=== PATIENT | female | born 1940 | race Caucasian/White ===

== ENCOUNTER → 2017-06-20 08:22 | Outpatient (CLI) | payer OTHER, MEDICARE, MEDICAID, SELFPAY ==
--- NOTE | 2017-06-20 08:27 | CA_ITS ---
PROCEDURE: 2-D M-mode and color Doppler study INDICATIONS FOR THE TEST: Chest pain COPDX Heart Murmur Tobacco Smoking Palpitations Fatigue Syncope Edema HypertensionXDiabetes Mellitus Rheumatic Fever SOBXDOEXObesityXHyperlipidemia Family History HD Additional History AF,PACER PATIENT INFORMATION HEIGHT: 72 WEIGHT:250 GENDER: Female B/P:122/52 2-D/M-MODE INTERPRETATION: 2-D MEASUREMENTS OBSERVED VALUES IN CMS Right Ventricular Dimension (RVDd) 2.6 Interventricular Septum (Thickness)(IVsd) 1.1 Left Ventricular Internal Dimensions(LVIDd) 5.0 Left Ventricular Posterior Wall (Thickness)(LVPWd) 1.0 Aortic Root 3.5 Aortic Cusp Separation 2.1 Left Atrial Dimensions (LAD) 3.4 2D 1. Left atrium is mildly enlarged, left ventricle is normal size, left ventricle wall thickness is upper limit of normal, there is preserved left ventricular systolic function, visually estimated ejection fraction of 65% with no obvious regional wall motion abnormality. 2. The right atrium and right ventricle are normal size and contractility, there is a pacemaker lead seen in the right atrium and right ventricle. 3. The aortic valve is minimally thickened and fibrosed. 4. The mitral valve has mitral annular calcification, there is no mitral stenosis 5. The tricuspid valve is structurally normal. 6. No significant pericardial effusion noted 7. The pulmonic valve is poorly visualized. DOPPLER INTERROGATION: Doppler interrogation of the aortic, mitral and tricuspid valvular presence of mild mitral and tricuspid regurgitation, tricuspid regurgitant jet velocity is insufficient for calculation of the right ventricular systolic pressure, grade 1 diastolic dysfunction seen without tissue Doppler evidence of raised left atrial pressure. CONCLUSION: 1. Mildly enlarged left atrium, normal left ventricular size, visually estimated ejection fraction 55% with no obvious regional wall motion abnormality, grade 1 diastolic dysfunction seen without tissue Doppler evidence of raised left atrial pressure. 2. Mild mitral and tricuspid regurgitation 4. No significant pericardial effusion noted.
--- NOTE | 2017-06-20 08:29 | XR_ITS ---
XR chest 2V HISTORY: ITS.REASON: cough, dyspnea ORDERING PHYSICIAN: Denver Cummins MD PATIENT AGE: 76 years COMPARISON: 02/02/2017 FINDINGS: Cardiac pacemaker device remains in place. Mild cardiomegaly without failure. COPD/emphysema present with chronic changes in the lung bases. Increased markings are present in the lung base posteriorly however this is probably related to interstitial and vascular crowding from the emphysematous changes in the upper lobes have an a similar appearance on previous exams. No lobar consolidation or collapse. There is minimal atelectatic or fibrotic change in the left lower lobe. No acute bony anomalies. IMPRESSION: COPD/emphysema with chronic changes, mild left basilar atelectasis
[2017-06-20 09:33] LABS: Anion Gap 11.6 mEq/L (5-15); Blood Urea Nitrogen 9 mg/dL (7-18); Carbon Dioxide 30 mmol/L (21.0-32.0); Chloride 104 mmol/L (98-107); Creatinine,Serum 1.19 mg/dL (0.55-1.02); Estimated Glomerular Filt Rate 44 ml/min (>60); GFR (African American) 53 ML/MIN (>60); Glucose 118 mg/dL (74-106); Potassium 3.6 mmoL/L (3.5-5.1); Sodium 142 mmol/L (136-145)
== END ==
PROVIDERS: Family Provider Family Medicine; PCP Internal Medicine Adolescent Medicine; Visit Provider Internal Medicine
DX: I42.1 Obstructive hypertrophic cardiomyopathy (principal); I48.0 Paroxysmal atrial fibrillation; Z95.0 Presence of cardiac pacemaker; J44.9 Chronic obstructive pulmonary disease, unspecified; I10 Essential (primary) hypertension; R06.02 Shortness of breath; R06.01 Orthopnea; R05 Cough; R60.9 Edema, unspecified
CPT/HCPCS: 36415; 71046; 80048; 83880; 93306

== ENCOUNTER → 2017-06-27 09:19 | Outpatient (CLI) | payer OTHER, MEDICARE, MEDICAID, SELFPAY ==
[2017-06-27 09:47] LABS: Anion Gap 14.1 mEq/L (5-15); Blood Urea Nitrogen 13 mg/dL (7-18); Carbon Dioxide 28 mmol/L (21.0-32.0); Chloride 101 mmol/L (98-107); Creatinine,Serum 1.28 mg/dL (0.55-1.02); Estimated Glomerular Filt Rate 40 ml/min (>60); GFR (African American) 49 ML/MIN (>60); Glucose 122 mg/dL (74-106); Potassium 4.1 mmoL/L (3.5-5.1); Sodium 139 mmol/L (136-145)
== END ==
PROVIDERS: Visit Provider Internal Medicine Cardiovascular Disease
DX: I42.1 Obstructive hypertrophic cardiomyopathy (principal); Z99.81 Dependence on supplemental oxygen; R94.31 Abnormal electrocardiogram [ECG] [EKG]; I48.0 Paroxysmal atrial fibrillation; Z95.0 Presence of cardiac pacemaker; J44.9 Chronic obstructive pulmonary disease, unspecified; I10 Essential (primary) hypertension; R06.02 Shortness of breath
CPT/HCPCS: 36415; 80048

== ENCOUNTER → 2017-07-04 14:09 | Outpatient (CLI) | payer OTHER, MEDICARE, MEDICAID, SELFPAY ==
[2017-07-04 14:15] LABS: Microscopic, Urine URINE MICROSCOPIC (MICROSCOPIC)
[2017-07-04 14:36] LABS: Appearance,Urine CLEAR (Clear); Bilirubin,Urine Negative (Negative); Blood, Urine TRACE-L (Negative); Color,Urine YELLOW (Yellow); Glucose,Urine (UA) Negative (Negative); Ketones,Urine Negative (Negative); Leukocyte Esterase,Urine 1+ (Negative); Nitrate,Urine Negative (Negative); PH,Urine 5.5 (5.0-8.5); Protein,Urine Negative (Negative); Urobilinogen,Urine 0.2 EU/dl (0.2)
[2017-07-04 15:04] LABS: WBC,Urine 20-50 #/hpf (0-3)
[2017-07-04 15:05] LABS: Bacteria,Urine Trace /lpf
== END ==
PROVIDERS: Visit Provider Internal Medicine Cardiovascular Disease
DX: R30.0 Dysuria (principal); I11.9 Hypertensive heart disease without heart failure; Z95.0 Presence of cardiac pacemaker; J44.9 Chronic obstructive pulmonary disease, unspecified
CPT/HCPCS: 81001; 87086

== ENCOUNTER → 2017-07-11 10:55 | Outpatient (CLI) | payer OTHER, MEDICARE, MEDICAID, SELFPAY ==
--- NOTE | 2017-07-11 11:05 | XR_ITS ---
XR KUB CLINICAL INDICATION: ITS.REASON: LOWER ABD PAIN,CHRONIC DIARRHEA ORDERING PHYSICIAN: Britt Bedolla PATIENT AGE: 77 years COMPARISON: None FINDINGS: There is a nonspecific nonobstructive bowel gas pattern. There are surgical clips in right upper quadrant. No obvious urolithiasis or acute bony anomalies. IMPRESSION: Nonspecific nonacute findings
[2017-07-11 12:34] LABS: Basophils # 0.1 K/mm3 (0-0.2); Basophils % 0.6 % (0.1-2.0); Eosinophils # 0.2 K/mm3 (0.0-0.4); Eosinophils % 1.9 % (0.1-12.0); Hematocrit 40.6 % (37.0-47.0); Hemoglobin 12.5 g/dL (12.2-16.2); Lymphocytes # 2.1 K/mm3 (0.7-4.5); Lymphocytes % 21.7 K/mm3 (10-50); Mean Corpuscular HGB Conc 30.8 g/dL (31.8-35.4); Mean Corpuscular Hemoglobin 28.1 pg (27.0-31.2); Mean Corpuscular Volume 91.3 fl (81-99); Mean Platelet Volume 8.8 fl (7.4-10.4); Monocytes # 0.5 K/mm3 (0.1-1.0); Monocytes % 5.4 % (1.7-9.3); Neutrophils # 6.8 K/mm3 (1.8-7.8); Neutrophils % 70.5 % (37.0-80.0); Platelet Count 266 K/mm3 (142-424); Red Blood Count 4.45 M/mm3 (4.20-5.40); White Blood Count 9.6 K/mm3 (4.8-10.8)
[2017-07-11 13:09] LABS: Hemoglobin A1C 5.7 % (0.0-7.0)
[2017-07-11 13:12] LABS: Alanine Aminotransferase 18 U/L (12-78); Albumin Level 3.8 gm/dL (3.4-5.0); Albumin/Globulin Ratio 1.1 (1.1-1.8); Alkaline Phosphatase 102 U/L (46-116); Anion Gap 14.4 mEq/L (5-15); Bilirubin,Total 0.2 mg/dL (0.2-1.0); Blood Urea Nitrogen 13 mg/dL (7-18); Calcium 8.9 mg/dL (8.5-10.1); Carbon Dioxide 26 mmol/L (21.0-32.0); Chloride 100 mmol/L (98-107); Creatinine,Serum 1.28 mg/dL (0.55-1.02); Estimated Glomerular Filt Rate 40 ml/min (>60); GFR (African American) 49 ML/MIN (>60); Globulin 3.4 gm/dl (1.3-3.2); Glucose 115 mg/dL (74-106); Sodium 136 mmol/L (136-145); Thyroid Stimulating Hormone 1.81 uIU/ml (0.358-3.740); Total Protein,Serum 7.2 gm/dL (6.4-8.2)
[2017-07-11 13:14] LABS: Potassium 4.4 mmoL/L (3.5-5.1)
[2017-07-11 13:15] LABS: Aspartate Amino Transferase 23 U/L (15-37)
== END ==
PROVIDERS: PCP Internal Medicine Adolescent Medicine; Visit Provider Nurse Practitioner Family
DX: R10.30 Lower abdominal pain, unspecified (principal); R73.03 Prediabetes; E03.9 Hypothyroidism, unspecified; K52.9 Noninfective gastroenteritis and colitis, unspecified
CPT/HCPCS: 36415; 74018; 80053; 83036; 84443; 85025

== ENCOUNTER → 2017-07-29 09:46 | Outpatient (POV) | payer OTHER, MEDICARE, MEDICAID, SELFPAY | PROVIDERS: Visit Provider Nurse Practitioner Acute Care | DX: Z00.00 Encounter for general adult medical examination without abnormal findings (principal) ==

== ENCOUNTER → 2017-07-31 18:05 | Outpatient (REF) | payer OTHER, MEDICARE, MEDICAID, SELFPAY ==
[2017-07-31 18:09] LABS: Adenovirus F 40/41, stool Not Detected (NotDetected); Astrovirus Not Detected (NotDetected); Campylobacter Not Detected (NotDetected); Clostridium Difficile A/B, PCR Not Detected (NotDetected); Cryptosporidium Not Detected (NotDetected); Cyclospora Cayetanesis Not Detected (NotDetected); Entamoeba histolytica Not Detected (NotDetected); Enteroaggregative E coli Not Detected (NotDetected); Enteropathogenic E coli Not Detected (NotDetected); Enterotoxigenic E coli Not Detected (NotDetected); Giardia lamblia Not Detected (NotDetected); Norovirus Not Detected (NotDetected); Plesimonas Shigalloides, PCR Not Detected (NotDetected); Rotavirus A Not Detected (NotDetected); Salmonella, PCR Not Detected (NotDetected); Sapovirus Not Detected (NotDetected); Shiga-like toxin E coli Not Detected (NotDetected); Shigella Enterovasive E coli Not Detected (NotDetected); Vibrio Cholerae Not Detected (NotDetected); Vibrio, PCR Not Detected (NotDetected); Yersinia Entercolitica, PCR Not Detected (NotDetected)
[2017-08-04 18:50] LABS: H. pylori Stool Ag, EIA Negative (Negative)
== END ==
LOC: LAB 18:05
PROVIDERS: Visit Provider Nurse Practitioner Acute Care
DX: R19.7 Diarrhea, unspecified (principal)
CPT/HCPCS: 83630; 87338; 87507

== ENCOUNTER → 2017-08-20 13:16 | Outpatient (POV) | payer OTHER, MEDICARE, MEDICAID, SELFPAY | PROVIDERS: Family Provider Family Medicine; Visit Provider Internal Medicine | DX: Z00.00 Encounter for general adult medical examination without abnormal findings (principal) ==

== ENCOUNTER → 2017-09-23 10:13 | Outpatient (POV) | payer OTHER, MEDICARE, MEDICAID, SELFPAY ==
[2017-09-23 14:12] LABS: Alanine Aminotransferase 13 U/L (12-78); Albumin Level 3.3 gm/dL (3.4-5.0); Albumin/Globulin Ratio 0.9 (1.1-1.8); Alkaline Phosphatase 105 U/L (46-116); Anion Gap 12.3 mEq/L (5-15); Aspartate Amino Transferase 13 U/L (15-37); Bilirubin,Total 0.2 mg/dL (0.2-1.0); Blood Urea Nitrogen 12 mg/dL (7-18); Calcium 9.2 mg/dL (8.5-10.1); Carbon Dioxide 28 mmol/L (21.0-32.0); Chloride 103 mmol/L (98-107); Creatinine,Serum 1.28 mg/dL (0.55-1.02); Estimated Glomerular Filt Rate 40 ml/min (>60); GFR (African American) 49 ML/MIN (>60); Globulin 3.5 gm/dl (1.3-3.2); Glucose 152 mg/dL (74-106); Potassium 4.3 mmoL/L (3.5-5.1); Sodium 139 mmol/L (136-145); Total Protein,Serum 6.8 gm/dL (6.4-8.2)
== END ==
PROVIDERS: Visit Provider Nurse Practitioner Acute Care
DX: R10.32 Left lower quadrant pain (principal)
CPT/HCPCS: 36415; 80053

== ENCOUNTER → 2017-10-01 08:43 | Outpatient (CLI) | payer MEDICARE, MEDICAID, OTHER, SELFPAY ==
--- NOTE | 2017-10-01 09:29 | CT_ITS ---
CT abdomen pelvis w con CLINICAL INDICATION: ITS.REASON: DIVERTICULITIS ORDERING PHYSICIAN: Veronica Craig PATIENT AGE: 77 years COMPARISON: None TECHNIQUE: Axial images obtained with sagittal and coronal reformats. All CT scans at the facility use one or more dose reduction, viz: automated exposure control; ma/kV adjustment per patient size (including targeted exams where dose is matched to indication; i.e. head); or iterative reconstruction technique. PROCEDURE: Oral Contrast: Redicat IV Contrast: 75 mL's of Isovue-370. FINDINGS: Emphysematous changes are present in the lung bases with centrilobular and panlobular emphysema. Atelectatic or fibrotic changes are present in the right middle lobe. Prior cholecystectomy without ductal dilatation. No focal liver lesion. There is a round isodense lesion in the inferior aspect of the spleen measuring 2.5 cm. This does demonstrate some minimal peripheral enhancement along the superior posterior wall. The adrenal glands are unremarkable. There is an oval area of isodensity in the head of the pancreas measuring 10 x 15 mm. This measures near water density. No renal or ureteral calculi. 17 mm isodensity involving the right kidney anteriorly consistent with a renal cyst. Unremarkable appendix. Diverticulosis involving the descending and sigmoid colon. No evidence of diverticulitis. No pelvic mass or abnormal fluid collection or focal inflammatory changes. No evidence of abscess. No intestinal obstruction or free air. Degenerative changes are present in the lumbar spine. IMPRESSION: 1. Diverticulosis coli. No evidence of diverticulitis. 2. Isodense splenic lesion probably benign. There is some minimal peripheral enhancement. Hemangioma or lymphangioma or splenic cyst considered. 3. Small cystic lesion of the pancreatic head. This could be due to a pseudocyst or a mucinous cystic neoplasm of the pancreas. Follow-up may confirm stability
== END ==
PROVIDERS: Family Provider Family Medicine; PCP Internal Medicine Adolescent Medicine; Visit Provider Nurse Practitioner Acute Care
DX: K57.32 Diverticulitis of large intestine without perforation or abscess without bleeding (principal)
CPT/HCPCS: 74177; Q9967

== ENCOUNTER → 2017-10-10 11:08 | Outpatient (CLI) | payer OTHER, MEDICARE, MEDICAID, SELFPAY ==
[2017-10-10 12:50] LABS: Alanine Aminotransferase 5 U/L (12-78); Albumin Level 3.5 gm/dL (3.4-5.0); Albumin/Globulin Ratio 1.1 (1.1-1.8); Alkaline Phosphatase 98 U/L (46-116); Amylase 44 U/L (25-125); Anion Gap 14.7 mEq/L (5-15); Aspartate Amino Transferase 15 U/L (15-37); Bilirubin,Total 0.4 mg/dL (0.2-1.0); Blood Urea Nitrogen 14 mg/dL (7-18); Calcium 8.9 mg/dL (8.5-10.1); Carbon Dioxide 28 mmol/L (21.0-32.0); Chloride 102 mmol/L (98-107); Creatinine,Serum 1.28 mg/dL (0.55-1.02); Estimated Glomerular Filt Rate 40 ml/min (>60); GFR (African American) 49 ML/MIN (>60); Globulin 3.2 gm/dl (1.3-3.2); Glucose 112 mg/dL (74-106); Lipase 136 u/L (73-393); Potassium 4.7 mmoL/L (3.5-5.1); Sodium 140 mmol/L (136-145); Total Protein,Serum 6.7 gm/dL (6.4-8.2)
[2017-10-10 13:01] LABS: Basophils % 0.4 % (0.1-2.0); Eosinophils # 0.1 K/mm3 (0.0-0.4); Eosinophils % 1.4 % (0.1-12.0); Hematocrit 39.4 % (37.0-47.0); Hemoglobin 11.9 g/dL (12.2-16.2); Lymphocytes # 1.7 K/mm3 (0.7-4.5); Lymphocytes % 17.5 K/mm3 (10-50); Mean Corpuscular HGB Conc 30.2 g/dL (31.8-35.4); Mean Corpuscular Hemoglobin 26.5 pg (27.0-31.2); Mean Platelet Volume 8.7 fl (7.4-10.4); Monocytes # 0.6 K/mm3 (0.1-1.0); Monocytes % 6.2 % (1.7-9.3); Neutrophils # 7.3 K/mm3 (1.8-7.8); Neutrophils % 74.5 % (37.0-80.0); Platelet Count 292 K/mm3 (142-424); Red Blood Count 4.47 M/mm3 (4.20-5.40); Red Cell Distribution Width 14.6 % (11.5-17.5); White Blood Count 9.8 K/mm3 (4.8-10.8)
[2017-10-11 15:39] LABS: CA 19-9 6 U/mL (0-35); CEA 2.1 ng/mL (0.0-4.7)
== END ==
PROVIDERS: Visit Provider Nurse Practitioner Acute Care
DX: R10.32 Left lower quadrant pain (principal)
CPT/HCPCS: 36415; 80053; 82150; 82378; 83690; 85025; 86316

== ENCOUNTER → 2017-10-14 10:11 | Outpatient (POV) | payer MEDICARE, MEDICAID, OTHER, SELFPAY | PROVIDERS: Visit Provider Nurse Practitioner Acute Care | DX: Z00.00 Encounter for general adult medical examination without abnormal findings (principal) ==

== ENCOUNTER → 2017-11-27 12:05 | Outpatient (CLI) | payer OTHER, MEDICARE, MEDICAID, SELFPAY ==
[2017-11-27 13:05] LABS: Anion Gap 14.9 mEq/L (5-15); Blood Urea Nitrogen 13 mg/dL (7-18); Calcium 9.1 mg/dL (8.5-10.1); Carbon Dioxide 29 mmol/L (21.0-32.0); Chloride 103 mmol/L (98-107); Creatinine,Serum 1.22 mg/dL (0.55-1.02); Estimated Glomerular Filt Rate 43 ml/min (>60); GFR (African American) 52 ML/MIN (>60); Glucose 107 mg/dL (74-106); Potassium 4.9 mmoL/L (3.5-5.1); Sodium 142 mmol/L (136-145)
== END ==
PROVIDERS: Family Provider Family Medicine; PCP Internal Medicine Adolescent Medicine; Visit Provider Physician Assistant
DX: R06.02 Shortness of breath (principal); I42.1 Obstructive hypertrophic cardiomyopathy; R94.31 Abnormal electrocardiogram [ECG] [EKG]; Z95.0 Presence of cardiac pacemaker
CPT/HCPCS: 36415; 80048; 83880

== ENCOUNTER → 2017-12-02 10:23 | Outpatient (POV) | payer MEDICARE, MEDICAID, OTHER, SELFPAY | PROVIDERS: Family Provider Family Medicine; PCP Internal Medicine Adolescent Medicine; Visit Provider Nurse Practitioner Acute Care | DX: Z00.00 Encounter for general adult medical examination without abnormal findings (principal) ==

== ENCOUNTER → 2018-07-29 13:14 | Outpatient (POV) | payer OTHER, MEDICARE, MEDICAID, SELFPAY | PROVIDERS: Visit Provider Internal Medicine | DX: Z00.00 Encounter for general adult medical examination without abnormal findings (principal) ==

== ENCOUNTER → 2018-12-23 13:21 | Outpatient (POV) | payer OTHER, MEDICARE, MEDICAID, SELFPAY | PROVIDERS: Visit Provider Internal Medicine | DX: Z00.00 Encounter for general adult medical examination without abnormal findings (principal) ==

== ENCOUNTER → 2019-02-03 12:40 | Outpatient (CLI) | payer OTHER, MEDICARE, SELFPAY ==
--- NOTE | 2019-02-03 12:54 | XR_ITS ---
PROCEDURE: XR CHEST 2V CLINICAL HISTORY: ASTHMA COPD COMPARISON: CXR2V XR chest 2V from 06/20/2017 FINDINGS: The cardiomediastinal silhouette and pulmonary vascularity are within normal limits. Bipolar pacemaker is present from left subclavian approach. There is COPD with bibasilar fibrotic changes. Chronic changes noted in the lung bases. Upper lobes are clear. Mild thoracic kyphosis. No acute bony abnormalities. IMPRESSION: COPD with chronic changes, no acute finding Dictated by: Paulo Marquez MD 02/03/2019 16:58 Electronically signed by Paulo Marquez MD in [place] 02/03/2019 16:58
[2019-02-03 13:21] LABS: Basophils # 0.1 K/mm3 (0-0.2); Basophils % 0.7 % (0.1-2.0); Eosinophils # 0.1 K/mm3 (0.0-0.4); Eosinophils % 0.6 % (0.1-12.0); Hematocrit 37.5 % (37.0-47.0); Hemoglobin 11.8 g/dL (12.2-16.2); Lymphocytes # 2.7 K/mm3 (0.7-4.5); Lymphocytes % 19.1 % (10-50); Mean Corpuscular HGB Conc 31.4 g/dL (31.8-35.4); Mean Corpuscular Hemoglobin 29.8 pg (27.0-31.2); Mean Corpuscular Volume 94.9 fl (81-99); Mean Platelet Volume 8.6 fl (7.4-10.4); Monocytes # 0.7 K/mm3 (0.1-1.0); Neutrophils # 10.4 K/mm3 (1.8-7.8); Neutrophils % 74.6 % (37.0-80.0); Platelet Count 295 K/mm3 (142-424); Red Blood Count 3.95 M/mm3 (4.20-5.40); Red Cell Distribution Width 14.9 % (11.5-17.5)
[2019-02-03 14:50] LABS: Alanine Aminotransferase 19 U/L (12-78); Albumin Level 3.5 gm/dL (3.4-5.0); Albumin/Globulin Ratio 1.1 (1.1-1.8); Alkaline Phosphatase 79 U/L (46-116); Anion Gap 14.4 mEq/L (5-15); Aspartate Amino Transferase 9 U/L (15-37); Bilirubin,Total 0.3 mg/dL (0.2-1.0); Blood Urea Nitrogen 18 mg/dL (7-18); Calcium 9.3 mg/dL (8.5-10.1); Carbon Dioxide 29 mmol/L (21.0-32.0); Chloride 99 mmol/L (98-107); Creatinine,Serum 1.57 mg/dL (0.55-1.02); Digoxin 1.65 ng/mL (0.90-2.00); Estimated Glomerular Filt Rate 32 ml/min (>60); GFR (African American) 38 ML/MIN (>60); Globulin 3.3 gm/dl (1.3-3.2); Glucose 91 mg/dL (74-106); Potassium 5.4 mmoL/L (3.5-5.1); Sodium 137 mmol/L (136-145); Thyroid Stimulating Hormone 2.31 uIU/ml (0.358-3.740); Total Protein,Serum 6.8 gm/dL (6.4-8.2)
== END ==
PROVIDERS: Visit Provider Nurse Practitioner Family
DX: J44.9 Chronic obstructive pulmonary disease, unspecified (principal); R73.03 Prediabetes; I48.0 Paroxysmal atrial fibrillation; E03.9 Hypothyroidism, unspecified; Z51.81 Encounter for therapeutic drug level monitoring
CPT/HCPCS: 36415; 71046; 80053; 80162; 83036; 84443; 85025

== ENCOUNTER → 2019-09-10 10:26 | Outpatient (CLI) | payer OTHER, SELFPAY ==
[2019-09-10 11:34] LABS: Chloride 97 mmol/L (98-107); Potassium 5.7 mmoL/L (3.5-5.1); Sodium 135 mmol/L (136-145)
[2019-09-10 11:37] LABS: Anion Gap 16.7 mEq/L (5-15); Blood Urea Nitrogen 28 mg/dl (7-17); Calcium 9.6 mg/dl (8.4-10.2); Carbon Dioxide 27 mmol/L (22.0-30.0); Estimated Glomerular Filt Rate 33 ml/min (>60); GFR (African American) 40 ML/MIN (>60); Glucose 86 mg/dl (74-100)
[2019-09-10 11:46] LABS: NT Pro Brain Natriuretic Pep. 466 pg/mL (0-450)
== END ==
PROVIDERS: Visit Provider Internal Medicine Cardiovascular Disease
DX: I25.10 Atherosclerotic heart disease of native coronary artery without angina pectoris; I42.1 Obstructive hypertrophic cardiomyopathy; I48.0 Paroxysmal atrial fibrillation; I50.33 Acute on chronic diastolic (congestive) heart failure; R06.00 Dyspnea, unspecified; Z95.0 Presence of cardiac pacemaker
CPT/HCPCS: 36415; 80048; 83880

== ENCOUNTER → 2019-09-14 09:07 | Outpatient (CLI) | payer OTHER, MEDICARE, SELFPAY ==
--- NOTE | 2019-09-14 09:11 | CA_ITS ---
APPROVED REPORT EXAM: Comprehensive 2D, Doppler, and color-flow Echocardiogram Web Marketing Coordinator: Edith Jenkins RVT Ht: 6 ft 0 in Wt: 207lbs BSA: 2.16 BP: 105/66 mmHg Indications: SOA,CAD,PAF,PACER,HTN,EX SMOKER TDS 2D Dimensions LVOT 1.87 cm (M/F) 1.5-2.5 M-Mode Dimensions RVDd 3.16 cm (0.9-2.6) LVDd 5.08 cm (3.5-5.7) LVDs 3.57 cm (3.5-5.7) IVSd 0.80 cm (0.6-1.1) PWd 0.71 cm (0.6-1.1) EF (Teich) 56.60% FS 29.70% EDV (Teich) 122.70 mL ESV (Teich) 53.30 mL LV Diastology E/A Ratio 0.78 Mitral Valve MV A Velocity 88.00 (40-130 cm/s) Left Ventricle Left atrium is mildly enlarged, left ventricle is normal size, mild concentric left ventricular hypertrophy, visually estimated ejection fraction 55% with no regional wall motion abnormality, grade 1 diastolic dysfunction seen without tissue Doppler evidence of raise left atrial pressure. Right Ventricle Right atrium and right ventricle are normal size and contractility, there is a pacemaker leads in the right ventricle. Aortic Valve Aortic valve is minimally thickened and fibrosed, there is no aortic stenosis or aortic insufficiency. Mitral Valve Mitral leaflets are minimally thickened, there is no mitral stenosis, there is mild mitral regurgitation. Tricuspid Valve Tricuspid valve is grossly normal, there is mild tricuspid regurgitation, tricuspid regurgitation jet closes inadequate for calculation of the right ventricular systolic pressure. Pulmonic Valve Pulmonic valve is poorly visualized. Great Vessels He report is normal size. Pericardium No significant pericardial effusion noted. Conclusion 1. Mildly enlarged left atrium, normal left ventricular size, mild concentric ventricular hypertrophy, visually estimated ejection fraction 55% with no regional wall motion abnormality, grade 1 diastolic dysfunction seen without tissue Doppler evidence of raise left atrial pressure. 2. Thickened and calcified aortic valve without aortic stenosis or aortic insufficiency. 3. Mild mitral and tricuspid regurgitation. 4. No significant pericardial effusion noted. Electronically signed by : Dionicio Perla, 09/14/2019 20:38:04
== END ==
PROVIDERS: PCP Internal Medicine Adolescent Medicine; Visit Provider Internal Medicine Cardiovascular Disease
DX: I50.33 Acute on chronic diastolic (congestive) heart failure (principal); R06.00 Dyspnea, unspecified; I42.1 Obstructive hypertrophic cardiomyopathy; I48.0 Paroxysmal atrial fibrillation; I10 Essential (primary) hypertension; I25.10 Atherosclerotic heart disease of native coronary artery without angina pectoris; Z95.0 Presence of cardiac pacemaker
CPT/HCPCS: 93306

== ENCOUNTER → 2019-09-24 11:24 | Outpatient (CLI) | payer OTHER, MEDICARE, SELFPAY ==
[2019-09-24 13:33] LABS: Anion Gap 16.1 mEq/L (5-15); Blood Urea Nitrogen 20 mg/dl (7-17); Calcium 9.4 mg/dl (8.4-10.2); Carbon Dioxide 27 mmol/L (22.0-30.0); Chloride 97 mmol/L (98-107); Estimated Glomerular Filt Rate 36 ml/min (>60); GFR (African American) 44 ML/MIN (>60); Glucose 128 mg/dl (74-100); Potassium 4.1 mmoL/L (3.5-5.1); Sodium 136 mmol/L (136-145)
== END ==
PROVIDERS: Visit Provider Internal Medicine Cardiovascular Disease
DX: I25.10 Atherosclerotic heart disease of native coronary artery without angina pectoris (principal); I42.1 Obstructive hypertrophic cardiomyopathy; R06.00 Dyspnea, unspecified; I10 Essential (primary) hypertension; I48.0 Paroxysmal atrial fibrillation; I50.33 Acute on chronic diastolic (congestive) heart failure; Z95.0 Presence of cardiac pacemaker
CPT/HCPCS: 36415; 80048

== ENCOUNTER → 2019-10-08 11:26 | Outpatient (CLI) | payer OTHER, MEDICARE, SELFPAY ==
[2019-10-08 13:18] LABS: Anion Gap 11.8 mEq/L (5-15); Blood Urea Nitrogen 16 mg/dl (7-17); Carbon Dioxide 31 mmol/L (22.0-30.0); Chloride 99 mmol/L (98-107); Estimated Glomerular Filt Rate 39 ml/min (>60); GFR (African American) 48 ML/MIN (>60); Glucose 114 mg/dl (74-100); Potassium 3.8 mmoL/L (3.5-5.1); Sodium 138 mmol/L (136-145)
== END ==
PROVIDERS: Visit Provider Nurse Practitioner Family
DX: I10 Essential (primary) hypertension (principal); I25.10 Atherosclerotic heart disease of native coronary artery without angina pectoris; I42.1 Obstructive hypertrophic cardiomyopathy; I48.0 Paroxysmal atrial fibrillation; I50.33 Acute on chronic diastolic (congestive) heart failure; R06.00 Dyspnea, unspecified
CPT/HCPCS: 36415; 80048

== ENCOUNTER → 2019-10-22 09:54 | Outpatient (CLI) | payer OTHER, MEDICARE, SELFPAY ==
[2019-10-22 11:13] LABS: Chloride 98 mmol/L (98-107)
[2019-10-22 11:14] LABS: Potassium 3.4 mmoL/L (3.5-5.1); Sodium 138 mmol/L (136-145)
[2019-10-22 11:17] LABS: Anion Gap 11.4 mEq/L (5-15); Blood Urea Nitrogen 21 mg/dl (7-17); Calcium 8.2 mg/dl (8.4-10.2); Carbon Dioxide 32 mmol/L (22.0-30.0); Estimated Glomerular Filt Rate 33 ml/min (>60); GFR (African American) 40 ML/MIN (>60); Glucose 113 mg/dl (74-100)
== END ==
PROVIDERS: Visit Provider Nurse Practitioner Family
DX: I25.10 Atherosclerotic heart disease of native coronary artery without angina pectoris (principal); R06.00 Dyspnea, unspecified; R60.9 Edema, unspecified; I42.1 Obstructive hypertrophic cardiomyopathy; I48.0 Paroxysmal atrial fibrillation; I50.33 Acute on chronic diastolic (congestive) heart failure; I10 Essential (primary) hypertension; J44.9 Chronic obstructive pulmonary disease, unspecified; Z95.0 Presence of cardiac pacemaker; Z99.81 Dependence on supplemental oxygen
CPT/HCPCS: 36415; 80048

== ENCOUNTER → 2019-10-28 09:38 | Outpatient (CLI) | payer OTHER, MEDICARE, SELFPAY ==
[2019-10-28 15:50] LABS: Chloride 100 mmol/L (98-107); Sodium 141 mmol/L (136-145)
[2019-10-28 15:51] LABS: Potassium 3.8 mmoL/L (3.5-5.1)
[2019-10-28 15:54] LABS: Anion Gap 14.8 mEq/L (5-15); Blood Urea Nitrogen 13 mg/dl (7-17); Calcium 7.9 mg/dl (8.4-10.2); Carbon Dioxide 30 mmol/L (22.0-30.0); Estimated Glomerular Filt Rate 39 ml/min (>60); GFR (African American) 48 ML/MIN (>60); Glucose 113 mg/dl (74-100)
== END ==
PROVIDERS: Visit Provider Nurse Practitioner Family
DX: I10 Essential (primary) hypertension (principal); I25.10 Atherosclerotic heart disease of native coronary artery without angina pectoris; I42.1 Obstructive hypertrophic cardiomyopathy; I48.0 Paroxysmal atrial fibrillation; I50.33 Acute on chronic diastolic (congestive) heart failure; J44.9 Chronic obstructive pulmonary disease, unspecified; R06.00 Dyspnea, unspecified; R60.9 Edema, unspecified; Z95.0 Presence of cardiac pacemaker; Z99.81 Dependence on supplemental oxygen
CPT/HCPCS: 36415; 80048

== ENCOUNTER → 2020-04-04 12:23 | Outpatient (CLI) | payer OTHER, MEDICARE, SELFPAY ==
[2020-04-04 13:29] LABS: Basophils # 0.1 K/mm3 (0-0.2); Basophils % 0.4 % (0.1-2.0); Eosinophils # 0.1 K/mm3 (0.0-0.4); Hematocrit 30.3 % (37.0-47.0); Hemoglobin 8.9 g/dL (12.2-16.2); Lymphocytes # 1.6 K/mm3 (0.7-4.5); Lymphocytes % 12.3 % (10-50); Mean Corpuscular HGB Conc 29.2 g/dL (31.8-35.4); Mean Corpuscular Hemoglobin 23.5 pg (27.0-31.2); Mean Corpuscular Volume 80.3 fl (81-99); Mean Platelet Volume 7.6 fl (7.4-10.4); Monocytes # 0.6 K/mm3 (0.1-1.0); Monocytes % 4.6 % (1.7-9.3); Neutrophils # 10.4 K/mm3 (1.8-7.8); Neutrophils % 81.6 % (37.0-80.0); Platelet Count 312 K/mm3 (142-424); Red Blood Count 3.78 M/mm3 (4.20-5.40); Red Cell Distribution Width 16.9 % (11.5-17.5); White Blood Count 12.8 K/mm3 (4.8-10.8)
[2020-04-04 14:30] LABS: Chloride 104 mmol/L (98-107); Potassium 4.2 mmoL/L (3.5-5.1); Sodium 140 mmol/L (136-145)
[2020-04-04 14:33] LABS: Anion Gap 11.2 mEq/L (5-15); Blood Urea Nitrogen 17 mg/dl (7-17); Carbon Dioxide 29 mmol/L (22.0-30.0); Estimated Glomerular Filt Rate 39 ml/min (>60); GFR (African American) 48 ML/MIN (>60)
[2020-04-04 14:34] LABS: Calcium 8.8 mg/dl (8.4-10.2); Glucose 102 mg/dl (74-100)
[2020-04-04 14:42] LABS: NT Pro Brain Natriuretic Pep. 3650 pg/mL (0-450)
== END ==
PROVIDERS: Visit Provider Urology
DX: R06.00 Dyspnea, unspecified (principal); I25.10 Atherosclerotic heart disease of native coronary artery without angina pectoris; I42.1 Obstructive hypertrophic cardiomyopathy; I48.0 Paroxysmal atrial fibrillation; I10 Essential (primary) hypertension; J44.9 Chronic obstructive pulmonary disease, unspecified; R60.9 Edema, unspecified; R94.31 Abnormal electrocardiogram [ECG] [EKG]; Z95.0 Presence of cardiac pacemaker; Z99.81 Dependence on supplemental oxygen
CPT/HCPCS: 36415; 80048; 83880; 85025

== ENCOUNTER 2020-04-13 09:22 | Emergency (ER) | payer OTHER, MEDICARE, SELFPAY ==
[2020-04-13] VITALS (8 sets, daily range): BP systolic 108–138; BP diastolic 44–63; PULSE 70–74; RESP 16–20; TEMP 36.8–37.7; O2SAT 94–99; BMI 29.4
--- NOTE | 2020-04-13 09:37 | XR_ITS ---
PROCEDURE: XR CHEST PORTABLE CLINICAL HISTORY: soa COMPARISON: CT [facility] CT CHEST W/O CONTRAST from 12/07/2016 CR CXR1 CHEST-PORTABLE from 02/02/2017 DX CXR2V XR chest 2V from 06/20/2017 DX XR CHEST 2V from 02/03/2019 FINDINGS: Emphysematous changes are again noted with hyperexpansion lung snyder. Chronic underlying scarring is seen in both lung bases. However there appear to be superimposed ill-defined opacities in both perihilar regions and lower lobes and in this clinical environment Covid19 pneumonia is a possibility. There is relative sparing of the upper lobes bilaterally. Cardiac size is normal, there is a left infraclavicular cardiac pacemaker with dual chamber electrodes both in good position. IMPRESSION: COPD with chronic basilar changes but suspect superimposed acute bilateral perihilar and lower lobe pneumonic infiltrates Dictated by: Dr. Sahil Llanes MD 04/13/2020 10:03 Dr. Sahil Llanes MD in [place] 04/13/2020 10:03
--- NOTE | 2020-04-13 09:47 | ECG_ITS ---
APPROVED REPORT Exam: Resting ECG HR:71 bpm ECG Measurements Heart Rate 71 AXES PA 200 P 114 QRSd 92 QRS 18 QT 370 T 266 QTc 402 Conclusion Sinus rhythm with premature atrial complexes NSSTTW changes - seen on prior ecg Abnormal ECG Electronically signed by : Tha Rivera, 04/13/2020 20:46:53
--- NOTE | 2020-04-13 09:51 | HMH.EDGENADL ---
ED Disposition Clinical Impression: COVID-19 Disposition: Home, Self-Care Condition on Discharge: Fair Instructions: DI for Shortness of Breath Additional Instructions: Tested for COVID-19 and the test results are not back; however the chest x-ray shows COPD with superimposed opacities in both bibasilar areas this could be due to COVID-19 we have spoken to Dr. Sanford and he feels that you could be discharged home on dexamethasone as well as doxycycline we are prescribing these however please follow-up closely especially in case your symptoms worsen Prescriptions: dexAMETHasone [Decadron 4mg tablet] 4 mg PO BID 7 Days #28 tab Transmission Status: Pending to [facility] Mail [facility] Doxycycline Hyclate [Doxycycline 100mg Capsule] 100 mg PO Q12 7 Days #14 cap Transmission Status: Pending to [facility] Mail [facility] Referrals: PCP,No [Non-Staff] - - Critical Care Critical Care Time: No Attestation: On 04/13/20, the high probability of a clinically significant, sudden or life threatening deterioration of the following system(s) required my full and direct attention, intervention and personal management. The time I documented below is in addition to time spent performing reported procedures but includes the following listed in this critical care notation. Medical Decision Making - Medical Records Medical records reviewed: Yes: I reviewed the patient's medical records. MR Comment: 79 year old female here with a complaint that she thinks she may have COVID-19; states several of her family members tested positive for Covid and she has had symptoms such as fever and chills as well as nausea and loss of taste. Patient's labs have been reviewed and they show the following CBC is essentially normal with a WBC of 10.3 electrolytes are essentially normal flu test is negative Covid antibody test is negative chest x-ray shows COPD with superimposed opacities in both bibasilar areas COVID-19 is a possibility vital signs are stable spoke to Dr. Sanford and he has advised that the patient may be discharged home with dexamethasone as well as doxycycline patient is hospice care due to her chronic COPD; she has been informed of the findings and plan to DC home - Jose Inquiry Pt receiving controlled substance: No Jose was queried for this patient: No Vital Signs: 04/13/20 09:23 04/13/20 09:54 04/13/20 10:44 Temperature 99.9 F H Temperature Source Oral Pulse Rate [Left Radial] 70 70 70 Respiratory Rate 16 Blood Pressure [Right Arm] 138/55 L 116/44 L 132/63 Blood Pressure Mean [Right Arm] 82 68 86 Blood Pressure Source [Right Arm] Automatic Cuff Automatic Cuff Automatic Cuff Blood Pressure Position [Right Arm] Sitting Sitting Sitting 02 Sat by Pulse Oximetry 94 L 99 98 Oxygen Delivery Method Nasal Cannula Nasal Cannula Nasal Cannula Oxygen Flow Rate (LPM) 3 3 3 04/13/20 11:02 04/13/20 11:34 04/13/20 12:06 Temperature Temperature Source Pulse Rate [Left Radial] 70 70 70 Respiratory Rate Blood Pressure [Right Arm] 130/47 L 118/53 L 112/44 L Blood Pressure Mean [Right Arm] 74 74 66 Blood Pressure Source [Right Arm] Automatic Cuff Automatic Cuff Automatic Cuff Blood Pressure Position [Right Arm] Sitting Sitting Sitting 02 Sat by Pulse Oximetry 98 96 96 Oxygen Delivery Method Nasal Cannula Nasal Cannula Nasal Cannula Oxygen Flow Rate (LPM) 3 3 3 04/13/20 12:30 Temperature Temperature Source Pulse Rate [Left Radial] 70 Respiratory Rate 20 Blood Pressure [Right Arm] 108/62 L Blood Pressure Mean [Right Arm] 77 Blood Pressure Source [Right Arm] Automatic Cuff Blood Pressure Position [Right Arm] Sitting 02 Sat by Pulse Oximetry 97 Oxygen Delivery Method Nasal Cannula Oxygen Flow Rate (LPM) 3 - Lab Data Lab results reviewed: Yes: I reviewed the patient's lab results. Lab Results 04/13/20 10:05: WBC 10.3, RBC 3.48 L, Hgb 8.3 L, Hct 27.8 L, MCV 80.0 L, MCH 23.8 L, MCHC 29.7 L, RDW 17.4,
[2020-04-13 10:21] LABS: Basophils # 0.1 K/mm3 (0-0.2); Eosinophils # 0.1 K/mm3 (0.0-0.4); Eosinophils % 0.9 % (0.1-12.0); Hematocrit 27.8 % (37.0-47.0); Hemoglobin 8.3 g/dL (12.2-16.2); Lymphocytes # 0.8 K/mm3 (0.7-4.5); Lymphocytes % 7.3 % (10-50); Mean Corpuscular HGB Conc 29.7 g/dL (31.8-35.4); Mean Corpuscular Hemoglobin 23.8 pg (27.0-31.2); Mean Platelet Volume 8.5 fl (7.4-10.4); Monocytes # 0.5 K/mm3 (0.1-1.0); Monocytes % 4.7 % (1.7-9.3); Neutrophils # 8.9 K/mm3 (1.8-7.8); Neutrophils % 86.1 % (37.0-80.0); Platelet Count 303 K/mm3 (142-424); Red Blood Count 3.48 M/mm3 (4.20-5.40); Red Cell Distribution Width 17.4 % (11.5-17.5); White Blood Count 10.3 K/mm3 (4.8-10.8)
[2020-04-13 10:24] LABS: MANUAL DIFFERENTIAL MANUAL DIFFERENTIAL (MANUAL DIFF)
[2020-04-13 10:31] LABS: Anisocytosis 1+; Eosinophils % 2 % (0-3); Hypochromasia 2+; Lymphocytes % 8 % (10-50); Microcytosis 1+; Monocytes % 1 % (2-9); Neutrophils % 83 % (42-76); Platelet Estimate Normal; Total Cells Counted 100
[2020-04-13 10:39] LABS: Lactic Acid 1.8 mmol/L (0.7-2.1)
[2020-04-13 12:09] LABS: Chloride 102 mmol/L (98-107); Potassium 3.9 mmoL/L (3.5-5.1); Sodium 138 mmol/L (136-145)
[2020-04-13 12:11] LABS: Alanine Aminotransferase 12 U/L (12-78); Aspartate Amino Transferase 29 U/L (14-36); Blood Urea Nitrogen 15 mg/dl (7-17); Creatinine Clearance Estimated 62 mL/min (50-200); Estimated Glomerular Filt Rate 48 ml/min (>60); GFR (African American) 58 ML/MIN (>60)
[2020-04-13 12:12] LABS: Albumin Level 3.9 g/dl (3.5-5.0); Albumin/Globulin Ratio 1.1 (1.1-1.8); Alkaline Phosphatase 69 U/L (38-126); Anion Gap 10.9 mEq/L (5-15); Bilirubin,Total 0.4 mg/dl (0.2-1.3); Carbon Dioxide 29 mmol/L (22.0-30.0); Globulin 3.4 g/dL (1.3-3.2); Glucose 109 mg/dl (74-100); Total Protein,Serum 7.3 g/dl (6.3-8.2)
--- NOTE | 2020-04-13 12:16 | PC.NURSE ---
Calling Dr Rivera at this time.
--- NOTE | 2020-04-13 12:17 | PC.NURSE ---
Dr hsu to return call.
--- NOTE | 2020-04-13 12:27 | PC.NURSE ---
SERGIO BARTON speaking with Dr. Rivera
--- NOTE | 2020-04-13 12:56 | PC.NURSE ---
Rebeca DICKSON SPOKE WITH DR CHESTER PT IS GONNA GO HOME
[2020-04-14 12:20] LABS: Covid-19 Nasal PCR Sendout P&C Negative
== END 2020-04-13 13:29 | disposition home or self-care (01) ==
PROVIDERS: Emergency Provider Emergency Medicine; PCP Internal Medicine Adolescent Medicine
DX: Z20.828 Contact with and (suspected) exposure to other viral communicable diseases (principal); I48.91 Unspecified atrial fibrillation; J44.9 Chronic obstructive pulmonary disease, unspecified; I25.10 Atherosclerotic heart disease of native coronary artery without angina pectoris; I10 Essential (primary) hypertension; E11.9 Type 2 diabetes mellitus without complications; E78.5 Hyperlipidemia, unspecified; Z87.891 Personal history of nicotine dependence; Z95.0 Presence of cardiac pacemaker; Z79.899 Other long term (current) drug therapy; Z88.1 Allergy status to other antibiotic agents; Z88.2 Allergy status to sulfonamides; Z88.5 Allergy status to narcotic agent; Z88.8 Allergy status to other drugs, medicaments and biological substances
CPT/HCPCS: 71045; 80053; 83605; 85007; 85025; 87040; 87275; 87276; 93005; 96375; 99284; U0004

== ENCOUNTER → 2020-07-11 11:44 | Outpatient (CLI) | payer MEDICARE, OTHER, SELFPAY ==
--- NOTE | 2020-07-11 11:52 | XR_ITS ---
PROCEDURE: XR CHEST 2V CLINICAL HISTORY: HYPOTHROIDISM, SOB COMPARISON: CT [facility] CT CHEST W/O CONTRAST from 12/07/2016 DX CXR2V XR chest 2V from 06/20/2017 DX XR CHEST 2V from 02/03/2019 CR XR CHEST PORTABLE from 04/13/2020 FINDINGS: Extensive emphysematous changes of the lungs bilaterally, predominantly in upper lobes. Bilateral lower zone subsegmental atelectasis noted, demonstrate no significant interval change compared to the prior study. Blunting of the bilateral costophrenic angles, unchanged. This may represent small bilateral pleural effusions. Cardiac size and central pulmonary vasculature are within normal limits. Vascular calcification is noted. Dual-chamber pacemaker is noted. Degenerative changes with minor kyphotic angulation of the thoracic spine. IMPRESSION: Bibasilar atelectasis, demonstrate no significant interval change compared to prior study. Bilateral chronic emphysematous changes. Dictated by: Ivette Eugene 07/11/2020 12:31 Ivette Eugene in [place] 07/11/2020 12:31
[2020-07-11 13:39] LABS: Basophils # 0.1 K/mm3 (0-0.2); Basophils % 0.5 % (0.1-2.0); Eosinophils # 0.1 K/mm3 (0.0-0.4); Eosinophils % 0.8 % (0.1-12.0); Hematocrit 30.6 % (37.0-47.0); Hemoglobin 8.6 g/dL (12.2-16.2); Lymphocytes # 1.4 K/mm3 (0.7-4.5); Lymphocytes % 11.2 % (10-50); Mean Corpuscular HGB Conc 28.2 g/dL (31.8-35.4); Mean Corpuscular Hemoglobin 22.1 pg (27.0-31.2); Mean Corpuscular Volume 78.5 fl (81-99); Mean Platelet Volume 8.3 fl (7.4-10.4); Monocytes # 0.4 K/mm3 (0.1-1.0); Monocytes % 3.6 % (1.7-9.3); Neutrophils # 10.3 K/mm3 (1.8-7.8); Neutrophils % 83.9 % (37.0-80.0); Platelet Count 372 K/mm3 (142-424); Red Cell Distribution Width 18.5 % (11.5-17.5); White Blood Count 12.3 K/mm3 (4.8-10.8)
[2020-07-11 13:48] LABS: Hemoglobin A1C 5.6 % (4.0-6.0)
[2020-07-11 14:12] LABS: Alanine Aminotransferase 8 U/L (12-78); Albumin/Globulin Ratio 1.5 (1.1-1.8); Alkaline Phosphatase 86 U/L (38-126); Anion Gap 15.1 mEq/L (5-15); Aspartate Amino Transferase 19 U/L (14-36); Bilirubin,Total 0.5 mg/dl (0.2-1.3); Blood Urea Nitrogen 13 mg/dl (7-17); Calcium 9.3 mg/dl (8.4-10.2); Carbon Dioxide 27 mmol/L (22.0-30.0); Chloride 104 mmol/L (98-107); Estimated Glomerular Filt Rate 53 ml/min (>60); GFR (African American) 64 ML/MIN (>60); Globulin 2.7 g/dL (1.3-3.2); Glucose 109 mg/dl (74-100); Potassium 4.1 mmoL/L (3.5-5.1); Sodium 142 mmol/L (136-145); Total Protein,Serum 6.7 g/dl (6.3-8.2)
[2020-07-11 14:43] LABS: Thyroid Stimulating Hormone 1.82 uIU/mL (0.465-4.68)
== END ==
PROVIDERS: PCP Nurse Practitioner Family; Visit Provider Nurse Practitioner Family
DX: R06.02 Shortness of breath (principal); I48.0 Paroxysmal atrial fibrillation; I25.9 Chronic ischemic heart disease, unspecified; E03.9 Hypothyroidism, unspecified; R73.03 Prediabetes
CPT/HCPCS: 36415; 71046; 80053; 80162; 83036; 84443; 85025

== ENCOUNTER → 2020-07-18 14:38 | Outpatient (CLI) | payer OTHER, MEDICARE, SELFPAY ==
[2020-07-18 16:55] VITALS: PULSE 70; PULSE 74
== END ==
PROVIDERS: PCP Nurse Practitioner Family; Visit Provider Internal Medicine Pulmonary Disease
DX: R06.00 Dyspnea, unspecified; J44.9 Chronic obstructive pulmonary disease, unspecified; Z86.16 Personal history of COVID-19; Z87.891 Personal history of nicotine dependence
CPT/HCPCS: 94060; 94640; 94726; 94729

== ENCOUNTER → 2020-09-13 11:17 | Outpatient (CLI) | payer MEDICARE, OTHER, SELFPAY ==
[2020-09-13 11:43] LABS: Basophils # 0.1 K/mm3 (0-0.2); Basophils % 0.5 % (0.1-2.0); Eosinophils # 0.1 K/mm3 (0.0-0.4); Eosinophils % 1.2 % (0.1-12.0); Hematocrit 24.8 % (37.0-47.0); Lymphocytes # 1.5 K/mm3 (0.7-4.5); Lymphocytes % 12.7 % (10-50); Mean Corpuscular HGB Conc 29.5 g/dL (31.8-35.4); Mean Corpuscular Hemoglobin 22.3 pg (27.0-31.2); Mean Corpuscular Volume 75.5 fl (81-99); Mean Platelet Volume 9.5 fl (7.4-10.4); Monocytes # 0.5 K/mm3 (0.1-1.0); Monocytes % 4.6 % (1.7-9.3); Neutrophils # 9.3 K/mm3 (1.8-7.8); Platelet Count 291 K/mm3 (142-424); Red Blood Count 3.29 M/mm3 (4.20-5.40); Red Cell Distribution Width 19.6 % (11.5-17.5); White Blood Count 11.5 K/mm3 (4.8-10.8)
[2020-09-13 11:50] LABS: Hemoglobin 7.3 g/dL (12.2-16.2)
[2020-09-13 13:29] LABS: Alanine Aminotransferase 11 U/L (12-78); Albumin Level 3.7 g/dl (3.5-5.0); Albumin/Globulin Ratio 1.4 (1.1-1.8); Alkaline Phosphatase 80 U/L (38-126); Anion Gap 12.1 mEq/L (5-15); Aspartate Amino Transferase 19 U/L (14-36); Bilirubin,Total 0.7 mg/dl (0.2-1.3); Blood Urea Nitrogen 16 mg/dl (7-17); Calcium 8.5 mg/dl (8.4-10.2); Carbon Dioxide 27 mmol/L (22.0-30.0); Chloride 105 mmol/L (98-107); Estimated Glomerular Filt Rate 48 ml/min (>60); GFR (African American) 58 ML/MIN (>60); Globulin 2.6 g/dL (1.3-3.2); Glucose 102 mg/dl (74-100); Potassium 4.1 mmoL/L (3.5-5.1); Sodium 140 mmol/L (136-145); Total Protein,Serum 6.3 g/dl (6.3-8.2)
== END ==
PROVIDERS: Visit Provider Nurse Practitioner Family
DX: I25.9 Chronic ischemic heart disease, unspecified (principal); J44.1 Chronic obstructive pulmonary disease with (acute) exacerbation
CPT/HCPCS: 36415; 80053; 85025

== ENCOUNTER 2020-09-14 12:58 | Observation (INO) | payer MEDICARE, MEDICAID, SELFPAY ==
[2020-09-14] VITALS (26 sets, daily range): BP systolic 92–156; BP diastolic 44–86; PULSE 78–88; RESP 16–20; TEMP 36.4–37; O2SAT 92–99; BMI 25.9; BMI 25.7
--- NOTE | 2020-09-14 13:15 | PC.NURSE ---
Patient transported per wheelchair for direct hospital admission per Dr. Rivera for anemia. Patient is alert and oriented, follows commands. VSS.
--- NOTE | 2020-09-14 13:34 | XR_ITS ---
PROCEDURE: XR CHEST 2V CLINICAL HISTORY: shortness of breath COMPARISON: CT [facility] CT CHEST W/O CONTRAST from 12/07/2016 DX XR CHEST 2V from 02/03/2019 CR XR CHEST PORTABLE from 04/13/2020 CR XR CHEST 2V from 07/11/2020 FINDINGS: Mild cardiomegaly without failure. There is mitral valve annular calcification. There is a bipolar pacemaker present from left subclavian approach. COPD. There are emphysematous changes in the upper lung zones. Chronic changes are present in the lower lobes with bibasilar atelectatic change and suspected trace bilateral effusions. No acute bony abnormalities. IMPRESSION: Cardiomegaly with COPD and upper lobe emphysematous changes with chronic atelectatic or fibrotic changes in the lung bases. Dictated by: Paulo Marquez MD 09/14/2020 14:53 Paulo Marquez MD in [place] 09/14/2020 14:53
--- NOTE | 2020-09-14 13:50 | PC.NURSE ---
IV STARTED 20G R FA , LAB WITNESSED STICK FOR TYPE AND SCREEN.
--- NOTE | 2020-09-14 13:54 | P.CONPHA_ITS ---
[facility] Pharmacy VTE Monitoring - Patient Demographics Admission date: 09/14/20 Report Date: 09/14/20 Time: 13:54 Allergies/Adverse Reactions: Patient Allergies cefdinir [From Omnicef] Allergy (Intermediate, Verified 06/17/20 11:25) Iodine and Iodide Containing Produc Allergy (Intermediate, Verified 06/17/20 11:24) atorvastatin [From Lipitor] Allergy (Mild, Verified 04/04/20 11:38) cefixime [From Suprax] Allergy (Mild, Verified 04/04/20 11:38) I-RASH cephalexin [From Keflex] Allergy (Mild, Verified 04/04/20 11:38) DIARRHEA etodolac Allergy (Mild, Verified 04/04/20 11:38) pantoprazole Allergy (Mild, Verified 04/04/20 11:38) NIGHTMARES prednisone Allergy (Mild, Verified 04/04/20 11:38) SHORTNESS OF BREATH cefepime Allergy (Unknown, Verified 04/04/20 11:38) diltiazem Allergy (Unknown, Verified 04/04/20 11:38) BOTHERED HEART isosorbide Allergy (Unknown, Verified 04/04/20 11:38) morphine [MORPHINE] Allergy (Unknown, Verified 04/04/20 11:38) rosuvastatin Allergy (Unknown, Verified 04/04/20 11:38) UNK RXN Sulfa (Sulfonamide Antibiotics) Allergy (Unknown, Verified 04/04/20 11:38) URINARY PROBLEMS amoxicillin Adverse Reaction (Mild, Verified 04/04/20 11:38) DIARRHEA clarithromycin Adverse Reaction (Mild, Verified 04/04/20 11:38) N/V/D clavulanic acid Adverse Reaction (Mild, Verified 04/04/20 11:38) DIARRHEA esomeprazole [From Nexium] Adverse Reaction (Mild, Verified 04/04/20 11:38) NIGHTMARES gabapentin Adverse Reaction (Mild, Verified 04/04/20 11:38) URINARY PROBLEMS, SWELLING levofloxacin [From Levaquin] Adverse Reaction (Mild, Verified 04/04/20 11:38) PAINFUL JOINTS montelukast [From Singulair] Adverse Reaction (Mild, Verified 04/04/20 11:38) naproxen Adverse Reaction (Mild, Verified 04/04/20 11:38) NVD nitrofurantoin [From Macrobid] Adverse Reaction (Mild, Verified 04/04/20 11:38) SHAKES lansoprazole [From Prevacid] Adverse Reaction (Unknown, Verified 04/04/20 11:38) SHORT OF BREATH Height: 1.83 m Weight: 86.183 kg - VTE Risk Clinical Trial Participant: No - Prophylaxis VTE Prophylaxis Ordered?: Yes Types of VTE Prophylaxis: TEDS Knee High
[2020-09-14 13:58] LABS: Basophils # 0.1 K/mm3 (0-0.2); Basophils % 0.5 % (0.1-2.0); Eosinophils # 0.1 K/mm3 (0.0-0.4); Eosinophils % 0.7 % (0.1-12.0); Lymphocytes # 1.2 K/mm3 (0.7-4.5); Lymphocytes % 9.2 % (10-50); Mean Corpuscular HGB Conc 29.1 g/dL (31.8-35.4); Mean Corpuscular Hemoglobin 21.7 pg (27.0-31.2); Mean Corpuscular Volume 74.6 fl (81-99); Mean Platelet Volume 7.7 fl (7.4-10.4); Monocytes # 0.6 K/mm3 (0.1-1.0); Monocytes % 4.4 % (1.7-9.3); Neutrophils % 85.2 % (37.0-80.0); Platelet Count 248 K/mm3 (142-424); Red Blood Count 3.21 M/mm3 (4.20-5.40); Red Cell Distribution Width 19.4 % (11.5-17.5); White Blood Count 12.9 K/mm3 (4.8-10.8)
[2020-09-14 14:06] LABS: Anion Gap 9.6 mEq/L (5-15); Blood Urea Nitrogen 17 mg/dl (7-17); Calcium 8.4 mg/dl (8.4-10.2); Carbon Dioxide 28 mmol/L (22.0-30.0); Chloride 103 mmol/L (98-107); Creatinine Clearance Estimated 55 mL/min (50-200); Estimated Glomerular Filt Rate 48 ml/min (>60); GFR (African American) 58 ML/MIN (>60); Glucose 105 mg/dl (74-100); Magnesium 1.5 mg/dl (1.6-2.3); Potassium 3.6 mmoL/L (3.5-5.1); Sodium 137 mmol/L (136-145)
--- NOTE | 2020-09-14 14:11 | PC.NURSE ---
notified Dr. Rivera of critical hgb/hct that was called per lab
[2020-09-14 14:12] LABS: MANUAL DIFFERENTIAL MANUAL DIFFERENTIAL (MANUAL DIFF)
--- NOTE | 2020-09-14 14:20 | PC.NURSE ---
patient to xray
--- NOTE | 2020-09-14 14:28 | PC.NURSE ---
report called to floor nurse Allie
[2020-09-14 15:02] LABS: Lymphocytes % 10 % (10-50); Monocytes % 2 % (2-9); Neutrophils % 87 % (42-76); Platelet Estimate Normal; RBC Morphology Normal; Total Cells Counted 100
[2020-09-14 15:03] LABS: Anisocytosis 2+; Hypochromasia 2+; Poikilocytosis 2+
--- NOTE | 2020-09-14 17:32 | HMH.HP ---
*Admission Date: 09/14/20 *Chief complaint: Shortness of breath *History of present illness: Ms. Pandey presented to outpatient clinic today, accompanied by her daughter, with complaints of worsening shortness of breath. She has a long history of severe COPD, cardiac disease, supplemental oxygen dependent and reports worsening shortness of breath over several months - she specifically attributes this worsening to having COVID19 infection in May and that her symptoms have really progressed since that time. She has seen pulmonology at [facility], had PFTs done in early July and continues on supplemental oxygen and nebulizer therapy. She does have a cough but at baseline with jean sputum production. No fevers. She also endorses swelling of her lower extremities and weight gain over the past few weeks despite no change in her fluid or food intake. Taking bumex 1mg BID Review of labs that she had done as an outpatient yesterday revealed a hemoglobin of 7.3 and her pulse ox was 84% on 3L NC in the office today so decision was made to admit her for transfusion, imaging, cardiology consult given her use of long-term anticoagulation.. Of note, she has previously been followed by Hospice for her severe COPD but recently discharged from their services and is now followed by Home Health. [facility] History I have reviewed the patient's past medical history: Yes Medical History: Reports:: Arrhythmia, Atrial Fibrillation, Congestive Heart Failure, Chronic Obstructive Pulmonary Disease (COPD), Coronary Artery Disease, Diabetes Mellitus Type 2, Hyperlipidemia, Hypertension, Internal Pacemaker, Palpitations Denies:: Cancer, MRSA *Have you ever received a pneumonia vaccine?: Yes *Have you received a flu vaccine this season?: No Other Medical History: Reports: Anemia, Arthritis, Thyroid Disease Laterality Cases: Bilateral: Arthroscopy Knee Other Surgeries: Yes: Cardiac Catheterization, Cholecystectomy, Pacemaker, Thyroidectomy Amputation: No Fractures: No - *Social History Smoking Status: Former smoker Tobacco Type: cigarettes Alcohol Intake: never Alcohol Intake Frequency:: other Substance Use Type: denies use *Occupational Status:: retired Housing: house Household Members: other *Travel in the last 8 weeks: None Family Hx:: Cancer, Coronary Artery Disease, Diabetes Review of Systems - Review of Systems Review of systems:: pertinent systems reviewed and negative unless documented below - Constitutional Reports fatigue, Reports weakness, Reports weight gain, Denies fever(s) - *Cardiovascular Reports shortness of breath, Reports generalized swelling, Denies chest pain - *Respiratory Reports chest congestion, Reports cough, Reports shortness of breath - *Gastrointestinal Denies abdominal pain, Denies constipation, Denies nausea - *Musculoskeletal Reports joint pain - Integumentary/Breasts Denies rash - *Neurologic Reports dizziness, Reports weakness (using wheelchair) Meds Home Medications Medication Instructions Recorded Confirmed Type alprazolam 0.5 mg tablet 0.5 mg PO TID tab 06/11/17 06/17/20 History fexofenadine 180 mg tablet 180 mg PO DAILY tab 06/11/17 09/14/20 History levothyroxine 75 mcg tablet 75 mcg PO DAILY tab 06/11/17 09/14/20 History lactobacillus combination no.9 4 4,000 mmu cells PO DAILY cap 06/12/17 09/14/20 History billion cell capsule omeprazole 20 mg capsule,delayed 20 mg PO BID cap 06/01/19 09/14/20 History release bumetanide 1 mg tablet 1 mg PO BID 11/02/19 09/14/20 History albuterol sulfate 90 mcg/actuation 1 inh INHALATION QID PRN #8.5 g 06/17/20 09/14/20 Rx aerosol inhaler ipratropium 0.5 mg-albuterol 3 mg 3 ml INHALATION Q6H PRN #180 ml 06/17/20 09/14/20 Rx (2.5 mg base)/3 mL nebulization soln Digoxin 125 mcg PO DAILY 09/14/20 09/14/20 History Fluticasone Propion/Salmeterol 1 inh INHALATION BID 09/14/20 09/14/20 History [Wixela 500-50 Inhub] Metoprolol Tartrate [Lopressor 25 mg PO BI
--- NOTE | 2020-09-14 18:52 | PC.NURSE ---
RA SAT WAS 89%. RETURNED PT TO 3L NC
--- NOTE | 2020-09-14 19:05 | PC.NURSE ---
notified dr hsu that pt is requesting her home duonebs be reordered. 1904
[2020-09-15 00:08] VITALS: PULSE 80; O2SAT 95
[2020-09-15 00:40] VITALS: BP 143/75; PULSE 80; RESP 18; TEMP 36.9; O2SAT 95
[2020-09-15 00:54] VITALS: BP 142/76; PULSE 80; RESP 17; TEMP 36.9; O2SAT 95
--- NOTE | 2020-09-15 02:15 | PC.NURSE ---
Addendum entered by Alannah Smith RN 09/15/20 02:38: RUBEN SESAY RN INCORRECT NAME ENTERED Original Note: REPORT RECEIVED FROM RUBEN SIMS RN. PATIENT TO UNIT VIA HOSPITAL BED AT THIS TIME.
--- NOTE | 2020-09-15 02:15 | PC.NURSE ---
report received from kike seo RN
[2020-09-15 02:44] LABS: Hematocrit 30.1 % (37.0-47.0)
[2020-09-15 02:49] LABS: Hemoglobin 9.2 g/dL (12.2-16.2)
[2020-09-15 04:00] VITALS: BP 135/79; PULSE 80; RESP 18; TEMP 36.7; O2SAT 94
[2020-09-15 08:00] VITALS: BP 157/81; PULSE 86; RESP 16; TEMP 36.7; O2SAT 91
[2020-09-15 08:30] LABS: Chloride 103 mmol/L (98-107); Potassium 3.6 mmoL/L (3.5-5.1); Sodium 139 mmol/L (136-145)
[2020-09-15 08:33] LABS: Anion Gap 10.6 mEq/L (5-15); Blood Urea Nitrogen 15 mg/dl (7-17); Calcium 8.6 mg/dl (8.4-10.2); Carbon Dioxide 29 mmol/L (22.0-30.0); Creatinine Clearance Estimated 60 mL/min (50-200); Estimated Glomerular Filt Rate 53 ml/min (>60); GFR (African American) 64 ML/MIN (>60); Glucose 88 mg/dl (74-100)
[2020-09-15 08:34] LABS: Basophils # 0.1 K/mm3 (0-0.2); Basophils % 0.5 % (0.1-2.0); Eosinophils # 0.2 K/mm3 (0.0-0.4); Eosinophils % 1.5 % (0.1-12.0); Hematocrit 29.8 % (37.0-47.0); Hemoglobin 9.5 g/dL (12.2-16.2); Lymphocytes # 1.5 K/mm3 (0.7-4.5); Lymphocytes % 14.3 % (10-50); Mean Corpuscular HGB Conc 31.8 g/dL (31.8-35.4); Mean Corpuscular Hemoglobin 24.2 pg (27.0-31.2); Mean Platelet Volume 8.4 fl (7.4-10.4); Monocytes # 0.5 K/mm3 (0.1-1.0); Monocytes % 4.5 % (1.7-9.3); Neutrophils # 8.3 K/mm3 (1.8-7.8); Neutrophils % 79.3 % (37.0-80.0); Platelet Count 230 K/mm3 (142-424); Red Blood Count 3.93 M/mm3 (4.20-5.40); Red Cell Distribution Width 18.6 % (11.5-17.5); White Blood Count 10.5 K/mm3 (4.8-10.8)
--- NOTE | 2020-09-15 09:04 | CA_ITS ---
APPROVED REPORT EXAM: Comprehensive 2D, Doppler, and color-flow Echocardiogram [employer]: Edith Jenkins RVT Ht: 6 ft 0 in Wt: 190lbs BSA: 2.08 BP: 157/81 mmHg Indications: ANEMIA,PACER,CAD,SOA,A-FIB,COPD,EXSMOKER 2D Dimensions LVOT 2.00 cm (M/F) 1.5-2.5 LA Volume 61.90 mL LA Volume Index 29.75 mL/m2 (M/F) 16-34 M-Mode Dimensions RVDd 2.77 cm (0.9-2.6) LA Diam 4.76 cm (1.9-4.0) LVDd 4.93 cm (3.5-5.7) Ao Diam 3.05 cm (2.0-3.7) LVDs 2.85 cm (3.5-5.7) IVSd 1.20 cm (0.6-1.1) PWd 0.80 cm (0.6-1.1) EF (Teich) 73.00% FS 42.20% EDV (Teich) 114.40 mL ESV (Teich) 30.90 mL LV Diastology E Decel Time 137.00 (160-240 msec) E/A Ratio 2.5 MED E' 6.50 (< 7 cm/sec) E'/MED E' Ratio 18.18 (>14) LAT E' 11.30 (<10 cm/sec) E/LAT E' Ratio 10.46 (>14) Aortic Valve AO Peak GR. 4.80 mmHg Mitral Valve MV E Max Sanju. 118.00 (40-130 cm/s) MV A Velocity 47.00 (40-130 cm/s) E/A Ratio 2.49 MV Decel. Time 137.00 (160-240 ms) MV PHT 40.00 ms Pulmonary Valve PV Peak Velocity 81.00 (50-150 cm/s) Tricuspid Valve TR P. Velocity 286.00 cm/s RAP Estimate 10.00 mmHg RVSP 42.60 mmHg Left Ventricle Left atrium is mildly enlarged, left ventricle is normal size, mild concentric left ventricular hypertrophy, visually estimated ejection fraction 50%, there is abnormal septal motion. Diastolic parameters are inconclusive. Right Ventricle Right atrium and right ventricle mildly enlarged with normal contractility, there is pacemaker leads in the right atrium and right ventricle. Aortic Valve Aortic valve is thickened and calcified without aortic stenosis or aortic insufficiency. Mitral Valve Mitral valve has mitral annular calcification which extends in both anterior posterior mitral leaflet, there is mild mitral regurgitation. Tricuspid Valve Tricuspid valve grossly normal, there is mild tricuspid regurgitation, tricuspid regurgitation jet velocity is inadequate for calculation of the right ventricular systolic pressure. Pulmonic Valve Pulmonic valve is poorly visualized. Great Vessels Aortic root is normal size. Pericardium No significant pericardial effusion noted. Conclusion 1. Biatrial enlargement, normal left ventricular size, mild concentric left ventricular hypertrophy, visually estimated ejection fraction 50%, there is abnormal septal motion. Diastolic parameters are inconclusive. 2. Mildly enlarged right ventricle with normal contractility. 3. Mild mitral and tricuspid regurgitation. 4. No significant pericardial effusion noted. Electronically signed by : Dionicio Perla, 09/15/2020 16:16:43
--- NOTE | 2020-09-15 09:05 | HMH.DCSUM ---
General - General Admission date:: 09/14/20 Discharge date: 09/15/20 HPI HPI: Ms. Pandey presented to outpatient clinic today, accompanied by her daughter, with complaints of worsening shortness of breath. She has a long history of severe COPD, cardiac disease, supplemental oxygen dependent and reports worsening shortness of breath over several months - she specifically attributes this worsening to having COVID19 infection in May and that her symptoms have really progressed since that time. She has seen pulmonology at [facility], had PFTs done in early July and continues on supplemental oxygen and nebulizer therapy. She does have a cough but at baseline with jean sputum production. No fevers. She also endorses swelling of her lower extremities and weight gain over the past few weeks despite no change in her fluid or food intake. Taking bumex 1mg BID Review of labs that she had done as an outpatient yesterday revealed a hemoglobin of 7.3 and her pulse ox was 84% on 3L NC in the office today so decision was made to admit her for transfusion, imaging, cardiology consult given her use of long-term anticoagulation.. Of note, she has previously been followed by Hospice for her severe COPD but recently discharged from their services and is now followed by Home Health. Hospital Course Hospital Course: Patient was admitted, given 2 units of packed cells very slowly with Lasix in between units because of her history of CHF. She tolerated this wonderfully, and this morning feels much better. Color looks vastly improved, post infusion hemoglobin is 9.2 g and this morning has gone up to 9.5 g. Patient denies any evidence of GI bleeding. Feels good this morning, baseline dyspnea but has her oxygen nebs at home and wishes to go home. Patient will be discharged home after echocardiogram which we are doing to assess ejection fraction and possible change in medications. I will see her as an outpatient on Saturday with [facility], labs on that day and reassess medications. Believe her anemia is from chronic disease. Objective Vital signs: Temp Pulse Resp BP Pulse Ox 98.1 F 86 16 157/81 H 91 L 09/15/20 08:00 09/15/20 08:00 09/15/20 08:00 09/15/20 08:00 09/15/20 08:00 no acute distress - *Routine HEENT Exam Head: Present: normocephalic Eye: Present: EOMI, PERRL ENT: Present: mucous membranes moist - *Routine Neck Exam Present: supple - *Routine Respiratory Exam Present: rhonchi, wheezes - *Routine Cardiovascular Exam Present: RRR - *Routine Abdominal Exam Present: soft, normoactive bowel sounds. Absent: tenderness - *Routine Extremities Exam Absent: cyanosis, clubbing, edema - *Routine Skin Exam Present: warm. Absent: rash - Detailed Eye Exam Eyelids: Bilateral normal inspection Results Labs on day of discharge: Labs from last 24 hours 09/15/20 09/15/20 09/15/20 07:25 07:25 02:23 WBC 10.5 RBC 3.93 L Hgb 9.5 L 9.2 L D Hct 29.8 L 30.1 L MCV 76.0 L MCH 24.2 L MCHC 31.8 RDW 18.6 H Plt Count 230 MPV 8.4 Neut % (Auto) 79.3 Lymph % (Auto) 14.3 [place] % (Auto) 4.5 Eos % (Auto) 1.5 Baso % (Auto) 0.5 Neut # (Auto) 8.3 H Lymph # (Auto) 1.5 [place] # (Auto) 0.5 Eos # (Auto) 0.2 Baso # (Auto) 0.1 Total Counted Neutrophils % (Manual) Band Neutrophils % Lymphocytes % (Manual) Monocytes % (Manual) Platelet Estimate RBC Morphology Hypochromasia Poikilocytosis Anisocytosis Sodium 139 Potassium 3.6 Chloride 103 Carbon Dioxide 29 Anion Gap 10.6 BUN 15 Creatinine 1.00 Estimated Creat Clear 60 Estimated GFR 53 L Est GFR ( Amer) 64 Glucose 88 Calcium 8.6 Magnesium Blood Type Antibody Screen Crossmatch (AHG) 09/14/20 09/14/20 09/14/20 13:31 13:31 13:31 WBC 12.9 H RBC 3.21 L Hgb 7.0 L* Hct 24.0 L MCV 74.6 L MCH 21.7 L
[2020-09-15 10:35] LABS: Iron 42 ug/dL (37-170)
[2020-09-15 10:44] LABS: Total Iron Binding Capacity 465 ug/dL (265-497)
[2020-09-15 11:41] LABS: Vitamin B12 190 pg/mL (239-931)
[2020-09-15 11:44] LABS: Folate 3.83 ng/mL
--- NOTE | 2020-09-15 12:10 | SW/DCPLANNER ---
CALLED [facility] TODAY WHOM PATIENT HAS HOME HEALTH SERVICES WITH, NURSE STATED THEY ARE GOING TO CONVERT PATIENT OVER FOR WAIVER SERVICES.. THEY WILL HAVE HER FOR ONLY A FEW MORE DAYS AND THEN DO WAIVER... I SENT A PACKET OF PATIENT INFORMATION FOR THEM TO CONTINUE SERVICES...
[2020-09-15 13:37] LABS: Occult Blood,Stool Negative (Negative)
== END 2020-09-15 12:40 | disposition home health service (06) ==
LOC: 2ND 15:14 → OB 09-15 02:08
PROVIDERS: Nurse Practitioner Family; Admitting Provider Internal Medicine Adolescent Medicine; PCP Internal Medicine Adolescent Medicine; Visit Provider Internal Medicine Adolescent Medicine
DX: D64.9 Anemia, unspecified (principal); E83.42 Hypomagnesemia; J44.9 Chronic obstructive pulmonary disease, unspecified; Z99.81 Dependence on supplemental oxygen; I13.0 Hypertensive heart and chronic kidney disease with heart failure and stage 1 through stage 4 chronic kidney disease, or unspecified chronic kidney disease; E11.22 Type 2 diabetes mellitus with diabetic chronic kidney disease; N18.31 Chronic kidney disease, stage 3a; I50.9 Heart failure, unspecified; Z79.01 Long term (current) use of anticoagulants; R06.02 Shortness of breath; I42.1 Obstructive hypertrophic cardiomyopathy; Z95.0 Presence of cardiac pacemaker; I48.0 Paroxysmal atrial fibrillation; Z79.899 Other long term (current) drug therapy; Z88.8 Allergy status to other drugs, medicaments and biological substances
CPT/HCPCS: G0379; 71046; 80048; 80162; 82272; 82607; 82728; 82746; 83540; 83550; 83735; 85007; 85014; 85018; 85025; 86850; 93306; 94640; 94760; 94761; G0328; G0378; P9016; U0003

== ENCOUNTER → 2020-09-19 10:21 | Outpatient (CLI) | payer MEDICARE, SELFPAY ==
[2020-09-19 11:12] LABS: Basophils % 0.4 % (0.1-2.0); Eosinophils # 0.1 K/mm3 (0.0-0.4); Eosinophils % 1.3 % (0.1-12.0); Hematocrit 31.8 % (37.0-47.0); Hemoglobin 9.3 g/dL (12.2-16.2); Lymphocytes # 1.1 K/mm3 (0.7-4.5); Lymphocytes % 10.9 % (10-50); Mean Corpuscular HGB Conc 29.3 g/dL (31.8-35.4); Mean Corpuscular Hemoglobin 22.9 pg (27.0-31.2); Mean Corpuscular Volume 78.2 fl (81-99); Mean Platelet Volume 7.7 fl (7.4-10.4); Monocytes # 0.4 K/mm3 (0.1-1.0); Monocytes % 3.8 % (1.7-9.3); Neutrophils # 8.5 K/mm3 (1.8-7.8); Neutrophils % 83.7 % (37.0-80.0); Platelet Count 217 K/mm3 (142-424); Red Blood Count 4.06 M/mm3 (4.20-5.40); Red Cell Distribution Width 19.7 % (11.5-17.5); White Blood Count 10.2 K/mm3 (4.8-10.8)
[2020-09-19 11:40] LABS: Anion Gap 10.2 mEq/L (5-15); Blood Urea Nitrogen 17 mg/dl (7-17); Calcium 8.7 mg/dl (8.4-10.2); Carbon Dioxide 30 mmol/L (22.0-30.0); Chloride 104 mmol/L (98-107); Estimated Glomerular Filt Rate 48 ml/min (>60); GFR (African American) 58 ML/MIN (>60); Glucose 86 mg/dl (74-100); Potassium 4.2 mmoL/L (3.5-5.1); Sodium 140 mmol/L (136-145)
== END ==
PROVIDERS: Visit Provider Internal Medicine Adolescent Medicine
DX: D64.9 Anemia, unspecified (principal)
CPT/HCPCS: 36415; 80048; 85025

== ENCOUNTER → 2020-10-31 13:24 | Outpatient (CLI) | payer MEDICARE, MEDICAID, SELFPAY ==
[2020-10-31 14:22] LABS: Basophils # 0.1 K/mm3 (0-0.2); Basophils % 0.4 % (0.1-2.0); Eosinophils # 0.2 K/mm3 (0.0-0.4); Eosinophils % 1.7 % (0.1-12.0); Hematocrit 32.6 % (37.0-47.0); Lymphocytes # 1.6 K/mm3 (0.7-4.5); Lymphocytes % 12.9 % (10-50); Mean Corpuscular HGB Conc 30.7 g/dL (31.8-35.4); Mean Corpuscular Hemoglobin 24.4 pg (27.0-31.2); Mean Corpuscular Volume 79.4 fl (81-99); Mean Platelet Volume 7.7 fl (7.4-10.4); Monocytes # 0.4 K/mm3 (0.1-1.0); Monocytes % 3.3 % (1.7-9.3); Neutrophils # 10.2 K/mm3 (1.8-7.8); Neutrophils % 81.6 % (37.0-80.0); Platelet Count 235 K/mm3 (142-424); Red Cell Distribution Width 19.1 % (11.5-17.5); White Blood Count 12.5 K/mm3 (4.8-10.8)
[2020-10-31 14:30] LABS: Anion Gap 12.4 mEq/L (5-15); Blood Urea Nitrogen 20 mg/dl (7-17); Carbon Dioxide 31 mmol/L (22.0-30.0); Chloride 101 mmol/L (98-107); Estimated Glomerular Filt Rate 43 ml/min (>60); GFR (African American) 52 ML/MIN (>60); Glucose 101 mg/dl (74-100); Potassium 4.4 mmoL/L (3.5-5.1); Sodium 140 mmol/L (136-145)
[2020-10-31 15:24] LABS: Vitamin B12 > 1000 pg/mL (239-931)
[2020-10-31 16:09] LABS: Ferritin 11.8 ng/ml (11.1-264)
== END ==
PROVIDERS: Visit Provider Nurse Practitioner Family
DX: D50.9 Iron deficiency anemia, unspecified (principal); I42.1 Obstructive hypertrophic cardiomyopathy; E53.8 Deficiency of other specified B group vitamins
CPT/HCPCS: 36415; 80048; 82607; 82728; 85025

== ENCOUNTER → 2020-12-29 10:39 | Outpatient (CLI) | payer MEDICARE, MEDICAID, SELFPAY ==
--- NOTE | 2020-12-29 10:49 | XR_ITS ---
PROCEDURE: XR CHEST 2V CLINICAL HISTORY: SOB COMPARISON: CT [facility] CT CHEST W/O CONTRAST from 12/07/2016 CR XR CHEST PORTABLE from 04/13/2020 CR XR CHEST 2V from 07/11/2020 CR XR CHEST 2V from 09/14/2020 FINDINGS: Borderline cardiomegaly without failure. Bipolar pacemaker is present from left subclavian approach. COPD changes. Hyper lucency of the upper lung zones consistent with emphysematous changes. Infiltrate is present in the right lung base posteriorly. Thoracic kyphosis not significantly changed. IMPRESSION: COPD with right lower lobe pneumonia Dictated by: Paulo Marquez MD 12/29/2020 11:16 Paulo Marquez MD in [place] 12/29/2020 11:16
[2020-12-29 11:01] LABS: Chloride 102 mmol/L (98-107); Potassium 4.7 mmoL/L (3.5-5.1); Sodium 142 mmol/L (136-145)
[2020-12-29 11:03] LABS: Alanine Aminotransferase 10 U/L (12-78); Aspartate Amino Transferase 18 U/L (14-36); Blood Urea Nitrogen 19 mg/dl (7-17); Estimated Glomerular Filt Rate 43 ml/min (>60); GFR (African American) 52 ML/MIN (>60)
[2020-12-29 11:04] LABS: Albumin Level 3.9 g/dl (3.5-5.0); Albumin/Globulin Ratio 1.1 (1.1-1.8); Alkaline Phosphatase 87 U/L (38-126); Anion Gap 15.7 mEq/L (5-15); Bilirubin,Total 0.2 mg/dl (0.2-1.3); Calcium 9.2 mg/dl (8.4-10.2); Carbon Dioxide 29 mmol/L (22.0-30.0); Globulin 3.4 g/dL (1.3-3.2); Glucose 111 mg/dl (74-100); Total Protein,Serum 7.3 g/dl (6.3-8.2)
[2020-12-29 11:14] LABS: Basophils # 0.1 K/mm3 (0-0.2); Basophils % 0.5 % (0.1-2.0); Eosinophils # 0.2 K/mm3 (0.0-0.4); Eosinophils % 1.3 % (0.1-12.0); Hematocrit 28.9 % (37.0-47.0); Hemoglobin 9.1 g/dL (12.2-16.2); Lymphocytes # 1.4 K/mm3 (0.7-4.5); Lymphocytes % 10.7 % (10-50); Mean Corpuscular HGB Conc 31.4 g/dL (31.8-35.4); Mean Corpuscular Hemoglobin 26.3 pg (27.0-31.2); Mean Corpuscular Volume 83.6 fl (81-99); Mean Platelet Volume 8.1 fl (7.4-10.4); Monocytes # 0.5 K/mm3 (0.1-1.0); Monocytes % 3.8 % (1.7-9.3); Neutrophils # 11.1 K/mm3 (1.8-7.8); Neutrophils % 83.7 % (37.0-80.0); Platelet Count 289 K/mm3 (142-424); Red Blood Count 3.45 M/mm3 (4.20-5.40); White Blood Count 13.2 K/mm3 (4.8-10.8)
== END ==
PROVIDERS: Visit Provider Nurse Practitioner Family
DX: R06.02 Shortness of breath (principal)
CPT/HCPCS: 36415; 71046; 80053; 85025

== ENCOUNTER → 2021-02-01 16:07 | Outpatient (CLI) | payer MEDICARE, MEDICAID, SELFPAY ==
[2021-02-01 16:57] LABS: Basophils # 0.1 K/mm3 (0-0.2); Basophils % 0.5 % (0.1-2.0); Eosinophils # 0.1 K/mm3 (0.0-0.4); Hemoglobin 8.5 g/dL (12.2-16.2); Lymphocytes # 1.7 K/mm3 (0.7-4.5); Lymphocytes % 14.7 % (10-50); Mean Corpuscular HGB Conc 28.3 g/dL (31.8-35.4); Mean Corpuscular Hemoglobin 22.9 pg (27.0-31.2); Mean Corpuscular Volume 81.2 fl (81-99); Monocytes # 0.6 K/mm3 (0.1-1.0); Monocytes % 4.9 % (1.7-9.3); Neutrophils # 9.4 K/mm3 (1.8-7.8); Platelet Count 382 K/mm3 (142-424); Red Cell Distribution Width 17.1 % (11.5-17.5); White Blood Count 11.8 K/mm3 (4.8-10.8)
[2021-02-01 17:38] LABS: Alanine Aminotransferase 9 U/L (12-78); Albumin Level 3.6 g/dl (3.5-5.0); Albumin/Globulin Ratio 1.3 (1.1-1.8); Alkaline Phosphatase 92 U/L (38-126); Anion Gap 11.1 mEq/L (5-15); Aspartate Amino Transferase 17 U/L (14-36); Bilirubin,Total 0.4 mg/dl (0.2-1.3); Blood Urea Nitrogen 14 mg/dl (7-17); Calcium 8.9 mg/dl (8.4-10.2); Carbon Dioxide 31 mmol/L (22.0-30.0); Chloride 100 mmol/L (98-107); Estimated Glomerular Filt Rate 53 ml/min (>60); GFR (African American) 64 ML/MIN (>60); Globulin 2.8 g/dL (1.3-3.2); Glucose 106 mg/dl (74-100); Potassium 4.1 mmoL/L (3.5-5.1); Sodium 138 mmol/L (136-145); Total Protein,Serum 6.4 g/dl (6.3-8.2)
[2021-02-01 17:48] LABS: NT Pro Brain Natriuretic Pep. 3080 pg/mL (0-450)
== END ==
PROVIDERS: Visit Provider Nurse Practitioner Family
DX: R06.00 Dyspnea, unspecified (principal); J18.9 Pneumonia, unspecified organism; I25.9 Chronic ischemic heart disease, unspecified
CPT/HCPCS: 36415; 80053; 83880; 85025; 87070; 87186; 87205

== ENCOUNTER 2021-03-29 10:46 | Observation (INO) | payer MEDICARE, MEDICAID, SELFPAY ==
[2021-03-29] VITALS (19 sets, daily range): BP systolic 103–125; BP diastolic 53–73; PULSE 65–87; RESP 14–22; TEMP 36.4–37.1; O2SAT 85–100; BMI 23.7; BMI 24.0
--- NOTE | 2021-03-29 10:58 | XR_ITS ---
PROCEDURE INFORMATION: Exam: XR Chest Exam date and time: 03/29/2021 10:58 AM Age: 80 years old Clinical indication: Patient HX: Dyspnea, PT is a prior smoker TECHNIQUE: Imaging protocol: XR of the chest. Views: 1 view. COMPARISON: CR XR CHEST 2V 12/29/2020 10:54 AM FINDINGS: Tubes, catheters and devices: Cardiac rhythm maintenance device is in place. Lungs: Chronic appearing changes in the lung bases. Background of emphysema. No definite superimposed focal airspace consolidation. Pleural spaces: Unremarkable. No pleural effusion. No pneumothorax. Heart/Mediastinum: Unremarkable. No cardiomegaly. Bones/joints: Unremarkable. IMPRESSION: Background of emphysema with chronic changes in the lung bases. No definite superimposed acute cardiopulmonary abnormality.
--- NOTE | 2021-03-29 10:59 | ECG_ITS ---
APPROVED REPORT Exam: Resting ECG HR:70 bpm ECG Measurements Heart Rate 70 AXES ND 184 P 70 QRSd 164 QRS -85 QT 412 T 89 QTc 444 Conclusion AV sequential or dual chamber electronic pacemaker Electronically signed by : Tha Rivera MD 03/29/2021 21:12:38
--- NOTE | 2021-03-29 11:12 | HMH.EDSOB ---
ED Disposition Clinical Impression: Symptomatic anemia Disposition: Admitted As Inpatient Condition on Discharge: Good Time of Disposition: 20:00 - Critical Care Critical Care Time: No Attestation: On 03/29/21, the high probability of a clinically significant, sudden or life threatening deterioration of the following system(s) required my full and direct attention, intervention and personal management. The time I documented below is in addition to time spent performing reported procedures but includes the following listed in this critical care notation. Medical Decision Making - Medical Records Medical records reviewed: Yes: I reviewed the patient's medical records. - Jose Inquiry Pt receiving controlled substance: No Vital Signs: 03/29/21 10:47 03/29/21 12:00 03/29/21 12:30 Temperature 98.1 F Temperature Source Oral Pulse Rate 70 70 Pulse Rate [Left Radial] 70 Respiratory Rate 14 22 21 Blood Pressure 109/57 L 121/61 Blood Pressure [Right Arm] 117/53 L Blood Pressure Mean 76 81 Blood Pressure Mean [Right Arm] 74 Blood Pressure Source [Right Arm] Automatic Cuff Blood Pressure Position [Right Arm] Sitting 02 Sat by Pulse Oximetry 85 L 100 95 Oxygen Delivery Method Nasal Cannula Oxygen Flow Rate (LPM) 3 03/29/21 13:00 03/29/21 13:35 Temperature Temperature Source Pulse Rate 70 70 Pulse Rate [Left Radial] Respiratory Rate 21 21 Blood Pressure 120/55 L 108/68 L Blood Pressure [Right Arm] Blood Pressure Mean 85 Blood Pressure Mean [Right Arm] Blood Pressure Source [Right Arm] Blood Pressure Position [Right Arm] 02 Sat by Pulse Oximetry 95 98 Oxygen Delivery Method Nasal Cannula Oxygen Flow Rate (LPM) - Lab Data Lab results reviewed: Yes: I reviewed the patient's lab results. Lab Results 03/29/21 11:03: WBC 16.0 H, RBC 3.15 L, Hgb 6.5 L*, Hct 22.6 L, MCV 71.6 L, MCH 20.6 L, MCHC 28.7 L, RDW 18.0 H, Plt Count 371, MPV 8.1, Neut % (Auto) 86.9 H, Lymph % (Auto) 8.5 L, [place] % (Auto) 4.0, Eos % (Auto) 0.3, Baso % (Auto) 0.3, Neut # (Auto) 13.9 H, Lymph # (Auto) 1.4, [place] # (Auto) 0.7, Eos # (Auto) 0.1, Baso # (Auto) 0.1, Total Counted 100, Neutrophils % (Manual) 93 H, Lymphocytes % (Manual) 4 L, Monocytes % (Manual) 3, Platelet Estimate Normal, Hypochromasia 1+, Anisocytosis 1+, Macrocytosis 1+ 03/29/21 11:03: Sodium 130 L, Potassium 4.4, Chloride 95 L, Carbon Dioxide 30, Anion Gap 9.4, BUN 24 H, Creatinine 1.10 H, Estimated Creat Clear 50, Estimated GFR 48 L, Est GFR ( Amer) 58 L, Glucose 130 H, Calcium 8.6, Total Bilirubin 0.4, AST 24, ALT 13, Alkaline Phosphatase 91, Troponin I 0.02, NT-Pro-B Natriuret Pep 7370 H, Total Protein 6.6, Albumin 3.8, Globulin 2.8, Albumin/Globulin Ratio 1.4 03/29/21 11:03: D-Dimer 0.48 03/29/21 11:03: Magnesium 1.7 03/29/21 12:30: SARS-CoV-2 (PCR) Not detected, Influenza A Untype (PCR) Not detected, Influenza Type B (PCR) Not detected 03/29/21 13:43: Troponin I 0.02 03/29/21 13:43: Blood Type A Positive, Antibody Screen Negative, Crossmatch (AHG) See Detail Result diagrams: 03/29/21 11:03 03/29/21 11:03 Orders (Tests/Meds): ED MEDICATIONS Generic Name Dose Route Start Last Admin Trade Name Jayme PRN Reason Stop Dose Admin Acetaminophen 650 mg 03/29/21 14:55 Acetaminophen 325mg Tab PO 04/28/21 14:54 Q4HP PRN Fever or Mild Pain Albuterol/Ipratropium 3 ml 03/29/21 19:27 03/29/21 19:44 Ipratropium/Albuterol 3 Ml Neb IH 04/28/21 19:26 3 ml Q6HP PRN Administration Shortness Of Breath Alprazolam 0.5 mg 03/29/21 14:55 03/29/21 20:28 Alprazolam 0.5mg Tablet PO 04/28/21 14:54 0.5 mg TID MERA Administration Bumetanide 2 mg 03/29/21 21:00 03/29/21 20:28 Bumetanide 1 Mg Tablet PO 04/28/21 20:59 2 mg BID MERA Administration Lactated Ringer's 1,000 mls @ 50 mls/hr 03/29/21 14:55 03/29/21 20:01 Lactated Ringer's 1000 Ml Bag IV 04/28/21 14:54 50 mls/hr .Q20H MERA Adminis
[2021-03-29 11:20] LABS: Alanine Aminotransferase 13 U/L (12-78); Albumin Level 3.8 g/dl (3.5-5.0); Albumin/Globulin Ratio 1.4 (1.1-1.8); Alkaline Phosphatase 91 U/L (38-126); Anion Gap 9.4 mEq/L (5-15); Aspartate Amino Transferase 24 U/L (14-36); Bilirubin,Total 0.4 mg/dl (0.2-1.3); Blood Urea Nitrogen 24 mg/dl (7-17); Calcium 8.6 mg/dl (8.4-10.2); Carbon Dioxide 30 mmol/L (22.0-30.0); Chloride 95 mmol/L (98-107); Creatinine Clearance Estimated 50 mL/min (50-200); Estimated Glomerular Filt Rate 48 ml/min (>60); GFR (African American) 58 ML/MIN (>60); Globulin 2.8 g/dL (1.3-3.2); Glucose 130 mg/dl (74-100); Potassium 4.4 mmoL/L (3.5-5.1); Sodium 130 mmol/L (136-145); Total Protein,Serum 6.6 g/dl (6.3-8.2)
[2021-03-29 11:21] LABS: Basophils # 0.1 K/mm3 (0-0.2); Basophils % 0.3 % (0.1-2.0); Eosinophils # 0.1 K/mm3 (0.0-0.4); Eosinophils % 0.3 % (0.1-12.0); Hematocrit 22.6 % (37.0-47.0); Lymphocytes # 1.4 K/mm3 (0.7-4.5); Lymphocytes % 8.5 % (10-50); Mean Corpuscular HGB Conc 28.7 g/dL (31.8-35.4); Mean Corpuscular Hemoglobin 20.6 pg (27.0-31.2); Mean Corpuscular Volume 71.6 fl (81-99); Mean Platelet Volume 8.1 fl (7.4-10.4); Monocytes # 0.7 K/mm3 (0.1-1.0); Neutrophils # 13.9 K/mm3 (1.8-7.8); Neutrophils % 86.9 % (37.0-80.0); Platelet Count 371 K/mm3 (142-424); Red Blood Count 3.15 M/mm3 (4.20-5.40)
[2021-03-29 11:25] LABS: D-Dimer 0.48 ug/mL (0.0-0.5)
[2021-03-29 11:34] LABS: NT Pro Brain Natriuretic Pep. 7370 pg/mL (0-450); Troponin I 0.02 ng/ml (0.00-0.034)
[2021-03-29 12:14] LABS: Hemoglobin 6.5 g/dL (12.2-16.2)
[2021-03-29 12:15] LABS: MANUAL DIFFERENTIAL MANUAL DIFFERENTIAL (MANUAL DIFF)
--- NOTE | 2021-03-29 12:19 | PC.NURSE ---
has been paged.
--- NOTE | 2021-03-29 12:22 | PC.NURSE ---
on the phone with
--- NOTE | 2021-03-29 12:28 | PC.NURSE ---
Called house for bed. Said she will call back
[2021-03-29 12:40] LABS: Coronavirus 19, PCR Not Detected (NotDetected); Influenza A, PCR Not Detected (NotDetected); Influenza B, PCR Not Detected (NotDetected)
--- NOTE | 2021-03-29 12:43 | PC.NURSE ---
housetrailer servicer aware of admission, states she will notify us when a bed is available, states she will have to look at availability.
[2021-03-29 12:46] LABS: Lymphocytes % 4 % (10-50); Monocytes % 3 % (2-9); Neutrophils % 93 % (42-76); Total Cells Counted 100
[2021-03-29 12:50] LABS: Anisocytosis 1+; Hypochromasia 1+; Macrocytosis 1+; Platelet Estimate Normal
--- NOTE | 2021-03-29 13:09 | PC.NURSE ---
Assisted patient to bed side potty chair.
--- NOTE | 2021-03-29 13:48 | PC.NURSE ---
's office called and said pt. will follow-up in office 03/30/20 at 1245.
[2021-03-29 14:26] LABS: Troponin I 0.02 ng/ml (0.00-0.034)
--- NOTE | 2021-03-29 14:26 | PC.NURSE ---
report called to NOE Claudio on second floor at this time
--- NOTE | 2021-03-29 15:00 | P.CONPHA_ITS ---
[facility] Pharmacy VTE Monitoring - Patient Demographics Admission date: 03/29/21 Report Date: 03/29/21 Time: 15:00 Allergies/Adverse Reactions: Patient Allergies cefdinir [From Omnicef] Allergy (Intermediate, Verified 09/14/20 15:15) Iodine and Iodide Containing Produc Allergy (Intermediate, Verified 09/14/20 15:15) atorvastatin [From Lipitor] Allergy (Mild, Verified 09/14/20 15:15) cefixime [From Suprax] Allergy (Mild, Verified 09/14/20 15:15) I-RASH cephalexin [From Keflex] Allergy (Mild, Verified 09/14/20 15:15) DIARRHEA etodolac Allergy (Mild, Verified 09/14/20 15:15) pantoprazole Allergy (Mild, Verified 09/14/20 15:15) NIGHTMARES prednisone Allergy (Mild, Verified 09/14/20 15:15) SHORTNESS OF BREATH cefepime Allergy (Unknown, Verified 09/14/20 15:15) diltiazem Allergy (Unknown, Verified 09/14/20 15:15) BOTHERED HEART isosorbide Allergy (Unknown, Verified 09/14/20 15:15) morphine [MORPHINE] Allergy (Unknown, Verified 09/14/20 15:15) rosuvastatin Allergy (Unknown, Verified 09/14/20 15:15) UNK RXN Sulfa (Sulfonamide Antibiotics) Allergy (Unknown, Verified 09/14/20 15:15) URINARY PROBLEMS amoxicillin Adverse Reaction (Mild, Verified 09/14/20 15:15) DIARRHEA clarithromycin Adverse Reaction (Mild, Verified 09/14/20 15:15) N/V/D clavulanic acid Adverse Reaction (Mild, Verified 09/14/20 15:15) DIARRHEA esomeprazole [From Nexium] Adverse Reaction (Mild, Verified 09/14/20 15:15) NIGHTMARES gabapentin Adverse Reaction (Mild, Verified 09/14/20 15:15) URINARY PROBLEMS, SWELLING levofloxacin [From Levaquin] Adverse Reaction (Mild, Verified 09/14/20 15:15) PAINFUL JOINTS montelukast [From Singulair] Adverse Reaction (Mild, Verified 09/14/20 15:15) naproxen Adverse Reaction (Mild, Verified 09/14/20 15:15) NVD nitrofurantoin [From Macrobid] Adverse Reaction (Mild, Verified 09/14/20 15:15) SHAKES lansoprazole [From Prevacid] Adverse Reaction (Unknown, Verified 09/14/20 15:15) SHORT OF BREATH Height: 1.83 m Weight: 79.379 kg - VTE Risk Labs: VTE Related Lab Results Hgb 6.5 g/dL (12.2-16.2) L* 03/29/21 11:03 Hct 22.6 % (37.0-47.0) L 03/29/21 11:03 Plt Count 371 K/mm3 (142-424) 03/29/21 11:03 BUN 24 mg/dl (7-17) H 03/29/21 11:03 Creatinine 1.10 mg/dl (0.52-1.04) H 03/29/21 11:03 Estimated Creat Clear 50 mL/min (50-200) 03/29/21 11:03 - Prophylaxis VTE Prophylaxis Ordered?: Yes Types of VTE Prophylaxis: TEDS Knee High Location of Applied Device: Bilateral Lower Extremeties
--- NOTE | 2021-03-29 15:11 | HMH.PHAINT ---
MEDICATION RECONCILIATION COMPLETED ON PATIENT USING EXTERNAL FILL HISTORY FROM PHARMACY AND LIST FROM PCP OFFICE. -LY SOTOD
[2021-03-29 15:45] LABS: Magnesium 1.7 mg/dl (1.6-2.3)
[2021-03-29 16:06] LABS: Lactic Acid 0.9 mmol/L (0.7-2.1)
[2021-03-30 00:40] VITALS: BP 106/63; PULSE 68; RESP 20; TEMP 36.7; O2SAT 94
[2021-03-30 01:25] VITALS: BP 104/60; PULSE 69; TEMP 36.7; O2SAT 94
[2021-03-30 02:25] VITALS: BP 115/69; PULSE 70; TEMP 36.6; O2SAT 92
[2021-03-30 02:37] LABS: Hematocrit 25.2 % (37.0-47.0)
[2021-03-30 04:00] VITALS: BP 107/62; PULSE 70; RESP 18; TEMP 36.8; O2SAT 92
[2021-03-30 05:01] VITALS: BMI 24.0
--- NOTE | 2021-03-30 05:48 | PC.NURSE ---
pt A&Ox4, received one unit of blood this shift and tolerated well, no s/s of transfusion reaction, has remained on 3L NC with no complaints of SOA this shift, O2 sats 90-94%, pt up with assist X 1 to BSC, no complaints of pain
[2021-03-30 08:00] VITALS: BP 127/47; BP 97/45; PULSE 70; PULSE 78; RESP 16; RESP 20; TEMP 36.7; O2SAT 70; O2SAT 89
[2021-03-30 09:01] VITALS: PULSE 69; O2SAT 93
--- NOTE | 2021-03-30 09:02 | HMH.HPDC ---
General - General Admission date:: 03/29/21 Discharge date: 03/30/21 *Admission Date: 03/29/21 *Chief complaint: Fatigue and breathlessness *History of present illness: 80-year-old white female with end-stage emphysema who has previously been a hospice patient but actually was dismissed from hospice 2 years ago because of stability and her ongoing improved function, who also suffers from anemia of chronic disease, came to the emergency department late yesterday with dyspnea and fatigue. She was found to be at her baseline level of oxygenation, requiring only 2 L nasal cannula. Chest x-ray was unchanged over baseline but she was found to have significant exacerbation of her anemia with hemoglobin of 6. Admitted for transfusion and further evaluation. [facility] History I have reviewed the patient's past medical history: Yes Medical History: Reports:: Arrhythmia, Atrial Fibrillation, Congestive Heart Failure, Chronic Obstructive Pulmonary Disease (COPD), Coronary Artery Disease, Hyperlipidemia, Hypertension, Internal Pacemaker, Palpitations Denies:: Cancer, Diabetes Mellitus Type 1, Diabetes Mellitus Type 2, MRSA *Have you ever received a pneumonia vaccine?: Yes *Have you received a flu vaccine this season?: No Other Medical History: Reports: Anemia, Arthritis, Cataracts, Sinus Problems, Thyroid Disease Laterality Cases: Bilateral: Arthroscopy Knee Other Surgeries: Yes: Cardiac Catheterization, Cholecystectomy, Pacemaker, Thyroidectomy Amputation: No Fractures: No - *Social History Smoking Status: Former smoker Tobacco Type: cigarettes # Packs/Day (cigarettes): 1 Alcohol Intake: never Alcohol Intake Frequency:: other Substance Use Type: denies use *Occupational Status:: retired Housing: house Household Members: other *Travel in the last 8 weeks: None Family Hx:: Asthma, Cancer, Diabetes, Heart Attack, Stroke Review of Systems - Review of Systems Review of systems:: pertinent systems reviewed and negative unless documented below - *Neurologic Reports weakness Exam Vital signs and Labs for Last 24 Hours: Temp Pulse Resp BP Pulse Ox 98.1 F 69 16 97/45 L 93 L 03/30/21 08:00 03/30/21 09:01 03/30/21 08:00 03/30/21 08:00 03/30/21 09:01 Laboratory Results - last 24 hr 03/29/21 11:03: WBC 16.0 H, RBC 3.15 L, Hgb 6.5 L*, Hct 22.6 L, MCV 71.6 L, MCH 20.6 L, MCHC 28.7 L, RDW 18.0 H, Plt Count 371, MPV 8.1, Neut % (Auto) 86.9 H, Lymph % (Auto) 8.5 L, [place] % (Auto) 4.0, Eos % (Auto) 0.3, Baso % (Auto) 0.3, Neut # (Auto) 13.9 H, Lymph # (Auto) 1.4, [place] # (Auto) 0.7, Eos # (Auto) 0.1, Baso # (Auto) 0.1, Total Counted 100, Neutrophils % (Manual) 93 H, Lymphocytes % (Manual) 4 L, Monocytes % (Manual) 3, Platelet Estimate Normal, Hypochromasia 1+, Anisocytosis 1+, Macrocytosis 1+ 03/29/21 11:03: Sodium 130 L, Potassium 4.4, Chloride 95 L, Carbon Dioxide 30, Anion Gap 9.4, BUN 24 H, Creatinine 1.10 H, Estimated Creat Clear 50, Estimated GFR 48 L, Est GFR ( Amer) 58 L, Glucose 130 H, Calcium 8.6, Total Bilirubin 0.4, AST 24, ALT 13, Alkaline Phosphatase 91, Troponin I 0.02, NT-Pro-B Natriuret Pep 7370 H, Total Protein 6.6, Albumin 3.8, Globulin 2.8, Albumin/Globulin Ratio 1.4 03/29/21 11:03: D-Dimer 0.48 03/29/21 11:03: Magnesium 1.7 03/29/21 12:30: SARS-CoV-2 (PCR) Not detected, Influenza A Untype (PCR) Not detected, Influenza Type B (PCR) Not detected 03/29/21 13:43: Troponin I 0.02 03/29/21 13:43: Blood Type A Positive, Antibody Screen Negative, Crossmatch (AHG) See Detail 03/29/21 15:40: Lactate 0.9 03/30/21 02:30: Hgb 8.0 L D, Hct 25.2 L I & O for Last 24 hours: Intake & Output 03/27/21 03/28/21 03/29/21 03/30/21 11:59 11:59 11:59 11:59 Intake Total 685 / 685 Balance 685 / 685 Weight 175 lb 177 lb 3.003 oz - Constitutional no acute distress, chronically ill appearing - *Routine HEENT Exam Head: Present: normocephalic Eye: Present: EOMI, PERRL ENT: Present: mucous membranes moist - *Routine N
== END 2021-03-30 11:00 | disposition home or self-care (01) ==
LOC: ER 10:54 → 2ND 13:07
PROVIDERS: Admitting Provider Internal Medicine Adolescent Medicine; Emergency Provider Student in an Organized Health Care Education/Training Program; PCP Internal Medicine Adolescent Medicine; Visit Provider Internal Medicine Adolescent Medicine
DX: D64.9 Anemia, unspecified (principal); I48.91 Unspecified atrial fibrillation; J44.9 Chronic obstructive pulmonary disease, unspecified; I25.10 Atherosclerotic heart disease of native coronary artery without angina pectoris; I50.33 Acute on chronic diastolic (congestive) heart failure; I11.0 Hypertensive heart disease with heart failure; Z95.0 Presence of cardiac pacemaker; E03.9 Hypothyroidism, unspecified; Z79.01 Long term (current) use of anticoagulants; Z79.899 Other long term (current) drug therapy; E78.5 Hyperlipidemia, unspecified; Z88.2 Allergy status to sulfonamides; Z88.3 Allergy status to other anti-infective agents; Z88.8 Allergy status to other drugs, medicaments and biological substances; Z88.1 Allergy status to other antibiotic agents; Z20.822 Contact with and (suspected) exposure to COVID-19
CPT/HCPCS: G0378; 36415; 71045; 80053; 83605; 83735; 83880; 84484; 85007; 85014; 85018; 85025; 85378; 86850; 93005; 94640; 94760; 94761; 96374; 99284; C9803; P9016; U0003; U0005

== ENCOUNTER → 2021-04-03 12:08 | Outpatient (CLI) | payer MEDICARE, MEDICAID, SELFPAY ==
[2021-04-03 12:50] LABS: Basophils # 0.1 K/mm3 (0-0.2); Basophils % 0.4 % (0.1-2.0); Eosinophils # 0.4 K/mm3 (0.0-0.4); Eosinophils % 2.4 % (0.1-12.0); Hematocrit 29.1 % (37.0-47.0); Hemoglobin 8.3 g/dL (12.2-16.2); Lymphocytes # 1.5 K/mm3 (0.7-4.5); Lymphocytes % 9.4 % (10-50); Mean Corpuscular HGB Conc 28.7 g/dL (31.8-35.4); Mean Corpuscular Hemoglobin 21.7 pg (27.0-31.2); Mean Corpuscular Volume 75.8 fl (81-99); Mean Platelet Volume 7.7 fl (7.4-10.4); Monocytes # 0.6 K/mm3 (0.1-1.0); Monocytes % 3.9 % (1.7-9.3); Neutrophils # 13.1 K/mm3 (1.8-7.8); Neutrophils % 83.9 % (37.0-80.0); Platelet Count 322 K/mm3 (142-424); Red Blood Count 3.84 M/mm3 (4.20-5.40); Red Cell Distribution Width 18.6 % (11.5-17.5); White Blood Count 15.6 K/mm3 (4.8-10.8)
[2021-04-03 13:03] LABS: MANUAL DIFFERENTIAL MANUAL DIFFERENTIAL (MANUAL DIFF)
[2021-04-03 13:59] LABS: Anion Gap 8.8 mEq/L (5-15); Blood Urea Nitrogen 15 mg/dl (7-17); Calcium 8.8 mg/dl (8.4-10.2); Carbon Dioxide 32 mmol/L (22.0-30.0); Chloride 97 mmol/L (98-107); Estimated Glomerular Filt Rate 53 ml/min (>60); GFR (African American) 64 ML/MIN (>60); Glucose 104 mg/dl (74-100); Potassium 3.8 mmoL/L (3.5-5.1); Sodium 134 mmol/L (136-145)
[2021-04-03 14:19] LABS: Lymphocytes % 9 % (10-50); Microcytosis 1+; Monocytes % 2 % (2-9); Neutrophils % 89 % (42-76); Platelet Estimate Normal; Total Cells Counted 100
[2021-04-03 14:20] LABS: Anisocytosis 1+
[2021-04-03 14:21] LABS: Hypochromasia 3+
[2021-04-03 14:50] LABS: Vitamin B12 596 pg/mL (239-931)
[2021-04-03 15:24] LABS: Iron 30 ug/dL (37-170)
[2021-04-03 15:33] LABS: Total Iron Binding Capacity 450 ug/dL (265-497)
[2021-04-03 16:00] LABS: Ferritin 7.54 ng/ml (11.1-264)
== END ==
PROVIDERS: Visit Provider Nurse Practitioner Family
DX: D64.9 Anemia, unspecified (principal)
CPT/HCPCS: 36415; 80048; 82607; 82728; 83540; 83550; 85007; 85025

== ENCOUNTER → 2021-05-25 11:39 | Outpatient (CLI) | payer MEDICARE, MEDICAID, SELFPAY ==
[2021-05-25 13:02] LABS: Basophils # 0.1 K/mm3 (0-0.2); Basophils % 0.5 % (0.1-2.0); Eosinophils # 0.2 K/mm3 (0.0-0.4); Eosinophils % 1.8 % (0.1-12.0); Hematocrit 22.2 % (37.0-47.0); Lymphocytes # 1.3 K/mm3 (0.7-4.5); Lymphocytes % 14.3 % (10-50); Mean Corpuscular HGB Conc 29.3 g/dL (31.8-35.4); Mean Corpuscular Hemoglobin 20.2 pg (27.0-31.2); Mean Corpuscular Volume 68.7 fl (81-99); Mean Platelet Volume 9.4 fl (7.4-10.4); Monocytes # 0.5 K/mm3 (0.1-1.0); Monocytes % 4.8 % (1.7-9.3); Neutrophils # 7.4 K/mm3 (1.8-7.8); Neutrophils % 78.7 % (37.0-80.0); Platelet Count 270 K/mm3 (142-424); Red Blood Count 3.22 M/mm3 (4.20-5.40); Red Cell Distribution Width 19.8 % (11.5-17.5); White Blood Count 9.4 K/mm3 (4.8-10.8)
[2021-05-25 13:07] LABS: Hemoglobin 6.5 g/dL (12.2-16.2)
[2021-05-25 13:36] LABS: Alanine Aminotransferase 9 U/L (12-78); Albumin Level 3.8 g/dl (3.5-5.0); Albumin/Globulin Ratio 1.7 (1.1-1.8); Alkaline Phosphatase 63 U/L (38-126); Anion Gap 8.4 mEq/L (5-15); Aspartate Amino Transferase 19 U/L (14-36); Bilirubin,Total 0.4 mg/dl (0.2-1.3); Blood Urea Nitrogen 20 mg/dl (7-17); Calcium 8.7 mg/dl (8.4-10.2); Carbon Dioxide 31 mmol/L (22.0-30.0); Chloride 101 mmol/L (98-107); Estimated Glomerular Filt Rate 43 ml/min (>60); GFR (African American) 52 ML/MIN (>60); Globulin 2.3 g/dL (1.3-3.2); Glucose 98 mg/dl (74-100); Magnesium 1.9 mg/dl (1.6-2.3); Potassium 4.4 mmoL/L (3.5-5.1); Sodium 136 mmol/L (136-145); Total Protein,Serum 6.1 g/dl (6.3-8.2)
== END ==
PROVIDERS: PCP Nurse Practitioner Family; Visit Provider Nurse Practitioner Family
DX: D64.9 Anemia, unspecified (principal); I48.0 Paroxysmal atrial fibrillation
CPT/HCPCS: 36415; 80053; 80162; 83735; 85025; 86850

== ENCOUNTER 2021-05-26 08:09 | Outpatient (CLI) | payer MEDICARE, MEDICAID, SELFPAY ==
[2021-05-26] VITALS (19 sets, daily range): BP systolic 84–134; BP diastolic 41–90; PULSE 67–77; RESP 16–18; TEMP 35.7–36.8; O2SAT 91–98; BMI 23.8
--- NOTE | 2021-05-26 09:08 | PC.NURSE ---
09 - blood transfusion started at 100 ml/hr at this time
--- NOTE | 2021-05-26 09:54 | PC.NURSE ---
0935 - increased rate to 150 ml/hr at this time
--- NOTE | 2021-05-26 10:20 | PC.NURSE ---
1005 - increased rate to 200 ml/hr at this time
--- NOTE | 2021-05-26 11:42 | PC.NURSE ---
1140 - BLOOD TRANSFUSION STARTED AT 100 ML/HR AT THIS TIME
--- NOTE | 2021-05-26 13:00 | PC.NURSE ---
1210 - INCREASED RATE TO 150 ML/HR
--- NOTE | 2021-05-26 13:03 | PC.NURSE ---
1240 - INCREASED RATE TO 200 ML/HR AT THIS TIME.
[2021-05-26 14:56] LABS: Hematocrit 28.5 % (37.0-47.0); Hemoglobin 8.8 g/dL (12.2-16.2)
== END 2021-05-26 14:45 | disposition home or self-care (01) ==
LOC: INF 08:11
PROVIDERS: PCP Nurse Practitioner Family; Visit Provider Nurse Practitioner Family
DX: D64.9 Anemia, unspecified (principal)
CPT/HCPCS: 36430; 85014; 85018; P9016

== ENCOUNTER 2021-06-26 10:44 | Outpatient (CLI) | payer MEDICARE, MEDICAID, SELFPAY ==
[2021-06-26 11:05] VITALS: BP 133/68; PULSE 69; RESP 18; TEMP 36.4; O2SAT 92
[2021-06-26 11:45] VITALS: BP 120/56; PULSE 71; RESP 18; O2SAT 94
== END 2021-06-26 11:45 | disposition home or self-care (01) ==
LOC: INF 10:45
PROVIDERS: PCP Internal Medicine Adolescent Medicine; Visit Provider Internal Medicine Medical Oncology
DX: D50.9 Iron deficiency anemia, unspecified (principal)
CPT/HCPCS: 96365; J1439

== ENCOUNTER 2021-07-03 10:35 | Outpatient (CLI) | payer MEDICARE, MEDICAID, SELFPAY ==
[2021-07-03 11:00] VITALS: BP 97/58; PULSE 70; RESP 18; TEMP 36.6; O2SAT 95
[2021-07-03 11:24] VITALS: BP 107/86; PULSE 78; RESP 18; TEMP 36.6; O2SAT 95
== END 2021-07-03 11:43 | disposition home or self-care (01) ==
LOC: INF 10:37
PROVIDERS: PCP Internal Medicine Adolescent Medicine; Visit Provider Internal Medicine Medical Oncology
DX: D50.9 Iron deficiency anemia, unspecified (principal)
CPT/HCPCS: 96365; J1439

== ENCOUNTER 2021-07-09 22:07 | Inpatient (IN) | payer MEDICARE, MEDICAID, SELFPAY ==
[2021-07-09 22:06] VITALS: BP 122/56; PULSE 70; RESP 26; TEMP 39.1; O2SAT 87; BMI 23.6
--- NOTE | 2021-07-09 22:20 | PC.NURSE ---
RT at bedside for ABG
--- NOTE | 2021-07-09 22:28 | XR_ITS ---
PROCEDURE INFORMATION: Exam: XR Chest Exam date and time: 07/09/2021 10:59 PM Age: 81 years old Clinical indication: Shortness of breath; Additional info: SOA TECHNIQUE: Imaging protocol: XR of the chest. Views: 1 view. COMPARISON: CR XR CHEST PORTABLE 03/29/2021 11:25 AM FINDINGS: Tubes, catheters and devices: Dual lead left-sided cardiac pacemaker. Lungs: Interstitial opacities in both lungs findings most pronounced in the lower lobes concerning for pneumonia. Underlying emphysema and chronic interstitial lung disease. Pleural spaces: Unremarkable. No pleural effusion. No pneumothorax. Heart/Mediastinum: Cardiomegaly. Bones/joints: Unremarkable. IMPRESSION: Bilateral lower lobe predominant pneumonia.
--- NOTE | 2021-07-09 22:28 | ECG_ITS ---
APPROVED REPORT Exam: Resting ECG HR:70 bpm ECG Measurements Heart Rate 70 AXES [place] 224 P 99 QRSd 90 QRS 77 QT 337 T 143 QTc 358 Conclusion ELECTRONIC ATRIAL PACEMAKER ABNORMAL ECG UNCONFIRMED REPORT Electronically signed by : hTa Rivera MD 07/10/2021 19:45:17
[2021-07-09 22:30] LABS: ABG Base Excess 1.1 mmol/L (-2.4-2.3); ABG HCO3 25.6 mmhg (22.0-26.0); ABG Oxygen Saturation 98 % (90-100); ABG PCO2 40.5 mmhg (35.0-45.0); ABG PH 7.42 mmol/L (7.35-7.45); ABG PO2 92.7 mmhg (80-100); ABG TCO2 26.9 mmhg (23-27)
[2021-07-09 22:31] LABS: Allen's Test Y; Oxygen 100 %; Source Right Radial
[2021-07-09 23:00] VITALS: BP 124/52; PULSE 70; RESP 26; O2SAT 98
[2021-07-09 23:00] LABS: Basophils # 0.1 K/mm3 (0-0.2); Basophils % 0.3 % (0.1-2.0); Hematocrit 36.7 % (37.0-47.0); Hemoglobin 11.5 g/dL (12.2-16.2); Lymphocytes # 0.6 K/mm3 (0.7-4.5); Lymphocytes % 2.4 % (10-50); Mean Corpuscular HGB Conc 31.5 g/dL (31.8-35.4); Mean Corpuscular Hemoglobin 26.2 pg (27.0-31.2); Mean Corpuscular Volume 83.4 fl (81-99); Mean Platelet Volume 9.3 fl (7.4-10.4); Monocytes # 0.8 K/mm3 (0.1-1.0); Monocytes % 3.1 % (1.7-9.3); Neutrophils # 23.7 K/mm3 (1.8-7.8); Neutrophils % 94.2 % (37.0-80.0); Platelet Count 235 K/mm3 (142-424)
[2021-07-09 23:02] LABS: Lactic Acid 1.7 mmol/L (0.7-2.1)
--- NOTE | 2021-07-09 23:05 | HMH.EDSOB ---
ED Disposition Clinical Impression: Cardiac pacemaker in situ, SIRS (systemic inflammatory response syndrome) Community acquired pneumonia Qualifiers: Laterality: unspecified laterality Qualified Code(s): J18.9 - Pneumonia, unspecified organism Disposition: Admitted As Inpatient Condition on Discharge: Fair Referrals: Britt Bedolla APRN [Primary Care Provider] - - Critical Care Critical Care Time: No Attestation: On 07/09/21, the high probability of a clinically significant, sudden or life threatening deterioration of the following system(s) required my full and direct attention, intervention and personal management. The time I documented below is in addition to time spent performing reported procedures but includes the following listed in this critical care notation. Medical Decision Making - Medical Records Medical records reviewed: Yes: I reviewed the patient's medical records. - Jose Inquiry Pt receiving controlled substance: No Vital Signs: 07/09/21 22:06 07/09/21 23:00 07/09/21 23:30 Temperature 102.3 F H Temperature Source Rectal Pulse Rate 70 70 Pulse Rate [Right Radial] 70 Respiratory Rate 26 H 26 H 25 H Blood Pressure 124/52 L 120/47 L Blood Pressure [Right Arm] 122/56 L Blood Pressure Mean 76 71 Blood Pressure Mean [Right Arm] 78 Blood Pressure Source [Right Arm] Automatic Cuff Blood Pressure Position [Right Arm] Sitting 02 Sat by Pulse Oximetry 87 L 98 93 L Oxygen Delivery Method Non-Rebreather 07/10/21 00:00 07/10/21 00:06 07/10/21 00:30 Temperature 100.4 F H Temperature Source Rectal Pulse Rate 70 70 Pulse Rate [Right Radial] Respiratory Rate 21 23 Blood Pressure 107/39 L 104/45 L Blood Pressure [Right Arm] Blood Pressure Mean 61 56 Blood Pressure Mean [Right Arm] Blood Pressure Source [Right Arm] Blood Pressure Position [Right Arm] 02 Sat by Pulse Oximetry 92 L 91 L Oxygen Delivery Method - Lab Data Lab results reviewed: Yes: I reviewed the patient's lab results. Lab Results 07/09/21 22:29: Specimen Source Right radial, O2 % 100, ABG pH 7.42, ABG pCO2 40.5, ABG pO2 92.7, ABG HCO3 25.6, ABG Total CO2 26.9, ABG O2 Saturation 98, ABG Base Excess 1.1, Paulo Test Y 07/09/21 22:35: WBC 25.2 H*, RBC 4.40, Hgb 11.5 L, Hct 36.7 L, MCV 83.4, MCH 26.2 L, MCHC 31.5 L, RDW 25.5 H*, Plt Count 235, MPV 9.3, Neut % (Auto) 94.2 H, Lymph % (Auto) 2.4 L, [place] % (Auto) 3.1, Eos % (Auto) 0.0 L, Baso % (Auto) 0.3, Neut # (Auto) 23.7 H, Lymph # (Auto) 0.6 L, [place] # (Auto) 0.8, Eos # (Auto) 0.0, Baso # (Auto) 0.1, Total Counted 100, Neutrophils % (Manual) 67, Band Neutrophils % 20.0 H, Lymphocytes % (Manual) 11, Monocytes % (Manual) 2, Platelet Estimate Normal, RBC Morphology Not Reportable, Hypochromasia 1+, Anisocytosis 3+ 07/09/21 22:35: Sodium 135 L, Potassium 4.5, Chloride 99, Carbon Dioxide 31 H, Anion Gap 9.5, BUN 15, Creatinine 1.10 H, Estimated Creat Clear 49, Estimated GFR 48 L, Est GFR ( Amer) 58 L, Glucose 125 H, Calcium 9.0, Total Bilirubin 0.7, Direct Bilirubin 0.2, Conjugated Bilirubin 0.0, Indirect Bilirubin 0.5, Unconjugated Bilirubin 0.5, AST 32, ALT 18, Alkaline Phosphatase 73, Troponin I 0.03, C-Reactive Protein 53.1 H, Total Protein 7.2, Albumin 4.1 07/09/21 22:35: Lactate 1.7 07/09/21 22:35: SARS-CoV-2 (PCR) Not detected, Influenza A Untype (PCR) Not detected, Influenza Type B (PCR) Not detected 07/09/21 22:35: ESR 74 H 07/09/21 22:35: Procalcitonin 1.55 07/09/21 23:26: Urine Color Yellow, Urine Appearance Clear, Urine pH 5.0, Ur Specific [place] 1.025, Urine Protein Negative, Urine Glucose (UA) Negative, Urine Ketones Negative, Urine Blood Negative, Urine Nitrate Negative, Urine Bilirubin Negative, Urine Urobilinogen 0.2, Ur Leukocyte Esterase Negative, Urine WBC 3-5, Ur Renal Epithelial Cell 3-5, Amorphous Sediment 3+ Result diagrams: 07/09/21 22:35 07/09/21 22:35 Orders (Tests/Meds): ED MEDICATIONS Generic Name Dose Rou
[2021-07-09 23:29] LABS: MANUAL DIFFERENTIAL MANUAL DIFFERENTIAL (MANUAL DIFF); Red Cell Distribution Width 25.5 % (11.5-17.5); White Blood Count 25.2 K/mm3 (4.8-10.8)
[2021-07-09 23:30] VITALS: BP 120/47; PULSE 70; RESP 25; O2SAT 93
[2021-07-09 23:33] LABS: Microscopic, Urine URINE MICROSCOPIC (MICROSCOPIC)
[2021-07-09 23:33] LABS: Alanine Aminotransferase 18 U/L (12-78); Albumin Level 4.1 g/dl (3.5-5.0); Alkaline Phosphatase 73 U/L (38-126); Anion Gap 9.5 mEq/L (5-15); Aspartate Amino Transferase 32 U/L (14-36); Bilirubin,Direct 0.2 mg/dl (0.0-0.4); Bilirubin,Indirect 0.5 mg/dL (0.0-0.9); Bilirubin,Total 0.7 mg/dl (0.2-1.3); Bilirubin,Unconjugated 0.5 mg/dL (0.0-1.1); Blood Urea Nitrogen 15 mg/dl (7-17); Carbon Dioxide 31 mmol/L (22.0-30.0); Chloride 99 mmol/L (98-107); Creatinine Clearance Estimated 49 mL/min (50-200); Estimated Glomerular Filt Rate 48 ml/min (>60); GFR (African American) 58 ML/MIN (>60); Glucose 125 mg/dl (74-100); Potassium 4.5 mmoL/L (3.5-5.1); Sodium 135 mmol/L (136-145); Total Protein,Serum 7.2 g/dl (6.3-8.2)
[2021-07-09 23:37] LABS: Coronavirus 19, PCR Not Detected (NotDetected); Influenza A, PCR Not Detected (NotDetected); Influenza B, PCR Not Detected (NotDetected)
[2021-07-09 23:38] LABS: C-Reactive Protein 53.1 mg/L (0-4)
[2021-07-09 23:41] LABS: Anisocytosis 3+; Hypochromasia 1+; Lymphocytes % 11 % (10-50); Monocytes % 2 % (2-9); Neutrophils % 67 % (42-76); Platelet Estimate Normal; Total Cells Counted 100
[2021-07-09 23:59] LABS: Erythrocyte Sedimentation Rate 74 mm/hr (0-30)
[2021-07-10] VITALS (15 sets, daily range): BP systolic 104–129; BP diastolic 39–48; PULSE 68–80; RESP 20–23; TEMP 36.7–38; O2SAT 91–98; BMI 22.6
[2021-07-10 00:05] LABS: Appearance,Urine CLEAR (Clear); Bilirubin,Urine Negative (Negative); Blood, Urine Negative (Negative); Color,Urine YELLOW (Yellow); Glucose,Urine (UA) Negative (Negative); Ketones,Urine Negative (Negative); Leukocyte Esterase,Urine Negative (Negative); Nitrate,Urine Negative (Negative); Protein,Urine Negative (Negative); Specific Gravity, Urine 1.025 (1.005-1.030); Urobilinogen,Urine 0.2 EU/dl (0.2)
[2021-07-10 00:26] LABS: Amorphous Sediment,Urine 3+ /lpf
[2021-07-10 00:34] LABS: Troponin I 0.03 ng/ml (0.00-0.034)
[2021-07-10 00:39] LABS: Procalcitonin 1.55 ng/mL (0.0-2.0)
--- NOTE | 2021-07-10 00:50 | PC.NURSE ---
Paged Dr Thomas
--- NOTE | 2021-07-10 01:04 | PC.NURSE ---
Roscoe Thomas MD again
--- NOTE | 2021-07-10 01:05 | PC.NURSE ---
speaking with William at this time
--- NOTE | 2021-07-10 01:43 | PC.NURSE ---
Report given to NOE Leon at this time.
[2021-07-10 01:46] LABS: NT Pro Brain Natriuretic Pep. 2440 pg/mL (0-450)
[2021-07-10 01:50] LABS: T4 (Thyroxine) 11.4 ug/dl (5.53-11.0)
--- NOTE | 2021-07-10 01:54 | PC.NURSE ---
PT ARRIVED TO FLOOR VIA STRETCHER FROM ED W/STAFF @ [phone]
[2021-07-10 02:04] LABS: Thyroid Stimulating Hormone 0.68 uIU/mL (0.465-4.68)
[2021-07-10 02:15] LABS: Troponin I 0.03 ng/ml (0.00-0.034)
[2021-07-10 04:46] LABS: Basophils # 0.1 K/mm3 (0-0.2); Basophils % 0.2 % (0.1-2.0); Hematocrit 32.2 % (37.0-47.0); Lymphocytes # 0.6 K/mm3 (0.7-4.5); Lymphocytes % 2.1 % (10-50); Mean Corpuscular HGB Conc 31.3 g/dL (31.8-35.4); Mean Corpuscular Hemoglobin 26.1 pg (27.0-31.2); Mean Corpuscular Volume 83.5 fl (81-99); Mean Platelet Volume 9.8 fl (7.4-10.4); Monocytes # 0.5 K/mm3 (0.1-1.0); Neutrophils # 25.1 K/mm3 (1.8-7.8); Neutrophils % 95.7 % (37.0-80.0); Platelet Count 196 K/mm3 (142-424); Red Blood Count 3.85 M/mm3 (4.20-5.40)
[2021-07-10 04:47] LABS: Red Cell Distribution Width 25.3 % (11.5-17.5)
[2021-07-10 04:48] LABS: White Blood Count 26.2 K/mm3 (4.8-10.8)
[2021-07-10 04:57] LABS: Chloride 103 mmol/L (98-107); Potassium 4.3 mmoL/L (3.5-5.1); Sodium 135 mmol/L (136-145)
[2021-07-10 04:59] LABS: Hemoglobin 10.1 g/dL (12.2-16.2)
[2021-07-10 05:00] LABS: Anion Gap 8.3 mEq/L (5-15); Blood Urea Nitrogen 15 mg/dl (7-17); Carbon Dioxide 28 mmol/L (22.0-30.0); Creatinine Clearance Estimated 52 mL/min (50-200); Estimated Glomerular Filt Rate 53 ml/min (>60); GFR (African American) 64 ML/MIN (>60); Glucose 134 mg/dl (74-100); Magnesium 1.4 mg/dl (1.6-2.3)
[2021-07-10 05:12] LABS: Troponin I 0.03 ng/ml (0.00-0.034)
--- NOTE | 2021-07-10 07:21 | P.CONPHA_ITS ---
[facility] Pharmacy VTE Monitoring - Patient Demographics Admission date: 07/10/21 Report Date: 07/10/21 Time: 07:21 Allergies/Adverse Reactions: Patient Allergies cefdinir [From Omnicef] Allergy (Intermediate, Verified 06/22/21 12:41) Iodine and Iodide Containing Produc Allergy (Intermediate, Verified 06/22/21 12:41) atorvastatin [From Lipitor] Allergy (Mild, Verified 06/22/21 12:41) cefixime [From Suprax] Allergy (Mild, Verified 06/22/21 12:41) I-RASH cephalexin [From Keflex] Allergy (Mild, Verified 06/22/21 12:41) DIARRHEA etodolac Allergy (Mild, Verified 06/22/21 12:41) pantoprazole Allergy (Mild, Verified 06/22/21 12:41) NIGHTMARES prednisone Allergy (Mild, Verified 06/22/21 12:41) SHORTNESS OF BREATH cefepime Allergy (Unknown, Verified 06/22/21 12:41) diltiazem Allergy (Unknown, Verified 06/22/21 12:41) BOTHERED HEART isosorbide Allergy (Unknown, Verified 06/22/21 12:41) morphine [MORPHINE] Allergy (Unknown, Verified 06/22/21 12:41) rosuvastatin Allergy (Unknown, Verified 06/22/21 12:41) UNK RXN Sulfa (Sulfonamide Antibiotics) Allergy (Unknown, Verified 06/22/21 12:41) URINARY PROBLEMS amoxicillin Adverse Reaction (Mild, Verified 06/22/21 12:41) DIARRHEA clarithromycin Adverse Reaction (Mild, Verified 06/22/21 12:41) N/V/D clavulanic acid Adverse Reaction (Mild, Verified 06/22/21 12:41) DIARRHEA esomeprazole [From Nexium] Adverse Reaction (Mild, Verified 06/22/21 12:41) NIGHTMARES gabapentin Adverse Reaction (Mild, Verified 06/22/21 12:41) URINARY PROBLEMS, SWELLING levofloxacin [From Levaquin] Adverse Reaction (Mild, Verified 06/22/21 12:41) PAINFUL JOINTS montelukast [From Singulair] Adverse Reaction (Mild, Verified 06/22/21 12:41) naproxen Adverse Reaction (Mild, Verified 06/22/21 12:41) NVD nitrofurantoin [From Macrobid] Adverse Reaction (Mild, Verified 06/22/21 12:41) SHAKES lansoprazole [From Prevacid] Adverse Reaction (Unknown, Verified 06/22/21 12:41) SHORT OF BREATH Height: 1.83 m Weight: 75.75 kg Patient Problems: Current Active Problems Community acquired pneumonia (Acute) SIRS (systemic inflammatory response syndrome) (Acute) Cardiac pacemaker in situ (Chronic) - VTE Risk Labs: VTE Related Lab Results Hgb 10.1 g/dL (12.2-16.2) L D 07/10/21 04:40 Hct 32.2 % (37.0-47.0) L 07/10/21 04:40 Plt Count 196 K/mm3 (142-424) 07/10/21 04:40 BUN 15 mg/dl (7-17) 07/10/21 04:40 Creatinine 1.00 mg/dl (0.52-1.04) 07/10/21 04:40 Estimated Creat Clear 52 mL/min (50-200) 07/10/21 04:40 Was VTE Risk Assessment Performed: Yes VTE Score: 9 VTE Risk Level: Moderate Risk Clinical Trial Participant: No - Prophylaxis VTE Prophylaxis Ordered?: Yes Types of VTE Prophylaxis: TEDS Knee High, Pharmacological (XARELTO) Pharmacologic Type: Other (XARELTO)
--- NOTE | 2021-07-10 08:00 | CA_ITS ---
APPROVED REPORT EXAM: Comprehensive 2D, Doppler, and color-flow Echocardiogram Lead Custodian: Gisella Rosado, CHRISTINA, RVS Ht: 6 ft 0 in Wt: 174lbs BSA: 2.01 BP: 114/75 mmHg Indications: pneumonia, CAD,AFIB, Pacer 2D Dimensions LVOT 1.90 cm (M/F) 1.5-2.5 LA Volume 65.40 mL LA Volume Index 32.50 mL/m2 (M/F) 16-34 M-Mode Dimensions RVDd 3.57 cm (0.9-2.6) LA Diam 4.64 cm (1.9-4.0) LVDd 4.81 cm (3.5-5.7) Ao Diam 3.28 cm (2.0-3.7) LVDs 3.32 cm (3.5-5.7) IVSd 1.11 cm (0.6-1.1) PWd 1.06 cm (0.6-1.1) EF (Teich) 58.50% EPSs 0.51 cm FS 31.00% EDV (Teich) 108.00 mL TAPSE 1.60 (<1.7) ESV (Teich) 44.80 mL LV Diastology E Decel Time 260.00 (160-240 msec) E/A Ratio 0.97 MED E' 4.30 (< 7 cm/sec) MED A' 7.60 cm/s E'/MED E' Ratio 20.07 (>14) LAT E' 6.40 (<10 cm/sec) LAT A' 12.70 cm/s E/LAT E' Ratio 13.48 (>14) Aortic Valve AoV Peak Sanju. 144.00 (50-130 cm/s) AO Peak GR. 8.30 mmHg AO Mean GR. 4.20 (<5 mmHg) AO VTI 26.76 (18-25 cm) Mitral Valve MV A Velocity 89.00 (40-130 cm/s) E/A Ratio 0.97 MV Decel. Time 260.00 (160-240 ms) MV Mean Gr. 2.10 (<2mmHg) Pulmonary Valve PV Peak Velocity 94.00 (50-150 cm/s) DC End VMAX 147.00 cm/s Tricuspid Valve TR P. Velocity 169.00 cm/s RAP Estimate 10.00 mmHg RVSP 21.40 mmHg Left Ventricle Left atrium is mildly enlarged, left ventricle is normal size, mild concentric left ventricular hypertrophy, visually estimated ejection fraction 55% with no regional wall motion abnormality, diastolic parameters are inconclusive. Right Ventricle Right atrium and right ventricle are mildly enlarged with normal contractility, pacemaker lead seen in right ventricle. Aortic Valve Aortic valve is thickened and calcified without Doppler evidence of aortic stenosis or aortic insufficiency. Mitral Valve Mitral valve has mitral annular calcification which extends in the posterior mitral leaflet, there is no mitral stenosis, there is mild mitral regurgitation. Tricuspid Valve Tricuspid grossly normal, there is mild tricuspid regurgitation, tricuspid regurgitation jet velocity is inadequate for calculation of the right ventricular systolic pressure. Pulmonic Valve Pulmonic valve is poorly visualized. Great Vessels Aortic root is normal size. Inferior vena cava is poorly visualized. Pericardium No significant pericardial effusion noted. Conclusion 1. Biatrial enlargement, normal left ventricular size, mild concentric left ventricular hypertrophy, visually estimated ejection fraction 55% with no regional wall motion abnormality, diastolic parameters are inconclusive. 2. Thickened and calcified aortic valve without aortic stenosis or aortic insufficiency. 3. Mild mitral and tricuspid regurgitation. 4. No significant pericardial effusion. 5. Inferior vena cava is poorly visualized. Electronically signed by : Dionicio Perla MD 07/10/2021 17:12:30
--- NOTE | 2021-07-10 08:57 | HMH.HP ---
*Admission Date: 07/10/21 *Chief complaint: Cough/congestion/fever *History of present illness: 81-year-old white female who has been under hospice care for severe COPD with recurrent pneumonitis infections who came to the hospital with cough, fever, congestion --in the emergency department she was found to have elevated white count, bilobar pneumonia, acute on chronic respiratory failure is admitted to hospital for IV fluids, oxygen and antibiotics. This morning she feels better already in the hospital bed. [facility] History I have reviewed the patient's past medical history: Yes Medical History: Reports:: Arrhythmia, Atrial Fibrillation, Cardiomyopathy, Congestive Heart Failure, Chronic Obstructive Pulmonary Disease (COPD), Coronary Artery Disease, Diabetes Mellitus Type 2 (diet controlled), Hyperlipidemia, Hypertension, Internal Pacemaker, Palpitations Denies:: Cancer, Diabetes Mellitus Type 1, MRSA *Have you ever received a pneumonia vaccine?: Yes *Have you received a flu vaccine this season?: No Other Medical History: Reports: Anemia, Arthritis, Cataracts, Hypothyroidism, Sinus Problems, Thyroid Disease Laterality Cases: Left: Total Knee Replacement, Bilateral: Arthroscopy Knee, Tonsillectomy Other Surgeries: Yes: Cardiac Catheterization, Cholecystectomy, Colonoscopy, EGD, Pacemaker, Thyroidectomy Amputation: No Fractures: No - *Social History Last grade of school completed: Some college Smoking Status: Former smoker Tobacco Type: cigarettes # Packs/Day (cigarettes): 1 #Yrs smoked (if former smoker): 30 Alcohol Intake: never Alcohol Intake Frequency:: other Substance Use Type: denies use *Occupational Status:: retired Housing: house Household Members: none *Travel in the last 8 weeks: None Family Hx:: Asthma, Cancer, Diabetes, Heart Attack, Stroke Review of Systems - Review of Systems Review of systems:: pertinent systems reviewed and negative unless documented below - *Neurologic Denies seizure-like activity Meds Home Medications Medication Instructions Recorded Confirmed Type alprazolam 0.5 mg tablet 0.5 mg PO TID tab 06/11/17 07/10/21 History fexofenadine 180 mg tablet 180 mg PO DAILY tab 06/11/17 07/10/21 History levothyroxine 75 mcg tablet 75 mcg PO DAILY tab 06/11/17 07/10/21 History omeprazole 20 mg capsule,delayed 20 mg PO BID cap 06/01/19 07/10/21 History release Digoxin 125 mcg PO DAILY 09/14/20 07/10/21 History Fluticasone Propion/Salmeterol 1 puff IH BID 09/14/20 07/10/21 History [Wixela 500-50 Inhub] Bumetanide 2 mg PO BID 03/29/21 07/10/21 History Ipratropium/Albuterol Sulfate 3 ml INHALATION Q6HP 03/29/21 07/10/21 History [Duoneb 3mL neb] metoprolol tartrate 25 mg tablet 25 mg PO BID tab 06/20/21 07/10/21 History Rivaroxaban [Xarelto] 15 mg PO DAILY 06/26/21 07/10/21 History Cyanocobalamin (Vitamin B-12) 1 ml IM MONTHLY 07/10/21 07/10/21 History [Cyanocobalamin 1,000mcg/mL Vial] Allergies Allergy/AdvReac Type Severity Reaction Status Date / Time cefdinir [From Omnicef] Allergy Intermediate Verified 06/22/21 12:41 Iodine and Iodide Containing Allergy Intermediate Verified 06/22/21 12:41 Produc atorvastatin [From Lipitor] Allergy Mild Verified 06/22/21 12:41 cefixime [From Suprax] Allergy Mild I-RASH Verified 06/22/21 12:41 cephalexin [From Keflex] Allergy Mild DIARRHEA Verified 06/22/21 12:41 etodolac Allergy Mild Verified 06/22/21 12:41 pantoprazole Allergy Mild NIGHTMARES Verified 06/22/21 12:41 prednisone Allergy Mild SHORTNESS Verified 06/22/21 12:41 OF BREATH cefepime Allergy Unknown Verified 06/22/21 12:41 diltiazem Allergy Unknown BOTHERED Verified 06/22/21 12:41 HEART isosorbide Allergy Unknown Verified 06/22/21 12:41 morphine [MORPHINE] Allergy Unknown Verified 06/22/21 12:41 rosuvastatin Allergy Unknown UNK RXN Verified 06/22/21 12:41 Sulfa (Sulfonamide Allergy Unknown URINARY Verified 06/22/21 12:41 Antibiotics) PROBLEMS amoxicillin AdvReac
--- NOTE | 2021-07-10 09:36 | HMH.PHAINT ---
Using the patients pharmacy fill history and information provided by the patient, I was able to review and update the patients home medication list.
--- NOTE | 2021-07-10 11:40 | SW/DCPLANNER ---
Addendum entered by Kary Plaza 07/14/21 10:05: Kimmie w/ [facility] has stated that services will begin Saturday07/16/21. Addendum entered by Kary Plaza 07/14/21 09:28: The plan is for this patient to discharge home today w/ home health services. I will fax patient information/order to [facility] and follow up once reviewed. Addendum entered by Kary Plaza 07/12/21 14:02: Julisa w/ [facility] stated that due to patient not being vaccinated for COVID that she would require a private room. [facility] stated that there is a slight chance that a private room could come open tomorrow morning. Patient stated that if [facility] can not accept her she prefers to return home with home health services ([facility]?). I will follow up with prakash, and [facility] tomorrow. Addendum entered by Mary Valdovinos RN 07/12/21 07:39: [facility] states they sent information to insurance for pre-authorization. NOE Stanton Addendum entered by Mary Valdovinos RN 07/11/21 09:21: Patient spoke with Dr. Rivera yesterday and they decided that if [facility] has an open bed and she can go there it would be a good idea for her to do some rehab. Called [facility] and they will have an open bed this evening. Faxed patient information to them to review. NOE Stanton Original Note: I spoke with this patient regarding plans once medically stable for discharge. Patient stated that she resides at home alone but does have a lady come in three hours a day to help. I discussed different options for discharge plans with this patient: placement vs home health. Patient stated that she does fine at home and would prefer to return home with home health services. I will continue to follow up with this patient until medically stable for discharge. Patient did have Hospice services in the past but has been discharged from their services.
--- NOTE | 2021-07-10 11:42 | HMH.PTEV ---
Physical Therapy Evaluation Rehab PT IP Evaluation Start: 07/10/21 08:56 Freq: ONCE Status: Active Protocol: Document 07/10/21 11:39 PHORLANNY (Rec: 07/10/21 11:42 PHORNE [id number]) Subjective/History History History 81 yowf adm to [facility] with CAP and increased SOA. Pt reports she lives alone, but has assist 5 days a week and uses a RW for ambulation at baseline. Subjective Subjective Pt reports she feels SOA, but this is her baseline. Rehab PT IP Eval Objective Appearance Patient Behavior Appropriate Patient Orientation Person,Place,Time Difficulty following instructions none Speech Pattern Clear Ambulation Patient Able to Ambulate Yes Ambulation Observation IP General Gait Pattern Observation Shuffling Step Ambulation Distance (feet) 20 Ambulation Assistive Device None Ambulation Ability Contact Guard/Hand Hold Balance Ability to Arise Able, uses arms to help Sitting Balance Steady, safe Standing Balance Steady, wide stance Dynamic Sitting Balance Ability Good Dynamic Standing Balance Ability Good Transfers Bed Transfer Ability Supervision/Stand by Chair Transfer Ability Supervision/Stand by Sit to Stand Bed Transfer Ability Supervision/Stand by Sit to Stand Chair Transfer Ability Supervision/Stand by Rehab PT IP prob,goals,plan Problems Date of Evaluation: 07/10/21 Discharge Plan PT Discharge Plan Pt appears to be at baseline for all mobility at this time and is appropriate to return home with assist. G -code Required No Eval Complexity Eval Charge Codes 49535 - Moderate Complexity PHYSICIAN CERTIFICATION: I certify the specified therapy services for Vandana Pandey are required, authorized, and reviewed every 30 days.
--- NOTE | 2021-07-10 11:44 | HMH.OTEV ---
OT Inpatient Evaluation Rehab OT IP Evaluation Start: 07/10/21 08:56 Freq: ONCE Status: Complete Protocol: Document 07/10/21 11:36 [facility] (Rec: 07/10/21 11:44 [facility] [id number]) Rehab OT IP Assessment Subjective History Pt oriented x 3 on arrival. Pt agreeable to engage in therapy evaluation. Pt admitted on 07/10/21 due to cough, congestion, and fever. Pt reports prior to being admitted to the hosptial she lived at home alone. Pt had a sitter with her 5 days a week for ~3-4 hours each day. The sitter would assist her with dressing and showering. The sitter also completed all cooking, cleaning, laundry, etc. Her daughter would complete grocery shopping. Pt used a rolling walker during ambulation. Family would check on patient daily as well . The following informationw as copied from history and report physical: 81-year-old white female who has been under hospice care for severe COPD with recurrent pneumonitis infections who came to the hospital with cough, fever, congestion --in the emergency department she was found to have elevated white count, bilobar pneumonia , acute on chronic respiratory failure is admitted to hospital for IV fluids, oxygen and antibiotics. Subjective Pt resting in wheelchair on arrival. Pt stood from wheelchair with sba. Pt engaged in functional transfer to toilet and eob with cga and rolling walker. Pt stood from bed and toilet with cga. Pt wanted to remain sitting at eob with sba. Pt was able to engage in functional
--- NOTE | 2021-07-10 13:49 | DIET.NUTRFU ---
RD saw patient, upon visit she /o of chewing issues. Agreed to try ground meat to help with intake. She was also requesting salt, called care mgt and approved regular no dietary restrictions. Patient is here for PNA tx, was hospice at home, comfort care. Notified kitchen of changes.
[2021-07-11] VITALS (12 sets, daily range): BP systolic 103–125; BP diastolic 45–56; PULSE 69–87; RESP 16–20; TEMP 36.5–36.7; O2SAT 90–97; BMI 23.3
[2021-07-11 06:03] LABS: Basophils % 0.2 % (0.1-2.0); Hematocrit 29.7 % (37.0-47.0); Hemoglobin 9.1 g/dL (12.2-16.2); Lymphocytes # 1.1 K/mm3 (0.7-4.5); Lymphocytes % 8.4 % (10-50); Mean Corpuscular HGB Conc 30.8 g/dL (31.8-35.4); Mean Corpuscular Hemoglobin 26.2 pg (27.0-31.2); Mean Corpuscular Volume 84.9 fl (81-99); Mean Platelet Volume 9.6 fl (7.4-10.4); Monocytes # 0.4 K/mm3 (0.1-1.0); Monocytes % 3.2 % (1.7-9.3); Neutrophils # 11.2 K/mm3 (1.8-7.8); Neutrophils % 88.2 % (37.0-80.0); Platelet Count 224 K/mm3 (142-424); White Blood Count 12.6 K/mm3 (4.8-10.8)
[2021-07-11 06:11] LABS: MANUAL DIFFERENTIAL MANUAL DIFFERENTIAL (MANUAL DIFF); Red Cell Distribution Width 25.8 % (11.5-17.5)
[2021-07-11 06:12] LABS: Anion Gap 7.8 mEq/L (5-15); Blood Urea Nitrogen 26 mg/dl (7-17); Calcium 8.5 mg/dl (8.4-10.2); Carbon Dioxide 29 mmol/L (22.0-30.0); Chloride 102 mmol/L (98-107); Estimated Glomerular Filt Rate 48 ml/min (>60); GFR (African American) 58 ML/MIN (>60); Glucose 119 mg/dl (74-100); Potassium 3.8 mmoL/L (3.5-5.1); Sodium 135 mmol/L (136-145)
--- NOTE | 2021-07-11 06:28 | PC.NURSE ---
02 decreased to 5L pnc at this time, pt tolerating well
[2021-07-11 06:36] LABS: Creatinine Clearance Estimated 49 mL/min (50-200)
--- NOTE | 2021-07-11 08:18 | HMH.ACPN2 ---
Internal Medicine - PN: Subj *Date: 07/11/21 *Time: 13:54 Interval history: Symptoms defervescing. Afebrile for 24 hours. Tolerating breakfast this morning. On 5 L nasal cannula oxygen. Denies nausea, chest pain, vomiting. States she feels much better. Pleasant on interview. Exam Vital signs and Labs for Last 24 Hours: Temp Pulse Resp BP Pulse Ox 98.0 F 71 17 103/50 L 96 07/11/21 04:00 07/11/21 06:21 07/11/21 04:00 07/11/21 04:00 07/11/21 06:21 Laboratory Results - last 24 hr 07/11/21 05:12: WBC 12.6 H D, RBC 3.50 L, Hgb 9.1 L, Hct 29.7 L, MCV 84.9, MCH 26.2 L, MCHC 30.8 L, RDW 25.8 H*, Plt Count 224, MPV 9.6, Neut % (Auto) 88.2 H, Lymph % (Auto) 8.4 L, [place] % (Auto) 3.2, Eos % (Auto) 0.0 L, Baso % (Auto) 0.2, Neut # (Auto) 11.2 H, Lymph # (Auto) 1.1, [place] # (Auto) 0.4, Eos # (Auto) 0.0, Baso # (Auto) 0.0 07/11/21 05:12: Sodium 135 L, Potassium 3.8, Chloride 102, Carbon Dioxide 29, Anion Gap 7.8, BUN 26 H D, Creatinine 1.10 H, Estimated Creat Clear 49, Estimated GFR 48 L, Est GFR ( Amer) 58 L, Glucose 119 H, Calcium 8.5 I & O for Last 24 hours: Intake & Output 07/08/21 07/09/21 07/10/21 07/11/21 23:59 23:59 23:59 23:59 Intake Total 2430 / 2430 650 / 650 Balance 2430 / 2430 650 / 650 Weight 78.925 kg 75.75 kg 78.063 kg Microbiology Reports for the Last 24 Hours: Microbiology 07/10/21 13:17 Sputum - Expectorated Sputum Gram Stain - Final - Constitutional mild distress, chronically ill appearing - *Routine HEENT Exam Head: Present: normocephalic Eye: Present: EOMI, PERRL ENT: Present: mucous membranes moist - *Routine Neck Exam Present: supple. Absent: lymphadenopathy - *Routine Respiratory Exam Present: prolonged expiratory phase, rhonchi, crackles (Right lower lung field) - *Routine Cardiovascular Exam Present: RRR - *Routine Abdominal Exam Present: soft, normoactive bowel sounds. Absent: tenderness - *Routine Extremities Exam Present: edema (1+). Absent: cyanosis, clubbing - *Routine Skin Exam Present: warm. Absent: rash - *Routine Neurological Exam Present: alert, oriented X3 Assessment and Plan (1) Community acquired pneumonia Status: Acute Qualifiers: Laterality: unspecified laterality Qualified Code(s): J18.9 - Pneumonia, unspecified organism Category: Medical Code(s): J18.9 - Pneumonia, unspecified organism (2) SIRS (systemic inflammatory response syndrome) Status: Acute Category: Medical Code(s): R65.10 - Systemic inflammatory response syndrome (SIRS) of non-infectious origin without acute organ dysfunction (3) Cardiac pacemaker in situ Status: Chronic Category: Medical Code(s): Z95.0 - Presence of cardiac pacemaker (4) Cardiac murmur Status: Acute Category: Medical Code(s): R01.1 - Cardiac murmur, unspecified (5) Acute on chronic diastolic heart failure Status: Chronic Category: Medical Code(s): I50.33 - Acute on chronic diastolic (congestive) heart failure (6) Chronic obstructive lung disease Status: Chronic Qualifiers: Category: Medical Code(s): J44.9 - Chronic obstructive pulmonary disease, unspecified - Assessment and plan all Dx Assessment and Plan for all problems:: 81-year-old female with acute on chronic hypoxemic respiratory failure secondary to pneumonia. Tolerating current antibiotics. Improving respiratory status. Tolerating inhalers. States she feels much better today. Continue current antibiotic and breathing treatment regimen. Wean oxygen as tolerated for goal saturation greater 90%. Patient amenable to considering placement. Case management assisting with referral. DNR Regular diet Continues to require inpatient management
[2021-07-11 08:28] LABS: Eosinophils % 1 % (0-3); Lymphocytes % 9 % (10-50); Monocytes % 1 % (2-9); Neutrophils % 89 % (42-76); Total Cells Counted 100
[2021-07-11 08:29] LABS: Platelet Estimate Normal
--- NOTE | 2021-07-11 18:08 | PC.NURSE ---
pt has had a good afternoon. she has been up to the bathroom off and on this shift with minimal assistance to get up. she states she does not like the chair r/t it hurting her legs but is willing to sit on the side of the bed. lungs contain scattered rhonchi and faint crackles. pt is a/o x4. nad noted.
[2021-07-12] VITALS (14 sets, daily range): BP systolic 98–138; BP diastolic 45–65; PULSE 67–81; RESP 15–19; TEMP 36.4–37.3; O2SAT 82–96
[2021-07-12 05:41] LABS: Basophils % 0.4 % (0.1-2.0); Eosinophils # 0.1 K/mm3 (0.0-0.4); Eosinophils % 0.9 % (0.1-12.0); Hematocrit 32.9 % (37.0-47.0); Hemoglobin 10.1 g/dL (12.2-16.2); Lymphocytes # 1.9 K/mm3 (0.7-4.5); Lymphocytes % 17.1 % (10-50); Mean Corpuscular HGB Conc 30.6 g/dL (31.8-35.4); Mean Corpuscular Hemoglobin 26.2 pg (27.0-31.2); Mean Corpuscular Volume 85.8 fl (81-99); Mean Platelet Volume 9.4 fl (7.4-10.4); Monocytes # 0.5 K/mm3 (0.1-1.0); Monocytes % 4.1 % (1.7-9.3); Neutrophils # 8.8 K/mm3 (1.8-7.8); Neutrophils % 77.5 % (37.0-80.0); Platelet Count 264 K/mm3 (142-424); Red Blood Count 3.84 M/mm3 (4.20-5.40); White Blood Count 11.4 K/mm3 (4.8-10.8)
[2021-07-12 05:50] LABS: Red Cell Distribution Width 25.2 % (11.5-17.5)
[2021-07-12 05:51] LABS: Anion Gap 7.9 mEq/L (5-15); Blood Urea Nitrogen 30 mg/dl (7-17); Calcium 8.7 mg/dl (8.4-10.2); Carbon Dioxide 35 mmol/L (22.0-30.0); Chloride 101 mmol/L (98-107); Creatinine Clearance Estimated 45 mL/min (50-200); Estimated Glomerular Filt Rate 43 ml/min (>60); GFR (African American) 52 ML/MIN (>60); Glucose 94 mg/dl (74-100); Potassium 3.9 mmoL/L (3.5-5.1); Sodium 140 mmol/L (136-145)
--- NOTE | 2021-07-12 08:38 | HMH.ACPN2 ---
Internal Medicine - PN: Subj *Date: 07/12/21 *Time: 08:38 Interval history: Patient looks great this morning. Up in the side of the bed, breathing easily on her nasal cannula. Therapy and nursing notes noted. Patient has made some nice progress. Exam Vital signs and Labs for Last 24 Hours: Temp Pulse Resp BP Pulse Ox 97.6 F 73 16 104/45 L 91 L 07/12/21 08:00 07/12/21 08:00 07/12/21 08:00 07/12/21 08:00 07/12/21 08:00 Laboratory Results - last 24 hr 07/12/21 05:21: WBC 11.4 H, RBC 3.84 L, Hgb 10.1 L, Hct 32.9 L, MCV 85.8, MCH 26.2 L, MCHC 30.6 L, RDW 25.2 H*, Plt Count 264, MPV 9.4, Neut % (Auto) 77.5, Lymph % (Auto) 17.1, [place] % (Auto) 4.1, Eos % (Auto) 0.9, Baso % (Auto) 0.4, Neut # (Auto) 8.8 H, Lymph # (Auto) 1.9, Lagrange # (Auto) 0.5, Eos # (Auto) 0.1, Baso # (Auto) 0.0 07/12/21 05:21: Sodium 140, Potassium 3.9, Chloride 101, Carbon Dioxide 35 H, Anion Gap 7.9, BUN 30 H, Creatinine 1.20 H, Estimated Creat Clear 45, Estimated GFR 43 L, Est GFR ( Amer) 52 L, Glucose 94, Calcium 8.7 I & O for Last 24 hours: Intake & Output 07/09/21 07/10/21 07/11/21 07/12/21 11:59 11:59 11:59 11:59 Intake Total 1340 / 1340 1860 / 1860 360 / 360 Output Total 300 / 300 Balance 1340 / 1340 1860 / 1860 60 / 60 Weight 167 lb 172 lb 1.6 oz Microbiology Reports for the Last 24 Hours: Microbiology 07/09/21 22:35 Blood Blood Culture - Preliminary NO GROWTH AFTER 48 HOURS 07/09/21 22:35 Blood Blood Culture - Preliminary NO GROWTH AFTER 48 HOURS 07/10/21 13:17 Sputum - Expectorated Sputum Gram Stain - Final Narrative: Alert, pleasant. Rhonchi and crackles in the left lower and middle lung field. Heart rate regular. Abdomen soft nontender. No edema or clubbing. Neurologically intact. Assessment and Plan (1) Community acquired pneumonia Status: Acute Qualifiers: Laterality: unspecified laterality Qualified Code(s): J18.9 - Pneumonia, unspecified organism Category: Medical Code(s): J18.9 - Pneumonia, unspecified organism (2) SIRS (systemic inflammatory response syndrome) Status: Acute Category: Medical Code(s): R65.10 - Systemic inflammatory response syndrome (SIRS) of non-infectious origin without acute organ dysfunction (3) Cardiac pacemaker in situ Status: Chronic Category: Medical Code(s): Z95.0 - Presence of cardiac pacemaker (4) Cardiac murmur Status: Acute Category: Medical Code(s): R01.1 - Cardiac murmur, unspecified (5) Acute on chronic diastolic heart failure Status: Chronic Category: Medical Code(s): I50.33 - Acute on chronic diastolic (congestive) heart failure (6) Chronic obstructive lung disease Status: Chronic Qualifiers: Category: Medical Code(s): J44.9 - Chronic obstructive pulmonary disease, unspecified - Assessment and plan all Dx Assessment and Plan for all problems:: Overall nice improvement. Await insurance decision regarding skilled care. Possible discharge later today if positive decision. Was continue current care. Consider discharge home with home health if insurance declines skilled care.
[2021-07-13] VITALS (12 sets, daily range): BP systolic 109–130; BP diastolic 37–64; PULSE 69–82; RESP 16–24; TEMP 36.4–37; O2SAT 86–94; BMI 22.4
--- NOTE | 2021-07-13 05:56 | PC.NURSE ---
pt has rested well throughout shift, no complaints of pain or discomfort, pt states she does have occasional episodes of SOA but o2 has remained stable in the 90s with 4l nc, vss, call light within reach will continue to monitor at this time
--- NOTE | 2021-07-13 08:56 | P.PN_ITS ---
Internal Medicine - PN: Subj *Date: 07/13/21 *Time: 08:56 Interval history: Patient continues to make slow but steady improvement. Currently on 4 L nasal cannula with O2 saturations in the low 90% range. We continue to await decision from a skilled care facility/insurance precertification regarding bed availability/payment for needed PT/OT. Patient actually wishes to go home but is willing to go to skilled care if approved by insurance. Exam Vital signs and Labs for Last 24 Hours: Temp Pulse Resp BP Pulse Ox 97.7 F 71 16 112/56 L 86 L 07/13/21 04:00 07/13/21 06:36 07/13/21 04:00 07/13/21 04:00 07/13/21 06:36 I & O for Last 24 hours: Intake & Output 07/10/21 07/11/21 07/12/21 07/13/21 11:59 11:59 11:59 11:59 Intake Total 1340 / 1340 1860 / 1860 600 / 600 600 / 600 Output Total 300 / 300 850 / 850 Balance 1340 / 1340 1860 / 1860 300 / 300 -250 / -250 Weight 167 lb 172 lb 1.6 oz 166 lb Microbiology Reports for the Last 24 Hours: Microbiology 07/10/21 13:17 Sputum - Expectorated Sputum Gram Stain - Final 07/10/21 13:17 Sputum - Expectorated Sputum Sputum Culture - Preliminary Gram Negative Rods Narrative: Alert, oriented. Pleasant. Rhonchi in both lower lung snyder. Abdomen soft and nontender. Extremities without edema. Heart rate regular. Assessment and Plan (1) Community acquired pneumonia Status: Acute Qualifiers: Laterality: unspecified laterality Qualified Code(s): J18.9 - Pneumonia, unspecified organism Category: Medical Code(s): J18.9 - Pneumonia, unspecified organism (2) SIRS (systemic inflammatory response syndrome) Status: Acute Category: Medical Code(s): R65.10 - Systemic inflammatory response syndrome (SIRS) of non-infectious origin without acute organ dysfunction (3) Cardiac pacemaker in situ Status: Chronic Category: Medical Code(s): Z95.0 - Presence of cardiac pacemaker (4) Cardiac murmur Status: Acute Category: Medical Code(s): R01.1 - Cardiac murmur, unspecified (5) Acute on chronic diastolic heart failure Status: Chronic Category: Medical Code(s): I50.33 - Acute on chronic diastolic (congestive) heart failure (6) Chronic obstructive lung disease Status: Chronic Qualifiers: Category: Medical Code(s): J44.9 - Chronic obstructive pulmonary disease, unspecified - Assessment and plan all Dx Assessment and Plan for all problems:: Continue current plan. Await decision from senior living. Consider discharge home later this afternoon or tomorrow depending on how patient feels and insurance decision regarding skilled care issues, would need home health.
--- NOTE | 2021-07-13 15:46 | PC.WOUNDNOTE ---
RD visited patient, her meal intake is fair at 50% of meals, plus receiving her ensures with trays. Discharge plans reviewed during rounds today, provider hoping to get a bed in the rehab facility of patient choosing. If not she will go home alone. She does have help that come in 3 hours/day and helps with meal prep. Encouraged her to continue supplements at home if does not eat 3 meals/day
[2021-07-14] VITALS (7 sets, daily range): BP systolic 111–127; BP diastolic 62–77; PULSE 68–74; RESP 17–18; TEMP 36.8–37.1; O2SAT 89–93; BMI 22.6
--- NOTE | 2021-07-14 07:03 | HMH.DCSUM ---
General - General Admission date:: 07/10/21 Discharge date: 07/14/21 HPI HPI: 81-year-old white female who has been under hospice care for severe COPD with recurrent pneumonitis infections who came to the hospital with cough, fever, congestion --in the emergency department she was found to have elevated white count, bilobar pneumonia, acute on chronic respiratory failure is admitted to hospital for IV fluids, oxygen and antibiotics. This morning she feels better already in the hospital bed. Hospital Course Hospital Course: 81-year-old female with acute on chronic hypoxemic respiratory failure secondary to pneumonia. Initiated on broad-spectrum antibiotics and steroids. Gradually improved and her oxygen requirement during admission. Improving respiratory status. Tolerating inhalers. Improved clinically during admission to hoem O2 levels. Able to transition to PO abx to complete course as outpatient. Attempted to place patient. Unable to get placement approved by her insurance. Decision made to discharge home with home health. Lives close to several family, has assistance in home setting. Medically stable for DC home. examined on day of DC. reviewed meds and side effects. Objective Vital signs: Temp Pulse Resp BP Pulse Ox 98.3 F 68 18 111/62 93 L 07/14/21 04:00 07/14/21 05:55 07/14/21 04:00 07/14/21 04:00 07/14/21 05:55 Narrative: - Constitutional minimal distress, chronically ill appearing, at Baseline O2. - *Routine HEENT Exam Head: Present: normocephalic Eye: Present: EOMI, PERRL ENT: Present: mucous membranes moist - *Routine Neck Exam Present: supple. Absent: lymphadenopathy - *Routine Respiratory Exam Present: prolonged expiratory phase, rhonchi, crackles (Right lower lung field) - *Routine Cardiovascular Exam Present: RRR - *Routine Abdominal Exam Present: soft, normoactive bowel sounds. Absent: tenderness - *Routine Extremities Exam Present: edema (1+). Absent: cyanosis, clubbing - *Routine Skin Exam Present: warm. Absent: rash - *Routine Neurological Exam Present: alert, oriented X3 Results Labs on day of discharge: Preliminary micro results at discharge 07/10/21 13:17 Sputum Culture - Preliminary Sputum - Expectorated Sputum Gram Negative Rods 07/09/21 22:35 Blood Culture - Preliminary Blood NO GROWTH AFTER 48 HOURS 07/09/21 22:35 Blood Culture - Preliminary Blood NO GROWTH AFTER 48 HOURS DS: Diagnosis - Discharge Diagnosis (1) Community acquired pneumonia Status: Acute (2) SIRS (systemic inflammatory response syndrome) Status: Acute (3) Cardiac pacemaker in situ Status: Chronic (4) Cardiac murmur Status: Acute (5) Acute on chronic diastolic heart failure Status: Chronic (6) Chronic obstructive lung disease Status: Chronic Discharge Plan - Patient Discharge Instructions ACTIVITY: Continue current activity DIET: continue same diet Patient Instructions: Pneumonia-Adult, DI for Pneumonia -- Adult, DI for Shortness of Breath, How to Manage Shortness of Breath - Follow up Plan Follow up with: Britt Bedolla APRN [Primary Care Provider] - Disposition: Home Health Service Condition at discharge:: Improving Home Medications: Home Medications Medication Instructions Recorded Confirmed Type alprazolam 0.5 mg tablet 0.5 mg PO TID tab 06/11/17 07/10/21 History fexofenadine 180 mg tablet 180 mg PO DAILY tab 06/11/17 07/10/21 History levothyroxine 75 mcg tablet 75 mcg PO DAILY tab 06/11/17 07/10/21 History omeprazole 20 mg capsule,delayed 20 mg PO BID cap 06/01/19 07/10/21 History release Digoxin 125 mcg PO DAILY 09/14/20 07/10/21 History Fluticasone Propion/Salmeterol 1 puff IH BID 09/14/20 07/10/21 History [Wixela 500-50 Inhub] Bumetanide 2 mg PO BID 03/29/21 07/10/21 History Ipratropium/Albuterol Sulfate 3 ml INHALATION Q6HP 03/29/21 07/10/21 History [Duoneb 3mL neb
--- NOTE | 2021-07-14 09:27 | HMH.ACPN ---
Internal Medicine - PN: Subj *Date: 07/14/21 *Time: 09:27 Exam Vital signs and Labs for Last 24 Hours: Temp Pulse Resp BP Pulse Ox 98.7 F 70 18 127/62 89 L 07/14/21 08:00 07/14/21 08:29 07/14/21 08:00 07/14/21 08:00 07/14/21 08:00 I & O for Last 24 hours: Intake & Output 07/11/21 07/12/21 07/13/21 07/14/21 23:59 23:59 23:59 23:59 Intake Total 1010 / 1010 960 / 960 540 / 540 240 / 240 Output Total 300 / 300 850 / 850 Balance 710 / 710 110 / 110 540 / 540 240 / 240 Weight 78.063 kg 75.296 kg 75.75 kg Microbiology Reports for the Last 24 Hours: Microbiology 07/10/21 13:17 Sputum - Expectorated Sputum Gram Stain - Final 07/10/21 13:17 Sputum - Expectorated Sputum Sputum Culture - Preliminary Gram Negative Rods Assessment and Plan (1) Community acquired pneumonia Status: Acute Qualifiers: Laterality: unspecified laterality Qualified Code(s): J18.9 - Pneumonia, unspecified organism Category: Medical Code(s): J18.9 - Pneumonia, unspecified organism (2) SIRS (systemic inflammatory response syndrome) Status: Acute Category: Medical Code(s): R65.10 - Systemic inflammatory response syndrome (SIRS) of non-infectious origin without acute organ dysfunction (3) Cardiac pacemaker in situ Status: Chronic Category: Medical Code(s): Z95.0 - Presence of cardiac pacemaker (4) Cardiac murmur Status: Acute Category: Medical Code(s): R01.1 - Cardiac murmur, unspecified (5) Acute on chronic diastolic heart failure Status: Chronic Category: Medical Code(s): I50.33 - Acute on chronic diastolic (congestive) heart failure (6) Chronic obstructive lung disease Status: Chronic Qualifiers: Category: Medical Code(s): J44.9 - Chronic obstructive pulmonary disease, unspecified The patient's infection will respond to the chosen ABx?: Yes Is the patient receiving the right drug, dose, and route?: Yes Could a more targeted ABx be ordered?: No (AFEBRILE, WBC WNL, GRAM - RODS IN SPUTUM, CONT. CURRENT ABX.)
--- NOTE | 2021-07-18 14:01 | CARE MANAGER ---
Addendum entered by Mary Valdovinos RN 07/18/21 14:14: patient states she already received the albuterol/ipratropium nebs in 90 day supply so she doesn't want me to call to see if they will change it. She states she couldn't get an appointment until later, but I could reschedule her for one sooner. She says she is fine with the current appointment. Discussed when to seek sooner care. Denies any questions or concerns. NOE Stanton Original Note: Contacted patient related to follow up from hospital discharge. Patient states she is doing well, but is breathing about the same. She is still using 4 LPM/NC of Oxygen. Patient states she noticed her nebulizer medications had albuterol in them and was concerned it may be making her worse as she could be allergic to it. She reports the home health nurse wanted her to get an X-ray and an appointment to see the MD before she was scheduled, but she reported she isn't able to get in any sooner than what she is scheduled. I offered to speak with Vasyl Israel regarding her concerns for Albuterol
== END 2021-07-14 13:35 | disposition home health service (06) | DRG 193 ==
LOC: ER 22:11 → 2ND 07-10 01:24
PROVIDERS: Internal Medicine Adolescent Medicine; Admitting Provider Internal Medicine Adolescent Medicine; Emergency Provider Emergency Medicine; PCP Nurse Practitioner Family; Visit Provider Internal Medicine Adolescent Medicine
DX: J15.9 Unspecified bacterial pneumonia (principal); J96.20 Acute and chronic respiratory failure, unspecified whether with hypoxia or hypercapnia; I50.33 Acute on chronic diastolic (congestive) heart failure; I42.9 Cardiomyopathy, unspecified; J44.0 Chronic obstructive pulmonary disease with (acute) lower respiratory infection; Z99.81 Dependence on supplemental oxygen; Z20.822 Contact with and (suspected) exposure to COVID-19; I11.0 Hypertensive heart disease with heart failure; E11.9 Type 2 diabetes mellitus without complications; Z79.899 Other long term (current) drug therapy; Z88.8 Allergy status to other drugs, medicaments and biological substances; Z87.891 Personal history of nicotine dependence; I48.91 Unspecified atrial fibrillation; E78.5 Hyperlipidemia, unspecified; Z95.0 Presence of cardiac pacemaker; E03.9 Hypothyroidism, unspecified; Z96.652 Presence of left artificial knee joint; Z66 Do not resuscitate
CPT/HCPCS: 36415; 71045; 80048; 80076; 80162; 81001; 82803; 83605; 83735; 83880; 84145; 84436; 84443; 84484; 85007; 85025; 85651; 86140; 87040; 87070; 87077; 87186; 87205; 93005; 93306; 94640; 94760; 94761; 96365; 96366; 97162; 97166; 99285; C9803; J0456; J0696; U0003; U0005

== ENCOUNTER → 2021-09-20 12:42 | Outpatient (CLI) | payer MEDICARE, MEDICAID, SELFPAY ==
[2021-09-20 13:25] LABS: Basophils # 0.1 K/mm3 (0-0.2); Basophils % 1.1 % (0.1-2.0); Eosinophils # 0.2 K/mm3 (0.0-0.4); Eosinophils % 1.6 % (0.1-12.0); Hematocrit 41.7 % (37.0-47.0); Hemoglobin 13.7 g/dL (12.2-16.2); Lymphocytes # 1.6 K/mm3 (0.7-4.5); Lymphocytes % 15.5 % (10-50); Mean Corpuscular HGB Conc 32.8 g/dL (31.8-35.4); Mean Corpuscular Volume 91.5 fl (81-99); Mean Platelet Volume 9.4 fl (7.4-10.4); Monocytes # 0.5 K/mm3 (0.1-1.0); Monocytes % 4.7 % (1.7-9.3); Neutrophils % 77.1 % (37.0-80.0); Platelet Count 242 K/mm3 (142-424); Red Blood Count 4.56 M/mm3 (4.20-5.40); Red Cell Distribution Width 17.3 % (11.5-17.5); White Blood Count 10.3 K/mm3 (4.8-10.8)
[2021-09-20 13:59] LABS: Iron 61 ug/dL (37-170)
[2021-09-20 14:31] LABS: Total Iron Binding Capacity 272 ug/dL (265-497)
[2021-09-20 14:36] LABS: Ferritin 223 ng/ml (11.1-264)
== END ==
PROVIDERS: PCP Internal Medicine Adolescent Medicine; Visit Provider Internal Medicine Medical Oncology
DX: D50.9 Iron deficiency anemia, unspecified (principal)
CPT/HCPCS: 36415; 82728; 83540; 83550; 85025

== ENCOUNTER → 2021-11-20 11:42 | Outpatient (CLI) | payer MEDICARE, MEDICAID, SELFPAY | PROVIDERS: PCP Internal Medicine Adolescent Medicine; Visit Provider Ophthalmology | DX: Z01.812 Encounter for preprocedural laboratory examination (principal); Z20.822 Contact with and (suspected) exposure to COVID-19 | CPT/HCPCS: C9803; U0003; U0005 ==

== ENCOUNTER 2021-11-21 09:30 | Day surgery (SDC) | payer MEDICARE, MEDICAID, SELFPAY ==
[2021-11-16 14:05] VITALS: BMI 22.6
[2021-11-21] VITALS (8 sets, daily range): BP systolic 115–131; BP diastolic 55–66; PULSE 69–71; RESP 16–18; TEMP 36.3–36.4; O2SAT 91–100
== END 2021-11-21 12:10 | disposition home or self-care (01) ==
LOC: OR 09:31
PROVIDERS: PCP Internal Medicine Adolescent Medicine; Visit Provider Ophthalmology
DX: H25.813 Combined forms of age-related cataract, bilateral (principal)
CPT/HCPCS: 66982; V2632

== ENCOUNTER → 2022-01-06 11:32 | Outpatient (CLI) | payer MEDICARE, MEDICAID, SELFPAY | PROVIDERS: PCP Internal Medicine Adolescent Medicine; Visit Provider Ophthalmology | DX: Z01.812 Encounter for preprocedural laboratory examination (principal); Z20.822 Contact with and (suspected) exposure to COVID-19; H25.011 Cortical age-related cataract, right eye | CPT/HCPCS: C9803; U0003; U0005 ==

== ENCOUNTER 2022-01-09 09:01 | Day surgery (SDC) | payer MEDICARE, MEDICAID, SELFPAY ==
[2021-11-29 10:28] VITALS: BMI 23.0
[2022-01-04 11:56] VITALS: BMI 23.0
[2022-01-09] VITALS (7 sets, daily range): BP systolic 114–144; BP diastolic 59–74; PULSE 70; RESP 16–18; TEMP 36.4–36.9; O2SAT 94–100
== END 2022-01-09 11:44 | disposition home or self-care (01) ==
LOC: OR 09:03
PROVIDERS: PCP Internal Medicine Adolescent Medicine; Visit Provider Ophthalmology
DX: H26.9 Unspecified cataract (principal)
CPT/HCPCS: 66984; V2632

== ENCOUNTER → 2022-03-22 08:32 | Outpatient (CLI) | payer MEDICARE, MEDICAID, SELFPAY ==
[2022-03-22 09:26] LABS: Basophils # 0.1 K/mm3 (0-0.2); Basophils % 0.6 % (0.1-2.0); Eosinophils # 0.2 K/mm3 (0.0-0.4); Eosinophils % 2.5 % (0.1-12.0); Hematocrit 35.8 % (37.0-47.0); Hemoglobin 11.8 g/dL (12.2-16.2); Lymphocytes # 1.6 K/mm3 (0.7-4.5); Lymphocytes % 16.5 % (10-50); Mean Corpuscular HGB Conc 32.8 g/dL (31.8-35.4); Mean Corpuscular Hemoglobin 29.8 pg (27.0-31.2); Mean Corpuscular Volume 90.7 fl (81-99); Mean Platelet Volume 9.3 fl (7.4-10.4); Monocytes # 0.5 K/mm3 (0.1-1.0); Monocytes % 5.1 % (1.7-9.3); Neutrophils # 7.2 K/mm3 (1.8-7.8); Neutrophils % 75.4 % (37.0-80.0); Platelet Count 213 K/mm3 (142-424); Red Blood Count 3.95 M/mm3 (4.20-5.40); Red Cell Distribution Width 13.8 % (11.5-17.5); White Blood Count 9.5 K/mm3 (4.8-10.8)
[2022-03-22 09:32] LABS: Iron 52 ug/dL (37-170)
[2022-03-22 09:42] LABS: Total Iron Binding Capacity 299 ug/dL (265-497)
[2022-03-22 10:08] LABS: Ferritin 110 ng/ml (11.1-264)
== END ==
PROVIDERS: PCP Internal Medicine Adolescent Medicine; Visit Provider Internal Medicine Medical Oncology
DX: D50.9 Iron deficiency anemia, unspecified (principal)
CPT/HCPCS: 36415; 82728; 83540; 83550; 85025

== ENCOUNTER → 2022-08-09 10:23 | Outpatient (CLI) | payer MEDICARE, MEDICAID, SELFPAY ==
[2022-08-09 10:42] LABS: Basophils # 0.1 K/mm3 (0-0.2); Basophils % 0.6 % (0.1-2.0); Eosinophils # 0.2 K/mm3 (0.0-0.4); Eosinophils % 1.8 % (0.1-12.0); Hematocrit 37.3 % (37.0-47.0); Hemoglobin 11.9 g/dL (12.2-16.2); Lymphocytes # 1.5 K/mm3 (0.7-4.5); Lymphocytes % 15.9 % (10-50); Mean Corpuscular HGB Conc 31.8 g/dL (31.8-35.4); Mean Corpuscular Hemoglobin 29.1 pg (27.0-31.2); Mean Corpuscular Volume 91.5 fl (81-99); Mean Platelet Volume 8.6 fl (7.4-10.4); Monocytes # 0.4 K/mm3 (0.1-1.0); Monocytes % 4.6 % (1.7-9.3); Neutrophils # 7.4 K/mm3 (1.8-7.8); Neutrophils % 77.2 % (37.0-80.0); Platelet Count 221 K/mm3 (142-424); Red Blood Count 4.08 M/mm3 (4.20-5.40); Red Cell Distribution Width 14.2 % (11.5-17.5); White Blood Count 9.6 K/mm3 (4.8-10.8)
[2022-08-09 11:52] LABS: Iron 60 ug/dL (37-170)
[2022-08-09 12:01] LABS: Total Iron Binding Capacity 270 ug/dL (265-497)
[2022-08-09 12:28] LABS: Ferritin 104 ng/ml (11.1-264)
== END ==
PROVIDERS: PCP Internal Medicine Adolescent Medicine; Visit Provider Internal Medicine Medical Oncology
DX: D50.9 Iron deficiency anemia, unspecified (principal)
CPT/HCPCS: 36415; 82728; 83540; 83550; 85025

== ENCOUNTER 2023-03-21 13:42 | Observation (INO) | payer MEDICARE, MEDICAID, SELFPAY ==
[2023-03-21] VITALS (7 sets, daily range): BP systolic 102–128; BP diastolic 58–70; PULSE 70–81; RESP 17–22; TEMP 36.2–36.7; O2SAT 94–100; BMI 21.7; BMI 24.0
--- NOTE | 2023-03-21 13:44 | XR_ITS ---
PROCEDURE INFORMATION: Exam: XR Chest Exam date and time: 03/21/2023 2:00 PM Age: 82 years old Clinical indication: Shortness of breath; Additional info: SOA TECHNIQUE: Imaging protocol: Radiologic exam of the chest. Views: 1 view. COMPARISON: CR XR CHEST PORTABLE 07/09/2021 10:59 PM FINDINGS: Tubes, catheters and devices: Pacemaker device again demonstrated. Lungs: Hyperlucent changes are demonstrated. Increase in the lung volumes is demonstrated. Bibasilar regions of bronchiectasis. Pleural spaces: Unremarkable. No pleural effusion. No pneumothorax. Heart/Mediastinum: Unremarkable. No cardiomegaly. Diaphragm: There is flattening of the hemidiaphragms. Bones/joints: Unremarkable. IMPRESSION: Chronic obstructive pulmonary disease.
--- NOTE | 2023-03-21 13:49 | ECG_ITS ---
APPROVED REPORT Exam: Resting ECG HR:79 bpm ECG Measurements Heart Rate 79 AXES QRSd 163 QRS -87 QT 403 T 82 QTc 438 Conclusion ELECTRONIC VENTRICULAR PACEMAKER ABNORMAL RHYTHM ECG UNCONFIRMED REPORT Electronically signed by : Tha Rivera MD 03/21/2023 17:11:15
--- NOTE | 2023-03-21 13:53 | HMH.EDGENADL ---
Discharge Plan Disposition Patient Disposition: Admitted Clinical Impressions Clinical Impression: Acute exacerbation of chronic obstructive pulmonary disease, Acute and chronic respiratory failure ([id number]) Discharge ED Provider: Julisa Kerr General Adult HPI General Chief complaint: Shortness of Breath/Dyspnea Stated complaint: SOA Time Seen by Provider: 03/21/23 13:44 Mode of Arrival: EMS Source of Information: EMS Limitations: No Limitations Description of Symptoms (Recalled from ER Triage Doc. by RN): PT TO ED VIA EMS FROM HOME WITH COMPLAINTS OF SOB. PT WAS RECENTLY TREATED FOR BRONCHITIS AND FINISHED HER ANTIBIOTICS A WEEK AGO. PT IS ON 4L NC AT BASELINE AT ALL TIMES. PT WAS GIVEN A DUO NEB IN ROUTE BY EMS AND REPORTS RELIEF AT THIS TIME. History of Present Illness HPI narrative: This patient is an 82-year-old female with a history of paroxysmal atrial fibrillation, hypertrophic obstructive cardiomyopathy, CHF, pacemaker placement, stage III CKD, CAD, hypertension, and iron deficiency anemia requiring blood transfusions presenting to the emergency department for evaluation with concern for difficulty breathing. Patient states that she has had increased shortness of breath and cough for approximately 2 weeks now. She wears 4 L nasal cannula at home at baseline, but she is still having a hard time catching her breath. She states she was recently treated by bronchitis for her primary care provider and finished antibiotics approximately a week ago. They gave her a shot of steroids in clinic according to the patient, but she denies any steroid use at home. She states that she was given a DuoNeb en route with good improvement. Per EMS, they gave 1 DuoNeb. Vital stable in route. Patient denies any other concerns, such as fevers, chills, chest pain, abdominal pain, nausea, vomiting, changes in bowel movements, rashes, swelling, or other concerns. She reports compliance with her home medications. Related Data Home Medications Medication Instructions Recorded Confirmed alprazolam 0.5 mg tablet 0.5 mg PO TIDP PRN Anxiety 06/11/17 03/21/23 levothyroxine 75 mcg tablet 75 mcg PO DAILY Thyroid 06/11/17 03/21/23 digoxin 125 mcg (0.125 mg) tablet 125 mcg PO DAILY Heart Rate 09/14/20 03/21/23 bumetanide 2 mg tablet 2 mg PO BID Fluid 03/29/21 03/21/23 ipratropium 0.5 mg-albuterol 3 mg 3 ml inhalation Q6HP Shortness of 03/29/21 03/21/23 (2.5 mg base)/3 mL nebulization breath soln metoprolol tartrate 50 mg tablet 25 mg PO BID High Blood Pressure 10/06/21 03/21/23 albuterol sulfate 90 mcg/actuation 2 puff inhalation Q4HP PRN 03/21/23 03/21/23 aerosol inhaler Shortness Of Breath fluticasone 250 mcg-salmeterol 50 1 ea inhalation BID Breathing 03/21/23 03/21/23 mcg/dose blistr powdr for Problems inhalation rivaroxaban 15 mg tablet 15 mg PO QPMWITHMEAL Blood 03/21/23 03/21/23 thinner/Afib Allergies Allergy/AdvReac Type Severity Reaction Status Date / Time cefdinir [From Omnicef] Allergy Intermediate Verified 03/12/23 11:19 Iodine and Iodide Containing Allergy Intermediate Verified 03/12/23 11:19 Produc atorvastatin [From Lipitor] Allergy Mild Verified 03/12/23 11:19 cefixime [From Suprax] Allergy Mild I-RASH Verified 03/12/23 11:19 cephalexin [From Keflex] Allergy Mild DIARRHEA Verified 03/12/23 11:19 etodolac Allergy Mild Verified 03/12/23 11:19 pantoprazole Allergy Mild NIGHTMARES Verified 03/12/23 11:19 prednisone Allergy Mild SHORTNESS Verified 03/12/23 11:19 OF BREATH cefepime Allergy Unknown Verified 03/12/23 11:19 diltiazem Allergy Unknown BOTHERED Verified 03/12/23 11:19 HEART isosorbide Allergy Unknown Verified 03/12/23 11:19 morphine [MORPHINE] Allergy Unknown Verified 03/12/23 11:19 rosuvastatin Allergy Unknown UNK RXN Verified 03/12/23 11:19 Sulfa (Sulfonamide Allergy Unknown URINARY Verified 03/12/23 11:19 Antibiotics) PROBLEMS amoxicillin AdvReac Mild DIARRHEA Verified 03/12/23
[2023-03-21 13:59] LABS: Basophils % 0.3 % (0.1-2.0); Eosinophils # 0.1 K/mm3 (0.0-0.4); Eosinophils % 0.9 % (0.1-12.0); Hematocrit 35.2 % (37.0-47.0); Hemoglobin 11.8 g/dL (12.2-16.2); Lymphocytes # 1.3 K/mm3 (0.7-4.5); Lymphocytes % 9.7 % (10-50); Mean Corpuscular HGB Conc 33.4 g/dL (31.8-35.4); Mean Corpuscular Hemoglobin 29.9 pg (27.0-31.2); Mean Corpuscular Volume 89.5 fl (81-99); Mean Platelet Volume 9.1 fl (7.4-10.4); Monocytes # 0.6 K/mm3 (0.1-1.0); Monocytes % 4.6 % (1.7-9.3); Neutrophils # 11.2 K/mm3 (1.8-7.8); Neutrophils % 84.4 % (37.0-80.0); Platelet Count 198 K/mm3 (142-424); Red Blood Count 3.93 M/mm3 (4.20-5.40); Red Cell Distribution Width 14.6 % (11.5-17.5); White Blood Count 13.2 K/mm3 (4.8-10.8)
[2023-03-21 14:05] LABS: Chloride 96 mmol/L (98-107); Sodium 132 mmol/L (136-145)
[2023-03-21 14:06] LABS: VBG Base Excess 2.5 mmol/L (-2.4-2.3); VBG HCO3 29.1 mmol/L (23-30); VBG Oxygen Saturation 72.4 % (50-70); VBG PH 7.29 mmol/L (7.31-7.41); VBG PO2 41.4 mmol/L (28-40); VBG Total CO2 31.1 mmol/L (23-27)
[2023-03-21 14:08] LABS: VBG PCO2 62.3 mmol/L (35-51)
[2023-03-21 14:08] LABS: Alanine Aminotransferase 19 U/L (12-78); Albumin/Globulin Ratio 1.4 (1.1-1.8); Alkaline Phosphatase 73 U/L (38-126); Aspartate Amino Transferase 33 U/L (14-36); Bilirubin,Total 0.4 mg/dl (0.2-1.3); Blood Urea Nitrogen 18 mg/dl (7-17); Calcium 8.4 mg/dl (8.4-10.2); Carbon Dioxide 33 mmol/L (22.0-30.0); Creatinine Clearance Estimated 41 mL/min (50-200); Estimated Glomerular Filt Rate 43 ml/min (>60); GFR (African American) 52 ML/MIN (>60); Globulin 2.9 g/dL (1.3-3.2); Glucose 108 mg/dl (74-100); Total Protein,Serum 6.9 g/dl (6.3-8.2)
[2023-03-21 14:16] LABS: Coronavirus 19, PCR Not Detected (NotDetected); Influenza A, PCR Not Detected (NotDetected); Influenza B, PCR Not Detected (NotDetected)
--- NOTE | 2023-03-21 14:19 | PC.NURSE ---
RESPIRATORY NOTIFIED OF BI-PAP
--- NOTE | 2023-03-21 14:19 | PC.NURSE ---
ATTEMPTED TO REACH DR NICHOLSON, WILL CALL BACK
--- NOTE | 2023-03-21 14:21 | PC.NURSE ---
DR TRUJILLO AT BEDSIDE TO UPDATE PT AND FAMILY
--- NOTE | 2023-03-21 14:26 | PC.NURSE ---
DR TRUJILLO SPEAKING WITH DR NICHOLSON
--- NOTE | 2023-03-21 14:29 | PC.NURSE ---
CARE MANAGEMENT NOTIFIED OF ADMISSION
--- NOTE | 2023-03-21 14:32 | EXP.HP ---
History of Present Illness *Admission Date: 03/21/23 *Reason for visit:: short of breath *History of present illness: Ms. Pandey is an 82-year-old female brought to the ER by EMS with complaint of shortness of breath. Received 2 DuoNebs in route and feels some improvement but still quite dyspneic on exam in the ER. Reports recently having bronchitis and being treated with 2 rounds of antibiotics. These did not resolve her symptoms and continues to feel short of breath. She has a history of A-fib, CHF, pacemaker placement, stage III CKD, CAD, hypertension. Shortness of breath and cough that is mildly productive of persisted for 2 weeks. Normally wears 4 L nasal cannula at home and is on baseline oxygen at this time. Still having hard time catching breath. In the ER, imaging and workup were performed. Imaging with COPD and questionable right lower lobe early consolidation on my review. White cell count of 13,000. States that she is short of breath when she lays down. Has some swelling of her legs as well. Denies chest pain, fever, nausea or vomiting. Given patient's symptoms and failure of outpatient treatment, ER consulted medicine for admission. On evaluation after arriving to the floor, patient is feeling a little bit better. Not quite as short of breath. Noted to be quite edematous however in her legs. Tolerating dinner. Reports she gets short of breath with any exertion. Has to pause and catch her breath at home when she walks distances. [facility] Disclaimer: The information contained in this section may have been updated after the patient was seen, as this information can be updated by other users. Medical History Afib Allergies Arthritis Asthma Bronchitis Cardiac murmur CHF (congestive heart failure) Cholecystectomy planned Chronic cough Chronic diastolic (congestive) heart failure COPD (chronic obstructive pulmonary disease) Edema Emphysema/COPD History of anemia History of back pain History of cataract History of COVID-19 History of diverticulitis History of gastroesophageal reflux (GERD) Hypertension Pacemaker Pneumonia Sinus headache Sleep apnea Typical angina Surgical History H/O thyroidectomy History of colonoscopy History of total left knee replacement Hx of adenoidectomy Hx of tonsillectomy Hx of tubal ligation Family History Esophageal cancer Brother Family/Other Afib Mother Son Heart attack Mother Father Breast cancer Grandmother Lung cancer Grandmother Multiple sclerosis Daughter Social History Smoking Status: Former smoker tobacco type: cigarettes packs per day: 1 years smoked: 30 second hand exposure: No alcohol intake: never substance use type: denies use current occupational status: disabled Travel in the last 8 weeks: None household members: none housing: house current occupational exposures/hazards: No caffeine: Yes Review of Systems Review of Systems Review of systems (narrative): 14 point review of systems performed, pertinent positives and negatives as per [facility] Meds Home Medications and Allergies Home Medications Medication Instructions Recorded Confirmed Type alprazolam 0.5 mg tablet 0.5 mg PO TIDP PRN Anxiety 06/11/17 03/21/23 History levothyroxine 75 mcg tablet 75 mcg PO DAILY Thyroid 06/11/17 03/21/23 History digoxin 125 mcg (0.125 mg) tablet 125 mcg PO DAILY Heart Rate 09/14/20 03/21/23 History bumetanide 2 mg tablet 2 mg PO BID Fluid 03/29/21 03/21/23 History ipratropium 0.5 mg-albuterol 3 mg 3 ml inhalation Q6HP Shortness of 03/29/21 03/21/23 History (2.5 mg base)/3 mL nebulization breath soln metoprolol tartrate 50 mg tablet 25 mg PO BID High Blood Pressure 10/06/21 03/21/23 History albuterol sulfate 90 mcg/actuat
[2023-03-21 14:53] LABS: NT Pro Brain Natriuretic Pep. 4300 pg/mL (0-450)
--- NOTE | 2023-03-21 15:08 | PC.NURSE ---
REPORT GIVEN TO ALLYSSA RN
--- NOTE | 2023-03-21 15:11 | HMH.PHAINT1 ---
Pharmacy Intervention Comments: MEDICATION RECONCILIATION COMPLETED ON PATIENT USING EXTERNAL FILL HISTORY FROM PHARMACY. -HAYLEY VANG, LYD
--- NOTE | 2023-03-21 15:13 | PC.NURSE ---
pt being transported up for admission
--- NOTE | 2023-03-21 17:07 | PC.NURSE ---
A&OX4. PT TOLERATING BIPAP WELL, SWITCHED TO NASAL CANNULA WHILE EATING SUPPER. PT HAS +2 PITTING EDEMA TO BLE. FAMILY AT BEDSIDE. PT HAS HAD NO NEEDS OR C/O SINCE ARRIVAL TO FLOOR. VSS.
[2023-03-22] VITALS (11 sets, daily range): BP systolic 111–134; BP diastolic 52–73; PULSE 68–91; RESP 16–22; TEMP 36.6–36.8; O2SAT 90–98; BMI 23.8
--- NOTE | 2023-03-22 06:35 | PC.NURSE ---
Echo completed at bedside at 0630. Awaiting results.
[2023-03-22 07:46] LABS: Basophils % 0.3 % (0.1-2.0); Hematocrit 33.5 % (37.0-47.0); Hemoglobin 10.9 g/dL (12.2-16.2); Lymphocytes # 0.7 K/mm3 (0.7-4.5); Lymphocytes % 11.5 % (10-50); Mean Corpuscular HGB Conc 32.5 g/dL (31.8-35.4); Mean Corpuscular Hemoglobin 29.2 pg (27.0-31.2); Mean Corpuscular Volume 89.9 fl (81-99); Mean Platelet Volume 9.2 fl (7.4-10.4); Monocytes # 0.2 K/mm3 (0.1-1.0); Monocytes % 3.9 % (1.7-9.3); Neutrophils # 4.9 K/mm3 (1.8-7.8); Neutrophils % 84.2 % (37.0-80.0); Platelet Count 184 K/mm3 (142-424); Red Blood Count 3.72 M/mm3 (4.20-5.40); Red Cell Distribution Width 14.7 % (11.5-17.5); White Blood Count 5.8 K/mm3 (4.8-10.8)
[2023-03-22 08:03] LABS: Chloride 97 mmol/L (98-107); Potassium 4.7 mmoL/L (3.5-5.1); Sodium 133 mmol/L (136-145)
[2023-03-22 08:05] LABS: Alanine Aminotransferase 24 U/L (12-78); Aspartate Amino Transferase 45 U/L (14-36); Blood Urea Nitrogen 19 mg/dl (7-17); Creatinine Clearance Estimated 45 mL/min (50-200); Estimated Glomerular Filt Rate 43 ml/min (>60); GFR (African American) 52 ML/MIN (>60)
[2023-03-22 08:06] LABS: Albumin/Globulin Ratio 1.5 (1.1-1.8); Alkaline Phosphatase 76 U/L (38-126); Anion Gap 10.7 mEq/L (5-15); Bilirubin,Total 0.4 mg/dl (0.2-1.3); Calcium 8.7 mg/dl (8.4-10.2); Carbon Dioxide 30 mmol/L (22.0-30.0); Globulin 2.7 g/dL (1.3-3.2); Glucose 124 mg/dl (74-100); Total Protein,Serum 6.7 g/dl (6.3-8.2)
--- NOTE | 2023-03-22 08:26 | EXP.DC.SUM ---
General Admission date:: 03/21/23 Discharge date: 03/22/23 HPI HPI HPI: Ms. Pandey is an 82-year-old female brought to the ER by EMS with complaint of shortness of breath. Received 2 DuoNebs in route and feels some improvement but still quite dyspneic on exam in the ER. Reports recently having bronchitis and being treated with 2 rounds of antibiotics. These did not resolve her symptoms and continues to feel short of breath. She has a history of A-fib, CHF, pacemaker placement, stage III CKD, CAD, hypertension. Shortness of breath and cough that is mildly productive of persisted for 2 weeks. Normally wears 4 L nasal cannula at home and is on baseline oxygen at this time. Still having hard time catching breath. In the ER, imaging and workup were performed. Imaging with COPD and questionable right lower lobe early consolidation on my review. White cell count of 13,000. States that she is short of breath when she lays down. Has some swelling of her legs as well. Denies chest pain, fever, nausea or vomiting. Given patient's symptoms and failure of outpatient treatment, ER consulted medicine for admission. On evaluation after arriving to the floor, patient is feeling a little bit better. Not quite as short of breath. Noted to be quite edematous however in her legs. Tolerating dinner. Reports she gets short of breath with any exertion. Has to pause and catch her breath at home when she walks distances. Exam Data for Last 24 hours Vital signs and Labs for Last 24 Hours: Temp Pulse Resp BP Pulse Ox O2 Del Method O2 Flow Rate 97.9 F 72 17 130/69 90 L Nasal Cannula 4 03/22/23 04:00 03/22/23 06:25 03/22/23 04:00 03/22/23 04:00 03/22/23 06:25 03/22/23 06:35 03/22/23 06:35 FiO2 40 03/21/23 14:40 Laboratory Results - last 24 hr 03/21/23 13:44: VBG pH 7.29 L, VBG pCO2 62.3 H, VBG pO2 41.4 H, VBG HCO3 29.1, VBG Total CO2 31.1 H, VBG O2 Saturation 72.4 H, VBG Base Excess 2.5 H 03/21/23 13:45: WBC 13.2 H, RBC 3.93 L, Hgb 11.8 L, Hct 35.2 L, MCV 89.5, MCH 29.9, MCHC 33.4, RDW 14.6, Plt Count 198, MPV 9.1, Neut % (Auto) 84.4 H, Lymph % (Auto) 9.7 L, [place] % (Auto) 4.6, Eos % (Auto) 0.9, Baso % (Auto) 0.3, Neut # (Auto) 11.2 H, Lymph # (Auto) 1.3, [place] # (Auto) 0.6, Eos # (Auto) 0.1, Baso # (Auto) 0.0, Sodium 132 L, Potassium 4.0, Chloride 96 L, Carbon Dioxide 33 H, Anion Gap 7.0, BUN 18 H, Creatinine 1.20 H, Estimated Creat Clear 41, Estimated GFR 43 L, Est GFR ( Amer) 52 L, Glucose 108 H, Calcium 8.4, Total Bilirubin 0.4, AST 33, ALT 19, Alkaline Phosphatase 73, NT-Pro-B Natriuret Pep 4300 H, Total Protein 6.9, Albumin 4.0, Globulin 2.9, Albumin/Globulin Ratio 1.4 03/21/23 14:10: SARS-CoV-2 (PCR) Not detected, Influenza A Untype (PCR) Not detected, Influenza Type B (PCR) Not detected 03/22/23 06:51: WBC 5.8 D, RBC 3.72 L, Hgb 10.9 L, Hct 33.5 L, MCV 89.9, MCH 29.2, MCHC 32.5, RDW 14.7, Plt Count 184, MPV 9.2, Neut % (Auto) 84.2 H, Lymph % (Auto) 11.5, [place] % (Auto) 3.9, Eos % (Auto) 0.0 L, Baso % (Auto) 0.3, Neut # (Auto) 4.9, Lymph # (Auto) 0.7, [place] # (Auto) 0.2, Eos # (Auto) 0.0, Baso # (Auto) 0.0, Sodium 133 L, Potassium 4.7, Chloride 97 L, Carbon Dioxide 30, Anion Gap 10.7, BUN 19 H, Creatinine 1.20 H, Estimated Creat Clear 45, Estimated GFR 43 L, Est GFR ( Amer) 52 L, Glucose 124 H, Calcium 8.7, Magnesium 2.0, Total Bilirubin 0.4, AST 45 H D, ALT 24 D, Alkaline Phosphatase 76, Total Protein 6.7, Albumin 4.0, Globulin 2.7, Albumin/Globulin Ratio 1.5 I & O for Last 24 hours: Intake & Output 03/19/23 03/20/23 03/21/23 03/22/23 23:59 23:59 23:59 23:59 Intake Total 270 / 510 240 / 240 Output Total 500 / 500 100 / 100 Balance -230 / 10 140 / 140 Weight 80.541 kg 79.878 kg Results Data Completed and Pending Labs on day of discharge: Labs from last 24 hours 03/22/23 03/21/23 03/21/23 06:51 14:10 13:45 WBC 5.8 D 13.2 H RBC 3.72 L 3.93 L Hgb 10.9 L 11.8 L Hct 33.5 L 35.2 L
--- NOTE | 2023-03-22 11:03 | SW/DCPLANNER ---
Addendum entered by [facility] 03/25/23 10:26: Per Jeni zamora/ [facility] insurance has approved this patient SNF level of care. Julisa w/ [facility] stated that they can not transfer precert and would require a new auth. Patient/family are agreeable to discharge to [facility]. Patient will discharge today. Addendum entered by [facility] 03/25/23 08:59: Patient/family have requested for information to be faxed to [facility]. Julisa stated that she is could have a bed available and will look into precert being transferred from [facility]. I will continue to follow up w/ patient/family, [facility] and [facility]. Patient is medically stable for discharge today. Addendum entered by [facility] 03/25/23 07:55: Per Jeni w/ [facility]: precert is still pending at this time. Addendum entered by Mary Valdovinos RN 03/22/23 15:52: [facility] in [place] does not have anyone in admissions today and could not tell me if they have any open beds. [facility] and is starting a precert today. Patient could possible be discharged over the weekend. Addendum entered by Mary Valdovinos RN 03/22/23 15:21: Information [facility] to [facility]. [facility]'s admission coordinator is not there today, but they will call back. [facility] does not have any beds available. Addendum entered by Mary Valdovinos RN 03/22/23 14:43: Patient states she prefers [facility] but if we need to look elsewhere, we can send wherever we need to Addendum entered by Mary Valdovinos RN 03/22/23 13:44: Daughter called and stated that we could consider [facility]. Addendum entered by K[facility] Plaza 03/22/23 11:38: Julisa w/[facility] does not have any beds at this time. I will follow up w/ admissions at [facility]. Original Note: I spoke w/ this patient regarding plans once medically stable for discharge. PT/OT evaluated patient and they recommended SNF level of care. Patient is agreeable to placement and prefers [facility] or [facility]. I will follow up w/ facilties and fax information today. Discharge date is unknown at this time.
--- NOTE | 2023-03-22 11:05 | HMH.OTEV ---
OT Inpatient Evaluation Rehab OT IP Evaluation Start: 03/22/23 10:31 Freq: ONCE Status: Active Protocol: Document 03/22/23 10:57 VADIM (Rec: 03/22/23 11:05 [facility] [id number]) Rehab OT IP Assessment Subjective History Pt oriented x 3 on arrival. Pt agreeable to engage in therapy evaluation. Pt admitted on 03/21/23 due to COPD exacerbation. Ms. Pandey is an 82-year-old female brought to the ER by EMS with complaint of shortness of breath. Received 2 DuoNebs in route and feels some improvement but still quite dyspneic on exam in the ER. Reports recently having bronchitis and being treated with 2 rounds of antibiotics. These did not resolve her symptoms and continues to feel short of breath. She has a history of A-fib, CHF, pacemaker placement, stage III CKD, CAD, hypertension. Shortness of breath and cough that is mildly productive of persisted for 2 weeks. Normally wears 4 L nasal cannula at home and is on baseline oxygen at this time. Still having hard time catching breath. Prior to being in the hospital , pt lived at home alone. However she did have caregivers come in 3-4 times a week. Pt reports she normally requires assistane with all ADLs such as dressing and bathing. She is able to feed herself. The aids assist with IADLs such as cooking, cleaning, laundry, etc. Pt is able to cook small meals for herself. Pt is on oxygen at all times. Pt does use a rolling walker during functional transfers. However she explains recently she has
--- NOTE | 2023-03-22 11:10 | HMH.PTEV ---
Physical Therapy Evaluation Rehab PT IP Evaluation Start: 03/22/23 10:31 Freq: ONCE Status: Active Protocol: Document 03/22/23 10:57 DARRIAN (Rec: 03/22/23 11:10 DARRIAN [id number]) Subjective/History History History Patient is an 82 year old female admitted to [facility] via ED 03/22/23 secondary to SOB after a recent episode of bronchitis. Patient lives at home alone with a lead performance support analyst that visits 3x/week for assistance with showering and household activities. Patient previously able to ambulate short distances in home with RW. Patient's daughter reports that O2 normally drop into the low 70's when returning from the bathroom. Subjective Subjective I don't think I can do much. I just feel weak. New diagnosis of cancer in past 12 No months? Rehab PT IP Eval Objective Appearance Patient Behavior Appropriate,Cooperative Patient Orientation Person,Place,Birthday Difficulty following instructions none Speech Pattern Clear,Appropriate Ambulation Patient Able to Ambulate No Balance Ability to Arise Able, uses arms to help Sitting Balance Steady, safe Standing Balance Steady, wide stance Dynamic Sitting Balance Ability Normal Dynamic Standing Balance Ability Good Transfers Bed Transfer Ability Supervision/Stand by Sit to Stand Bed Transfer Ability Minimal x 2 (25% assist) ROM All Extremities PT ROM Status WFL MMT All Extremities PT MMT WFL Rehab PT IP prob,goals,plan Problems Date of Evaluation: 03/22/23 PT IP Problems Bed Mobility,Transfers,Gait, Balance,Self care,Safety Rehab Potential Rehab Potential Good Plan PT Intervention Plan Bed Mobility,Transfers,Gait, Balance,Self care,Safety, Therapeutic Exercise PT Plan Frequency BID Duration LOS Discharge Goals Bed Transfer Ability Supervision/Stand by Sit to Stand Chair Transfer Ability Supervision/Stand by Ambulation Assistive Device Rolling Walker Ambulation Distance (feet) 20 Discharge Plan PT Discharge Plan PT suggests that patient would
--- NOTE | 2023-03-22 15:25 | PC.NURSE ---
PT IS RESTING IN BED. ALERT AND ORIENTED X4. PT STATES SHE IS VERY TIRED AND WEAK THIS SHIFT AND DOES NOT FEEL COMFORTABLE WITH GOING HOME. PT WILL DESAT IN THE 70'S WHEN GETTING UP TO THE BSC. O2 SATURATION MAINTAINS ON 4 L 90-93% AT REST. LUNG SOUNDS HAVE SCATTERED WHEEZES WITH LEFT SIDED CRACKLES. 2+ EDEMA NOTED TO BLE. WILL CONTINUE TO MONITOR.
--- NOTE | 2023-03-22 17:52 | EXP.ACUTE.PN ---
Subjective *Date: 03/22/23 *Time: 17:52 Interval history: Patient feeling a little bit better this morning than when she initially presented but not as good as last night. Had an episode of dyspnea overnight that resolved with her anxiety medication. Cough stable, nonproductive. Afebrile. No nausea or vomiting. Poor appetite this morning however. Stable on 4 L nasal cannula oxygen. Family at bedside. Patient feeling weak, will have PT and OT evaluate today Medical Exam Vital signs and Labs for Last 24 Hours: Vital Signs Temp Pulse Pulse Resp BP Pulse Ox O2 Del Method 03/22/23 17:00 Nasal Cannula 03/22/23 15:37 98.1 F 71 16 123/73 98 Nasal Cannula 03/22/23 15:24 Nasal Cannula 03/22/23 15:00 Nasal Cannula 03/22/23 12:41 Nasal Cannula 03/22/23 08:00 Nasal Cannula 03/22/23 11:55 77 03/22/23 11:55 72 03/22/23 11:00 Nasal Cannula 03/22/23 09:00 Nasal Cannula 03/22/23 08:00 Nasal Cannula 03/22/23 08:59 68 03/22/23 08:00 97.8 F 73 18 125/58 L 94 L Nasal Cannula 03/22/23 06:35 Nasal Cannula 03/22/23 06:25 72 03/22/23 06:25 69 03/22/23 06:25 90 L Nasal Cannula 03/22/23 05:00 Nasal Cannula 03/22/23 04:00 97.9 F 70 17 130/69 93 L Nasal Cannula 03/21/23 20:00 95 Nasal Cannula 03/22/23 00:00 Nasal Cannula 03/21/23 21:00 Nasal Cannula 03/22/23 00:00 98.2 F 70 17 134/62 95 Nasal Cannula 03/22/23 00:03 73 03/22/23 00:03 73 03/21/23 20:00 98.0 F 73 17 125/64 95 Nasal Cannula 03/21/23 18:33 Nasal Cannula 03/21/23 18:22 71 03/21/23 18:22 70 03/21/23 18:22 97 Nasal Cannula O2 Flow Rate 03/22/23 17:00 4 03/22/23 15:37 4 03/22/23 15:24 4 03/22/23 15:00 4 03/22/23 12:41 4 03/22/23 08:00 4 03/22/23 11:55 03/22/23 11:55 03/22/23 11:00 4 03/22/23 09:00 4 03/22/23 08:00 4 03/22/23 08:59 03/22/23 08:00 4 03/22/23 06:35 4 03/22/23 06:25 03/22/23 06:25 03/22/23 06:25 4 03/22/23 05:00 4 03/22/23 04:00 4 03/21/23 20:00 5 03/22/23 00:00 03/21/23 21:00 5 03/22/23 00:00 4 03/22/23 00:03 03/22/23 00:03 03/21/23 20:00 4 03/21/23 18:33 5 03/21/23 18:22 03/21/23 18:22 03/21/23 18:22 4 Intake and Output 03/22/23 03/22/23 03/22/23 07:59 15:59 23:59 Intake Total 240 / 955 715 / 955 Output Total 100 / 100 0 / 100 Balance 140 / 855 715 / 855 Intake: Intake, Oral Amount 240 / 710 470 / 710 Intake, Total IV Amount 245 / 245 Doxycycline Hyclate 100 mg In 0 245 / 245 .9 % Sodium Chloride 250 ml @ 166.667 mls/hr IV Q12H [facility] Rx#: [id number] Output: Output, Urine Amount 100 / 100 0 / 100 Other: Number of Unmeasured Voids 1 1 Number of Bowel Movements 1 Weight 79.878 kg 79.89 kg Patient Weight 03/22/23 23:59 Weight 79.89 kg Laboratory Results - last 24 hr 03/22/23 06:51: WBC 5.8 D, RBC 3.72 L, Hgb 10.9 L, Hct 33.5 L, MCV 89.9, MCH 29.2, MCHC 32.5, RDW 14.7, Plt Count 184, MPV 9.2, Neut % (Auto) 84.2 H, Lymph % (Auto) 11.5, [place] % (Auto) 3.9, Eos % (Auto) 0.0 L, Baso % (Auto) 0.3, Neut # (Auto) 4.9, Lymph # (Auto) 0.7, [place] # (Auto) 0.2, Eos # (Auto) 0.0, Baso # (Auto) 0.0, Sodium 133 L, Potassium 4.7, Chloride 97 L, Carbon Dioxide 30, Anion Gap 10.7, BUN 19 H, Creatinine 1.20 H, Estimated Creat Clear 45, Estimated GFR 43 L, Est GFR ( Amer) 52 L, Glucose 124 H, Calcium 8.7, Magnesium 2.0, Total Bilirubin 0.4, AST 45 H D, ALT 24 D, Alkaline Phosphatase 76, Total Protein 6.7, Albumin 4.0, Globulin 2.7, Albumin/Globulin Ratio 1.5 I & O for Labs for Last 24 Hours: Intake & Output 03/19/23 03/20/23 03/21/23 03/22/23 23:59 23:59 23:59 23:59 Intake Total 270 / 510 955 / 955 Output Total 500 / 500 100 / 100 Balance -230 / 10 855 / 855 Weight 80.541 kg 79.89 kg Constitutional: Present n
--- NOTE | 2023-03-22 18:11 | CA_ITS ---
APPROVED REPORT EXAM: Comprehensive 2D, Doppler, and color-flow Echocardiogram Help Aid: Tracie Khan CRT Ht: 6 ft 0 in Wt: 176lbs BSA: 2.02 BP: 102/58 mmHg Indications: COPD, Shortness of Breath, Atrial Fibrillation, CAD, Hypertension/HDD, Pacer, Hx covid, home O2, exsmoker 2D Dimensions Left Atrium 4.21 cm LA Volume 62.70 mL LVOT 2.02 cm (M/F) 1.5-2.5 LA Volume Index 31.00 mL/m2 (M/F) 16-34 EF AP4 72.30 % GL Strain -14.6 % M-Mode Dimensions RVDd 3.15 cm (0.9-2.6) LVDd 4.45 cm (3.5-5.7) Ao Diam 3.71 cm (2.0-3.7) LVDs 2.47 cm (3.5-5.7) IVSd 1.33 cm (0.6-1.1) PWd 1.18 cm (0.6-1.1) EF (Teich) 75.90% FS 44.50% EDV (Teich) 90.10 mL TAPSE 2.64 (<1.7) ESV (Teich) 21.70 mL LV Diastology E Decel Time 217 (160-240 msec) E/A Ratio 0.93 MED E' 4.3 (>= 7 cm/sec) MED A' 6.60 cm/s E'/MED E' Ratio 16.05 (<= 14) LAT E' 8.5 (>= 10 cm/sec) LAT A' 6.40 cm/s E/LAT E' Ratio 8.12 (<= 14) Aortic Valve AoV Peak Sanju. 135.0 (50-130 cm/s) AO Peak GR. 7.30 mmHg Mitral Valve MV E Max Sanju. 69.0 (40-130 cm/s) MV A Velocity 74.0 (40-130 cm/s) E/A Ratio 0.93 MV Decel. Time 217 (160-240 ms) Tricuspid Valve TR P. Velocity 407.00 cm/s RAP Estimate 10.00 mmHg RVSP 76.40 mmHg Left Ventricle The left ventricle is normal size. The left ventricular systolic function is normal. The left ventricular ejection fraction is within the normal range. There is increased LV wall thickness. There is normal LV segmental wall motion. Grade 2 diastolic dysfunction. LVEF is 55%. Right Ventricle The right ventricle is mildly dilated. The right ventricular systolic function is normal. Device lead is present in the right ventricle. Atria Left atrium is mildly dilated. Right atrium is mildly dilated. There is no Doppler evidence of interatrial shunt. Aortic Valve The aortic valve opens well. There is no aortic valvular stenosis. Trace aortic regurgitation. Mitral Valve Mild mitral annular calcification. The mitral valve is mildly thickened. No evidence of mitral valve stenosis. Mild mitral regurgitation. Tricuspid Valve The tricuspid valve leaflets are thin and pliable. Mild tricuspid regurgitation. RVSP is markedly elevated > 60 mmHg. Pulmonic Valve The pulmonary valve is normal in structure. Trace pulmonic regurgitation. Great Vessels The aortic root is normal in size. The ascending aorta is normal in size. The IVC is dilated, but collapses > 50% with respirophasic variation. The RA pressure is estimated at 8 mmHg. Pericardium There is no pericardial effusion. Other Information Study Quality: Fair Conclusion Normal LV systolic function. Grade 2 diastolic dysfunction. Mild RV dilation. Mild biatrial dilation. Mild MR. Mild TR. Markedly elevated RVSP > 60 mmHg. Electronically signed by : Tita Clark MD 03/25/2023 10:37:47
[2023-03-23] VITALS (8 sets, daily range): BP systolic 100–121; BP diastolic 50–71; PULSE 70–79; RESP 18–22; TEMP 36.5–36.9; O2SAT 90–97; BMI 23.8
[2023-03-23 07:03] LABS: Basophils % 0.1 % (0.1-2.0); Eosinophils % 0.5 % (0.1-12.0); Hematocrit 31.1 % (37.0-47.0); Hemoglobin 10.4 g/dL (12.2-16.2); Lymphocytes # 1.3 K/mm3 (0.7-4.5); Lymphocytes % 17.4 % (10-50); Mean Corpuscular HGB Conc 33.5 g/dL (31.8-35.4); Mean Corpuscular Hemoglobin 29.8 pg (27.0-31.2); Mean Platelet Volume 9.4 fl (7.4-10.4); Monocytes # 0.4 K/mm3 (0.1-1.0); Monocytes % 5.8 % (1.7-9.3); Neutrophils # 5.7 K/mm3 (1.8-7.8); Neutrophils % 76.2 % (37.0-80.0); Platelet Count 170 K/mm3 (142-424); Red Blood Count 3.49 M/mm3 (4.20-5.40); Red Cell Distribution Width 14.7 % (11.5-17.5); White Blood Count 7.5 K/mm3 (4.8-10.8)
[2023-03-23 07:06] LABS: Chloride 96 mmol/L (98-107)
[2023-03-23 07:07] LABS: Potassium 4.1 mmoL/L (3.5-5.1); Sodium 131 mmol/L (136-145)
[2023-03-23 07:09] LABS: Alanine Aminotransferase 32 U/L (12-78); Alkaline Phosphatase 73 U/L (38-126); Anion Gap 6.1 mEq/L (5-15); Aspartate Amino Transferase 44 U/L (14-36); Bilirubin,Total 0.4 mg/dl (0.2-1.3); Blood Urea Nitrogen 25 mg/dl (7-17); Carbon Dioxide 33 mmol/L (22.0-30.0); Creatinine Clearance Estimated 45 mL/min (50-200); Estimated Glomerular Filt Rate 43 ml/min (>60); GFR (African American) 52 ML/MIN (>60)
[2023-03-23 07:10] LABS: Albumin Level 3.6 g/dl (3.5-5.0); Albumin/Globulin Ratio 1.4 (1.1-1.8); Calcium 8.1 mg/dl (8.4-10.2); Globulin 2.5 g/dL (1.3-3.2); Glucose 92 mg/dl (74-100); Magnesium 1.9 mg/dl (1.6-2.3); Total Protein,Serum 6.1 g/dl (6.3-8.2)
[2023-03-23 07:18] LABS: NT Pro Brain Natriuretic Pep. 3770 pg/mL (0-450)
--- NOTE | 2023-03-23 13:10 | PC.NURSE ---
pt requesting iron transfusion stating its time to get one and it'll make me feel better . notified md about pts request. per shravan, pt does not need iron transfusion at this time.
--- NOTE | 2023-03-23 16:46 | EXP.PN ---
Subjective *Date: 03/23/23 *Time: 16:46 Interval history: patient was seen and evaluated at the bedside. denies chest pain, shortness of breath, nausea, vomiting, abdominal pain. Patient does not have any complaints at this time. feels better overall Exam Data for Last 24 hours Vital signs and Labs for Last 24 Hours: Temp Pulse Resp BP Pulse Ox O2 Del Method O2 Flow Rate 97.7 F 75 18 121/71 97 Nasal Cannula 3 03/23/23 16:00 03/23/23 16:00 03/23/23 16:00 03/23/23 16:00 03/23/23 16:00 03/23/23 16:00 03/23/23 16:00 FiO2 40 03/21/23 14:40 Laboratory Results - last 24 hr 03/23/23 06:17: WBC 7.5 D, RBC 3.49 L, Hgb 10.4 L, Hct 31.1 L, MCV 89.0, MCH 29.8, MCHC 33.5, RDW 14.7, Plt Count 170, MPV 9.4, Neut % (Auto) 76.2, Lymph % (Auto) 17.4, [place] % (Auto) 5.8, Eos % (Auto) 0.5, Baso % (Auto) 0.1, Neut # (Auto) 5.7, Lymph # (Auto) 1.3, [place] # (Auto) 0.4, Eos # (Auto) 0.0, Baso # (Auto) 0.0, Sodium 131 L, Potassium 4.1, Chloride 96 L, Carbon Dioxide 33 H, Anion Gap 6.1, BUN 25 H D, Creatinine 1.20 H, Estimated Creat Clear 45, Estimated GFR 43 L, Est GFR ( Amer) 52 L, Glucose 92 D, Calcium 8.1 L, Magnesium 1.9, Total Bilirubin 0.4, AST 44 H, ALT 32 D, Alkaline Phosphatase 73, NT-Pro-B Natriuret Pep 3770 H, Total Protein 6.1 L, Albumin 3.6, Globulin 2.5, Albumin/Globulin Ratio 1.4 I & O for Last 24 hours: Intake & Output 03/20/23 03/21/23 03/22/23 03/23/23 23:59 23:59 23:59 23:59 Intake Total 270 / 510 1255 / 1255 1020 / 1020 Output Total 500 / 500 100 / 100 0 / 0 Balance -230 / 10 1155 / 1155 1020 / 1020 Weight 80.541 kg 79.89 kg 79.923 kg Constitutional Constitutional: no acute distress *Routine HEENT Exam Head: Present normocephalic Eye: Present EOMI and PERRL ENT: Present mucous membranes moist *Routine Neck Exam Neck: Present supple; Absent lymphadenopathy *Routine Respiratory Exam Respiratory: Present CTA bilaterally *Routine Cardiovascular Exam Cardiovascular: Present RRR *Routine Abdominal Exam Abdominal: Present soft and normoactive bowel sounds; Absent tenderness *Routine Extremities Exam Extremities: Absent cyanosis, clubbing or edema *Routine Skin Exam Skin: Present warm; Absent rash *Routine Neurological Exam Neurological: Present alert and oriented X3 Assessment and Plan *Assessment and plan (1) Pneumonia: Status: Acute Category: Medical Code(s): J18.9 - Pneumonia, unspecified organism (2) Acute exacerbation of chronic obstructive pulmonary disease: Status: Acute Category: Medical Code(s): J44.1 - Chronic obstructive pulmonary disease with (acute) exacerbation (3) Paroxysmal atrial fibrillation: Status: Chronic Category: Medical Code(s): I48.0 - Paroxysmal atrial fibrillation (4) Oxygen dependent: Status: Chronic Category: Medical Code(s): Z99.81 - Dependence on supplemental oxygen (5) CAD (coronary artery disease): Status: Chronic Qualifiers: Coronary Disease-Associated Artery/Lesion type: [place] artery [place] vs. transplanted heart: [place] heart Associated angina: without angina Qualified Code(s): I25.10 - Atherosclerotic heart disease of [place] coronary artery without angina pectoris Category: Medical Code(s): I25.10 - Atherosclerotic heart disease of [place] coronary artery without angina pectoris (6) Chronic diastolic (congestive) heart failure: Status: Acute Category: Medical Code(s): I50.32 - Chronic diastolic (congestive) heart failure (7) Cardiac pacemaker in situ: Status: Chronic Category: Medical Code(s): Z95.0 - Presence of cardiac pacemaker Plan patient appears weak and frail patient is a 82-year-old female who presented to hospital due to shortness of breath Assessment COPD exacerbation Suspected pneumonia Acute CHF CKD stage III Atrial fibrillation Hypothyroidism Anxiety Iron deficiency ane
[2023-03-24] VITALS (9 sets, daily range): BP systolic 110–136; BP diastolic 53–68; PULSE 68–76; RESP 17–24; TEMP 36.4–36.9; O2SAT 90–94; BMI 23.8
[2023-03-24 07:45] LABS: Chloride 98 mmol/L (98-107); Sodium 134 mmol/L (136-145)
[2023-03-24 07:47] LABS: Blood Urea Nitrogen 22 mg/dl (7-17); Creatinine Clearance Estimated 45 mL/min (50-200); Estimated Glomerular Filt Rate 43 ml/min (>60); GFR (African American) 52 ML/MIN (>60)
[2023-03-24 07:48] LABS: Alanine Aminotransferase 26 U/L (12-78); Albumin Level 3.7 g/dl (3.5-5.0); Albumin/Globulin Ratio 1.4 (1.1-1.8); Alkaline Phosphatase 78 U/L (38-126); Aspartate Amino Transferase 34 U/L (14-36); Bilirubin,Total 0.4 mg/dl (0.2-1.3); Calcium 8.3 mg/dl (8.4-10.2); Carbon Dioxide 33 mmol/L (22.0-30.0); Globulin 2.6 g/dL (1.3-3.2); Glucose 87 mg/dl (74-100); Total Protein,Serum 6.3 g/dl (6.3-8.2)
[2023-03-24 08:23] LABS: Basophils % 0.3 % (0.1-2.0); Eosinophils # 0.2 K/mm3 (0.0-0.4); Eosinophils % 1.9 % (0.1-12.0); Hemoglobin 11.1 g/dL (12.2-16.2); Lymphocytes # 1.6 K/mm3 (0.7-4.5); Lymphocytes % 19.9 % (10-50); Mean Corpuscular HGB Conc 32.7 g/dL (31.8-35.4); Mean Corpuscular Hemoglobin 29.2 pg (27.0-31.2); Mean Corpuscular Volume 89.2 fl (81-99); Mean Platelet Volume 9.2 fl (7.4-10.4); Monocytes # 0.5 K/mm3 (0.1-1.0); Monocytes % 5.8 % (1.7-9.3); Neutrophils # 5.8 K/mm3 (1.8-7.8); Neutrophils % 72.1 % (37.0-80.0); Platelet Count 179 K/mm3 (142-424); Red Blood Count 3.81 M/mm3 (4.20-5.40); Red Cell Distribution Width 14.6 % (11.5-17.5)
--- NOTE | 2023-03-24 11:56 | EXP.PHA.PN ---
Subjective *Date: 03/24/23 *Time: 11:56 Medical Exam Vital signs and Labs for Last 24 Hours: Vital Signs Temp Pulse Pulse Resp BP Pulse Ox O2 Del Method 03/24/23 11:15 98.4 F 68 20 118/67 94 L Nasal Cannula 03/24/23 08:00 Nasal Cannula 03/24/23 11:00 Nasal Cannula 03/24/23 09:00 Nasal Cannula 03/24/23 09:33 71 03/24/23 07:47 98.2 F 71 17 118/56 L 94 L Nasal Cannula 03/23/23 20:00 Nasal Cannula 03/24/23 04:00 98.1 F 73 17 129/53 L 92 L Nasal Cannula 03/23/23 23:08 Nasal Cannula 03/23/23 20:00 98.1 F 70 18 100/62 L 97 Nasal Cannula 03/23/23 18:27 Nasal Cannula 03/23/23 18:19 91 L Nasal Cannula 03/23/23 17:00 Room Air 03/23/23 16:00 97.7 F 75 18 121/71 97 Nasal Cannula 03/23/23 15:00 Nasal Cannula 03/23/23 13:00 Nasal Cannula O2 Flow Rate 03/24/23 11:15 3 03/24/23 08:00 4 03/24/23 11:00 4 03/24/23 09:00 4 03/24/23 09:33 03/24/23 07:47 3 03/23/23 20:00 4 03/24/23 04:00 03/23/23 23:08 4 03/23/23 20:00 03/23/23 18:27 4 03/23/23 18:19 4 03/23/23 17:00 03/23/23 16:00 3 03/23/23 15:00 4 03/23/23 13:00 4 Intake and Output 03/23/23 03/24/23 03/24/23 23:59 07:59 15:59 Intake Total 480 / 1860 830 / 830 Output Total 0 / 0 0 / 0 Balance 480 / 1860 830 / 830 0 / 830 Intake: Intake, Oral Amount 480 / 1860 830 / 830 Output: Output, Urine Amount 0 / 0 0 / 0 Other: Number of Unmeasured Voids 1 1 Number of Bowel Movements 1 Weight 79.923 kg Patient Weight 03/24/23 23:59 Weight 79.923 kg Laboratory Results - last 24 hr 03/24/23 06:45: WBC 8.0, RBC 3.81 L, Hgb 11.1 L, Hct 34.0 L, MCV 89.2, MCH 29.2, MCHC 32.7, RDW 14.6, Plt Count 179, MPV 9.2, Neut % (Auto) 72.1, Lymph % (Auto) 19.9, [place] % (Auto) 5.8, Eos % (Auto) 1.9, Baso % (Auto) 0.3, Neut # (Auto) 5.8, Lymph # (Auto) 1.6, [place] # (Auto) 0.5, Eos # (Auto) 0.2, Baso # (Auto) 0.0, Sodium 134 L, Potassium 4.0, Chloride 98, Carbon Dioxide 33 H, Anion Gap 7.0, BUN 22 H, Creatinine 1.20 H, Estimated Creat Clear 45, Estimated GFR 43 L, Est GFR ( Amer) 52 L, Glucose 87, Calcium 8.3 L, Total Bilirubin 0.4, AST 34, ALT 26, Alkaline Phosphatase 78, Total Protein 6.3, Albumin 3.7, Globulin 2.6, Albumin/Globulin Ratio 1.4 I & O for Labs for Last 24 Hours: Intake & Output 03/21/23 03/22/23 03/23/23 03/24/23 23:59 23:59 23:59 23:59 Intake Total 270 / 510 1255 / 1255 1500 / 1860 830 / 830 Output Total 500 / 500 100 / 100 0 / 0 0 / 0 Balance -230 / 10 1155 / 1155 1500 / 1860 830 / 830 Weight 80.541 kg 79.89 kg 79.923 kg 79.923 kg The patient's infection will respond to the chosen ABx?: Yes Is the patient receiving the right drug, dose, and route?: Yes Could a more targeted ABx be ordered?: No (PATIENT AFEBRILE AND WBC WNL.)
--- NOTE | 2023-03-24 15:58 | EXP.PN ---
Subjective *Date: 03/24/23 *Time: 15:58 Interval history: patient was seen and evaluated at the bedside. denies chest pain, shortness of breath, nausea, vomiting, abdominal pain. Patient does not have any complaints at this time. feels better overall Exam Data for Last 24 hours Vital signs and Labs for Last 24 Hours: Temp Pulse Resp BP Pulse Ox O2 Del Method O2 Flow Rate 98.3 F 71 20 110/56 L 94 L Nasal Cannula 3 03/24/23 15:17 03/24/23 15:17 03/24/23 15:17 03/24/23 15:17 03/24/23 15:17 03/24/23 15:17 03/24/23 15:17 FiO2 40 03/21/23 14:40 Laboratory Results - last 24 hr 03/24/23 06:45: WBC 8.0, RBC 3.81 L, Hgb 11.1 L, Hct 34.0 L, MCV 89.2, MCH 29.2, MCHC 32.7, RDW 14.6, Plt Count 179, MPV 9.2, Neut % (Auto) 72.1, Lymph % (Auto) 19.9, [place] % (Auto) 5.8, Eos % (Auto) 1.9, Baso % (Auto) 0.3, Neut # (Auto) 5.8, Lymph # (Auto) 1.6, [place] # (Auto) 0.5, Eos # (Auto) 0.2, Baso # (Auto) 0.0, Sodium 134 L, Potassium 4.0, Chloride 98, Carbon Dioxide 33 H, Anion Gap 7.0, BUN 22 H, Creatinine 1.20 H, Estimated Creat Clear 45, Estimated GFR 43 L, Est GFR ( Amer) 52 L, Glucose 87, Calcium 8.3 L, Total Bilirubin 0.4, AST 34, ALT 26, Alkaline Phosphatase 78, Total Protein 6.3, Albumin 3.7, Globulin 2.6, Albumin/Globulin Ratio 1.4 I & O for Last 24 hours: Intake & Output 03/21/23 03/22/23 03/23/23 03/24/23 23:59 23:59 23:59 23:59 Intake Total 270 / 510 1255 / 1255 1500 / 1860 1070 / 1070 Output Total 500 / 500 100 / 100 0 / 0 0 / 0 Balance -230 / 10 1155 / 1155 1500 / 1860 1070 / 1070 Weight 80.541 kg 79.89 kg 79.923 kg 79.923 kg Constitutional Constitutional: no acute distress *Routine HEENT Exam Head: Present normocephalic Eye: Present EOMI and PERRL ENT: Present mucous membranes moist *Routine Neck Exam Neck: Present supple; Absent lymphadenopathy *Routine Respiratory Exam Respiratory: Present CTA bilaterally *Routine Cardiovascular Exam Cardiovascular: Present RRR *Routine Abdominal Exam Abdominal: Present soft and normoactive bowel sounds; Absent tenderness *Routine Extremities Exam Extremities: Absent cyanosis, clubbing or edema *Routine Skin Exam Skin: Present warm; Absent rash *Routine Neurological Exam Neurological: Present alert and oriented X3 Assessment and Plan *Assessment and plan (1) Pneumonia: Status: Acute Category: Medical Code(s): J18.9 - Pneumonia, unspecified organism (2) Acute exacerbation of chronic obstructive pulmonary disease: Status: Acute Category: Medical Code(s): J44.1 - Chronic obstructive pulmonary disease with (acute) exacerbation (3) Paroxysmal atrial fibrillation: Status: Chronic Category: Medical Code(s): I48.0 - Paroxysmal atrial fibrillation (4) Oxygen dependent: Status: Chronic Category: Medical Code(s): Z99.81 - Dependence on supplemental oxygen (5) CAD (coronary artery disease): Status: Chronic Qualifiers: Coronary Disease-Associated Artery/Lesion type: [place] artery [place] vs. transplanted heart: [place] heart Associated angina: without angina Qualified Code(s): I25.10 - Atherosclerotic heart disease of [place] coronary artery without angina pectoris Category: Medical Code(s): I25.10 - Atherosclerotic heart disease of [place] coronary artery without angina pectoris (6) Chronic diastolic (congestive) heart failure: Status: Acute Category: Medical Code(s): I50.32 - Chronic diastolic (congestive) heart failure (7) Cardiac pacemaker in situ: Status: Chronic Category: Medical Code(s): Z95.0 - Presence of cardiac pacemaker Plan patient appears weak and frail patient is a 82-year-old female who presented to hospital due to shortness of breath Assessment COPD exacerbation Suspected pneumonia Acute CHF CKD stage III Atrial fibrillation Hypothyroidism Anxiety Iron deficiency anemia Plan Patient is o
[2023-03-25 04:00] VITALS: BP 108/63; PULSE 70; RESP 16; TEMP 36.6; O2SAT 93; BMI 23.1
[2023-03-25 06:10] LABS: Chloride 98 mmol/L (98-107); Potassium 3.7 mmoL/L (3.5-5.1); Sodium 135 mmol/L (136-145)
[2023-03-25 06:13] LABS: Alanine Aminotransferase 23 U/L (12-78); Albumin Level 3.5 g/dl (3.5-5.0); Albumin/Globulin Ratio 1.3 (1.1-1.8); Alkaline Phosphatase 69 U/L (38-126); Anion Gap 6.7 mEq/L (5-15); Aspartate Amino Transferase 29 U/L (14-36); Bilirubin,Total 0.4 mg/dl (0.2-1.3); Blood Urea Nitrogen 16 mg/dl (7-17); Calcium 8.2 mg/dl (8.4-10.2); Carbon Dioxide 34 mmol/L (22.0-30.0); Creatinine Clearance Estimated 47 mL/min (50-200); Estimated Glomerular Filt Rate 47 ml/min (>60); GFR (African American) 57 ML/MIN (>60); Globulin 2.7 g/dL (1.3-3.2); Glucose 88 mg/dl (74-100); Total Protein,Serum 6.2 g/dl (6.3-8.2)
[2023-03-25 06:37] VITALS: PULSE 71; PULSE 75; O2SAT 95
[2023-03-25 08:00] VITALS: BP 116/59; PULSE 68; RESP 20; TEMP 36.5; O2SAT 90
[2023-03-25 09:31] VITALS: PULSE 70
--- NOTE | 2023-03-25 11:41 | EXP.DC.SUM ---
General Admission date:: 03/21/23 Discharge date: 03/25/23 HPI HPI HPI: Ms. Pandey is an 82-year-old female brought to the ER by EMS with complaint of shortness of breath. Received 2 DuoNebs in route and feels some improvement but still quite dyspneic on exam in the ER. Reports recently having bronchitis and being treated with 2 rounds of antibiotics. These did not resolve her symptoms and continues to feel short of breath. She has a history of A-fib, CHF, pacemaker placement, stage III CKD, CAD, hypertension. Shortness of breath and cough that is mildly productive of persisted for 2 weeks. Normally wears 4 L nasal cannula at home and is on baseline oxygen at this time. Still having hard time catching breath. In the ER, imaging and workup were performed. Imaging with COPD and questionable right lower lobe early consolidation on my review. White cell count of 13,000. States that she is short of breath when she lays down. Has some swelling of her legs as well. Denies chest pain, fever, nausea or vomiting. Given patient's symptoms and failure of outpatient treatment, ER consulted medicine for admission. On evaluation after arriving to the floor, patient is feeling a little bit better. Not quite as short of breath. Noted to be quite edematous however in her legs. Tolerating dinner. Reports she gets short of breath with any exertion. Has to pause and catch her breath at home when she walks distances. Hospital Course Hospital Course Hospital Course: Patient was seen and evaluated at the bedside on the day of discharge. Patient is stable for discharge. Patient wishes to be discharged. All patient questions were answered and patient was given time to ask questions. Patient was discharged in stable condition. Patient understands that she can return to ER in case of any sudden changes in health. Total time spent on DC - 38 mins patient appears weak and frail patient is a 82-year-old female who presented to hospital due to shortness of breath Assessment COPD exacerbation - improved Suspected pneumonia - resolving Acute CHF - improved CKD stage III Atrial fibrillation Hypothyroidism Anxiety Iron deficiency anemia Plan Patient is on 4 L per cannula, Currently o doxycyclinen - prescribed at DC Continue DuoNebs Continue p.o. Bumex Fluid restriction Resume Xarelto digoxin metoprolol Monitor and replace electrolytes Iron saturation, iron level within normal [id number] as outpatient for-transfusion DVT prophylaxis-on Xarelto Exam Data for Last 24 hours Vital signs and Labs for Last 24 Hours: Temp Pulse Resp BP Pulse Ox O2 Del Method O2 Flow Rate 97.7 F 70 20 116/59 L 90 L Nasal Cannula 4 03/25/23 08:00 03/25/23 09:31 03/25/23 08:00 03/25/23 08:00 03/25/23 08:00 03/25/23 08:00 03/25/23 08:00 FiO2 40 03/21/23 14:40 Laboratory Results - last 24 hr 03/25/23 05:40: Sodium 135 L, Potassium 3.7, Chloride 98, Carbon Dioxide 34 H, Anion Gap 6.7, BUN 16 D, Creatinine 1.10 H, Estimated Creat Clear 47, Estimated GFR 47 L, Est GFR ( Amer) 57 L, Glucose 88, Calcium 8.2 L, Total Bilirubin 0.4, AST 29, ALT 23, Alkaline Phosphatase 69, Total Protein 6.2 L, Albumin 3.5, Globulin 2.7, Albumin/Globulin Ratio 1.3 I & O for Last 24 hours: Intake & Output 03/22/23 03/23/23 03/24/23 03/25/23 23:59 23:59 23:59 23:59 Intake Total 1255 / 1255 1500 / 1860 1540 / 2186 916 / 916 Output Total 100 / 100 0 / 0 0 / 0 0 / 0 Balance 1155 / 1155 1500 / 1860 1540 / 2186 916 / 916 Weight 79.89 kg 79.923 kg 79.923 kg 77.247 kg Microbiology Reports for the Last 24 Hours: Microbiology 03/21/23 17:44 Sputum - Expectorated Sputum Gram Stain - Final Constitutional Constitutional: no acute distress *Routine HEENT Exam Head: Present normocephalic Eye: Present EOMI and PERRL ENT: Present mucous membranes moist *Routine Neck Exam Neck: Present supple; Absent lymphadenopathy *Routine Respiratory Exam R
[2023-03-25 11:55] VITALS: PULSE 77; PULSE 78
== END 2023-03-25 12:36 ==
LOC: ER 14:33 → 2ND 14:42
PROVIDERS: Internal Medicine; Admitting Provider Internal Medicine Adolescent Medicine; Emergency Provider Emergency Medicine; PCP Internal Medicine Adolescent Medicine; Visit Provider Internal Medicine Adolescent Medicine
DX: J18.9 Pneumonia, unspecified organism (principal); J44.1 Chronic obstructive pulmonary disease with (acute) exacerbation; I48.0 Paroxysmal atrial fibrillation; Z99.81 Dependence on supplemental oxygen; I25.10 Atherosclerotic heart disease of native coronary artery without angina pectoris; I50.32 Chronic diastolic (congestive) heart failure; Z95.0 Presence of cardiac pacemaker; I13.0 Hypertensive heart and chronic kidney disease with heart failure and stage 1 through stage 4 chronic kidney disease, or unspecified chronic kidney disease; N18.30 Chronic kidney disease, stage 3 unspecified; Z86.16 Personal history of COVID-19
CPT/HCPCS: 36415; 71045; 80053; 82803; 83735; 83880; 85025; 87070; 87205; 87636; 93005; 93306; 94640; 94660; 94760; 94761; 97163; 97166; 97530; 99291; G0378

== ENCOUNTER 2023-04-04 17:52 | Inpatient (IN) | payer MEDICARE, MEDICAID, SELFPAY ==
[2023-04-04] VITALS (10 sets, daily range): BP systolic 98–143; BP diastolic 54–75; PULSE 76–84; RESP 22–93; TEMP 36.7–36.9; O2SAT 85–99; BMI 21.7; BMI 49.6
--- NOTE | 2023-04-04 17:54 | XR_ITS ---
PROCEDURE INFORMATION: Exam: XR Chest Exam date and time: 04/04/2023 6:05 PM Age: 82 years old Clinical indication: Condition or disease; Patient HX: Covid positive. ; Additional info: Cough, SOA TECHNIQUE: Imaging protocol: Radiologic exam of the chest. Views: 1 view. COMPARISON: CR XR CHEST PORTABLE 03/21/2023 2:00 PM FINDINGS: Tubes, catheters and devices: Left chest wall cardiac pacing device. Lungs: Chronic interstitial lung markings. No focal airspace consolidation. Pleural spaces: Unremarkable. No pleural effusion. No pneumothorax. Heart/Mediastinum: Calcified atherosclerotic changes of the thoracic aorta. Mild cardiac prominence. Mitral annular calcifications. Bones/joints: No acute findings. IMPRESSION: Chronic interstitial lung markings. No focal consolidation.
[2023-04-04 18:20] LABS: Basophils % 0.3 % (0.1-2.0); Eosinophils % 0.4 % (0.1-12.0); Hematocrit 33.5 % (37.0-47.0); Lymphocytes % 9.3 % (10-50); Mean Corpuscular Hemoglobin 29.3 pg (27.0-31.2); Mean Corpuscular Volume 88.8 fl (81-99); Monocytes # 0.6 K/mm3 (0.1-1.0); Monocytes % 5.6 % (1.7-9.3); Neutrophils # 8.8 K/mm3 (1.8-7.8); Neutrophils % 84.5 % (37.0-80.0); Platelet Count 186 K/mm3 (142-424); Red Blood Count 3.77 M/mm3 (4.20-5.40); Red Cell Distribution Width 14.9 % (11.5-17.5); White Blood Count 10.4 K/mm3 (4.8-10.8)
--- NOTE | 2023-04-04 18:26 | ECG_ITS ---
APPROVED REPORT Exam: Resting ECG HR:80 bpm ECG Measurements Heart Rate 80 AXES PA 267 P 47 QRSd 178 QRS 252 QT 423 T 75 QTc 459 Conclusion ELECTRONIC VENTRICULAR PACEMAKER ABNORMAL RHYTHM ECG UNCONFIRMED REPORT Electronically signed by : Tha Rivera MD 04/05/2023 17:59:46
[2023-04-04 18:29] LABS: Chloride 92 mmol/L (98-107); Potassium 3.4 mmoL/L (3.5-5.1); Sodium 128 mmol/L (136-145)
[2023-04-04 18:32] LABS: VBG Base Excess 3.6 mmol/L (-2.4-2.3); VBG HCO3 28.7 mmol/L (23-30); VBG Oxygen Saturation 83.5 % (50-70); VBG PCO2 48.9 mmol/L (35-51); VBG PH 7.39 mmol/L (7.31-7.41); VBG PO2 49.6 mmol/L (28-40); VBG Total CO2 30.2 mmol/L (23-27)
[2023-04-04 18:32] LABS: Alanine Aminotransferase 17 U/L (12-78); Albumin Level 3.7 g/dl (3.5-5.0); Albumin/Globulin Ratio 1.4 (1.1-1.8); Alkaline Phosphatase 80 U/L (38-126); Anion Gap 11.4 mEq/L (5-15); Aspartate Amino Transferase 35 U/L (14-36); Bilirubin,Total 0.5 mg/dl (0.2-1.3); Blood Urea Nitrogen 19 mg/dl (7-17); Calcium 7.9 mg/dl (8.4-10.2); Carbon Dioxide 28 mmol/L (22.0-30.0); Creatinine Clearance Estimated 44 mL/min (50-200); Estimated Glomerular Filt Rate 47 ml/min (>60); GFR (African American) 57 ML/MIN (>60); Globulin 2.6 g/dL (1.3-3.2); Glucose 133 mg/dl (74-100); Total Protein,Serum 6.3 g/dl (6.3-8.2)
[2023-04-04] MEDS: DEXAMETHASONE 4MG/ML 1ML VIAL 10 MG IV (18:39)
[2023-04-04 18:41] LABS: NT Pro Brain Natriuretic Pep. 15500 pg/mL (0-450)
[2023-04-04 18:44] LABS: Troponin I 0.11 ng/ml (0.00-0.034)
[2023-04-04] MEDS: IPRATROPIUM/ALBUTEROL 3 ML NEB 9 ML IH (18:55)
[2023-04-04] MEDS: KCl 10mEq/100ml 100 ML 100 MEQ IV ×2 (20:05→21:07)
[2023-04-04] MEDS: BUMETANIDE 1MG/4ML VIAL 2 MG IV (20:06)
[2023-04-04] MEDS: ASPIRIN 81MG CHEWABLE TABLET 324 MG PO (21:34)
[2023-04-04 21:43] LABS: Troponin I 0.21 ng/ml (0.00-0.034)
--- NOTE | 2023-04-04 21:47 | EXP.HP ---
History of Present Illness *Admission Date: 04/04/23 *Reason for visit:: SOB *History of present illness: This is an 82-year-old female, alf resident, with a history of atrial fibrillation, pacemaker in situ, COPD on 4 L nasal cannula, CHF, hypertrophic obstructive cardiomyopathy, CAD, and CKD presented to the emergency department for evaluation from nursing facility by EMS with concern for shortness of breath in the setting of COVID-19. Patient reports that she feels more short of air and has had increased edema to both of her legs. She denies any other concerns, such as chest pain, abdominal pain, or other issues. She states that overall she just does not feel well. EMS notes that she was stable on her home oxygen. They gave her 500 cc of IV fluids en route. Admitted for further work up. [facility] Disclaimer: The information contained in this section may have been updated after the patient was seen, as this information can be updated by other users. Medical History (Updated 04/05/23 @ 12:24 by Deepak Noriega MD) Abnormal EKG Acute and chronic respiratory failure ([id number]) Acute and chronic respiratory failure with hypoxia Acute exacerbation of chronic obstructive pulmonary disease Acute on chronic diastolic heart failure Afib Allergies Anemia Arthritis Asthma Bronchitis CAD (coronary artery disease) Cardiac murmur Cardiac pacemaker in situ CHF (congestive heart failure) Cholecystectomy planned Chronic cough Chronic diastolic (congestive) heart failure Chronic obstructive lung disease Community acquired pneumonia COPD (chronic obstructive pulmonary disease) COVID-19 Dyspnea Edema Edema Emphysema/COPD H/O iron deficiency anemia Heart failure with preserved left ventricular function (HFpEF) History of anemia History of back pain History of cataract History of COVID-19 History of diverticulitis History of gastroesophageal reflux (GERD) Hypertension Hypertensive disorder Hypertrophic obstructive cardiomyopathy Hypomagnesemia Iron deficiency anemia due to chronic blood loss Near syncope Oxygen dependent Pacemaker Paroxysmal atrial fibrillation Pneumonia Sinus headache SIRS (systemic inflammatory response syndrome) Sleep apnea Stage 3 chronic kidney disease Symptomatic anemia Typical angina Surgical History H/O thyroidectomy History of colonoscopy History of total left knee replacement Hx of adenoidectomy Hx of tonsillectomy Hx of tubal ligation Family History Esophageal cancer Brother Family/Other Afib Mother Son Heart attack Mother Father Breast cancer Grandmother Lung cancer Grandmother Multiple sclerosis Daughter Social History Smoking Status: Former smoker tobacco type: cigarettes packs per day: 1 years smoked: 30 second hand exposure: No alcohol intake: never substance use type: denies use current occupational status: disabled Travel in the last 8 weeks: None household members: none housing: house current occupational exposures/hazards: No caffeine: Yes Review of Systems Review of Systems Review of systems:: pertinent systems reviewed and negative unless documented below Meds Home Medications and Allergies Home Medications Medication Instructions Recorded Confirmed Type alprazolam 0.5 mg tablet 0.5 mg PO TIDP PRN Anxiety 06/11/17 04/05/23 History levothyroxine 75 mcg tablet 75 mcg PO DAILYDM Thyroid 06/11/17 04/05/23 History digoxin 125 mcg (0.125 mg) tablet 125 mcg PO DAILY Heart Rate 09/14/20 04/05/23 History bumetanide 2 mg tablet 2 mg PO BIDL Fluid 03/29/21 04/05/23 History ipratropium 0.5 mg-albuterol 3 mg 3 ml inhalation Q6HP Shortness of 03/29/21 04/05/23 History (2.5 mg base)/3 mL nebulization breath soln metoprolol tartrate 50 mg tablet 25 mg PO BID High Blood Pressure 10/06/21 04/05/23 History albuterol sulfate 90 mcg/actuation 2 puff inhalation Q4HP PRN 03/21/23 04/05/23 History aerosol inhaler Shortness Of Breath fluticasone 250 mcg-salmeterol 50 1 inh inhalation BIDRT Breathing 03/21/23 04/05/23 History mcg/dose blistr powdr for Problems inhalation rivaroxaban 15 mg tablet 15 mg PO QPMWITHMEAL Blood 03/21/23 04/05/23 History thinner/Afib acetaminophen 500 mg tablet 1,000 mg PO Q8HP PRN Fever Or Pain 04/05/23 04/05/23 History ferrous sulfate 325 mg (65 mg 325 mg PO DAILY 04/05/23 04/05/23 History iron) tablet fexofenadine 60 mg capsule 60 mg PO BID Allergy Symptoms 04/05/23 04/05/23 History loperamide 2 mg capsule 2 mg PO Q6HP PRN Diarrhea 04/05/23 04/05/23 History multivitamin 1 tab PO DAILY Supplement 04/05/23 04/05/23 History omeprazole magnesium 20 mg 20 mg PO DAILY Acid Reflux 04/05/23 04/05/23 History capsule,delayed release sennosides 8.6 mg tablet (senna) 17.2 mg PO DAILY Constipation 04/05/23 04/05/23 History New Prescriptions to Start Prescriptions: Allergies Allergy/AdvReac Type Severity Reaction Status Date / Time cefdinir [From Omnicef] Allergy Intermediate Verified 03/12/23 11:19 Iodine and Iodide Containing Allergy Intermediate Verified 03/12/23 11:19 Produc atorvastatin [From Lipitor] Allergy Mild Verified 03/12/23 11:19 cefixime [From Suprax] Allergy Mild I-RASH Verified 03/12/23 11:19 cephalexin [From Keflex] Allergy Mild DIARRHEA Verified 03/12/23 11:19 etodolac Allergy Mild Verified 03/12/23 11:19 pantoprazole Allergy Mild NIGHTMARES Verified 03/12/23 11:19 prednisone Allergy Mild SHORTNESS Verified 03/12/23 11:19 OF BREATH cefepime Allergy Unknown Verified 03/12/23 11:19 diltiazem Allergy Unknown BOTHERED Verified 03/12/23 11:19 HEART isosorbide Allergy Unknown Verified 03/12/23 11:19 morphine [MORPHINE] Allergy Unknown Verified 03/12/23 11:19 rosuvastatin Allergy Unknown UNK RXN Verified 03/12/23 11:19 Sulfa (Sulfonamide Allergy Unknown URINARY Verified 03/12/23 11:19 Antibiotics) PROBLEMS amoxicillin AdvReac Mild DIARRHEA Verified 03/12/23 11:19 clarithromycin AdvReac Mild N/V/D Verified 03/12/23 11:19 clavulanic acid AdvReac Mild DIARRHEA Verified 03/12/23 11:19 esomeprazole [From Nexium] AdvReac Mild NIGHTMARES Verified 03/12/23 11:19 gabapentin AdvReac Mild URINARY Verified 03/12/23 11:19 PROBLEMS, SWELLING levofloxacin [From Levaquin] AdvReac Mild PAINFUL Verified 03/12/23 11:19 JOINTS montelukast [From Singulair] AdvReac Mild Verified 03/12/23 11:19 naproxen AdvReac Mild NVD Verified 03/12/23 11:19 nitrofurantoin AdvReac Mild SHAKES Verified 03/12/23 11:19 [From Macrobid] lansoprazole [From Prevacid] AdvReac Unknown SHORT OF Verified 03/12/23 11:19 BREATH Exam Data for Last 24 hours Vital signs and Labs for Last 24 Hours: Temp Pulse Resp BP Pulse Ox O2 Del Method O2 Flow Rate 98.3 F 80 22 134/72 93 L Room Air 4 04/04/23 17:53 04/04/23 21:00 04/04/23 17:53 04/04/23 21:00 04/04/23 21:00 04/04/23 21:00 04/04/23 18:30 Laboratory Results - last 24 hr 04/04/23 17:54: VBG pH 7.39, VBG pCO2 48.9, VBG pO2 49.6 H, VBG HCO3 28.7, VBG Total CO2 30.2 H, VBG O2 Saturation 83.5 H, VBG Base Excess 3.6 H 04/04/23 18:08: WBC 10.4, RBC 3.77 L, Hgb 11.0 L, Hct 33.5 L, MCV 88.8, MCH 29.3, MCHC 33.0, RDW 14.9, Plt Count 186, MPV 9.0, Neut % (Auto) 84.5 H, Lymph % (Auto) 9.3 L, [place] % (Auto) 5.6, Eos % (Auto) 0.4, Baso % (Auto) 0.3, Neut # (Auto) 8.8 H, Lymph # (Auto) 1.0, [place] # (Auto) 0.6, Eos # (Auto) 0.0, Baso # (Auto) 0.0, Sodium 128 L, Potassium 3.4 L, Chloride 92 L, Carbon Dioxide 28, Anion Gap 11.4, BUN 19 H, Creatinine 1.10 H, Estimated Creat Clear 44, Estimated GFR 47 L, Est GFR ( Amer) 57 L, Glucose 133 H, Calcium 7.9 L, Total Bilirubin 0.5, AST 35, ALT 17, Alkaline Phosphatase 80, Troponin I 0.11 H, NT-Pro-B Natriuret Pep 79200 H, Total Protein 6.3, Albumin 3.7, Globulin 2.6, Albumin/Globulin Ratio 1.4 04/04/23 18:45: Lactate 1.0 04/04/23 21:00: Troponin I 0.21 H I & O for Last 24 hours: Intake & Output 04/01/23 04/02/23 04/03/23 04/04/23 23:59 23:59 23:59 23:59 Weight 72.575 kg Constitutional Constitutional: moderate distress and cooperative *Routine HEENT Exam Head: Present normocephalic and atraumatic Eye: Present EOMI, PERRL and normal accommodation ENT: Present mucous membranes moist *Routine Neck Exam Neck: Present supple, full ROM and trachea midline *Routine Respiratory Exam Respiratory: Present decreased breath sounds, diminished air movement, normal respiratory effort and symmetric chest movement *Routine Cardiovascular Exam Cardiovascular: Present Normal S1, Normal S2 and irregularly irregular *Routine Abdominal Exam Abdominal: Present soft and normoactive bowel sounds; Absent organomegaly *Routine Rectal Exam Rectal:: deferred *Routine Genitalia Exam Genitalia:: deferred *Routine Extremities Exam Extremities: Present edema, full ROM and pulses intact; Absent cyanosis or clubbing *Routine Skin Exam Skin: Present intact, dry and warm *Routine Neurological Exam Neurological: Present alert, oriented X3, normal reflexes, moving all extremities and normal speech Routine Psychiatric Exam Psychiatric: Present normal thought process, cooperative and good judgment H&P: Result Imaging and Cardiology EKG: Status: image reviewed by me, Preliminary report and final report Chest x-ray: Status: image reviewed by me, Preliminary report and final report Assessment and Plan *Assessment and plan (1) Non-ST elevation CA (NSTEMI): Status: Acute Category: Medical Code(s): I21.4 - Non-ST elevation (NSTEMI) myocardial infarction (2) Acute exacerbation of CHF (congestive heart failure): Status: Acute Qualifiers: Heart failure type: unspecified Qualified Code(s): I50.9 - Heart failure, unspecified Category: Medical Code(s): I50.9 - Heart failure, unspecified (3) Hyponatremia: Status: Acute Category: Medical Code(s): E87.1 - Hypo-osmolality and hyponatremia (4) COVID-19: Status: Acute Category: Medical Code(s): U07.1 - COVID-19 (5) H/O iron deficiency anemia: Status: Acute Category: Medical Code(s): Z86.2 - Personal history of diseases of the blood and blood-forming organs and certain disorders involving the immune mechanism (6) Afib: Status: Acute Qualifiers: Atrial fibrillation type: unspecified Qualified Code(s): I48.91 - Unspecified atrial fibrillation Category: Medical Code(s): I48.91 - Unspecified atrial fibrillation (7) CAD (coronary artery disease): Status: Acute Qualifiers: Associated angina: without angina Coronary Disease-Associated Artery/Lesion type: [place] artery [place] vs. transplanted heart: [place] heart Qualified Code(s): I25.10 - Atherosclerotic heart disease of [place] coronary artery without angina pectoris Category: Medical Code(s): I25.10 - Atherosclerotic heart disease of [place] coronary artery without angina pectoris (8) Cardiac pacemaker in situ: Status: Acute Category: Medical Code(s): Z95.0 - Presence of cardiac pacemaker (9) COPD (chronic obstructive pulmonary disease): Status: Acute Qualifiers: COPD type: unspecified COPD Qualified Code(s): J44.9 - Chronic obstructive pulmonary disease, unspecified Category: Medical Code(s): J44.9 - Chronic obstructive pulmonary disease, unspecified (10) Chronic kidney disease: Status: Acute Qualifiers: Chronic kidney disease stage: stage 3 (moderate) Chronic kidney disease stage 3 subtype: stage 3a (GFR 45-59) Qualified Code(s): N18.31 - Chronic kidney disease, stage 3a Category: Medical Code(s): N18.9 - Chronic kidney disease, unspecified (11) History of gastroesophageal reflux (GERD): Status: Acute Category: Medical Code(s): Z87.19 - Personal history of other diseases of the digestive system Plan 82-year-old female, alf resident, with a history of atrial fibrillation, pacemaker in situ, COPD on 4 L nasal cannula, CHF, hypertrophic obstructive cardiomyopathy, CAD, and CKD presented to the emergency department for evaluation from nursing facility by EMS with concern for shortness of breath in the setting of COVID-19. on arrival at ER CXR was obtained, imaging reviewed. there is no new focal consolidation. Labs are positive for elevated BNP, troponin and hyponatremia. EKG was reviewed. Cardiology consulted. Discussed for admission. Plan as follow: - elevated troponin: to rule out NSTEMI, ACS, or acute oxygen demand: Admit patient for cardiac telemetry Cardiology consulted CXR and EKG serial troponin monitor for chest pain. nitro SL PRN - ACute exacervation of CHF: lasix given monitor diuresis maximize O2 sat. monitor for SOB cardiology on board, appreciate recommendation -Hyponatremia: likely poor intake or diuressis effect> [place] IV fluid NS @50 ml repeat and monitor morning CMP - COVD19:; CXR reviewed. no new focal consolidation. monitor for SOB, currently on 4L monitor foe fever or sepsis Ceft 1G BID empirically -Chronic anemia: stable. resume home regimen monitor morning CBC Others chronic conditions: Afib, CAD, Pacemaker in situ, COPD, GERD: conditions reviewed. 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
--- NOTE | 2023-04-04 21:48 | PC.NURSE ---
OBSERVATION ADMISSION TO 204 WITH DX OF NSTEMI, CHF AND POSITIVE COVID TO SERVICE OF THE HOSPITALIST.
--- NOTE | 2023-04-04 22:00 | PC.NURSE ---
attempted to call report to 2nd floor rn
--- NOTE | 2023-04-04 22:05 | ED_ITS ---
Discharge Plan Disposition Patient Disposition: Admitted Condition: Fair Clinical Impressions Clinical Impression: COVID-19, Non-ST elevation HI (NSTEMI), Acute exacerbation of CHF (congestive heart failure) Discharge ED Provider: Julisa Kerr HPI General Chief Complaint: Shortness of Breath/Dyspnea Stated Complaint: soa Time Seen by Provider: 04/04/23 17:53 Mode of Arrival: EMS Source of Information: Patient Limitations: No Limitations Description of Symptoms (Recalled from ER Triage Doc. by RN): Patient reports te sting positive for COVID today and having increased shortness of breath with increased edema to bilateral lower extremities. History of Present Illness HPI narrative: This patient is an 82-year-old female with a history of atrial fibrillation status post pacer placement, COPD on 4 L nasal cannula, CHF, hypertrophic obstructive cardiomyopathy, CAD, and CKD presented to the emergency department for evaluation from nursing facility by EMS with concern for shortness of breath in the setting of COVID-19. Patient reports that she feels more short of air and has had increased edema to both of her legs. She denies any other concerns, such as chest pain, abdominal pain, or other issues. She states that overall she just does not feel well. EMS notes that she was stable on her home oxygen. They gave her 500 cc of IV fluids en route. Related Data Home Medications Medication Instructions Recorded Confirmed alprazolam 0.5 mg tablet 0.5 mg PO TIDP PRN Anxiety 06/11/17 03/21/23 levothyroxine 75 mcg tablet 75 mcg PO DAILY Thyroid 06/11/17 03/21/23 digoxin 125 mcg (0.125 mg) tablet 125 mcg PO DAILY Heart Rate 09/14/20 03/21/23 bumetanide 2 mg tablet 2 mg PO BID Fluid 03/29/21 03/21/23 ipratropium 0.5 mg-albuterol 3 mg 3 ml inhalation Q6HP Shortness of 03/29/21 03/21/23 (2.5 mg base)/3 mL nebulization breath soln metoprolol tartrate 50 mg tablet 25 mg PO BID High Blood Pressure 10/06/21 03/21/23 albuterol sulfate 90 mcg/actuation 2 puff inhalation Q4HP PRN 03/21/23 03/21/23 aerosol inhaler Shortness Of Breath fluticasone 250 mcg-salmeterol 50 1 ea inhalation BID Breathing 03/21/23 03/21/23 mcg/dose blistr powdr for Problems inhalation rivaroxaban 15 mg tablet 15 mg PO QPMWITHMEAL Blood 03/21/23 03/21/23 thinner/Afib Previous Rx's Medication Instructions Recorded doxycycline hyclate 100 mg capsule 100 mg PO BID 10 days #20 caps 03/25/23 Allergies Allergy/AdvReac Type Severity Reaction Status Date / Time cefdinir [From Omnicef] Allergy Intermediate Verified 03/12/23 11:19 Iodine and Iodide Containing Allergy Intermediate Verified 03/12/23 11:19 Produc atorvastatin [From Lipitor] Allergy Mild Verified 03/12/23 11:19 cefixime [From Suprax] Allergy Mild I-RASH Verified 03/12/23 11:19 cephalexin [From Keflex] Allergy Mild DIARRHEA Verified 03/12/23 11:19 etodolac Allergy Mild Verified 03/12/23 11:19 pantoprazole Allergy Mild NIGHTMARES Verified 03/12/23 11:19 prednisone Allergy Mild SHORTNESS Verified 03/12/23 11:19 OF BREATH cefepime Allergy Unknown Verified 03/12/23 11:19 diltiazem Allergy Unknown BOTHERED Verified 03/12/23 11:19 HEART isosorbide Allergy Unknown Verified 03/12/23 11:19 morphine [MORPHINE] Allergy Unknown Verified 03/12/23 11:19 rosuvastatin Allergy Unknown UNK RXN Verified 03/12/23 11:19 Sulfa (Sulfonamide Allergy Unknown URINARY Verified 03/12/23 11:19 Antibiotics) PROBLEMS amoxicillin AdvReac Mild DIARRHEA Verified 03/12/23 11:19 clarithromycin AdvReac Mild N/V/D Verified 03/12/23 11:19 clavulanic acid AdvReac Mild DIARRHEA Verified 03/12/23 11:19 esomeprazole [From Nexium] AdvReac Mild NIGHTMARES Verified 03/12/23 11:19 gabapentin AdvReac Mild URINARY Verified 03/12/23 11:19 PROBLEMS, SWELLING levofloxacin [From Levaquin] AdvReac Mild PAINFUL Verified 03/12/23 11:19 JOINTS montelukast [From Singulair] AdvReac Mild Verified 03/12/23 11:19 naproxen AdvReac Mild NVD Verified 03/12/23 11:19 nitrofurantoin AdvReac Mild SHAKES Verified 03/12/23 11:19 [From Macrobid] lansoprazole [From Prevacid] AdvReac Unknown SHORT OF Verified 03/12/23 11:19 BREATH PFSH PFSH Disclaimer: The information contained in this section may have been updated after the patient was seen, as this information can be updated by other users. Medical History Afib Allergies Arthritis Asthma Bronchitis Cardiac murmur CHF (congestive heart failure) Cholecystectomy planned Chronic cough Chronic diastolic (congestive) heart failure COPD (chronic obstructive pulmonary disease) Edema Emphysema/COPD History of anemia History of back pain History of cataract History of COVID-19 History of diverticulitis History of gastroesophageal reflux (GERD) Hypertension Pacemaker Pneumonia Sinus headache Sleep apnea Typical angina Surgical History H/O thyroidectomy History of colonoscopy History of total left knee replacement Hx of adenoidectomy Hx of tonsillectomy Hx of tubal ligation Family History Esophageal cancer Brother Family/Other Afib Mother Son Heart attack Mother Father Breast cancer Grandmother Lung cancer Grandmother Multiple sclerosis Daughter Social History Smoking Status: Former smoker tobacco type: cigarettes packs per day: 1 years smoked: 30 second hand exposure: No alcohol intake: never substance use type: denies use current occupational status: disabled Travel in the last 8 weeks: None household members: none housing: house current occupational exposures/hazards: No caffeine: Yes ROS Obtained: Yes All systems reviewed & no additional complaints except as documented Physical Exam General General appearance: alert and in no apparent distress Comment: Tired appearing Head Head exam: atraumatic and normocephalic Eye Eye exam: Present normal appearance, PERRL and EOMI ENT ENT exam: Present normal exam, normal oropharynx, mucous membranes moist and normal external ear exam Neck Neck exam: Present normal inspection, full ROM and trachea midline; Absent tend erness Chest Chest inspection: Present normal inspection and symmetric chest wall rise; Absent tenderness Respiratory Respiratory exam: Present wheezes (Expiratory wheezing noted bilaterally); Absent respiratory distress, stridor, accessory muscle use or prolonged expiratory phase Cardiovascular Cardiovascular exam: Present regular rate, normal rhythm and Pacemaker w/paced rhythm Abdominal Exam Abdominal exam: Present soft; Absent distention, tenderness or guarding Extremities Exam Extremities exam: Present full ROM, normal capillary refill and edema (3+ bilateral lower extremity edema); Absent tenderness Back Exam Back exam: Present normal inspection and full ROM; Absent tenderness Neurological Exam Neurological exam: Present alert, oriented X3, CN II-XII intact and normal gait; Absent motor sensory deficit Psychiatric Psychiatric exam: Present normal affect and normal mood Skin Skin exam: Present warm and dry HEART Score HEART Score HEART Score assessment performed?: No History (anamnesis): Moderately suspicious ECG: Non-specific disturbance Age: >65 years Risk factors: Atherosclerosis history Troponin: > 3x normal limit HEART Score: 8 Critical Care Critical Care Time Critical Care Time: Yes Attestation: On 04/04/23, the high probability of a clinically significant, sudden or life threatening deterioration of the following system(s) (cardiovascular, respiratory) required my full and direct attention, intervention and personal management. The time I documented below is in addition to time spent performing reported procedures but includes the following listed in this critical care notation. Total Time Total Critical Care Time: 45 Medical Decision Making Jose Inquiry Pt receiving controlled substance: No Vital Signs Vital Signs: 04/04/23 17:53 04/04/23 18:00 04/04/23 18:30 Temperature 98.3 F Temperature Source Oral Pulse Rate 79 80 Pulse Rate [Radial] 81 Respiratory Rate 22 Blood Pressure 98/54 L 116/61 Blood Pressure [Right Arm] 106/64 L Blood Pressure Mean 64 76 Blood Pressure Mean [Right Arm] 78 Blood Pressure Source [Right Arm] Automatic Cuff Blood Pressure Position [Right Arm] Sitting 02 Sat by Pulse Oximetry 96 94 L 94 L Oxygen Delivery Method Nasal Cannula Nasal Cannula Nasal Cannula Oxygen Flow Rate (LPM) 4 4 4 04/04/23 19:48 04/04/23 19:48 04/04/23 19:30 Temperature Temperature Source Pulse Rate 80 80 80 Pulse Rate [Radial] Respiratory Rate Blood Pressure 122/75 Blood Pressure [Right Arm] Blood Pressure Mean Blood Pressure Mean [Right Arm] Blood Pressure Source [Right Arm] Blood Pressure Position [Right Arm] 02 Sat by Pulse Oximetry 99 Oxygen Delivery Method Room Air Oxygen Flow Rate (LPM) 04/04/23 20:00 04/04/23 20:30 04/04/23 21:00 Temperature Temperature Source Pulse Rate 80 80 80 Pulse Rate [Radial] Respiratory Rate Blood Pressure 130/66 135/71 134/72 Blood Pressure [Right Arm] Blood Pressure Mean Blood Pressure Mean [Right Arm] Blood Pressure Source [Right Arm] Blood Pressure Position [Right Arm] 02 Sat by Pulse Oximetry 93 L 92 L 93 L Oxygen Delivery Method Room Air Room Air Room Air Oxygen Flow Rate (LPM) Lab Data Labs: Lab Results 04/04/23 17:54: VBG pH 7.39, VBG pCO2 48.9, VBG pO2 49.6 H, VBG HCO3 28.7, VBG Total CO2 30.2 H, VBG O2 Saturation 83.5 H, VBG Base Excess 3.6 H 04/04/23 18:08: WBC 10.4, RBC 3.77 L, Hgb 11.0 L, Hct 33.5 L, MCV 88.8, MCH 29.3, MCHC 33.0, RDW 14.9, Plt Count 186, MPV 9.0, Neut % (Auto) 84.5 H, Lymph % (Auto) 9.3 L, Hendry % (Auto) 5.6, Eos % (Auto) 0.4, Baso % (Auto) 0.3, Neut # (Auto) 8.8 H, Lymph # (Auto) 1.0, Hendry # (Auto) 0.6, Eos # (Auto) 0.0, Baso # (Auto) 0.0, Sodium 128 L, Potassium 3.4 L, Chloride 92 L, Carbon Dioxide 28, Anion Gap 11.4, BUN 19 H, Creatinine 1.10 H, Estimated Creat Clear 44, Estimated GFR 47 L, Est GFR ( Amer) 57 L, Glucose 133 H, Calcium 7.9 L, Total Bilirubin 0.5, AST 35, ALT 17, Alkaline Phosphatase 80, Troponin I 0.11 H, NT-Pro-B Natriuret Pep 26229 H, Total Protein 6.3, Albumin 3.7, Globulin 2.6, Albumin/Globulin Ratio 1.4 04/04/23 18:45: Lactate 1.0 04/04/23 21:00: Troponin I 0.21 H 04/04/23 18:08 04/04/23 18:08 Response Orders (Tests/Meds): ED MEDICATIONS Generic Name Dose Route Start Last Admin Trade Name Jayme PRN Reason Stop Dose Admin Acetaminophen 650 mg 04/04/23 21:46 Acetaminophen 325mg Tab PO 05/04/23 21:45 Q4HP PRN Fever or Mild Pain (1-3) Ondansetron HCl 4 mg 04/04/23 21:46 Ondansetron 4mg/2ml Vial IV 05/04/23 21:45 Q8HP PRN Nausea Sodium Chloride 10 ml 04/04/23 18:11 Sodium Chloride 0.9% 10ml Flush Syringe IV 05/04/23 18:10 NEEDED PRN Maintain IV Site Discontinued Medications Generic Name Dose Route Start Last Admin Trade Name Jayme PRN Reason Stop Dose Admin Albuterol/Ipratropium 9 ml 04/04/23 18:28 04/04/23 18:55 Ipratropium/Albuterol 3 Ml Neb IH 04/04/23 18:29 9 ml ONCE ONE Administration Aspirin 324 mg 04/04/23 21:08 04/04/23 21:34 Aspirin 81mg Chewable Tablet PO 04/04/23 21:09 324 mg ONCE ONE Administration Bumetanide 2 mg 04/04/23 18:45 04/04/23 20:06 Bumetanide 1mg/4ml Vial IV 04/04/23 18:46 2 mg ONCE ONE Administration Dexamethasone Sodium Phosphate 10 mg 04/04/23 18:28 04/04/23 18:39 Dexamethasone 4mg/Ml 1ml Vial IV 04/04/23 18:29 10 mg ONCE ONE Administration Potassium Chloride/Water 100 mls @ 100 mls/hr 04/04/23 18:46 04/04/23 21:07 Potassium Chloride 10meq/100ml Ivpb IV 04/04/23 20:45 100 mls/hr Q1H MERA Administration ORDERS Category Date Time Status XR chest portable Stat Exams 04/04/23 17:54 Completed Brain Natriuretic Peptide Stat Lab 04/04/23 18:08 Completed Complete Blood Count Auto Diff AMLAB Lab 04/05/23 06:00 Ordered Complete Blood Count Auto Diff Stat Lab 04/04/23 18:08 Completed Comprehensive Metabolic Panel AMLAB Lab 04/05/23 06:00 Ordered Comprehensive Metabolic Panel Stat Lab 04/04/23 18:08 Completed Lactic Acid Stat Lab 04/04/23 18:45 Completed Lipid Panel AMLAB Lab 04/05/23 06:00 Ordered Troponin I Q3H Lab 04/04/23 21:00 Completed Troponin I Q3H Lab 04/05/23 00:00 Ordered Troponin I Stat Lab 04/04/23 18:08 Completed Venous Blood Gas Stat RT 04/04/23 17:54 Completed ECG initial Besson Routine Y 04/04/23 18:26 Completed ECG Data Tracing #1: Attestation: I reviewed this ECG and interpreted as documented below: ECG Narrative: Appropriately ventricularly paced rhythm with a rate of 80 bpm. Does not meet Sgarbossa criteria for STEMI. ECG initial impression date: 04/04/23 ECG initial impression time: 18:28 MDM Narrative Medical Decision Narrative: In summary, this patient is a 82-year-old female presenting to the Emergency Department for evaluation of shortness of breath and bilateral lower extremity swelling in setting of COVID-19. Differential diagnoses considered include but are not limited to CHF exacerbation, pneumonia, respiratory failure, COPD exacerbation, viral syndrome. Ruling out the most morbid conditions drove assessment. It should be noted patient's history includes COPD on 4 L nasal cannula, CHF, atrial fibrillation status post pacemaker which may or may not be at goal therapy. This complicates all aspects of care by increasing patient's risk for morbidity. I reviewed patient's past medical records and noted previous admission at the beginning of this month for acute on chronic respiratory failure. On exam, the patient is tired appearing with significant bilateral lower extremity edema. She has expiratory wheezing noted as well. Workup included broad lab evaluation including BNP and troponins as well as chest x-ray and EKG. EKG is reassuring. I independently interpreted x-ray prior to the radiologist read and noted pulmonary edema. Please see their read for final interpretation. Labs were obtained that demonstrated mild hypokalemia and significantly elevated BNP. Patient also has elevated initial troponin. Patient takes Bumex at home, so she is given IV Bumex for diuresis. IV potassium replacement with 2 runs were ordered. She was given DuoNebs x 3 as well as dexamethasone to assess for improvement in respirations. On reassessment, patient is resting comfortably on her home oxygen with improvement in her aeration. Second troponin demonstrated a significant delta, so I feel the patient would benefit from admission with concern for NSTEMI and an acute exacerbation of CHF. I called and had an interactive discussion with the hospitalist, who graciously admitted the patient for further evaluation and management.
--- NOTE | 2023-04-04 22:05 | PC.NURSE ---
called report to hellen tavera
--- NOTE | 2023-04-04 22:29 | PC.NURSE ---
pt arrived to floor via wheelchair @21:27
[2023-04-05] VITALS (9 sets, daily range): BP systolic 103–153; BP diastolic 52–68; PULSE 70–83; RESP 16–26; TEMP 36.5–36.7; O2SAT 92–97
[2023-04-05] MEDS: FUROSEMIDE 40MG/4ML VIAL 40 MG IV (00:23)
[2023-04-05] MEDS: AZITHROMYCIN 500 MG in 0.9 % SODIUM CHLORIDE 250 ML 250 MG IV ×2 (00:23→18:48)
[2023-04-05] MEDS: 0.9 % SODIUM CHLORIDE 1000ML 1,000 ML 50 ML IV (00:23)
[2023-04-05 01:45] LABS: Troponin I 0.19 ng/ml (0.00-0.034)
--- NOTE | 2023-04-05 05:32 | PC.NURSE ---
Since arriving to the floor the patient has been able to rest. Was given a dose of lasix so a pure wick was place to help with I&O. That has been removed because the patient was unable to use it. A bedside was put beside the bed and the patient was told to call out to use the bedside. Patient is on 5L NC, baseline for her is 4L NC. No other issue noted
[2023-04-05 06:41] LABS: Basophils % 0.2 % (0.1-2.0); Hematocrit 33.5 % (37.0-47.0); Lymphocytes # 0.5 K/mm3 (0.7-4.5); Lymphocytes % 9.7 % (10-50); Mean Corpuscular HGB Conc 32.7 g/dL (31.8-35.4); Mean Corpuscular Volume 88.5 fl (81-99); Mean Platelet Volume 8.6 fl (7.4-10.4); Monocytes # 0.2 K/mm3 (0.1-1.0); Monocytes % 3.8 % (1.7-9.3); Neutrophils # 4.2 K/mm3 (1.8-7.8); Neutrophils % 86.2 % (37.0-80.0); Platelet Count 171 K/mm3 (142-424); Red Blood Count 3.79 M/mm3 (4.20-5.40); Red Cell Distribution Width 14.9 % (11.5-17.5); White Blood Count 4.9 K/mm3 (4.8-10.8)
[2023-04-05 06:49] LABS: MANUAL DIFFERENTIAL MANUAL DIFFERENTIAL (MANUAL DIFF)
[2023-04-05 06:51] LABS: Chloride 92 mmol/L (98-107)
[2023-04-05 06:52] LABS: Potassium 4.2 mmoL/L (3.5-5.1); Sodium 133 mmol/L (136-145)
[2023-04-05 06:54] LABS: Alanine Aminotransferase 15 U/L (12-78); Albumin Level 3.5 g/dl (3.5-5.0); Albumin/Globulin Ratio 1.3 (1.1-1.8); Alkaline Phosphatase 75 U/L (38-126); Anion Gap 12.2 mEq/L (5-15); Aspartate Amino Transferase 26 U/L (14-36); Bilirubin,Total 0.4 mg/dl (0.2-1.3); Blood Urea Nitrogen 18 mg/dl (7-17); Carbon Dioxide 33 mmol/L (22.0-30.0); Cholesterol 131 mg/dl (140-200); Creatinine Clearance Estimated 45 mL/min (50-200); Estimated Glomerular Filt Rate 47 ml/min (>60); GFR (African American) 57 ML/MIN (>60); Globulin 2.6 g/dL (1.3-3.2); Total Protein,Serum 6.1 g/dl (6.3-8.2); Triglycerides 60 mg/dl (30-150); VLDL Cholesterol 12 mg/dL (0-40)
[2023-04-05 06:55] LABS: Calcium 8.2 mg/dl (8.4-10.2); Glucose 130 mg/dl (74-100)
[2023-04-05 07:06] LABS: Direct LDL Cholesterol 62.88 mg/dL (100-129)
[2023-04-05 07:49] LABS: Lymphocytes % 7 % (10-50); Monocytes % 5 % (2-9); Neutrophils % 88 % (42-76); Platelet Estimate Normal; RBC Morphology Normal; Total Cells Counted 100
--- NOTE | 2023-04-05 08:40 | PC.NURSE ---
Patient states she is not eating due to her not having her Protonix 20mg PO BID started. Spoke with preston [facility] to start Protonix 20mg PO BID.
[2023-04-05 09:01] LABS: Influenza A, PCR Not Detected (NotDetected); Influenza B, PCR Not Detected (NotDetected)
[2023-04-05] MEDS: PANTOPRAZOLE 40MG TABLET 40 MG PO ×2 (09:12→17:55)
[2023-04-05] MEDS: DIGOXIN 0.125MG TABLET 125 MCG PO (09:13)
[2023-04-05] MEDS: METOPROLOL TARTRATE 25MG TABLET 25 MG PO ×2 (09:15→20:04)
--- NOTE | 2023-04-05 09:34 | P.CONPHA_ITS ---
Pharmacy Intervention Comments: MEDICATION RECONCILIATION COMPLETE USING MAR FROM [facility].
--- NOTE | 2023-04-05 09:34 | HMH.PHAINT1 ---
Pharmacy Intervention Comments: MEDICATION RECONCILIATION COMPLETE USING MAR FROM [facility].
[2023-04-05] MEDS: ALBUTEROL-HFA 90MCG/PUFF INHALER 8GM 2 PUFF IH ×4 (09:35→22:10)
--- NOTE | 2023-04-05 09:58 | EXP.PULM.CON ---
History of Present Illness History of present illness: Ms. Pandey is a 82-year-old female with a reported history of CKD, CAD, hypertension presented to the ER with worsening respiratory symptoms and pulmonary was called for further evaluation and management. Patient admits worsening shortness of breath along with lower extremity feeling, not associate with any worsening productive phlegm/subjective fevers or chills for the last 3 to 4 days. [facility] Disclaimer: The information contained in this section may have been updated after the patient was seen, as this information can be updated by other users. Medical History (Updated 04/05/23 @ 12:24 by Deepak Noriega MD) Abnormal EKG Acute and chronic respiratory failure ([id number]) Acute and chronic respiratory failure with hypoxia Acute exacerbation of chronic obstructive pulmonary disease Acute on chronic diastolic heart failure Afib Allergies Anemia Arthritis Asthma Bronchitis CAD (coronary artery disease) Cardiac murmur Cardiac pacemaker in situ CHF (congestive heart failure) Cholecystectomy planned Chronic cough Chronic diastolic (congestive) heart failure Chronic obstructive lung disease Community acquired pneumonia COPD (chronic obstructive pulmonary disease) COVID-19 Dyspnea Edema Edema Emphysema/COPD H/O iron deficiency anemia Heart failure with preserved left ventricular function (HFpEF) History of anemia History of back pain History of cataract History of COVID-19 History of diverticulitis History of gastroesophageal reflux (GERD) Hypertension Hypertensive disorder Hypertrophic obstructive cardiomyopathy Hypomagnesemia Iron deficiency anemia due to chronic blood loss Near syncope Oxygen dependent Pacemaker Paroxysmal atrial fibrillation Pneumonia Sinus headache SIRS (systemic inflammatory response syndrome) Sleep apnea Stage 3 chronic kidney disease Symptomatic anemia Typical angina Surgical History H/O thyroidectomy History of colonoscopy History of total left knee replacement Hx of adenoidectomy Hx of tonsillectomy Hx of tubal ligation Family History Esophageal cancer Brother Family/Other Afib Mother Son Heart attack Mother Father Breast cancer Grandmother Lung cancer Grandmother Multiple sclerosis Daughter Social History Smoking Status: Former smoker tobacco type: cigarettes packs per day: 1 years smoked: 30 second hand exposure: No alcohol intake: never substance use type: denies use current occupational status: disabled Travel in the last 8 weeks: None household members: none housing: house current occupational exposures/hazards: No caffeine: Yes Review of Systems Constitutional Constitutional: Reports anorexia, Reports body ache(s) and Reports fatigue Eyes Eyes: Denies eye discharge, Denies dry eyes, Denies irritation and Denies itchy eyes ENT Ears, Nose, Mouth, and Throat: Denies epistaxis, Denies facial pain, Denies lip swelling and Denies throat swelling *Cardiovascular Cardiovascular: Reports dyspnea, Reports dyspnea on exertion, Reports leg edema, Reports orthopnea and Reports pedal edema *Respiratory Respiratory: Reports chest congestion, Reports cough, Reports dyspnea, Reports dyspnea on exertion, Denies excessive phlegm production and Reports wheezing *Gastrointestinal Gastrointestinal: Denies abdominal pain, Denies belching and Denies cramping *Musculoskeletal Musculoskeletal: Reports back pain, Reports myalgias and Reports other (No small joint swelling or Pain) Psychiatric Psychiatric: Denies homicidal ideation and Denies suicidal ideation Endocrine Endocrine: Reports fatigue and Denies heat intolerance Hematologic/Lymphatic Hematologic/Lymphatic: Denies easy bleeding and Denies lymphadenopathy Allergic/Immunologic Allergic/Immunologic: Denies itchy eyes, Denies lip swelling, Denies throat swelling and Reports wheezing Pulmonology Exam Inpatient Vital signs and Labs for Last 24 Hours: Temp Pulse Resp BP Pulse Ox O2 Del Method O2 Flow Rate 97.7 F 70 21 103/56 L 93 L Nasal Cannula 5 04/05/23 08:00 04/05/23 09:13 04/05/23 08:00 04/05/23 08:00 04/05/23 08:00 04/05/23 08:00 04/05/23 06:51 Laboratory Results - last 24 hr 04/04/23 17:54: VBG pH 7.39, VBG pCO2 48.9, VBG pO2 49.6 H, VBG HCO3 28.7, VBG Total CO2 30.2 H, VBG O2 Saturation 83.5 H, VBG Base Excess 3.6 H 04/04/23 18:08: WBC 10.4, RBC 3.77 L, Hgb 11.0 L, Hct 33.5 L, MCV 88.8, MCH 29.3, MCHC 33.0, RDW 14.9, Plt Count 186, MPV 9.0, Neut % (Auto) 84.5 H, Lymph % (Auto) 9.3 L, [place] % (Auto) 5.6, Eos % (Auto) 0.4, Baso % (Auto) 0.3, Neut # (Auto) 8.8 H, Lymph # (Auto) 1.0, [place] # (Auto) 0.6, Eos # (Auto) 0.0, Baso # (Auto) 0.0, Sodium 128 L, Potassium 3.4 L, Chloride 92 L, Carbon Dioxide 28, Anion Gap 11.4, BUN 19 H, Creatinine 1.10 H, Estimated Creat Clear 44, Estimated GFR 47 L, Est GFR ( Amer) 57 L, Glucose 133 H, Calcium 7.9 L, Total Bilirubin 0.5, AST 35, ALT 17, Alkaline Phosphatase 80, Troponin I 0.11 H, NT-Pro-B Natriuret Pep 72650 H, Total Protein 6.3, Albumin 3.7, Globulin 2.6, Albumin/Globulin Ratio 1.4 04/04/23 18:45: Lactate 1.0 04/04/23 21:00: Troponin I 0.21 H 04/05/23 01:15: Troponin I 0.19 H 04/05/23 06:21: WBC 4.9 D, RBC 3.79 L, Hgb 11.0 L, Hct 33.5 L, MCV 88.5, MCH 29.0, MCHC 32.7, RDW 14.9, Plt Count 171, MPV 8.6, Neut % (Auto) 86.2 H, Lymph % (Auto) 9.7 L, [place] % (Auto) 3.8, Eos % (Auto) 0.0 L, Baso % (Auto) 0.2, Neut # (Auto) 4.2, Lymph # (Auto) 0.5 L, [place] # (Auto) 0.2, Eos # (Auto) 0.0, Baso # (Auto) 0.0, Total Counted 100, Neutrophils % (Manual) 88 H, Lymphocytes % (Manual) 7 L, Monocytes % (Manual) 5, Platelet Estimate Normal, RBC Morphology Normal, Sodium 133 L, Potassium 4.2 D, Chloride 92 L, Carbon Dioxide 33 H, Anion Gap 12.2, BUN 18 H, Creatinine 1.10 H, Estimated Creat Clear 45, Estimated GFR 47 L, Est GFR ( Amer) 57 L, Glucose 130 H, Calcium 8.2 L, Total Bilirubin 0.4, AST 26 D, ALT 15, Alkaline Phosphatase 75, Total Protein 6.1 L, Albumin 3.5, Globulin 2.6, Albumin/Globulin Ratio 1.3, Triglycerides 60, Cholesterol 131 L, LDL Cholesterol Direct 62.88 L, VLDL Cholesterol 12, HDL Cholesterol 44 I & O for Labs for Last 24 Hours: Intake & Output 04/02/23 04/03/23 04/04/23 04/05/23 23:59 23:59 23:59 23:59 Intake Total 0 / 0 Output Total 800 / 800 Balance -800 / -800 Weight 366 lb 10.06 oz Constitutional: Present moderate distress Head: Present normocephalic and atraumatic ENT: Present normal exam, normal oropharynx and mucous membranes moist Neck: Present normal inspection and full ROM Respiratory: Present prolonged expiratory phase, respiratory distress, wheezes, crackles, diminished air movement and able to speak in complete sentences Cardiac: Present S1/S2, Tachycardia and radial pulses present GI: Present soft and distention; Absent tenderness or guarding Rectal (female): Present deferred (female): Present deferred Skin: Present intact; Absent cyanosis or jaundice Neuro: Present alert, awake and oriented x 3 Extremities: Present normal inspection and edema; Absent clubbing or cyanosis Psychiatric: Present normal affect and cooperative Meds Home Medications and Allergies Home Medications Medication Instructions Recorded Confirmed Type alprazolam 0.5 mg tablet 0.5 mg PO TIDP PRN Anxiety 06/11/17 04/05/23 History levothyroxine 75 mcg tablet 75 mcg PO DAILYDM Thyroid 06/11/17 04/05/23 History digoxin 125 mcg (0.125 mg) tablet 125 mcg PO DAILY Heart Rate 09/14/20 04/05/23 History bumetanide 2 mg tablet 2 mg PO BIDL Fluid 03/29/21 04/05/23 History ipratropium 0.5 mg-albuterol 3 mg 3 ml inhalation Q6HP Shortness of 03/29/21 04/05/23 History (2.5 mg base)/3 mL nebulization breath soln metoprolol tartrate 50 mg tablet 25 mg PO BID High Blood Pressure 10/06/21 04/05/23 History albuterol sulfate 90 mcg/actuation 2 puff inhalation Q4HP PRN 03/21/23 04/05/23 History aerosol inhaler Shortness Of Breath fluticasone 250 mcg-salmeterol 50 1 inh inhalation BIDRT Breathing 03/21/23 04/05/23 History mcg/dose blistr powdr for Problems inhalation rivaroxaban 15 mg tablet 15 mg PO QPMWITHMEAL Blood 03/21/23 04/05/23 History thinner/Afib acetaminophen 500 mg tablet 1,000 mg PO Q8HP PRN Fever Or Pain 04/05/23 04/05/23 History ferrous sulfate 325 mg (65 mg 325 mg PO DAILY 04/05/23 04/05/23 History iron) tablet fexofenadine 60 mg capsule 60 mg PO BID Allergy Symptoms 04/05/23 04/05/23 History loperamide 2 mg capsule 2 mg PO Q6HP PRN Diarrhea 04/05/23 04/05/23 History multivitamin 1 tab PO DAILY Supplement 04/05/23 04/05/23 History omeprazole magnesium 20 mg 20 mg PO DAILY Acid Reflux 04/05/23 04/05/23 History capsule,delayed release sennosides 8.6 mg tablet (senna) 17.2 mg PO DAILY Constipation 04/05/23 04/05/23 History New Prescriptions to Start Prescriptions: Allergies Allergy/AdvReac Type Severity Reaction Status Date / Time cefdinir [From Omnicef] Allergy Intermediate Verified 03/12/23 11:19 Iodine and Iodide Containing Allergy Intermediate Verified 03/12/23 11:19 Produc atorvastatin [From Lipitor] Allergy Mild Verified 03/12/23 11:19 cefixime [From Suprax] Allergy Mild I-RASH Verified 03/12/23 11:19 cephalexin [From Keflex] Allergy Mild DIARRHEA Verified 03/12/23 11:19 etodolac Allergy Mild Verified 03/12/23 11:19 pantoprazole Allergy Mild NIGHTMARES Verified 03/12/23 11:19 prednisone Allergy Mild SHORTNESS Verified 03/12/23 11:19 OF BREATH cefepime Allergy Unknown Verified 03/12/23 11:19 diltiazem Allergy Unknown BOTHERED Verified 03/12/23 11:19 HEART isosorbide Allergy Unknown Verified 03/12/23 11:19 morphine [MORPHINE] Allergy Unknown Verified 03/12/23 11:19 rosuvastatin Allergy Unknown UNK RXN Verified 03/12/23 11:19 Sulfa (Sulfonamide Allergy Unknown URINARY Verified 03/12/23 11:19 Antibiotics) PROBLEMS amoxicillin AdvReac Mild DIARRHEA Verified 03/12/23 11:19 clarithromycin AdvReac Mild N/V/D Verified 03/12/23 11:19 clavulanic acid AdvReac Mild DIARRHEA Verified 03/12/23 11:19 esomeprazole [From Nexium] AdvReac Mild NIGHTMARES Verified 03/12/23 11:19 gabapentin AdvReac Mild URINARY Verified 03/12/23 11:19 PROBLEMS, SWELLING levofloxacin [From Levaquin] AdvReac Mild PAINFUL Verified 03/12/23 11:19 JOINTS montelukast [From Singulair] AdvReac Mild Verified 03/12/23 11:19 naproxen AdvReac Mild NVD Verified 03/12/23 11:19 nitrofurantoin AdvReac Mild SHAKES Verified 03/12/23 11:19 [From Macrobid] lansoprazole [From Prevacid] AdvReac Unknown SHORT OF Verified 03/12/23 11:19 BREATH Results Laboratory Findings 04/05/23 06:21 04/05/23 06:21 Abnormal lab findings: Abnormal Labs 04/04/23 04/04/23 04/04/23 17:54 18:08 21:00 RBC 3.77 L Hgb 11.0 L Hct 33.5 L Neut % (Auto) 84.5 H Lymph % (Auto) 9.3 L Eos % (Auto) Neut # (Auto) 8.8 H Lymph # (Auto) Neutrophils % (Manual) Lymphocytes % (Manual) VBG pO2 49.6 H VBG Total CO2 30.2 H VBG O2 Saturation 83.5 H VBG Base Excess 3.6 H Sodium 128 L Potassium 3.4 L Chloride 92 L Carbon Dioxide BUN 19 H Creatinine 1.10 H Estimated GFR 47 L Est GFR ( Amer) 57 L Glucose 133 H Calcium 7.9 L Troponin I 0.11 H 0.21 H NT-Pro-B Natriuret Pep 10649 H Total Protein Cholesterol LDL Cholesterol Direct 04/05/23 04/05/23 01:15 06:21 RBC 3.79 L Hgb 11.0 L Hct 33.5 L Neut % (Auto) 86.2 H Lymph % (Auto) 9.7 L Eos % (Auto) 0.0 L Neut # (Auto) Lymph # (Auto) 0.5 L Neutrophils % (Manual) 88 H Lymphocytes % (Manual) 7 L VBG pO2 VBG Total CO2 VBG O2 Saturation VBG Base Excess Sodium 133 L Potassium Chloride 92 L Carbon Dioxide 33 H BUN 18 H Creatinine 1.10 H Estimated GFR 47 L Est GFR ( Amer) 57 L Glucose 130 H Calcium 8.2 L Troponin I 0.19 H NT-Pro-B Natriuret Pep Total Protein 6.1 L Cholesterol 131 L LDL Cholesterol Direct 62.88 L Assessment and Plan *Assessment and plan (1) Acute and chronic respiratory failure with hypoxia: Status: Acute Category: Medical Code(s): J96.21 - Acute and chronic respiratory failure with hypoxia (2) COVID-19: Status: Acute Category: Medical Code(s): U07.1 - COVID-19 (3) Acute exacerbation of chronic obstructive pulmonary disease: Status: Acute Category: Medical Code(s): J44.1 - Chronic obstructive pulmonary disease with (acute) exacerbation Plan Ms. Pandey is a 82-year-old female with a reported history of CKD, CAD, hypertension presented to the ER with worsening respiratory symptoms and pulmonary was called for further evaluation and management Patient was recent hospital early March with complaints of shortness of breath, managed for COPD exacerbation, heart failure and pneumonia and was discharged home on doxycycline. Chest x-ray on this admission no dense consolidation. Vascular congestion along with bilateral lower lobe predominant likely chronic interstitial changes. No significant change from an x-ray from recent admission. Afebrile. Hemodynamically stable with no evidence of leukocytosis upon admission. VBG upon admission did not show any evidence of hypoxic/hypercarbic respiratory failure. BNP on this admission elevated at 15,500. Compared to base line, minimal worsening oxygen garments, saturating 96% on 5 L nasal cannula, home baseline 4 L oxygen supplementation. Auscultation minimal wheezing. Bibasilar crackles. Plan: -Continue oxygen supplementation to maintain O2 saturation above 90% unable -Initiate Trelegy 100 inhaler -Albuterol inhaler every 6 hours on as-needed basis -Dexamethasone 6mg IV x 5 days -Change antibiotics to levofloxacin renally dosed x 6 days -Will hold off on initiating remdesivir at this point of time pending clinical improvement with diuretics. Will monitor clinically. # Thank you for involving pulmonary in this patient care. Please call with any further questions or concerns.
--- NOTE | 2023-04-05 10:34 | P.CONCA_ITS ---
History of Present Illness History of Present Illness Consult date: 04/05/23 Requesting physician: Ashutosh Adame Consult reason: congestive heart failure and shortness of breath Chief complaint: SOA History of present illness: This is an 82-year-old white female [facility]. She has a known history of atrial fibrillation, coronary artery disease, CHF and chronic kidney disease. The patient reports that she tested positive for COVID-19 yesterday. She states that she has been having more shortness of breath for approximately the last 3 to 4 days. She states that this is at rest and worse w ith exertion. She has also been having increased lower extremity edema for quite some time. She denies any chest pain or pressure. She denies any fever, chills, nausea, vomiting or diarrhea. She states that she has chronic orthopnea. The patient states that overall she has just not felt well and had been very lethargic and fatigued. [facility] Disclaimer: The information contained in this section may have been updated after the patient was seen, as this information can be updated by other users. Medical History (Updated 04/05/23 @ 10:51 by Carolyn Byers APRN) Abnormal EKG Acute and chronic respiratory failure ([id number]) Acute exacerbation of chronic obstructive pulmonary disease Acute on chronic diastolic heart failure Afib Allergies Anemia Arthritis Asthma Bronchitis CAD (coronary artery disease) Cardiac murmur Cardiac pacemaker in situ CHF (congestive heart failure) Cholecystectomy planned Chronic cough Chronic diastolic (congestive) heart failure Chronic obstructive lung disease Community acquired pneumonia COPD (chronic obstructive pulmonary disease) COVID-19 Dyspnea Edema Edema Emphysema/COPD H/O iron deficiency anemia Heart failure with preserved left ventricular function (HFpEF) History of anemia History of back pain History of cataract History of COVID-19 History of diverticulitis History of gastroesophageal reflux (GERD) Hypertension Hypertensive disorder Hypertrophic obstructive cardiomyopathy Hypomagnesemia Iron deficiency anemia due to chronic blood loss Near syncope Oxygen dependent Pacemaker Paroxysmal atrial fibrillation Pneumonia Sinus headache SIRS (systemic inflammatory response syndrome) Sleep apnea Stage 3 chronic kidney disease Symptomatic anemia Typical angina Surgical History H/O thyroidectomy History of colonoscopy History of total left knee replacement Hx of adenoidectomy Hx of tonsillectomy Hx of tubal ligation Family History Esophageal cancer Brother Family/Other Afib Mother Son Heart attack Mother Father Breast cancer Grandmother Lung cancer Grandmother Multiple sclerosis Daughter Social History Smoking Status: Former smoker tobacco type: cigarettes packs per day: 1 years smoked: 30 second hand exposure: No alcohol intake: never substance use type: denies use current occupational status: disabled Travel in the last 8 weeks: None household members: none housing: house current occupational exposures/hazards: No caffeine: Yes Review of Systems Review of Systems Review of systems:: pertinent systems reviewed and negative unless documented below Constitutional Constitutional: Reports system reviewed and no additional complaints, except as documented, Reports fatigue, Denies fever(s), Reports poor appetite and Reports lethargy Eyes Eyes: Reports system reviewed and no additional complaints, except as documented ENT Ears, Nose, Mouth, and Throat: Reports system reviewed and no additional complaints, except as documented *Cardiovascular Cardiovascular: Reports system reviewed and no additional complaints, except as documented, Denies chest pain, Reports dyspnea, Reports dyspnea on exertion, Reports leg edema and Reports pedal edema *Respiratory Respiratory: Reports system reviewed and no additional complaints, except as documented, Reports dyspnea and Reports dyspnea on exertion *Gastrointestinal Gastrointestinal: Reports system reviewed and no additional complaints, except as documented *Musculoskeletal Musculoskeletal: Reports system reviewed and no additional complaints, except as documented Integumentary/Breasts Skin/Breast: Reports system reviewed and no additional complaints, except as documented *Neurologic Neurologic: Reports system reviewed and no additional complaints, except as documented Psychiatric Psychiatric: Reports system reviewed and no additional complaints, except as documented Endocrine Endocrine: Reports system reviewed and no additional complaints, except as documented and Reports fatigue Hematologic/Lymphatic Hematologic/Lymphatic: Reports system reviewed and no additional complaints, except as documented Allergic/Immunologic Allergic/Immunologic: Reports system reviewed and no additional complaints, except as documented Exam Data for Last 24 hours Vital signs and Labs for Last 24 Hours: Temp Pulse Resp BP Pulse Ox O2 Del Method O2 Flow Rate 97.7 F 70 21 103/56 L 93 L Nasal Cannula 5 04/05/23 08:00 04/05/23 09:13 04/05/23 08:00 04/05/23 08:00 04/05/23 08:00 04/05/23 08:00 04/05/23 06:51 Laboratory Results - last 24 hr 04/04/23 17:54: VBG pH 7.39, VBG pCO2 48.9, VBG pO2 49.6 H, VBG HCO3 28.7, VBG Total CO2 30.2 H, VBG O2 Saturation 83.5 H, VBG Base Excess 3.6 H 04/04/23 18:08: WBC 10.4, RBC 3.77 L, Hgb 11.0 L, Hct 33.5 L, MCV 88.8, MCH 29.3, MCHC 33.0, RDW 14.9, Plt Count 186, MPV 9.0, Neut % (Auto) 84.5 H, Lymph % (Auto) 9.3 L, [place] % (Auto) 5.6, Eos % (Auto) 0.4, Baso % (Auto) 0.3, Neut # (Auto) 8.8 H, Lymph # (Auto) 1.0, [place] # (Auto) 0.6, Eos # (Auto) 0.0, Baso # (Auto) 0.0, Sodium 128 L, Potassium 3.4 L, Chloride 92 L, Carbon Dioxide 28, Anion Gap 11.4, BUN 19 H, Creatinine 1.10 H, Estimated Creat Clear 44, Estimated GFR 47 L, Est GFR ( Amer) 57 L, Glucose 133 H, Calcium 7.9 L, Total Bilirubin 0.5, AST 35, ALT 17, Alkaline Phosphatase 80, Troponin I 0.11 H, NT-Pro-B Natriuret Pep 17877 H, Total Protein 6.3, Albumin 3.7, Globulin 2.6, Albumin/Globulin Ratio 1.4 04/04/23 18:45: Lactate 1.0 04/04/23 21:00: Troponin I 0.21 H 04/05/23 01:15: Troponin I 0.19 H 04/05/23 06:21: WBC 4.9 D, RBC 3.79 L, Hgb 11.0 L, Hct 33.5 L, MCV 88.5, MCH 29.0, MCHC 32.7, RDW 14.9, Plt Count 171, MPV 8.6, Neut % (Auto) 86.2 H, Lymph % (Auto) 9.7 L, [place] % (Auto) 3.8, Eos % (Auto) 0.0 L, Baso % (Auto) 0.2, Neut # (Auto) 4.2, Lymph # (Auto) 0.5 L, [place] # (Auto) 0.2, Eos # (Auto) 0.0, Baso # (Auto) 0.0, Total Counted 100, Neutrophils % (Manual) 88 H, Lymphocytes % (Manual) 7 L, Monocytes % (Manual) 5, Platelet Estimate Normal, RBC Morphology Normal, Sodium 133 L, Potassium 4.2 D, Chloride 92 L, Carbon Dioxide 33 H, Anion Gap 12.2, BUN 18 H, Creatinine 1.10 H, Estimated Creat Clear 45, Estimated GFR 47 L, Est GFR ( Amer) 57 L, Glucose 130 H, Calcium 8.2 L, Total Bilirubin 0.4, AST 26 D, ALT 15, Alkaline Phosphatase 75, Total Protein 6.1 L, Albumin 3.5, Globulin 2.6, Albumin/Globulin Ratio 1.3, Triglycerides 60, Cholesterol 131 L, LDL Cholesterol Direct 62.88 L, VLDL Cholesterol 12, HDL Cholesterol 44 I & O for Last 24 hours: Intake & Output 04/02/23 04/03/23 04/04/23 04/05/23 23:59 23:59 23:59 23:59 Intake Total 0 / 0 Output Total 800 / 800 Balance -800 / -800 Weight 366 lb 10.06 oz Narrative: EKG is V pacing with a rate of 80 bpm. Constitutional Constitutional: no acute distress and morbidly obese *Routine HEENT Exam Head: Present normocephalic and atraumatic ENT: Present mucous membranes moist *Routine Neck Exam Neck: Present supple, full ROM and normal carotid upstroke; Absent JVD, carotid bruit or lymphadenopathy *Routine Respiratory Exam Respiratory: Present CTA bilaterally, normal respiratory effort, able to speak in complete sentences and symmetric chest movement *Routine Cardiovascular Exam Cardiovascular: Present RRR, Normal S1 and Normal S2; Absent murmur or gallop *Routine Abdominal Exam Abdominal: Present soft and normoactive bowel sounds; Absent tenderness, distended or organomegaly *Routine Extremities Exam Extremities: Present edema (1-2+ bilateral lower extremity edema), full ROM, pulses intact and normal capillary refill; Absent cyanosis or clubbing *Routine Skin Exam Skin: Present intact and warm; Absent erythema *Routine Neurological Exam Neurological: Present alert, oriented X3 and CN II-XII intact; Absent sensory deficit or motor deficit Routine Psychiatric Exam Psychiatric: Present normal affect Meds Home Medications and Allergies Home Medications Medication Instructions Recorded Confirmed Type alprazolam 0.5 mg tablet 0.5 mg PO TIDP PRN Anxiety 06/11/17 04/05/23 History levothyroxine 75 mcg tablet 75 mcg PO DAILYDM Thyroid 06/11/17 04/05/23 History digoxin 125 mcg (0.125 mg) tablet 125 mcg PO DAILY Heart Rate 09/14/20 04/05/23 History bumetanide 2 mg tablet 2 mg PO BIDL Fluid 03/29/21 04/05/23 History ipratropium 0.5 mg-albuterol 3 mg 3 ml inhalation Q6HP Shortness of 03/29/21 04/05/23 History (2.5 mg base)/3 mL nebulization breath soln metoprolol tartrate 50 mg tablet 25 mg PO BID High Blood Pressure 10/06/21 04/05/23 History albuterol sulfate 90 mcg/actuation 2 puff inhalation Q4HP PRN 03/21/23 04/05/23 History aerosol inhaler Shortness Of Breath fluticasone 250 mcg-salmeterol 50 1 inh inhalation BIDRT Breathing 03/21/23 04/05/23 History mcg/dose blistr powdr for Problems inhalation rivaroxaban 15 mg tablet 15 mg PO QPMWITHMEAL Blood 03/21/23 04/05/23 History thinner/Afib acetaminophen 500 mg tablet 1,000 mg PO Q8HP PRN Fever Or Pain 04/05/23 04/05/23 History ferrous sulfate 325 mg (65 mg 325 mg PO DAILY 04/05/23 04/05/23 History iron) tablet fexofenadine 60 mg capsule 60 mg PO BID Allergy Symptoms 04/05/23 04/05/23 History loperamide 2 mg capsule 2 mg PO Q6HP PRN Diarrhea 04/05/23 04/05/23 History multivitamin 1 tab PO DAILY Supplement 04/05/23 04/05/23 History omeprazole magnesium 20 mg 20 mg PO DAILY Acid Reflux 04/05/23 04/05/23 History capsule,delayed release sennosides 8.6 mg tablet (senna) 17.2 mg PO DAILY Constipation 04/05/23 04/05/23 History New Prescriptions to Start Prescriptions: Allergies Allergy/AdvReac Type Severity Reaction Status Date / Time cefdinir [From Omnicef] Allergy Intermediate Verified 03/12/23 11:19 Iodine and Iodide Containing Allergy Intermediate Verified 03/12/23 11:19 Produc atorvastatin [From Lipitor] Allergy Mild Verified 03/12/23 11:19 cefixime [From Suprax] Allergy Mild I-RASH Verified 03/12/23 11:19 cephalexin [From Keflex] Allergy Mild DIARRHEA Verified 03/12/23 11:19 etodolac Allergy Mild Verified 03/12/23 11:19 pantoprazole Allergy Mild NIGHTMARES Verified 03/12/23 11:19 prednisone Allergy Mild SHORTNESS Verified 03/12/23 11:19 OF BREATH cefepime Allergy Unknown Verified 03/12/23 11:19 diltiazem Allergy Unknown BOTHERED Verified 03/12/23 11:19 HEART isosorbide Allergy Unknown Verified 03/12/23 11:19 morphine [MORPHINE] Allergy Unknown Verified 03/12/23 11:19 rosuvastatin Allergy Unknown UNK RXN Verified 03/12/23 11:19 Sulfa (Sulfonamide Allergy Unknown URINARY Verified 03/12/23 11:19 Antibiotics) PROBLEMS amoxicillin AdvReac Mild DIARRHEA Verified 03/12/23 11:19 clarithromycin AdvReac Mild N/V/D Verified 03/12/23 11:19 clavulanic acid AdvReac Mild DIARRHEA Verified 03/12/23 11:19 esomeprazole [From Nexium] AdvReac Mild NIGHTMARES Verified 03/12/23 11:19 gabapentin AdvReac Mild URINARY Verified 03/12/23 11:19 PROBLEMS, SWELLING levofloxacin [From Levaquin] AdvReac Mild PAINFUL Verified 03/12/23 11:19 JOINTS montelukast [From Singulair] AdvReac Mild Verified 03/12/23 11:19 naproxen AdvReac Mild NVD Verified 03/12/23 11:19 nitrofurantoin AdvReac Mild SHAKES Verified 03/12/23 11:19 [From Macrobid] lansoprazole [From Prevacid] AdvReac Unknown SHORT OF Verified 03/12/23 11:19 BREATH Assessment and Plan *Assessment and plan (1) Heart failure with preserved left ventricular function (HFpEF): Status: Acute Category: Medical Code(s): I50.30 - Unspecified diastolic (congestive) heart failure (2) Non-ST elevation NM (NSTEMI): Status: Acute Category: Medical Code(s): I21.4 - Non-ST elevation (NSTEMI) myocardial infarction (3) Chronic kidney disease: Status: Acute Qualifiers: Chronic kidney disease stage: stage 3 (moderate) Chronic kidney disease stage 3 subtype: stage 3a (GFR 45-59) Qualified Code(s): N18.31 - Chronic kidney disease, stage 3a Category: Medical Code(s): N18.9 - Chronic kidney disease, unspecified (4) Hyponatremia: Status: Acute Category: Medical Code(s): E87.1 - Hypo-osmolality and hyponatremia (5) COPD (chronic obstructive pulmonary disease): Status: Acute Qualifiers: COPD type: unspecified COPD Qualified Code(s): J44.9 - Chronic obstructive pulmonary disease, unspecified Category: Medical Code(s): J44.9 - Chronic obstructive pulmonary disease, unspecified (6) H/O iron deficiency anemia: Status: Acute Category: Medical Code(s): Z86.2 - Personal history of diseases of the blood and blood-forming organs and certain disorders involving the immune mechanism (7) History of gastroesophageal reflux (GERD): Status: Acute Category: Medical Code(s): Z87.19 - Personal history of other diseases of the digestive system (8) Cardiac pacemaker in situ: Status: Acute Category: Medical Code(s): Z95.0 - Presence of cardiac pacemaker (9) CAD (coronary artery disease): Status: Acute Qualifiers: Coronary Disease-Associated Artery/Lesion type: [place] artery [place] vs. transplanted heart: [place] heart Associated angina: without angina Qualified Code(s): I25.10 - Atherosclerotic heart disease of [place] coronary artery without angina pectoris Category: Medical Code(s): I25.10 - Atherosclerotic heart disease of [place] coronary artery without angina pectoris (10) Afib: Status: Acute Qualifiers: Atrial fibrillation type: unspecified Qualified Code(s): I48.91 - Unspecified atrial fibrillation Category: Medical Code(s): I48.91 - Unspecified atrial fibrillation (11) COVID-19: Status: Acute Category: Medical Code(s): U07.1 - COVID-19 Plan Plan: 1. The patient was admitted to the hospital with COVID-19 and a CHF exacerbation. Will defer management of the COVID-19 to the hospitalist. 2. The patient does have a known history of heart failure with preserved ejection fraction, she is currently having an acute exacerbation. We do recommend diuresis with IV diuretics. Will give the patient Bumex 2 mg IV twice daily for diuresis. 3. Repeat a BMP in the morning. 4. Once the patient is euvolemic we do recommend starting her on Jardiance 10 mg daily and low-dose Entresto for congestive heart failure. 5. The patient does have an elevated troponin consistent with a non-STEMI. We do recommend an ischemic evaluation once she has recovered from her COVID-19. 6. We do recommend aspirin 81 mg daily, beta-lory which she is currently on and a statin. However, the patient declines a statin due to allergies. 7. Coronary artery disease is present. As mentioned above we do recommend ischemic evaluation when she has recovered from COVID-19. 8. Her blood pressure is well-controlled. 9. Her LDL goal is less than 55. Her LDL is 62. She declines a statin due to myalgias. 10. The patient had a recent echocardiogram which shows normal LV function. Her RVSP was greater than 60 at that time. Continue with diuresis as mentioned above. 11. The patient does have paroxysmal atrial fibrillation. Continue metoprolol, digoxin for suppression of her atrial fibrillation. 12. She is on Xarelto for long-term anticoagulation. 13. Further recommendations will be made pending the patient's response to treatment. Thank you for the opportunity to help participate in the care of this patient. All recommendations and orders are per Dr. Clark.
[2023-04-05] MEDS: BUMETANIDE 1MG/4ML VIAL 2 MG IV ×2 (10:37→16:19)
[2023-04-05] MEDS: AEROCHAMBER/OPTIHALER 1 UNIT MC (10:37)
[2023-04-05 11:03] LABS: Coronavirus 19, PCR Detected (NotDetected)
[2023-04-05 12:55] LABS: HDL Cholesterol 44 mg/dl (40-60)
[2023-04-05] MEDS: DEXAMETHASONE 4MG/ML 1ML VIAL 6 MG IV (13:32)
--- NOTE | 2023-04-05 13:40 | CARE MANAGER ---
Addendum entered by Kristy Ayon RN 04/11/23 13:06: Patient is not planned for discharge tomorrow and will require an extension on her authorization for skilled therapy. I plan to fax clinical updates to [facility] tomorrow morning so that patient can discharge over the weekend if/when medically stable. Addendum entered by Kary Plaza 04/10/23 10:17: Per Marsha patient has been approved to return to [facility] SN[facility] level of care. Precert will after Saturday: I have updated MD. Addendum entered by Kary Plaza 04/09/23 15:02: Patient information has been faxed to [facility] to start precert for potential discharge tomorrow. Addendum entered by Kary Plaza 04/09/23 07:40: Updated patient information has been faxed to Julisa zamora/ [facility]. Discharge date is unknown at this time. Addendum entered by Mary Valdovinos RN 04/05/23 15:26: Lam, who does authorization for [employer] is not open until Saturday. They will not be able to start an auth until then. Likely patient cannot discharge until after Saturday. Original Note: Patient came to us from [facility]. I spoke with Julisa today, she is looking into how we are going to get an authorization from insurance if patient is medically ready over the weekend/holiday.
--- NOTE | 2023-04-05 14:53 | HMH.PTEV ---
Physical Therapy Evaluation Rehab PT IP Evaluation Start: 04/05/23 13:56 Freq: ONCE Status: Active Protocol: Document 04/05/23 14:46 PHORNE (Rec: 04/05/23 14:53 PHORNE [id number]) Subjective/History History History 82 yowf adm to [facility] with increased oxygen requirements from SNF. She reports she is generally able to ambulate only short distance with RW and requires assist for most ADLs at baseline. She lives alone when she is not at SNF for rehab. She has PMH of: Medical History (Updated 04/05 @ 04:45 by Rogelio Chavez APRN) Abnormal EKG Acute and chronic respiratory failure ([id number]) Acute exacerbation of chronic obstructive pulmonary disease Acute on chronic diastolic heart failure Afib Allergies Anemia Arthritis Asthma Bronchitis CAD (coronary artery disease) Cardiac murmur Cardiac pacemaker in situ CHF (congestive heart failure) Cholecystectomy planned Chronic cough Chronic diastolic (congestive) heart failure Chronic obstructive lung disease Community acquired pneumonia COPD (chronic obstructive pulmonary disease) COVID-19 Dyspnea Edema Edema Emphysema/COPD H/O iron deficiency anemia History of anemia History of back pain History of cataract History of COVID-19 History of diverticulitis History of gastroesophageal reflux (GERD) Hypertension Hypertensive disorder Hypertrophic obstructive cardiomyopathy Hypomagnesemia Iron deficiency anemia due to chronic blood loss Near syncope Oxygen dependent Pacemaker Paroxysmal atrial fibrillation Pneumonia Sinus headache SIRS (systemic inflammatory response syndrome) Sleep apnea Stage 3 chronic kidney disease Symptomatic anemia Typical angina Surgical History (Reviewed @ 01:08 by Capri Ruiz RN) H/O thyroidectomy History of colonoscopy History of total left knee replacement Hx of adenoidectomy Hx of tonsillectomy Hx of tubal ligation Subjective Subjective Currently she reports increased general fatigue. Otherwise she is very close to baseline. New diagnosis of cancer in past 12 No months? Rehab PT IP Eval Objective Appearance Patient Behavior Appropriate Patient Orientation Person,Place,Time Difficulty following instructions none Speech Pattern Clear Ambulation Patient Able to Ambulate No Balance Ability to Arise Able, uses arms to help Sitting Balance Steady, safe Standing Balance Steady, wide stance Dynamic Sitting Balance Ability Good Dynamic Standing Balance Ability Fair Transfers Bed Transfer Ability Minimal x 1 (25% assist) Chair Transfer Ability Minimal x 1 (25% assist) Sit to Stand Bed Transfer Ability Minimal x 1 (25% assist) Sit to Stand Chair Transfer Ability Minimal x 1 (25% assist) Rehab PT IP prob,goals,plan Problems Date of Evaluation: 04/05/23 PT IP Problems Bed Mobility,Transfers,Gait Rehab Potential Rehab Potential Good Plan PT Intervention Plan Bed Mobility,Transfers,Gait, Therapeutic Exercise PT Plan Frequency Daily Duration LOS Discharge Goals Bed Transfer Ability Contact Guard/Hand Hold Sit to Stand Chair Transfer Ability Contact Guard/Hand Hold Discharge Plan PT Discharge Plan Pt is most appropriate to return to SNF for rehab placement once medically stable. If she did return home she would need significant daily assistance available. Skilled intervention is necessary to prevent further debility, weakness, falls, wounds, and injury. Eval Complexity Eval Charge Codes 63151 - High Complexity PHYSICIAN CERTIFICATION: I certify the specified therapy services for Vandana Pandey are required, authorized, and reviewed every 30 days.
--- NOTE | 2023-04-05 15:16 | HMH.OTEV ---
OT Inpatient Evaluation Rehab OT IP Evaluation Start: 04/05/23 13:56 Freq: ONCE Status: Active Protocol: Document 04/05/23 14:55 SEBASTIEN (Rec: 04/05/23 15:16 SEBASTIEN [id number]) Rehab OT IP Assessment Subjective History This is an 82-year-old female, custodial resident, with a history of atrial fibrillation, pacemaker in situ, COPD on 4 L nasal cannula, CHF, hypertrophic obstructive cardiomyopathy, CAD, and CKD presented to the emergency department for evaluation from nursing facility by EMS with concern for shortness of breath in the setting of COVID-19. Patient reports that she feels more short of air and has had increased edema to both of her legs. She denies any other concerns, such as chest pain, abdominal pain, or other issues. She states that overall she just does not feel well. EMS notes that she was stable on her home oxygen. They gave her 500 cc of IV fluids en route. Admitted for further work up. [facility] Disclaimer: The information contained in this section may have been updated after the patient was seen, as this information can be updated by other users. Medical History (Updated 04/05 @ 04:45 by Rogelio Chavez APRN) Abnormal EKG Acute and chronic respiratory failure ([id number]) Acute exacerbation of chronic obstructive pulmonary disease Acute on chronic diastolic heart failure Afib Allergies Anemia Arthritis Asthma Bronchitis CAD (coronary artery disease) Cardiac murmur Cardiac pacemaker in situ CHF (congestive heart failure) Cholecystectomy planned Chronic cough Chronic diastolic (congestive) heart failure Chronic obstructive lung disease Community acquired pneumonia COPD (chronic obstructive pulmonary disease) COVID-19 Dyspnea Edema Edema Emphysema/COPD H/O iron deficiency anemia History of anemia History of back pain History of cataract History of COVID-19 History of diverticulitis History of gastroesophageal reflux (GERD) Hypertension Hypertensive disorder Hypertrophic obstructive cardiomyopathy Hypomagnesemia Iron deficiency anemia due to chronic blood loss Near syncope Oxygen dependent Pacemaker Paroxysmal atrial fibrillation Pneumonia Sinus headache SIRS (systemic inflammatory response syndrome) Sleep apnea Stage 3 chronic kidney disease Symptomatic anemia Typical angina Surgical History (Reviewed @ 01:08 by Capri Ruiz RN) H/O thyroidectomy History of colonoscopy History of total left knee replacement Hx of adenoidectomy Hx of tonsillectomy Hx of tubal ligation Resident of [facility] for the past two weeks for rehabilitation. Patient uses a RW to ambulate. Subjective I can try to stand up. Instructed Patient on proper hand and foot placement to participate in bed mobility, transfers and ADLs. Patient required Min A. Patient requested to lay back in bed with Min A. Objective Patient Orientation Person,Place,Name,Age,Year Right Upper Extremity Gross ROM WFL Left Upper Extremity Gross ROM WFL Bed Mobility bed mobility - supine/sit Assist Level Minimal x 1 (25% assist) Transfer Training Sit/Stand/Pivot Transfer Assist Level Minimal x 1 (25% assist) Chair Transfer Ability Minimal x 1 (25% assist) Chair Transfer Technique Sit to/from Ambulatory Rehab OT IP prob,goals,plan Problems Date of Evaluation: 04/05/23 OT IP Problems Bed Mobility,Transfers,Balance ,Self care,Safety Rehab Potential Rehab Potential Good Equipment Needs Assistive Devices Rolling / Wheeled Walker Plan OT intervention Plan Bed Mobility,Transfers,Balance ,Self care,Safety,Therapeutic Exercise OT Plan Frequency Daily Duration LOS Discharge Goals Bed Mobility Ability Assistance x1 Sit to Stand Chair Transfer Ability Contact Guard/Hand Hold Chair Transfer Ability Contact Guard/Hand Hold Chair Transfer Technique Sit to/from Ambulatory Chair Transfer Assistive Devices Rolling Walker Discharge Plan OT Discharge Plan [facility] after medical d/c. Eval Complexity Eval Charge Codes 54741 - Low Complexity PHYSICIAN CERTIFICATION: I certify the specified therapy services for Vandana Pandey are required, authorized, and reviewed every 30 days.
--- NOTE | 2023-04-05 15:35 | P.PN_ITS ---
Subjective *Date: 04/05/23 *Time: 15:35 Interval history: patient was seen and evaluated at the bedside. denies chest pain, shortness of breath, nausea, vomiting, abdominal pain. Patient does not have any complaints at this time. feels better overall Exam Data for Last 24 hours Vital signs and Labs for Last 24 Hours: Temp Pulse Resp BP Pulse Ox O2 Del Method O2 Flow Rate 97.8 F 83 26 H 153/55 H 93 L Nasal Cannula 5 04/05/23 12:00 04/05/23 12:00 04/05/23 12:00 04/05/23 12:00 04/05/23 12:00 04/05/23 12:00 04/05/23 11:00 Laboratory Results - last 24 hr 04/04/23 17:54: VBG pH 7.39, VBG pCO2 48.9, VBG pO2 49.6 H, VBG HCO3 28.7, VBG Total CO2 30.2 H, VBG O2 Saturation 83.5 H, VBG Base Excess 3.6 H 04/04/23 18:08: WBC 10.4, RBC 3.77 L, Hgb 11.0 L, Hct 33.5 L, MCV 88.8, MCH 29.3, MCHC 33.0, RDW 14.9, Plt Count 186, MPV 9.0, Neut % (Auto) 84.5 H, Lymph % (Auto) 9.3 L, [place] % (Auto) 5.6, Eos % (Auto) 0.4, Baso % (Auto) 0.3, Neut # (Auto) 8.8 H, Lymph # (Auto) 1.0, [place] # (Auto) 0.6, Eos # (Auto) 0.0, Baso # (Auto) 0.0, Sodium 128 L, Potassium 3.4 L, Chloride 92 L, Carbon Dioxide 28, Anion Gap 11.4, BUN 19 H, Creatinine 1.10 H, Estimated Creat Clear 44, Estimated GFR 47 L, Est GFR ( Amer) 57 L, Glucose 133 H, Calcium 7.9 L, Total Marcial irubin 0.5, AST 35, ALT 17, Alkaline Phosphatase 80, Troponin I 0.11 H, NT-Pro-B Natriuret Pep 15893 H, Total Protein 6.3, Albumin 3.7, Globulin 2.6, [place] min/Globulin Ratio 1.4 04/04/23 18:45: Lactate 1.0 04/04/23 21:00: Troponin I 0.21 H 04/05/23 01:15: Troponin I 0.19 H 04/05/23 06:21: WBC 4.9 D, RBC 3.79 L, Hgb 11.0 L, Hct 33.5 L, MCV 88.5, MCH 29.0, MCHC 32.7, RDW 14.9, Plt Count 171, MPV 8.6, Neut % (Auto) 86.2 H, Lymph % (Auto) 9.7 L, [place] % (Auto) 3.8, Eos % (Auto) 0.0 L, Baso % (Auto) 0.2, Neut # (Auto) 4.2, Lymph # (Auto) 0.5 L, [place] # (Auto) 0.2, Eos # (Auto) 0.0, Baso # (Auto) 0.0, Total Counted 100, Neutrophils % (Manual) 88 H, Lymphocytes % (Manual) 7 L, Monocytes % (Manual) 5, Platelet Estimate Normal, RBC Morphology Normal, Sodium 133 L, Potassium 4.2 D, Chloride 92 L, Carbon Dioxide 33 H, Anion Gap 12.2, BUN 18 H, Creatinine 1.10 H, Estimated Creat Clear 45, Estimated GFR 47 L, Est GFR ( Amer) 57 L, Glucose 130 H, Calcium 8.2 L, Total Bilirubin 0.4, AST 26 D, ALT 15, Alkaline Phosphatase 75, Total Protein 6.1 L, Albumin 3.5, Globulin 2.6, Albumin/Globulin Ratio 1.3, Triglycerides 60, Cholesterol 131 L, LDL Cholesterol Direct 62.88 L, VLDL Cholesterol 12, HDL Cholesterol 44, Cholesterol/HDL Ratio 3.0 04/05/23 08:30: SARS-CoV-2 (PCR) Detected A, Influenza A Untype (PCR) Not detected, Influenza Type B (PCR) Not detected Temp Pulse Resp BP Pulse Ox O2 Del Method O2 Flow Rate 97.7 F 70 20 116/59 L 90 L Nasal Cannula 4 03/25/23 08:00 03/25/23 09:31 03/25/23 08:00 03/25/23 08:00 03/25/23 08:00 03/25/23 08:00 03/25/23 08:00 FiO2 40 03/21/23 14:40 Laboratory Results - last 24 hr 03/25/23 05:40: Sodium 135 L, Potassium 3.7, Chloride 98, Carbon Dioxide 34 H, Anion Gap 6.7, BUN 16 D, Creatinine 1.10 H, Estimated Creat Clear 47, Estimated GFR 47 L, Est GFR ( Amer) 57 L, Glucose 88, Calcium 8.2 L, Total Bilirubin 0.4, AST 29, ALT 23, Alkaline Phosphatase 69, Total Protein 6.2 L, Albumin 3.5, Globulin 2.7, Albumin/Globulin Ratio 1.3 I & O for Last 24 hours: Intake & Output 04/02/23 04/03/23 04/04/23 04/05/23 23:59 23:59 23:59 23:59 Intake Total 0 / 0 Output Total 800 / 800 Balance -800 / -800 Weight 166.3 kg Intake & Output 03/22/23 03/23/23 03/24/23 03/25/23 23:59 23:59 23:59 23:59 Intake Total 1255 / 1255 1500 / 1860 1540 / 2186 916 / 916 Output Total 100 / 100 0 / 0 0 / 0 0 / 0 Balance 1155 / 1155 1500 / 1860 1540 / 2186 916 / 916 Weight 79.89 kg 79.923 kg 79.923 kg 77.247 kg Microbiology Reports for the Last 24 Hours: Microbiology 03/21/23 17:44 Sputum - Expectorated Sputum Gram Stain - Final Constitutional Constitutional: no acute distress *Routine HEENT Exam Head: Present normocephalic Eye: Present EOMI and PERRL ENT: Present mucous membranes moist *Routine Neck Exam Neck: Present supple; Absent lymphadenopathy *Routine Respiratory Exam Respiratory: Present CTA bilaterally *Routine Cardiovascular Exam Cardiovascular: Present RRR *Routine Abdominal Exam Abdominal: Present soft and normoactive bowel sounds; Absent tenderness *Routine Extremities Exam Extremities: Absent cyanosis, clubbing or edema *Routine Skin Exam Skin: Present warm; Absent rash *Routine Neurological Exam Neurological: Present alert and oriented X3 Assessment and Plan *Assessment and plan (1) Non-ST elevation IN (NSTEMI): Status: Acute Category: Medical Code(s): I21.4 - Non-ST elevation (NSTEMI) myocardial infarction (2) Acute exacerbation of CHF (congestive heart failure): Status: Acute Qualifiers: Heart failure type: unspecified Qualified Code(s): I50.9 - Heart failure, unspecified Category: Medical Code(s): I50.9 - Heart failure, unspecified (3) Hyponatremia: Status: Acute Category: Medical Code(s): E87.1 - Hypo-osmolality and hyponatremia (4) COVID-19: Status: Acute Category: Medical Code(s): U07.1 - COVID-19 (5) H/O iron deficiency anemia: Status: Acute Category: Medical Code(s): Z86.2 - Personal history of diseases of the blood and blood-forming organs and certain disorders involving the immune mechanism (6) Afib: Status: Acute Qualifiers: Atrial fibrillation type: unspecified Qualified Code(s): I48.91 - Unspecified atrial fibrillation Category: Medical Code(s): I48.91 - Unspecified atrial fibrillation (7) CAD (coronary artery disease): Status: Acute Qualifiers: Coronary Disease-Associated Artery/Lesion type: [place] artery [place] vs. transplanted heart: [place] heart Associated angina: without angina Qualified Code(s): I25.10 - Atherosclerotic heart disease of [place] coronary artery without angina pectoris Category: Medical Code(s): I25.10 - Atherosclerotic heart disease of [place] coronary artery without angina pectoris (8) Cardiac pacemaker in situ: Status: Acute Category: Medical Code(s): Z95.0 - Presence of cardiac pacemaker (9) COPD (chronic obstructive pulmonary disease): Status: Acute Qualifiers: COPD type: unspecified COPD Qualified Code(s): J44.9 - Chronic obstructive pulmonary disease, unspecified Category: Medical Code(s): J44.9 - Chronic obstructive pulmonary disease, unspecified (10) Chronic kidney disease: Status: Acute Qualifiers: Chronic kidney disease stage: stage 3 (moderate) Chronic kidney disease stage 3 subtype: stage 3a (GFR 45-59) Qualified Code(s): N18.31 - Chronic kidney disease, stage 3a Category: Medical Code(s): N18.9 - Chronic kidney disease, unspecified (11) History of gastroesophageal reflux (GERD): Status: Acute Category: Medical Code(s): Z87.19 - Personal history of other diseases of the digestive system Plan 82-year-old female, residential resident, with a history of atrial fibrillation, pacemaker in situ, COPD on 4 L nasal cannula, CHF, hypertrophic obstructive cardiomyopathy, CAD, and CKD presented to the emergency department for evaluation from nursing facility by EMS with concern for shortness of breath in the setting of COVID-19. on arrival at ER CXR was obtained, imaging reviewed. there is no new focal consolidation. Labs are positive for elevated BNP, troponin and hyponatremia. EKG was reviewed. Cardiology consulted. Discussed for admission. Plan as follow: - elevated troponin: to rule out NSTEMI, ACS, or acute oxygen demand: Admit patient for cardiac telemetry Cardiology consulted CXR and EKG serial troponin - monitor - ACute exacervation of CHF: conyt IV diuresis with lasix maximize O2 sat. monitor for SOB cardiology on board, appreciate recommendation -Hyponatremia: monitor - COVD19:; CXR reviewed. no new focal consolidation. monitor for SOB, currently on 4L monitor foe fever or sepsis Ceft 1G BID empirically -Chronic anemia: stable. resume home regimen monitor morning CBC Others chronic conditions: Afib, CAD, Pacemaker in situ, COPD, GERD: conditions reviewed. currently stable resumed and reconciled home medication SCD for dvt ppx on Protonix Full code
[2023-04-05] MEDS: RIVAROXABAN 15MG TABLET 15 MG PO (17:32)
--- NOTE | 2023-04-05 17:32 | EXP.EVENT.NO ---
patient mentions she is allergic to levaquin and do not want it, abx.
[2023-04-05] MEDS: ALPRAZolam 0.5MG TABLET 0.5 MG PO (20:44)
[2023-04-05] MEDS: ACETAMINOPHEN 325MG TAB 650 MG PO (22:26)
[2023-04-06] VITALS (9 sets, daily range): BP systolic 111–132; BP diastolic 65–80; PULSE 80–81; RESP 20–24; TEMP 36.1–38; O2SAT 24–95; BMI 22.8; BMI 22.9
--- NOTE | 2023-04-06 00:31 | PC.NURSE ---
PATIENT'S 02 SAT CONTINUED TO DROP DOWN 78-79% WHILE SLEEPING. MOUTH BREATHING. R.T. PLACED PATIENT ON 40% V-MASK AND SATS IMPROVED TO 93%.
[2023-04-06] MEDS: ALBUTEROL-HFA 90MCG/PUFF INHALER 8GM 2 PUFF IH ×3 (04:20→20:43)
[2023-04-06] MEDS: PANTOPRAZOLE 40MG TABLET 40 MG PO ×2 (06:08→20:44)
--- NOTE | 2023-04-06 06:13 | PC.NURSE ---
PATIENT'S 02 SATS HAVE REMAINED AT 93-94% WITH 02 40% V-MASK. SAYS SHE DID NOT SLEEP WELL BUT APPEARED TO BE ASLEEP MOST OF THE TIME ON ROUNDS. REMAINS ON CONTACT/[place] ISOLATION DUE TO COVID. OCCASSIONAL MOIST COUGH NOTED. EXP WHEEZES NOTED, BREATH SOUNDS DIMINISHED. PACED RHYTHM ON TELE. 3+ PITTING EDEMA PRESENT BILAT LEs. MEDICATED WITH XANAX 0.5 MG PO FOR NERVES/ANXIETY AT 2043 AND TYLENOL 650 MG PO FOR C/O NECK/BACK ACHE AT 2225.
[2023-04-06 07:30] LABS: Chloride 92 mmol/L (98-107)
[2023-04-06 07:31] LABS: Potassium 4.1 mmoL/L (3.5-5.1); Sodium 134 mmol/L (136-145)
[2023-04-06 07:33] LABS: Blood Urea Nitrogen 22 mg/dl (7-17); Creatinine Clearance Estimated 51 mL/min (50-200); Estimated Glomerular Filt Rate 53 ml/min (>60); GFR (African American) 64 ML/MIN (>60)
[2023-04-06 07:34] LABS: Anion Gap 13.1 mEq/L (5-15); Calcium 8.4 mg/dl (8.4-10.2); Carbon Dioxide 33 mmol/L (22.0-30.0); Glucose 103 mg/dl (74-100)
[2023-04-06 07:38] LABS: Basophils % 0.1 % (0.1-2.0); Hemoglobin 11.8 g/dL (12.2-16.2); Lymphocytes # 0.8 K/mm3 (0.7-4.5); Lymphocytes % 5.4 % (10-50); Mean Corpuscular Hemoglobin 28.7 pg (27.0-31.2); Mean Corpuscular Volume 89.6 fl (81-99); Mean Platelet Volume 9.2 fl (7.4-10.4); Monocytes # 0.5 K/mm3 (0.1-1.0); Monocytes % 3.5 % (1.7-9.3); Neutrophils # 13.6 K/mm3 (1.8-7.8); Platelet Count 201 K/mm3 (142-424); Red Blood Count 4.12 M/mm3 (4.20-5.40); Red Cell Distribution Width 14.8 % (11.5-17.5)
[2023-04-06 08:00] LABS: MANUAL DIFFERENTIAL MANUAL DIFFERENTIAL (MANUAL DIFF)
[2023-04-06 08:45] LABS: Lymphocytes % 2 % (10-50); Monocytes % 2 % (2-9); Neutrophils % 96 % (42-76); Total Cells Counted 100
[2023-04-06 08:46] LABS: Platelet Estimate Normal; RBC Morphology Normal
[2023-04-06] MEDS: FLUTICASONE/UMECLIDIN/VILANTER 100/62.5/25MCG INHALER 1 PUFF IH (09:14)
--- NOTE | 2023-04-06 09:19 | XR_ITS ---
PROCEDURE INFORMATION: Exam: XR Chest Exam date and time: 04/06/2023 10:05 AM Age: 82 years old Clinical indication: Other: Pneumonia; Additional info: Pneumonpneumonia. TECHNIQUE: Imaging protocol: Radiologic exam of the chest. Views: 1 view. COMPARISON: CR XR CHEST PORTABLE 04/04/2023 6:05 PM FINDINGS: Tubes, catheters and devices: Pacer leads stable. Lungs: Slight decrease in interstitial prominence, which may have been edema or pneumonia. No focal consolidation. Pleural spaces: Unremarkable. No pleural effusion. No pneumothorax. Heart/Mediastinum: Unremarkable. No cardiomegaly. Bones/joints: Unremarkable. IMPRESSION: Slight decrease in interstitial prominence, which may have been edema or pneumonia. No focal consolidation.
[2023-04-06] MEDS: DEXAMETHASONE 4MG/ML 1ML VIAL 6 MG IV (09:26)
[2023-04-06] MEDS: BUMETANIDE 1MG/4ML VIAL 2 MG IV ×2 (09:26→18:41)
[2023-04-06] MEDS: DIGOXIN 0.125MG TABLET 125 MCG PO (09:26)
[2023-04-06] MEDS: METOPROLOL TARTRATE 25MG TABLET 25 MG PO ×2 (09:27→20:43)
[2023-04-06] MEDS: ALPRAZolam 0.5MG TABLET 0.5 MG PO ×2 (09:30→20:44)
--- NOTE | 2023-04-06 09:41 | PC.NURSE ---
pt is short of air. reports coughing up brown thick mucus. increased to 50% due to low oxygen saturation. spoke with MD. stat xray ordered. pt is anxious. prn medication given. placed on Purewick to help limit exertion
--- NOTE | 2023-04-06 11:25 | PC.NURSE ---
pt is resting more comfortably @ this time.
--- NOTE | 2023-04-06 15:35 | EXP.PN ---
Subjective *Date: 04/06/23 *Time: 15:35 Interval history: patient was seen and evaluated at the bedside. she had hypoxia overnight and was placed on venti mask, denies chest pain, shortness of breath, nausea, vomiting, abdominal pain. Patient does not have any complaints at this time. Exam Data for Last 24 hours Vital signs and Labs for Last 24 Hours: Temp Pulse Resp BP Pulse Ox O2 Del Method O2 Flow Rate 99 F 80 20 119/67 92 L Venturi Mask 12 04/06/23 15:34 04/06/23 15:34 04/06/23 15:34 04/06/23 15:34 04/06/23 15:34 04/06/23 15:34 04/06/23 09:15 FiO2 40 04/06/23 09:15 Laboratory Results - last 24 hr 04/06/23 07:05: WBC 15.0 H D, RBC 4.12 L, Hgb 11.8 L, Hct 37.0, MCV 89.6, MCH 28.7, MCHC 32.0, RDW 14.8, Plt Count 201, MPV 9.2, Neut % (Auto) 91.0 H, Lymph % (Auto) 5.4 L, [place] % (Auto) 3.5, Eos % (Auto) 0.0 L, Baso % (Auto) 0.1, Neut # (Auto) 13.6 H, Lymph # (Auto) 0.8, [place] # (Auto) 0.5, Eos # (Auto) 0.0, Baso # (Auto) 0.0, Total Counted 100, Neutrophils % (Manual) 96 H, Lymphocytes % (Manual) 2 L, Monocytes % (Manual) 2, Platelet Estimate Normal, RBC Morphology Normal, Sodium 134 L, Potassium 4.1, Chloride 92 L, Carbon Dioxide 33 H, Anion Gap 13.1, BUN 22 H, Creatinine 1.00, Estimated Creat Clear 51, Estimated GFR 53 L, Est GFR ( Amer) 64, Glucose 103 H, Calcium 8.4 Temp Pulse Resp BP Pulse Ox O2 Del Method O2 Flow Rate 97.7 F 70 20 116/59 L 90 L Nasal Cannula 4 03/25/23 08:00 03/25/23 09:31 03/25/23 08:00 03/25/23 08:00 03/25/23 08:00 03/25/23 08:00 03/25/23 08:00 FiO2 40 03/21/23 14:40 Laboratory Results - last 24 hr 03/25/23 05:40: Sodium 135 L, Potassium 3.7, Chloride 98, Carbon Dioxide 34 H, Anion Gap 6.7, BUN 16 D, Creatinine 1.10 H, Estimated Creat Clear 47, Estimated GFR 47 L, Est GFR ( Amer) 57 L, Glucose 88, Calcium 8.2 L, Total Bilirubin 0.4, AST 29, ALT 23, Alkaline Phosphatase 69, Total Protein 6.2 L, Albumin 3.5, Globulin 2.7, Albumin/Globulin Ratio 1.3 I & O for Last 24 hours: Intake & Output 04/03/23 04/04/23 04/05/23 04/06/23 23:59 23:59 23:59 23:59 Intake Total 880 / 1120 240 / 240 Output Total 1000 / 1000 400 / 400 Balance -120 / 120 -160 / -160 Weight 166.3 kg 76.476 kg Intake & Output 03/22/23 03/23/23 03/24/23 03/25/23 23:59 23:59 23:59 23:59 Intake Total 1255 / 1255 1500 / 1860 1540 / 2186 916 / 916 Output Total 100 / 100 0 / 0 0 / 0 0 / 0 Balance 1155 / 1155 1500 / 1860 1540 / 2186 916 / 916 Weight 79.89 kg 79.923 kg 79.923 kg 77.247 kg Microbiology Reports for the Last 24 Hours: Microbiology 03/21/23 17:44 Sputum - Expectorated Sputum Gram Stain - Final Constitutional Constitutional: no acute distress *Routine HEENT Exam Head: Present normocephalic Eye: Present EOMI and PERRL ENT: Present mucous membranes moist *Routine Neck Exam Neck: Present supple; Absent lymphadenopathy *Routine Respiratory Exam Respiratory: Present CTA bilaterally *Routine Cardiovascular Exam Cardiovascular: Present RRR *Routine Abdominal Exam Abdominal: Present soft and normoactive bowel sounds; Absent tenderness *Routine Extremities Exam Extremities: Absent cyanosis, clubbing or edema *Routine Skin Exam Skin: Present warm; Absent rash *Routine Neurological Exam Neurological: Present alert and oriented X3 Assessment and Plan *Assessment and plan (1) Non-ST elevation PR (NSTEMI): Status: Acute Category: Medical Code(s): I21.4 - Non-ST elevation (NSTEMI) myocardial infarction (2) Acute exacerbation of CHF (congestive heart failure): Status: Acute Qualifiers: Heart failure type: unspecified Qualified Code(s): I50.9 - Heart failure, unspecified Category: Medical Code(s): I50.9 - Heart failure, unspecified (3) Hyponatremia: Status: Acute Category: Medical Code(s): E87.1 - Hypo-osmolality and hyponatremia (4) COVID-19: Status: Acute Category: Medical Code(s): U07.1 - COVID-19 (5) H/O iron deficiency anemia: Status: Acute Category: Medical Code(s): Z86.2 - Personal history of diseases of the blood and blood-forming organs and certain disorders involving the immune mechanism (6) Afib: Status: Acute Qualifiers: Atrial fibrillation type: unspecified Qualified Code(s): I48.91 - Unspecified atrial fibrillation Category: Medical Code(s): I48.91 - Unspecified atrial fibrillation (7) CAD (coronary artery disease): Status: Acute Qualifiers: Coronary Disease-Associated Artery/Lesion type: [place] artery [place] vs. transplanted heart: [place] heart Associated angina: without angina Qualified Code(s): I25.10 - Atherosclerotic heart disease of [place] coronary artery without angina pectoris Category: Medical Code(s): I25.10 - Atherosclerotic heart disease of [place] coronary artery without angina pectoris (8) Cardiac pacemaker in situ: Status: Acute Category: Medical Code(s): Z95.0 - Presence of cardiac pacemaker (9) COPD (chronic obstructive pulmonary disease): Status: Acute Qualifiers: COPD type: unspecified COPD Qualified Code(s): J44.9 - Chronic obstructive pulmonary disease, unspecified Category: Medical Code(s): J44.9 - Chronic obstructive pulmonary disease, unspecified (10) Chronic kidney disease: Status: Acute Qualifiers: Chronic kidney disease stage: stage 3 (moderate) Chronic kidney disease stage 3 subtype: stage 3a (GFR 45-59) Qualified Code(s): N18.31 - Chronic kidney disease, stage 3a Category: Medical Code(s): N18.9 - Chronic kidney disease, unspecified (11) History of gastroesophageal reflux (GERD): Status: Acute Category: Medical Code(s): Z87.19 - Personal history of other diseases of the digestive system Plan 82-year-old female, group home resident, with a history of atrial fibrillation, pacemaker in situ, COPD on 4 L nasal cannula, CHF, hypertrophic obstructive cardiomyopathy, CAD, and CKD presented to the emergency department for evaluation from nursing facility by EMS with concern for shortness of breath in the setting of COVID-19. on arrival at ER CXR was obtained, imaging reviewed. there is no new focal consolidation. Labs are positive for elevated BNP, troponin and hyponatremia. EKG was reviewed. Cardiology consulted. Discussed for admission. Plan as follow: - elevated troponin: to rule out NSTEMI, ACS, or acute oxygen demand: Admit patient for cardiac telemetry Cardiology consulted CXR and EKG serial troponin - monitor - ACute exacervation of CHF: conyt IV diuresis with [place] maximize O2 sat. monitor for SOB cardiology on board, appreciate recommendation CXR showed improvement COPD exacerbation start Steroids Breathing treatments -Hyponatremia: - improving monitor - COVD19 CXR reviewed. no new focal consolidation. monitor for SOB, currently on 4L monitor foe fever or sepsis Ceft 1G BID empirically -Chronic anemia: stable. resume home regimen monitor morning CBC Others chronic conditions: Afib, CAD, Pacemaker in situ, COPD, GERD: conditions reviewed. currently stable resumed and reconciled home medication SCD for dvt ppx on Protonix Full code
[2023-04-06] MEDS: AZITHROMYCIN 500 MG in 0.9 % SODIUM CHLORIDE 250 ML 250 MG IV (18:42)
[2023-04-06] MEDS: MULTIVITAMIN TABLET 1 EACH PO (18:42)
[2023-04-06] MEDS: RIVAROXABAN 15MG TABLET 15 MG PO (18:42)
[2023-04-07] VITALS (11 sets, daily range): BP systolic 108–140; BP diastolic 57–76; PULSE 76–86; RESP 20–24; TEMP 36.4–37.2; O2SAT 85–93; BMI 22.9
[2023-04-07] MEDS: AEROCHAMBER/OPTIHALER 1 UNIT MC (03:00)
[2023-04-07] MEDS: ALBUTEROL-HFA 90MCG/PUFF INHALER 8GM 2 PUFF IH ×2 (03:01→06:05)
--- NOTE | 2023-04-07 03:09 | PC.NURSE ---
REMAINES IN [place]/CONTACT PRECAUTIONS FOR COVID. NAD. NO C/O PAIN OR DISCOMFORT. RECEIVED XANAX 0.5 MG PO WITH NIGHT MEDS FOR NERVOUSNESS.
[2023-04-07] MEDS: LEVOTHYROXINE 75MCG (0.075MG) TAB 75 MCG PO (06:03)
[2023-04-07] MEDS: FLUTICASONE/UMECLIDIN/VILANTER 100/62.5/25MCG INHALER 1 PUFF IH (06:05)
[2023-04-07] MEDS: DEXAMETHASONE 4MG/ML 1ML VIAL 6 MG IV (09:24)
[2023-04-07] MEDS: BUMETANIDE 1MG/4ML VIAL 2 MG IV ×2 (09:24→16:32)
[2023-04-07] MEDS: METOPROLOL TARTRATE 25MG TABLET 25 MG PO ×2 (09:25→20:18)
[2023-04-07] MEDS: LORATADINE 10MG TABLET 10 MG PO (09:25)
[2023-04-07] MEDS: DIGOXIN 0.125MG TABLET 125 MCG PO (09:25)
[2023-04-07] MEDS: ALPRAZolam 0.5MG TABLET 0.5 MG PO ×2 (09:25→20:18)
--- NOTE | 2023-04-07 09:52 | PC.NURSE ---
pt is increasingly short of breath. I spoke with MD and respiratory. Pt will be placed on vapotherm.
--- NOTE | 2023-04-07 09:53 | XR_ITS ---
PROCEDURE INFORMATION: Exam: XR Chest Exam date and time: 04/07/2023 12:29 PM Age: 82 years old Clinical indication: Shortness of breath; Patient HX: Covid; Additional info: SOB TECHNIQUE: Imaging protocol: Radiologic exam of the chest. Views: 1 view. COMPARISON: CR XR CHEST PORTABLE 04/06/2023 10:05 AM FINDINGS: Tubes, catheters and devices: Pacer leads stable. Lungs: Continued interstitial prominence. No new focal consolidation. Pleural spaces: Unremarkable. No pleural effusion. No pneumothorax. Heart/Mediastinum: Unremarkable. No cardiomegaly. Bones/joints: Unremarkable. IMPRESSION: Stable examination.
[2023-04-07 10:15] LABS: ABG Base Excess 8.6 mmol/L (-2.4-2.3); ABG HCO3 33.6 mmhg (22.0-26.0); ABG Oxygen Saturation 96 % (90-100); ABG PH 7.39 mmol/L (7.35-7.45); ABG PO2 89.9 mmhg (80-100); ABG TCO2 35.4 mmhg (23-27)
[2023-04-07 10:16] LABS: Allen's Test Acceptable; Oxygen 50%VM %; Source Right Radial
[2023-04-07 10:17] LABS: ABG PCO2 57.2 mmhg (35.0-45.0)
--- NOTE | 2023-04-07 12:34 | EXP.PN ---
Subjective *Date: 04/07/23 *Time: 12:34 Interval history: patient was seen and evaluated at the bedside. she is on venti mask and feeling SOB, denies chest pain, shortness of breath, nausea, vomiting, abdominal pain. Patient does not have any complaints at this time. Exam Data for Last 24 hours Vital signs and Labs for Last 24 Hours: Temp Pulse Resp BP Pulse Ox O2 Del Method O2 Flow Rate 97.5 F L 81 24 108/65 L 89 L Venturi Mask 6 04/07/23 11:29 04/07/23 11:29 04/07/23 11:29 04/07/23 11:29 04/07/23 11:29 04/07/23 11:29 04/07/23 08:00 FiO2 50 04/07/23 06:05 Laboratory Results - last 24 hr 04/07/23 10:12: Specimen Source Right radial, O2 % 50%vm, ABG pH 7.39, ABG pCO2 57.2 H, ABG pO2 89.9, ABG HCO3 33.6 H, ABG Total CO2 35.4 H, ABG O2 Saturation 96, ABG Base Excess 8.6 H, Paulo Test Acceptable Temp Pulse Resp BP Pulse Ox O2 Del Method O2 Flow Rate 97.7 F 70 20 116/59 L 90 L Nasal Cannula 4 03/25/23 08:00 03/25/23 09:31 03/25/23 08:00 03/25/23 08:00 03/25/23 08:00 03/25/23 08:00 03/25/23 08:00 FiO2 40 03/21/23 14:40 Laboratory Results - last 24 hr 03/25/23 05:40: Sodium 135 L, Potassium 3.7, Chloride 98, Carbon Dioxide 34 H, Anion Gap 6.7, BUN 16 D, Creatinine 1.10 H, Estimated Creat Clear 47, Estimated GFR 47 L, Est GFR ( Amer) 57 L, Glucose 88, Calcium 8.2 L, Total Bilirubin 0.4, AST 29, ALT 23, Alkaline Phosphatase 69, Total Protein 6.2 L, Albumin 3.5, Globulin 2.7, Albumin/Globulin Ratio 1.3 I & O for Last 24 hours: Intake & Output 04/04/23 04/05/23 04/06/23 04/07/23 23:59 23:59 23:59 23:59 Intake Total 880 / 1120 850 / 850 120 / 120 Output Total 1000 / 1000 400 / 400 200 / 200 Balance -120 / 120 450 / 450 -80 / -80 Weight 166.3 kg 76.79 kg 76.79 kg Intake & Output 03/22/23 03/23/23 03/24/23 03/25/23 23:59 23:59 23:59 23:59 Intake Total 1255 / 1255 1500 / 1860 1540 / 2186 916 / 916 Output Total 100 / 100 0 / 0 0 / 0 0 / 0 Balance 1155 / 1155 1500 / 1860 1540 / 2186 916 / 916 Weight 79.89 kg 79.923 kg 79.923 kg 77.247 kg Microbiology Reports for the Last 24 Hours: Microbiology 03/21/23 17:44 Sputum - Expectorated Sputum Gram Stain - Final Constitutional Constitutional: no acute distress *Routine HEENT Exam Head: Present normocephalic Eye: Present EOMI and PERRL ENT: Present mucous membranes moist *Routine Neck Exam Neck: Present supple; Absent lymphadenopathy *Routine Respiratory Exam Respiratory: Present CTA bilaterally *Routine Cardiovascular Exam Cardiovascular: Present RRR *Routine Abdominal Exam Abdominal: Present soft and normoactive bowel sounds; Absent tenderness *Routine Extremities Exam Extremities: Absent cyanosis, clubbing or edema *Routine Skin Exam Skin: Present warm; Absent rash *Routine Neurological Exam Neurological: Present alert and oriented X3 Assessment and Plan *Assessment and plan (1) Non-ST elevation [place] (NSTEMI): Status: Acute Category: Medical Code(s): I21.4 - Non-ST elevation (NSTEMI) myocardial infarction (2) Acute exacerbation of CHF (congestive heart failure): Status: Acute Qualifiers: Heart failure type: unspecified Qualified Code(s): I50.9 - Heart failure, unspecified Category: Medical Code(s): I50.9 - Heart failure, unspecified (3) Hyponatremia: Status: Acute Category: Medical Code(s): E87.1 - Hypo-osmolality and hyponatremia (4) COVID-19: Status: Acute Category: Medical Code(s): U07.1 - COVID-19 (5) H/O iron deficiency anemia: Status: Acute Category: Medical Code(s): Z86.2 - Personal history of diseases of the blood and blood-forming organs and certain disorders involving the immune mechanism (6) Afib: Status: Acute Qualifiers: Atrial fibrillation type: unspecified Qualified Code(s): I48.91 - Unspecified atrial fibrillation Category: Medical Code(s): I48.91 - Unspecified atrial fibrillation (7) CAD (coronary artery disease): Status: Acute Qualifiers: Coronary Disease-Associated Artery/Lesion type: [place] artery [place] vs. transplanted heart: [place] heart Associated angina: without angina Qualified Code(s): I25.10 - Atherosclerotic heart disease of [place] coronary artery without angina pectoris Category: Medical Code(s): I25.10 - Atherosclerotic heart disease of [place] coronary artery without angina pectoris (8) Cardiac pacemaker in situ: Status: Acute Category: Medical Code(s): Z95.0 - Presence of cardiac pacemaker (9) COPD (chronic obstructive pulmonary disease): Status: Acute Qualifiers: COPD type: unspecified COPD Qualified Code(s): J44.9 - Chronic obstructive pulmonary disease, unspecified Category: Medical Code(s): J44.9 - Chronic obstructive pulmonary disease, unspecified (10) Chronic kidney disease: Status: Acute Qualifiers: Chronic kidney disease stage: stage 3 (moderate) Chronic kidney disease stage 3 subtype: stage 3a (GFR 45-59) Qualified Code(s): N18.31 - Chronic kidney disease, stage 3a Category: Medical Code(s): N18.9 - Chronic kidney disease, unspecified (11) History of gastroesophageal reflux (GERD): Status: Acute Category: Medical Code(s): Z87.19 - Personal history of other diseases of the digestive system Plan 82-year-old female, group home resident, with a history of atrial fibrillation, pacemaker in situ, COPD on 4 L nasal cannula, CHF, hypertrophic obstructive cardiomyopathy, CAD, and CKD presented to the emergency department for evaluation from nursing facility by EMS with concern for shortness of breath in the setting of COVID-19. on arrival at ER CXR was obtained, imaging reviewed. there is no new focal consolidation. Labs are positive for elevated BNP, troponin and hyponatremia. EKG was reviewed. Cardiology consulted. Discussed for admission. Plan as follow: - elevated troponin: no active chest pain to rule out NSTEMI, ACS, or acute oxygen demand: Admit patient for cardiac telemetry Cardiology consulted started on Duoneb PRN Discussed with CXR and EKG serial troponin - monitor - Acute exacervation of CHF: - improving conyt IV diuresis with Bumes maximize O2 sat. monitor for SOB cardiology on board, appreciate recommendation CXR showed improvement COPD exacerbation start Steroids Breathing treatments -Hyponatremia: - improving monitor - COVD19 CXR reviewed. no new focal consolidation. monitor for SOB, currently on 4L monitor foe fever or sepsis Ceft 1G BID empirically -Chronic anemia: stable. resume home regimen monitor morning CBC Others chronic conditions: Afib, CAD, Pacemaker in situ, COPD, GERD: conditions reviewed. currently stable resumed and reconciled home medication SCD for dvt ppx on Protonix Full code
[2023-04-07] MEDS: AZITHROMYCIN 500 MG in 0.9 % SODIUM CHLORIDE 250 ML 250 MG IV (17:58)
[2023-04-07] MEDS: PAT OWN MED ***OMEPRAZOLE 20 MG 1 EACH PO (20:18)
[2023-04-08] VITALS (12 sets, daily range): BP systolic 112–150; BP diastolic 64–71; PULSE 80; RESP 16–24; TEMP 36.3–36.8; O2SAT 87–96; BMI 21.9
--- NOTE | 2023-04-08 03:21 | PC.NURSE ---
PATIENT REMAINS ON AIRBORNE/CONTACT ISOL FOR COVID. VERY FRAIL. NO C/O PAIN. EDEMA FADING IN LEGS. 02 50%/15 L PER V-MASK.. HOB ELEVATED 35 DEGREES. V-PACED ON TELE. RESTING IN BED. 02 SATS LOW 90s.
[2023-04-08] MEDS: LEVOTHYROXINE 75MCG (0.075MG) TAB 75 MCG PO (06:18)
[2023-04-08] MEDS: FLUTICASONE/UMECLIDIN/VILANTER 100/62.5/25MCG INHALER 1 PUFF IH (06:59)
[2023-04-08] MEDS: ALBUTEROL-HFA 90MCG/PUFF INHALER 8GM 2 PUFF IH ×2 (06:59→16:47)
[2023-04-08] MEDS: PAT OWN MED ***OMEPRAZOLE 20 MG 1 EACH PO ×2 (09:02→20:14)
[2023-04-08] MEDS: ACETAMINOPHEN 325MG TAB 650 MG PO (09:02)
[2023-04-08] MEDS: DEXAMETHASONE 4MG/ML 1ML VIAL 6 MG IV (09:04)
[2023-04-08] MEDS: BUMETANIDE 1MG/4ML VIAL 2 MG IV (09:04)
[2023-04-08] MEDS: METOPROLOL TARTRATE 25MG TABLET 25 MG PO ×2 (09:05→20:14)
[2023-04-08] MEDS: FERROUS SULFATE 325MG TABLET 325 MG PO (09:05)
[2023-04-08] MEDS: LORATADINE 10MG TABLET 10 MG PO (09:05)
[2023-04-08] MEDS: SENNA 8.6MG TABLET 17.1999999999999993 MG PO (09:06)
[2023-04-08] MEDS: DIGOXIN 0.125MG TABLET 125 MCG PO (09:06)
--- NOTE | 2023-04-08 09:49 | EXP.PHA.PN ---
Subjective *Date: 04/08/23 *Time: 09:49 Medical Exam Vital signs and Labs for Last 24 Hours: Vital Signs Temp Pulse Pulse Resp BP Pulse Ox O2 Del Method 04/08/23 08:00 80 04/08/23 09:06 80 04/08/23 08:36 Venturi Mask 04/08/23 08:00 80 16 112/65 90 L Nasal Cannula 04/08/23 07:48 Venturi Mask 04/08/23 07:47 96 Venturi Mask 04/08/23 07:00 96 Venturi Mask 04/08/23 06:39 Venturi Mask 04/08/23 05:00 Venturi Mask 04/08/23 04:00 97.8 F 80 24 119/64 95 Venturi Mask 04/08/23 04:00 80 04/08/23 02:51 Venturi Mask 04/08/23 01:00 Venturi Mask 04/08/23 00:00 98.2 F 80 22 126/69 96 Venturi Mask 04/08/23 00:00 80 04/07/23 23:00 Venturi Mask 04/07/23 21:00 Venturi Mask 04/07/23 20:00 93 L Venturi Mask 04/07/23 20:00 80 04/07/23 20:12 Venturi Mask 04/07/23 20:00 98.9 F 80 24 124/57 L 93 L Venturi Mask 04/07/23 17:00 Venturi Mask 04/07/23 16:00 80 04/07/23 16:00 Venturi Mask 04/07/23 15:00 Venturi Mask 04/07/23 15:18 97.7 F 81 24 119/64 92 L Venturi Mask 04/07/23 13:00 Venturi Mask 04/07/23 12:00 80 04/07/23 11:00 Venturi Mask 04/07/23 11:29 97.5 F L 81 24 108/65 L 89 L Venturi Mask 04/07/23 09:52 85 L Venturi Mask O2 Flow Rate FiO2 04/08/23 08:00 04/08/23 09:06 04/08/23 08:36 15 04/08/23 08:00 6 04/08/23 07:48 50 04/08/23 07:47 50 04/08/23 07:00 50 04/08/23 06:39 15 04/08/23 05:00 15 04/08/23 04:00 04/08/23 04:00 04/08/23 02:51 15 04/08/23 01:00 15 04/08/23 00:00 04/08/23 00:00 04/07/23 23:00 15 04/07/23 21:00 04/07/23 20:00 50 04/07/23 20:00 04/07/23 20:12 50 04/07/23 20:00 04/07/23 17:00 04/07/23 16:00 04/07/23 16:00 04/07/23 15:00 04/07/23 15:18 04/07/23 13:00 04/07/23 12:00 04/07/23 11:00 04/07/23 11:29 04/07/23 09:52 Intake and Output 04/07/23 04/08/23 04/08/23 23:59 07:59 15:59 Intake Total 490 / 610 200 / 200 Output Total 350 / 800 50 / 50 Balance 140 / -190 -50 / 150 200 / 150 Intake: Intake, Oral Amount 240 / 360 200 / 200 Intake, Total IV Amount 250 / 250 Azithromycin 500 mg In 0.9 % 250 / 250 Sodium Chloride 250 ml @ 250 mls/hr IV Q24H [facility] Rx#:[id number] Output: Output, Urine Amount 350 / 800 50 / 50 Other: Weight 73.255 kg Patient Weight 04/08/23 23:59 Weight 73.255 kg Laboratory Results - last 24 hr 04/07/23 10:12: Specimen Source Right radial, O2 % 50%vm, ABG pH 7.39, ABG pCO2 57.2 H, ABG pO2 89.9, ABG HCO3 33.6 H, ABG Total CO2 35.4 H, ABG O2 Saturation 96, ABG Base Excess 8.6 H, Paulo Test Acceptable I & O for Labs for Last 24 Hours: Intake & Output 04/05/23 04/06/23 04/07/23 04/08/23 23:59 23:59 23:59 23:59 Intake Total 880 / 1120 850 / 850 610 / 610 200 / 200 Output Total 1000 / 1000 400 / 400 800 / 800 50 / 50 Balance -120 / 120 450 / 450 -190 / -190 150 / 150 Weight 76.79 kg 76.79 kg 73.255 kg The patient's infection will respond to the chosen ABx?: Yes (NO SPECIMAN, PATIENT AFEBRILE OVER 24 HRS.) Is the patient receiving the right drug, dose, and route?: Yes Could a more targeted ABx be ordered?: No
--- NOTE | 2023-04-08 11:16 | XR_ITS ---
PROCEDURE INFORMATION: Exam: XR Chest Exam date and time: 04/08/2023 11:40 AM Age: 82 years old Clinical indication: Shortness of breath; Additional info: SOB TECHNIQUE: Imaging protocol: Radiologic exam of the chest. Views: 1 view. COMPARISON: CR XR CHEST PORTABLE 04/07/2023 12:29 PM FINDINGS: Tubes, catheters and devices: A permanent pacemaker overlies and obscures the left upper chest with atrial and ventricular wire leads. Lungs: There is unchanged patchy opacity at the right lung base and increased markings at the left base. Pleural spaces: There is blunting of the right costophrenic sulcus which may represent a small effusion. Heart/Mediastinum: Unremarkable. No cardiomegaly. Vasculature: The aortic knob is calcified. Bones/joints: The bones are osteopenic. IMPRESSION: No significant change from the prior study.
--- NOTE | 2023-04-08 12:44 | PC.NURSE ---
Rounded on patient w/MD. Patient had no questions or concerns.
--- NOTE | 2023-04-08 12:46 | EXP.PN ---
Subjective *Date: 04/08/23 *Time: 12:46 Interval history: patient was seen and evaluated at the bedside. she is on venti mask and feeling SOB, she mentions her SOB is the same and has dry mouth, denies chest pain, shortness of breath, nausea, vomiting, abdominal pain. Patient does not have any complaints at this time. Exam Data for Last 24 hours Vital signs and Labs for Last 24 Hours: Temp Pulse Resp BP Pulse Ox O2 Del Method O2 Flow Rate 97.8 F 80 16 112/65 90 L Venturi Mask 15 04/08/23 04:00 04/08/23 12:00 04/08/23 08:00 04/08/23 08:00 04/08/23 08:00 04/08/23 10:47 04/08/23 10:47 FiO2 50 04/08/23 07:48 Temp Pulse Resp BP Pulse Ox O2 Del Method O2 Flow Rate 97.7 F 70 20 116/59 L 90 L Nasal Cannula 4 03/25/23 08:00 03/25/23 09:31 03/25/23 08:00 03/25/23 08:00 03/25/23 08:00 03/25/23 08:00 03/25/23 08:00 FiO2 40 03/21/23 14:40 Laboratory Results - last 24 hr 03/25/23 05:40: Sodium 135 L, Potassium 3.7, Chloride 98, Carbon Dioxide 34 H, Anion Gap 6.7, BUN 16 D, Creatinine 1.10 H, Estimated Creat Clear 47, Estimated GFR 47 L, Est GFR ( Amer) 57 L, Glucose 88, Calcium 8.2 L, Total Bilirubin 0.4, AST 29, ALT 23, Alkaline Phosphatase 69, Total Protein 6.2 L, Albumin 3.5, Globulin 2.7, Albumin/Globulin Ratio 1.3 I & O for Last 24 hours: Intake & Output 04/05/23 04/06/23 04/07/23 04/08/23 23:59 23:59 23:59 23:59 Intake Total 880 / 1120 850 / 850 610 / 610 200 / 200 Output Total 1000 / 1000 400 / 400 800 / 800 50 / 50 Balance -120 / 120 450 / 450 -190 / -190 150 / 150 Weight 76.79 kg 76.79 kg 73.255 kg Intake & Output 03/22/23 03/23/23 03/24/23 03/25/23 23:59 23:59 23:59 23:59 Intake Total 1255 / 1255 1500 / 1860 1540 / 2186 916 / 916 Output Total 100 / 100 0 / 0 0 / 0 0 / 0 Balance 1155 / 1155 1500 / 1860 1540 / 2186 916 / 916 Weight 79.89 kg 79.923 kg 79.923 kg 77.247 kg Microbiology Reports for the Last 24 Hours: Microbiology 03/21/23 17:44 Sputum - Expectorated Sputum Gram Stain - Final Constitutional Constitutional: no acute distress *Routine HEENT Exam Head: Present normocephalic Eye: Present EOMI and PERRL ENT: Present mucous membranes moist *Routine Neck Exam Neck: Present supple; Absent lymphadenopathy *Routine Respiratory Exam Respiratory: Present diminished air movement *Routine Cardiovascular Exam Cardiovascular: Present RRR *Routine Abdominal Exam Abdominal: Present soft and normoactive bowel sounds; Absent tenderness *Routine Extremities Exam Extremities: Absent cyanosis, clubbing or edema *Routine Skin Exam Skin: Present warm; Absent rash *Routine Neurological Exam Neurological: Present alert and oriented X3 Assessment and Plan *Assessment and plan (1) Non-ST elevation [place] (NSTEMI): Status: Acute Category: Medical Code(s): I21.4 - Non-ST elevation (NSTEMI) myocardial infarction (2) Acute exacerbation of CHF (congestive heart failure): Status: Acute Qualifiers: Heart failure type: unspecified Qualified Code(s): I50.9 - Heart failure, unspecified Category: Medical Code(s): I50.9 - Heart failure, unspecified (3) Hyponatremia: Status: Acute Category: Medical Code(s): E87.1 - Hypo-osmolality and hyponatremia (4) COVID-19: Status: Acute Category: Medical Code(s): U07.1 - COVID-19 (5) H/O iron deficiency anemia: Status: Acute Category: Medical Code(s): Z86.2 - Personal history of diseases of the blood and blood-forming organs and certain disorders involving the immune mechanism (6) Afib: Status: Acute Qualifiers: Atrial fibrillation type: unspecified Qualified Code(s): I48.91 - Unspecified atrial fibrillation Category: Medical Code(s): I48.91 - Unspecified atrial fibrillation (7) CAD (coronary artery disease): Status: Acute Qualifiers: Coronary Disease-Associated Artery/Lesion type: [place] artery [place] vs. transplanted heart: [place] heart Associated angina: without angina Qualified Code(s): I25.10 - Atherosclerotic heart disease of [place] coronary artery without angina pectoris Category: Medical Code(s): I25.10 - Atherosclerotic heart disease of [place] coronary artery without angina pectoris (8) Cardiac pacemaker in situ: Status: Acute Category: Medical Code(s): Z95.0 - Presence of cardiac pacemaker (9) COPD (chronic obstructive pulmonary disease): Status: Acute Qualifiers: COPD type: unspecified COPD Qualified Code(s): J44.9 - Chronic obstructive pulmonary disease, unspecified Category: Medical Code(s): J44.9 - Chronic obstructive pulmonary disease, unspecified (10) Chronic kidney disease: Status: Acute Qualifiers: Chronic kidney disease stage: stage 3 (moderate) Chronic kidney disease stage 3 subtype: stage 3a (GFR 45-59) Qualified Code(s): N18.31 - Chronic kidney disease, stage 3a Category: Medical Code(s): N18.9 - Chronic kidney disease, unspecified (11) History of gastroesophageal reflux (GERD): Status: Acute Category: Medical Code(s): Z87.19 - Personal history of other diseases of the digestive system Plan 82-year-old female, residential resident, with a history of atrial fibrillation, pacemaker in situ, COPD on 4 L nasal cannula, CHF, hypertrophic obstructive cardiomyopathy, CAD, and CKD presented to the emergency department for evaluation from nursing facility by EMS with concern for shortness of breath in the setting of COVID-19. on arrival at ER CXR was obtained, imaging reviewed. there is no new focal consolidation. Labs are positive for elevated BNP, troponin and hyponatremia. EKG was reviewed. Cardiology consulted. Discussed for admission. Plan as follow: Elevated troponin: no active chest pain to rule out NSTEMI, ACS, or acute oxygen demand: Admit patient for cardiac telemetry Cardiology consulted started on Duoneb PRN Discussed with CXR and EKG serial troponin - monitor - Acute exacervation of CHF: - improving Switch IV to PO Bumex maximize O2 sat. cardiology on board, appreciate recommendation CXR showed improvement COPD exacerbation start Steroids Breathing treatments -Hyponatremia: - improving monitor - COVD19 CXR reviewed. no new focal consolidation. monitor for SOB, currently on 4L monitor foe fever or sepsis Ceft 1G BID empirically -Chronic anemia: stable. resume home regimen monitor morning CBC Others chronic conditions: Afib, CAD, Pacemaker in situ, COPD, GERD: conditions reviewed. currently stable resumed and reconciled home medication SCD for dvt ppx on Protonix Full code \ contiinue O2 support, wean as tolerated
[2023-04-08] MEDS: BUMETANIDE 1 MG TABLET PO ×2 (12:55→16:14)
[2023-04-08] MEDS: RIVAROXABAN 15MG TABLET 15 MG PO (16:53)
[2023-04-08] MEDS: MULTIVITAMIN TABLET 1 EACH PO (16:53)
--- NOTE | 2023-04-08 16:57 | PC.NURSE ---
Pt remains on venti mask 50% with an exception while eating. Pt placed on 6L O2 NC. Tolerates fair when eating. Pt has been encourage to feed herself and get up to chair with meals. Pt continues to get soa with exertion. Has c/o discomfort to her neck today. Medicated per jun. Call light within reach.
[2023-04-08] MEDS: AZITHROMYCIN 500 MG in 0.9 % SODIUM CHLORIDE 250 ML 250 MG IV (17:55)
[2023-04-08] MEDS: ALPRAZolam 0.5MG TABLET 0.5 MG PO (20:14)
[2023-04-09] VITALS (7 sets, daily range): BP systolic 119–141; BP diastolic 69–77; PULSE 70–90; RESP 16–26; TEMP 36.5–36.6; O2SAT 90–95; BMI 22.1
[2023-04-09] MEDS: ACETAMINOPHEN 325MG TAB 650 MG PO (02:50)
--- NOTE | 2023-04-09 03:11 | PC.NURSE ---
Pt is alert and oriented x4 and remains on venturi mask at 50%-15L, airborne and contact precautions due to COVID DX. pt has C/O pain once this shift and anxiety all of which were treated per the MAR. Pt Pt continues to sat in the mid to lower 90s. Pt requested her inhaler and RT was notified. Pt denies pain and needs at this time
[2023-04-09] MEDS: ALBUTEROL-HFA 90MCG/PUFF INHALER 8GM 2 PUFF IH ×2 (03:12→06:12)
[2023-04-09] MEDS: FLUTICASONE/UMECLIDIN/VILANTER 100/62.5/25MCG INHALER 1 PUFF IH (06:10)
[2023-04-09] MEDS: LEVOTHYROXINE 75MCG (0.075MG) TAB 75 MCG PO (06:28)
[2023-04-09 07:10] LABS: Basophils # 0.1 K/mm3 (0-0.2); Basophils % 0.5 % (0.1-2.0); Hematocrit 35.5 % (37.0-47.0); Hemoglobin 11.4 g/dL (12.2-16.2); Lymphocytes # 1.4 K/mm3 (0.7-4.5); Mean Corpuscular HGB Conc 31.9 g/dL (31.8-35.4); Mean Corpuscular Hemoglobin 28.2 pg (27.0-31.2); Mean Corpuscular Volume 88.2 fl (81-99); Mean Platelet Volume 9.1 fl (7.4-10.4); Monocytes # 0.6 K/mm3 (0.1-1.0); Monocytes % 6.4 % (1.7-9.3); Neutrophils # 7.3 K/mm3 (1.8-7.8); Neutrophils % 78.1 % (37.0-80.0); Platelet Count 236 K/mm3 (142-424); Red Blood Count 4.03 M/mm3 (4.20-5.40); Red Cell Distribution Width 14.6 % (11.5-17.5); White Blood Count 9.4 K/mm3 (4.8-10.8)
[2023-04-09 07:21] LABS: Chloride 91 mmol/L (98-107); Sodium 135 mmol/L (136-145)
[2023-04-09 07:24] LABS: Blood Urea Nitrogen 36 mg/dl (7-17); Calcium 8.4 mg/dl (8.4-10.2); Carbon Dioxide 37 mmol/L (22.0-30.0); Creatinine Clearance Estimated 50 mL/min (50-200); Estimated Glomerular Filt Rate 60 ml/min (>60); GFR (African American) 72 ML/MIN (>60); Glucose 104 mg/dl (74-100)
[2023-04-09] MEDS: BUMETANIDE 1 MG TABLET PO (08:41)
[2023-04-09] MEDS: DIGOXIN 0.125MG TABLET 125 MCG PO (08:42)
[2023-04-09] MEDS: SENNA 8.6MG TABLET 17.1999999999999993 MG PO (08:43)
[2023-04-09] MEDS: METOPROLOL TARTRATE 25MG TABLET 25 MG PO ×2 (08:43→20:40)
[2023-04-09] MEDS: FERROUS SULFATE 325MG TABLET 325 MG PO (08:43)
[2023-04-09] MEDS: LORATADINE 10MG TABLET 10 MG PO (08:43)
[2023-04-09] MEDS: PAT OWN MED ***OMEPRAZOLE 20 MG 1 EACH PO ×2 (08:44→20:40)
[2023-04-09] MEDS: DEXAMETHASONE 4MG/ML 1ML VIAL 6 MG IV (08:44)
--- NOTE | 2023-04-09 15:55 | P.PN_ITS ---
Subjective *Date: 04/09/23 *Time: 15:55 Interval history: Patient still quite weak. Weaned from ventilator to 6 L nasal cannula this morning. Labs showing improvement. Tolerating portions of her trays continues to report dyspnea. No chest pain, nausea, vomiting. Afebrile overnight. Medical Exam Vital signs and Labs for Last 24 Hours: Vital Signs Temp Pulse Pulse Resp BP Pulse Ox O2 Del Method 04/09/23 15:55 Nasal Cannula 04/09/23 15:00 Nasal Cannula 04/09/23 12:00 80 04/09/23 13:00 Nasal Cannula 04/09/23 12:00 97.9 F 80 20 121/69 94 L Nasal Cannula 04/09/23 11:00 Venturi Mask 04/09/23 08:00 80 04/09/23 08:00 Nasal Cannula 04/09/23 08:56 Nasal Cannula 04/09/23 08:00 90 L Nasal Cannula 04/09/23 08:42 80 04/09/23 08:00 97.7 F 80 16 141/75 H 90 L Venturi Mask 04/09/23 04:00 80 04/09/23 04:00 97.8 F 80 24 119/71 94 L Venturi Mask 04/09/23 00:00 70 04/09/23 00:00 94 L Venturi Mask 04/09/23 00:00 97.9 F 80 26 H 141/77 H 94 L Venturi Mask 04/09/23 06:47 Venturi Mask 04/09/23 04:43 Venturi Mask 04/09/23 02:37 Venturi Mask 04/09/23 00:52 Venturi Mask 04/08/23 22:52 Venturi Mask 04/08/23 21:00 Venturi Mask 04/08/23 20:00 80 04/08/23 19:41 97.8 F 80 24 129/71 95 Venturi Mask 04/08/23 19:34 95 Venturi Mask 04/08/23 18:46 Venturi Mask 04/08/23 16:00 80 04/08/23 16:54 Venturi Mask O2 Flow Rate 04/09/23 15:55 6 04/09/23 15:00 6 04/09/23 12:00 04/09/23 13:00 6 04/09/23 12:00 6 04/09/23 11:00 04/09/23 08:00 04/09/23 08:00 6 04/09/23 08:56 6 04/09/23 08:00 6 04/09/23 08:42 04/09/23 08:00 6 04/09/23 04:00 04/09/23 04:00 04/09/23 00:00 04/09/23 00:00 6 04/09/23 00:00 04/09/23 06:47 15 04/09/23 04:43 15 04/09/23 02:37 15 04/09/23 00:52 15 04/08/23 22:52 15 04/08/23 21:00 15 04/08/23 20:00 04/08/23 19:41 04/08/23 19:34 6 04/08/23 18:46 15 04/08/23 16:00 04/08/23 16:54 15 Intake and Output 04/08/23 04/09/23 04/09/23 23:59 07:59 15:59 Intake Total 270 / 760 240 / 340 100 / 340 Output Total 250 / 550 350 / 500 150 / 500 Balance 210 -110 / -160 -50 / -160 Intake: Intake, Oral Amount 270 / 760 240 / 340 100 / 340 Output: Output, Urine Amount 250 / 550 350 / 500 150 / 500 Other: Number of Unmeasured Voids 0 0 Number of Bowel Movements 1 Weight 74.072 kg Patient Weight 04/09/23 23:59 Weight 74.072 kg Laboratory Results - last 24 hr 04/09/23 06:50: WBC 9.4 D, RBC 4.03 L, Hgb 11.4 L, Hct 35.5 L, MCV 88.2, MCH 28.2, MCHC 31.9, RDW 14.6, Plt Count 236, MPV 9.1, Neut % (Auto) 78.1, Lymph % (Auto) 15.0, [place] % (Auto) 6.4, Eos % (Auto) 0.0 L, Baso % (Auto) 0.5, Neut # (Auto) 7.3, Lymph # (Auto) 1.4, [place] # (Auto) 0.6, Eos # (Auto) 0.0, Baso # (Auto) 0.1, Sodium 135 L, Potassium 4.0, Chloride 91 L, Carbon Dioxide 37 H, Anion Gap 11.0, BUN 36 H D, Creatinine 0.90, Estimated Creat Clear 50, Estimated GFR 60, Est GFR ( Amer) 72, Glucose 104 H, Calcium 8.4 I & O for Labs for Last 24 Hours: Intake & Output 04/06/23 04/07/23 04/08/23 04/09/23 23:59 23:59 23:59 23:59 Intake Total 850 / 850 610 / 610 520 / 760 340 / 340 Output Total 400 / 400 800 / 800 550 / 550 500 / 500 Balance 450 / 450 -190 / -190 -30 / 210 -160 / -160 Weight 76.79 kg 76.79 kg 73.255 kg 74.072 kg Constitutional: Present mild distress, average body habitus, chronically ill appearing and cooperative Head: Present atraumatic ENT: Present normal exam Neck: Present normal inspection Respiratory: Present prolonged expiratory phase, rhonchi, wheezes and normal respiratory effort; Absent crackles Cardiac: Present Reg Rate and Rhythm GI: Present soft and normal bowel sounds; Absent distention or tenderness Rectal (female): Present deferred Extremities: Present normal inspection, full ROM and edema (2+ to knees) Skin: Present intact; Absent erythema Neuro: Present Grossly Intact, alert, awake, oriented x 3 and moves all extremities Assessment and Plan *Assessment and plan (1) Acute and chronic respiratory failure with hypoxia: Status: Acute Category: Medical Code(s): J96.21 - Acute and chronic respiratory failure with hypoxia (2) Acute exacerbation of chronic obstructive pulmonary disease: Status: Acute Category: Medical Code(s): J44.1 - Chronic obstructive pulmonary disease with (acute) exacerbation (3) Acute exacerbation of CHF (congestive heart failure): Status: Acute Qualifiers: Heart failure type: unspecified Qualified Code(s): I50.9 - Heart failure, unspecified Category: Medical Code(s): I50.9 - Heart failure, unspecified (4) Heart failure with preserved left ventricular function (HFpEF): Status: Acute Category: Medical Code(s): I50.30 - Unspecified diastolic (congestive) heart failure (5) Hyponatremia: Status: Acute Category: Medical Code(s): E87.1 - Hypo-osmolality and hyponatremia (6) COVID-19: Status: Acute Category: Medical Code(s): U07.1 - COVID-19 (7) H/O iron deficiency anemia: Status: Acute Category: Medical Code(s): Z86.2 - Personal history of diseases of the blood and blood-forming organs and certain disorders involving the immune mechanism (8) Afib: Status: Acute Qualifiers: Atrial fibrillation type: unspecified Qualified Code(s): I48.91 - Unspecified atrial fibrillation Category: Medical Code(s): I48.91 - Unspecified atrial fibrillation (9) Cardiac pacemaker in situ: Status: Acute Category: Medical Code(s): Z95.0 - Presence of cardiac pacemaker (10) Chronic kidney disease: Status: Acute Qualifiers: Chronic kidney disease stage: stage 3 (moderate) Chronic kidney disease stage 3 subtype: stage 3a (GFR 45-59) Qualified Code(s): N18.31 - Chronic kidney disease, stage 3a Category: Medical Code(s): N18.9 - Chronic kidney disease, unspecified Plan 82-year-old female, skilled nursing resident, with a history of atrial fibrillation, pacemaker in situ, COPD on 4 L nasal cannula, CHF, hypertrophic obstructive cardiomyopathy, CAD, and CKD presented to the emergency department for evaluation from nursing facility by EMS with concern for shortness of breath in the setting of COVID-19. on arrival at ER CXR was obtained, imaging reviewed. there is no new focal consolidation. Initial labs elevated for BNP, troponin, hyponatremia. Patient has responded well to diuresis and antibiotics. Weaned from vent 2 to 6 L nasal cannula this morning. Cardiology and pulmonology consulted and assisting with care. Problems addressed as follows: Acute on chronic hypoxemic respiratory failure Exacerbation of heart failure with preserved ejection fraction COPD exacerbation -Continue diuresis, wean to 2 mg Bumex daily -Wean oxygen as tolerated, goal saturation greater 90%. Baseline 4 L, currently on 6 L. -Continue DuoNebs every 6 hours scheduled -Cardiology and pulmonology consulted, appreciate their recommendations. -Continue azithromycin 500 mg daily for 5 days, dexamethasone 6 mg daily for 5 days -Trelegy inhaler 100 daily -Hyponatremia: Resolved, 135 today. CMP and magnesium ordered for the morning - COVD19: Dexamethasone daily. Holding on remdesivir at this time. -Chronic anemia: Hemoglobin 11.4 today. White cell count at 9.4. CBC ordered for the morning Others chronic conditions: Afib, CAD, Pacemaker in situ, COPD, GERD: Continue home to-along all 25 mg twice daily Continue Xarelto 15 mg daily Continue levothyroxine 75 mcg daily on Protonix Full code Cardiac diet
--- NOTE | 2023-04-09 16:01 | PC.NURSE ---
PT IS RESTING IN BED. ALERT AND ORIENTED X3. PT STATES SHE FEELS SOA AND STATES IT REALLY HURTS TO TAKE IN A BREATH. O2 SATURATION HAS MAINTAINED 90-94% ON 6 L NC SINCE LUNCH. LUNG SOUNDS HAVE SCATTERED RHONCHI/WHEEZES. ABDOMEN SOFT/NON TENDER WITH ACTIVE BOWEL SOUNDS. PT TOLERATED SITTING UP IN THE CHAIR FOR SEVERAL HOURS THIS SHIFT. PT HAS BEEN GETTING UP TO THE BSC WITH 1 ASSIST. WILL CONTINUE TO MONITOR.
[2023-04-09] MEDS: RIVAROXABAN 15MG TABLET 15 MG PO (16:51)
[2023-04-09] MEDS: MULTIVITAMIN TABLET 1 EACH PO (16:51)
[2023-04-09] MEDS: AZITHROMYCIN 500 MG in 0.9 % SODIUM CHLORIDE 250 ML 250 MG IV (18:41)
[2023-04-09] MEDS: ALPRAZolam 0.5MG TABLET 0.5 MG PO (20:39)
[2023-04-10] VITALS (11 sets, daily range): BP systolic 108–145; BP diastolic 53–80; PULSE 78–82; RESP 16–22; TEMP 36.4–36.7; O2SAT 90–98; BMI 21.7
--- NOTE | 2023-04-10 03:50 | PC.NURSE ---
Pt is alert and oriented x4, currently tolerating 6L NC and sating in the low to mid 90s. Pt continues to have scattered wheezes and SOB when transferring in room. Pt has rested well this shift with no complaints. Pt denies pain and needs at this time.
[2023-04-10] MEDS: LEVOTHYROXINE 75MCG (0.075MG) TAB 75 MCG PO (06:03)
[2023-04-10] MEDS: ALBUTEROL-HFA 90MCG/PUFF INHALER 8GM 2 PUFF IH ×2 (06:08→19:15)
[2023-04-10] MEDS: FLUTICASONE/UMECLIDIN/VILANTER 100/62.5/25MCG INHALER 1 PUFF IH (06:08)
[2023-04-10 06:44] LABS: Basophils % 0.4 % (0.1-2.0); Hematocrit 34.6 % (37.0-47.0); Hemoglobin 11.3 g/dL (12.2-16.2); Lymphocytes # 1.5 K/mm3 (0.7-4.5); Lymphocytes % 15.4 % (10-50); Mean Corpuscular HGB Conc 32.8 g/dL (31.8-35.4); Mean Corpuscular Hemoglobin 28.8 pg (27.0-31.2); Mean Corpuscular Volume 87.9 fl (81-99); Mean Platelet Volume 9.7 fl (7.4-10.4); Monocytes # 0.7 K/mm3 (0.1-1.0); Monocytes % 6.5 % (1.7-9.3); Neutrophils # 7.8 K/mm3 (1.8-7.8); Neutrophils % 77.8 % (37.0-80.0); Platelet Count 271 K/mm3 (142-424); Red Blood Count 3.93 M/mm3 (4.20-5.40); Red Cell Distribution Width 14.6 % (11.5-17.5)
[2023-04-10 06:49] LABS: Alanine Aminotransferase 59 U/L (12-78); Albumin Level 3.2 g/dl (3.5-5.0); Albumin/Globulin Ratio 1.1 (1.1-1.8); Alkaline Phosphatase 69 U/L (38-126); Aspartate Amino Transferase 54 U/L (14-36); Bilirubin,Total 0.3 mg/dl (0.2-1.3); Blood Urea Nitrogen 35 mg/dl (7-17); Calcium 8.3 mg/dl (8.4-10.2); Carbon Dioxide 40 mmol/L (22.0-30.0); Chloride 93 mmol/L (98-107); Creatinine Clearance Estimated 49 mL/min (50-200); Estimated Glomerular Filt Rate 60 ml/min (>60); GFR (African American) 72 ML/MIN (>60); Glucose 110 mg/dl (74-100); Magnesium 1.9 mg/dl (1.6-2.3); Sodium 133 mmol/L (136-145); Total Protein,Serum 6.2 g/dl (6.3-8.2)
[2023-04-10] MEDS: BUMETANIDE 1 MG TABLET 2 MG PO (08:27)
[2023-04-10] MEDS: DIGOXIN 0.125MG TABLET 125 MCG PO (08:28)
[2023-04-10] MEDS: METOPROLOL TARTRATE 25MG TABLET 25 MG PO ×2 (08:29→20:14)
[2023-04-10] MEDS: LORATADINE 10MG TABLET 10 MG PO (08:29)
[2023-04-10] MEDS: PAT OWN MED ***OMEPRAZOLE 20 MG 1 EACH PO ×2 (08:29→20:14)
[2023-04-10] MEDS: DEXAMETHASONE 4MG/ML 1ML VIAL 6 MG IV (09:28)
[2023-04-10] MEDS: LOPERAMIDE 2MG CAPSULE 2 MG PO (13:52)
--- NOTE | 2023-04-10 17:49 | PC.NURSE ---
Patient A&Ox4 and vss. Patient weaned to 5.5 L NC from 6 L NC. Patient had c/o diarrhea and loperamide given, patient states that it helped. Patient continues to get up to bed side commode.
[2023-04-10] MEDS: MULTIVITAMIN TABLET 1 EACH PO (18:31)
[2023-04-10] MEDS: RIVAROXABAN 15MG TABLET 15 MG PO (18:32)
--- NOTE | 2023-04-10 19:25 | EXP.ACUTE.PN ---
Subjective *Date: 04/10/23 *Time: 19:25 Interval history: Patient not feeling much better however tolerating 6 L nasal cannula oxygen with sats in the mid 90s. Tolerating p.o. intake. No nausea or vomiting. Medical Exam Vital signs and Labs for Last 24 Hours: Vital Signs Temp Pulse Pulse Resp BP Pulse Ox O2 Del Method 04/10/23 19:15 95 Nasal Cannula 04/10/23 16:00 80 04/10/23 16:00 97.9 F 80 16 134/78 95 Nasal Cannula 04/10/23 12:00 80 04/10/23 11:48 97.7 F 80 19 137/76 93 L Nasal Cannula 04/10/23 08:00 80 04/10/23 08:28 80 04/10/23 07:55 97.8 F 80 18 108/53 L 94 L Nasal Cannula 04/10/23 06:10 95 Nasal Cannula 04/10/23 04:00 97.7 F 80 22 145/80 H 90 L Nasal Cannula 04/10/23 06:48 Nasal Cannula 04/10/23 04:51 Nasal Cannula 04/10/23 04:00 78 04/09/23 20:00 90 04/10/23 02:39 Nasal Cannula 04/10/23 00:00 98.0 F 80 20 117/64 91 L Nasal Cannula 04/10/23 00:39 Nasal Cannula 04/10/23 00:00 95 Nasal Cannula 04/09/23 22:39 Nasal Cannula 04/09/23 21:00 Nasal Cannula 04/09/23 20:00 97.9 F 80 20 134/77 94 L Nasal Cannula 04/09/23 20:00 95 Nasal Cannula O2 Flow Rate 04/10/23 19:15 6 04/10/23 16:00 04/10/23 16:00 5 04/10/23 12:00 04/10/23 11:48 5 04/10/23 08:00 04/10/23 08:28 04/10/23 07:55 6 04/10/23 06:10 6 04/10/23 04:00 5 04/10/23 06:48 6 04/10/23 04:51 6 04/10/23 04:00 04/09/23 20:00 04/10/23 02:39 6 04/10/23 00:00 5 04/10/23 00:39 6 04/10/23 00:00 6 04/09/23 22:39 6 04/09/23 21:00 6 04/09/23 20:00 5 04/09/23 20:00 6 Intake and Output 04/10/23 04/10/23 04/10/23 07:59 15:59 23:59 Intake Total 120 / 960 480 / 960 360 / 960 Output Total 0 / 0 0 / 0 0 / 0 Balance 120 / 960 480 / 960 360 / 960 Intake: Intake, Oral Amount 120 / 960 480 / 960 360 / 960 Output: Output, Urine Amount 0 / 0 0 / 0 0 / 0 Other: Number of Unmeasured Voids 1 1 1 Number of Bowel Movements 1 Weight 72.847 kg Patient Weight 04/10/23 23:59 Weight 72.847 kg Laboratory Results - last 24 hr 04/10/23 05:28: WBC 10.0, RBC 3.93 L, Hgb 11.3 L, Hct 34.6 L, MCV 87.9, MCH 28.8, MCHC 32.8, RDW 14.6, Plt Count 271, MPV 9.7, Neut % (Auto) 77.8, Lymph % (Auto) 15.4, [place] % (Auto) 6.5, Eos % (Auto) 0.0 L, Baso % (Auto) 0.4, Neut # (Auto) 7.8, Lymph # (Auto) 1.5, [place] # (Auto) 0.7, Eos # (Auto) 0.0, Baso # (Auto) 0.0, Sodium 133 L, Potassium 4.0, Chloride 93 L, Carbon Dioxide 40 H, Anion Gap 4.0 L, BUN 35 H, Creatinine 0.90, Estimated Creat Clear 49, Estimated GFR 60, Est GFR ( Amer) 72, Glucose 110 H, Calcium 8.3 L, Magnesium 1.9, Total Bilirubin 0.3, AST 54 H, ALT 59, Alkaline Phosphatase 69, Total Protein 6.2 L, Albumin 3.2 L, Globulin 3.0, Albumin/Globulin Ratio 1.1 I & O for Labs for Last 24 Hours: Intake & Output 04/07/23 04/08/23 04/09/23 04/10/23 23:59 23:59 23:59 23:59 Intake Total 610 / 610 520 / 760 610 / 730 960 / 960 Output Total 800 / 800 550 / 550 500 / 500 0 / 0 Balance -190 / -190 -30 / 210 110 / 230 960 / 960 Weight 76.79 kg 73.255 kg 74.072 kg 72.847 kg Constitutional: Present mild distress, average body habitus, chronically ill appearing and cooperative Head: Present atraumatic ENT: Present normal exam Neck: Present normal inspection Respiratory: Present prolonged expiratory phase, rhonchi, wheezes and normal respiratory effort; Absent crackles Cardiac: Present Reg Rate and Rhythm GI: Present soft and normal bowel sounds; Absent distention or tenderness Rectal (female): Present deferred Extremities: Present normal inspection, full ROM and edema (2+ to knees) Skin: Present intact; Absent erythema Neuro: Present Grossly Intact, alert, awake, oriented x 3 and moves all extremities Assessment and Plan *Assessment and plan (1) Acute and chronic respiratory failure with hypoxia: Status: Acute Category: Medical Code(s): J96.21 - Acute and chronic respiratory failure with hypoxia (2) Acute exacerbation of chronic obstructive pulmonary disease: Status: Acute Category: Medical Code(s): J44.1 - Chronic obstructive pulmonary disease with (acute) exacerbation (3) Acute exacerbation of CHF (congestive heart failure): Status: Acute Qualifiers: Heart failure type: unspecified Qualified Code(s): I50.9 - Heart failure, unspecified Category: Medical Code(s): I50.9 - Heart failure, unspecified (4) Heart failure with preserved left ventricular function (HFpEF): Status: Acute Category: Medical Code(s): I50.30 - Unspecified diastolic (congestive) heart failure (5) Hyponatremia: Status: Acute Category: Medical Code(s): E87.1 - Hypo-osmolality and hyponatremia (6) COVID-19: Status: Acute Category: Medical Code(s): U07.1 - COVID-19 (7) H/O iron deficiency anemia: Status: Acute Category: Medical Code(s): Z86.2 - Personal history of diseases of the blood and blood-forming organs and certain disorders involving the immune mechanism (8) Afib: Status: Acute Qualifiers: Atrial fibrillation type: unspecified Qualified Code(s): I48.91 - Unspecified atrial fibrillation Category: Medical Code(s): I48.91 - Unspecified atrial fibrillation (9) Cardiac pacemaker in situ: Status: Acute Category: Medical Code(s): Z95.0 - Presence of cardiac pacemaker (10) Chronic kidney disease: Status: Acute Qualifiers: Chronic kidney disease stage: stage 3 (moderate) Chronic kidney disease stage 3 subtype: stage 3a (GFR 45-59) Qualified Code(s): N18.31 - Chronic kidney disease, stage 3a Category: Medical Code(s): N18.9 - Chronic kidney disease, unspecified Plan 82-year-old female, [facility] resident, with a history of atrial fibrillation, pacemaker in situ, COPD on 4 L nasal cannula, CHF, hypertrophic obstructive cardiomyopathy, CAD, and CKD presented to the emergency department for evaluation from nursing facility by EMS with concern for shortness of breath in the setting of COVID-19. on arrival at ER CXR was obtained, imaging reviewed. there is no new focal consolidation. Initial labs elevated for BNP, troponin, hyponatremia. Patient has responded well to diuresis and antibiotics. On 5-1/2 L nasal cannula this morning. Would like to have patient less than 5 L prior to [facility] Cardiology and pulmonology consulted and assisting with care. Problems addressed as follows: Acute on chronic hypoxemic respiratory failure Exacerbation of heart failure with preserved ejection fraction COPD exacerbation -Continue diuresis, Bumex 2 mg p.o. daily -Monitoring electrolytes, kidney function stable with creatinine 0.9, BUN 35. Magnesium 1.9, potassium 4.0. Repeat CMP ordered for the morning. -Wean oxygen as tolerated, goal saturation greater 90%. Baseline 4 L, currently 5.5 L. -Continue DuoNebs every 6 hours scheduled -Cardiology and pulmonology consulted, appreciate their recommendations. -Has finished steroids and antibiotics. -Trelegy inhaler 100 daily -Hyponatremia: Sodium 133 today.. CMP and magnesium ordered for the morning -Chronic anemia: Hemoglobin 11.3 today. White cell count at 10. CBC ordered for the morning Others chronic conditions: Afib, CAD, Pacemaker in situ, COPD, GERD: Continue home metoprolol 25 mg twice daily Continue Xarelto 15 mg daily Continue levothyroxine 75 mcg daily on Protonix Full code Cardiac diet
[2023-04-10] MEDS: ALPRAZolam 0.5MG TABLET 0.5 MG PO (20:14)
[2023-04-10] MEDS: NYSTATIN SUSP 500,000 UNITS/5ML UDC 500000 UNIT PO (20:14)
[2023-04-11] VITALS (11 sets, daily range): BP systolic 114–145; BP diastolic 66–75; PULSE 73–80; RESP 20–22; TEMP 36.4–36.8; O2SAT 89–96; BMI 21.9
[2023-04-11] MEDS: ALBUTEROL-HFA 90MCG/PUFF INHALER 8GM 2 PUFF IH ×3 (04:10→18:43)
--- NOTE | 2023-04-11 04:40 | PC.NURSE ---
PATIENT GETTING UP TO BSC WITH ASSIST X1. BECOMES VERY SOA WITH EXERTION. 02 SAT 91% ON 5.5 LNC. PATIENT REPORTS PRODUCTIVE COUGH, SM AMTS YELLOW SPUTUM. REMAINS ON [employer]-CONTACT ISOLATION FOR COVID 19.
[2023-04-11] MEDS: LEVOTHYROXINE 75MCG (0.075MG) TAB 75 MCG PO (05:59)
[2023-04-11 06:30] LABS: Basophils # 0.1 K/mm3 (0-0.2); Basophils % 0.5 % (0.1-2.0); Eosinophils % 0.1 % (0.1-12.0); Hematocrit 37.4 % (37.0-47.0); Hemoglobin 11.9 g/dL (12.2-16.2); Lymphocytes # 2.1 K/mm3 (0.7-4.5); Lymphocytes % 17.6 % (10-50); Mean Corpuscular HGB Conc 31.9 g/dL (31.8-35.4); Mean Corpuscular Hemoglobin 28.6 pg (27.0-31.2); Mean Corpuscular Volume 89.5 fl (81-99); Monocytes # 0.7 K/mm3 (0.1-1.0); Monocytes % 6.3 % (1.7-9.3); Neutrophils # 8.8 K/mm3 (1.8-7.8); Neutrophils % 75.5 % (37.0-80.0); Platelet Count 308 K/mm3 (142-424); Red Blood Count 4.18 M/mm3 (4.20-5.40); Red Cell Distribution Width 14.5 % (11.5-17.5); White Blood Count 11.6 K/mm3 (4.8-10.8)
[2023-04-11 06:52] LABS: Chloride 93 mmol/L (98-107); Potassium 4.8 mmoL/L (3.5-5.1); Sodium 138 mmol/L (136-145)
[2023-04-11 06:55] LABS: Alanine Aminotransferase 86 U/L (12-78); Albumin Level 3.7 g/dl (3.5-5.0); Albumin/Globulin Ratio 1.2 (1.1-1.8); Alkaline Phosphatase 65 U/L (38-126); Anion Gap 9.8 mEq/L (5-15); Aspartate Amino Transferase 69 U/L (14-36); Bilirubin,Total 0.4 mg/dl (0.2-1.3); Blood Urea Nitrogen 38 mg/dl (7-17); Carbon Dioxide 40 mmol/L (22.0-30.0); Creatinine Clearance Estimated 50 mL/min (50-200); Estimated Glomerular Filt Rate 53 ml/min (>60); GFR (African American) 64 ML/MIN (>60); Globulin 3.1 g/dL (1.3-3.2); Total Protein,Serum 6.8 g/dl (6.3-8.2)
[2023-04-11 06:56] LABS: Calcium 8.8 mg/dl (8.4-10.2); Glucose 113 mg/dl (74-100)
--- NOTE | 2023-04-11 07:36 | XR_ITS ---
FINAL REPORT CLINICAL HISTORY: re-evaluate pneumonia COMPARISON: 04/08/2023 FINDINGS: Mild cardiomegaly is present. A pacemaker remains present as well. The mediastinum is normal. There is a patchy airspace opacity present in the right lung base as well as a small right pleural effusion, which are unchanged since the prior exam of April 08. There is no pneumothorax. There is no osseous abnormality. IMPRESSION: No significant change in the patchy airspace opacity in the right lung base send small right pleural effusion, likely pneumonia. Reviewed, Interpreted and Dictated by Johnson Mathis MD Transcribed by Loli Benton Authenticated and [facility]
[2023-04-11] MEDS: ACETAMINOPHEN 325MG TAB 650 MG PO ×2 (08:25→17:18)
[2023-04-11] MEDS: DIGOXIN 0.125MG TABLET 125 MCG PO (08:26)
[2023-04-11] MEDS: LORATADINE 10MG TABLET 10 MG PO (08:27)
[2023-04-11] MEDS: PAT OWN MED ***OMEPRAZOLE 20 MG 1 EACH PO ×2 (08:27→20:26)
[2023-04-11] MEDS: METOPROLOL TARTRATE 25MG TABLET 25 MG PO ×2 (08:27→20:26)
[2023-04-11] MEDS: BUMETANIDE 1 MG TABLET 2 MG PO (08:27)
[2023-04-11] MEDS: NYSTATIN SUSP 500,000 UNITS/5ML UDC 500000 UNIT PO ×4 (08:36→20:26)
[2023-04-11] MEDS: LOPERAMIDE 2MG CAPSULE 2 MG PO ×2 (09:02→15:07)
[2023-04-11] MEDS: FLUTICASONE/UMECLIDIN/VILANTER 100/62.5/25MCG INHALER 1 PUFF IH (09:05)
--- NOTE | 2023-04-11 09:25 | P.PN_ITS ---
Subjective *Date: 04/11/23 *Time: 11:07 Interval history: Patient admits weakness, worsening respiratory distress and fatigue Pulmonology Exam Inpatient Vital signs and Labs for Last 24 Hours: Temp Pulse Resp BP Pulse Ox O2 Del Method O2 Flow Rate 98.2 F 80 22 119/75 93 L Nasal Cannula 5.5 04/11/23 07:44 04/11/23 08:26 04/11/23 07:44 04/11/23 07:44 04/11/23 07:44 04/11/23 07:44 04/11/23 07:44 FiO2 50 04/08/23 07:48 Laboratory Results - last 24 hr 04/11/23 05:48: WBC 11.6 H, RBC 4.18 L, Hgb 11.9 L, Hct 37.4, MCV 89.5, MCH 28.6, MCHC 31.9, RDW 14.5, Plt Count 308, MPV 9.0, Neut % (Auto) 75.5, Lymph % (Auto) 17.6, [place] % (Auto) 6.3, Eos % (Auto) 0.1, Baso % (Auto) 0.5, Neut # (Auto) 8.8 H, Lymph # (Auto) 2.1, [place] # (Auto) 0.7, Eos # (Auto) 0.0, Baso # (Auto) 0.1, Sodium 138, Potassium 4.8, Chloride 93 L, Carbon Dioxide 40 H, Anion Gap 9.8, BUN 38 H, Creatinine 1.00, Estimated Creat Clear 50, Estimated GFR 53 L , Est GFR ( Amer) 64, Glucose 113 H, Calcium 8.8, Total Bilirubin 0.4, AST 69 H D, ALT 86 H D, Alkaline Phosphatase 65, Total Protein 6.8, Albumin 3.7 D, Globulin 3.1, Albumin/Globulin Ratio 1.2 I & O for Labs for Last 24 Hours: Intake & Output 04/08/23 04/09/23 04/10/23 04/11/23 23:59 23:59 23:59 23:59 Intake Total 520 / 760 610 / 730 960 / 1200 360 / 360 Output Total 550 / 550 500 / 500 0 / 0 0 / 0 Balance -30 / 210 110 / 230 960 / 1200 360 / 360 Weight 161 lb 8 oz 163 lb 4.8 oz 160 lb 9.6 oz 162 lb 6.4 oz Constitutional: Present severe distress Head: Present normocephalic and atraumatic ENT: Present normal exam, normal oropharynx and mucous membranes moist Neck: Present normal inspection and full ROM Respiratory: Present prolonged expiratory phase, respiratory distress and diminished air movement; Absent wheezes or able to speak in complete sentences Cardiac: Present S1/S2, Tachycardia and radial pulses present GI: Present soft and distention; Absent tenderness or guarding Rectal (female): Present deferred (female): Present deferred Skin: Present intact; Absent cyanosis or jaundice Neuro: Present alert, awake and oriented x 3 Extremities: Present normal inspection and edema; Absent clubbing or cyanosis Psychiatric: Present normal affect and cooperative Assessment and Plan *Assessment and plan (1) Acute and chronic respiratory failure with hypoxia: Status: Acute Category: Medical Code(s): J96.21 - Acute and chronic respiratory failure with hypoxia (2) COVID-19: Status: Acute Category: Medical Code(s): U07.1 - COVID-19 (3) Acute exacerbation of chronic obstructive pulmonary disease: Status: Acute Category: Medical Code(s): J44.1 - Chronic obstructive pulmonary disease with (acute) exacerbation (4) Pneumonia: Status: Acute Qualifiers: Pneumonia type: due to unspecified organism Laterality: right Lung location: lower lobe of lung Qualified Code(s): J18.9 - Pneumonia, unspecified organism Category: Medical Code(s): J18.9 - Pneumonia, unspecified organism Plan Ms. Pandey is a 82-year-old female with a reported history of CKD, CAD, hypertension presented to the ER with worsening respiratory symptoms and pulmonary was called for further evaluation and management Patient was recent hospital early March with complaints of shortness of breath, managed for COPD exacerbation, heart failure and pneumonia and was discharged home on doxycycline. Chest x-ray on this admission no dense consolidation. Vascular congestion along with bilateral lower lobe predominant likely chronic interstitial changes. No significant change from an x-ray from recent admission. Afebrile. Hemodynamically stable with no evidence of leukocytosis upon admission. VBG upon admission did not show any evidence of hypoxic/hypercarbic respiratory failure. BNP on this admission elevated at 15,500. On my initial examination compared to base line, minimal worsening oxygen garments, saturating 96% on 5 L nasal cannula, home baseline 4 L oxygen supplementation. Auscultation minimal wheezing. Bibasilar crackles. Interval update: No acute respiratory events since patient was seen by pulmonary. Was momentarily on Ventimask at 50% on high flow however her ABG on Ventimask 50% did not show any evidence of hypoxic respiratory failure. Patient was alert to levofloxacin and antibiotics were changed back to azithromycin. Chest x-ray over the weekend did not show any worsening pulm infiltrates. Worsening right pleural effusion. She continued to receive diuretics. She completed dexamethasone. Currently receiving Trelegy inhaler along with nebs on as-needed basis. Chest x-ray this morning continue to show right effusion along with possible atelectasis. Slight worsening leukocytosis. Stable ox requirements. Will hold off on escalating antibiotics at this point of time. Will continue to monitor. Patient appeared lethargic. No significant wheezing, just received neb treatment prior to my examination Plan: -Continue oxygen requirements, currently on nasal cannula 6 L. Will escalate if needed to maintain O2 saturation below 90% able Initiate cefepime for hospital-acquired pneumonia x 7 days Follow with an ABG Continue Trelegy 100 inhaler -Albuterol inhaler every 6 hours on as-needed basis -Dexamethasone 6mg IV x 5 days # Thank you for involving pulmonary in this patient care. Please call with any further questions or concerns.
[2023-04-11] MEDS: ALPRAZolam 0.5MG TABLET 0.5 MG PO ×2 (10:35→20:26)
[2023-04-11] MEDS: HYDROCODONE/APAP 5/325 MG TABLET 1 TAB PO ×2 (11:01→23:48)
[2023-04-11] MEDS: CALCIUM POLYCARBOPHIL 625MG TAB 1250 MG PO (11:25)
[2023-04-11 11:35] LABS: ABG Base Excess 13.1 mmol/L (-2.4-2.3); ABG HCO3 38.1 mmhg (22.0-26.0); ABG Oxygen Saturation 99 % (90-100); ABG PH 7.39 mmol/L (7.35-7.45); ABG PO2 124.9 mmhg (80-100); Oxygen 6LPM %
[2023-04-11 11:36] LABS: ABG PCO2 64.2 mmhg (35.0-45.0); Allen's Test ACCEPTABLE; Source R RADIAL
[2023-04-11] MEDS: CEFEPIME HCL 2 GM in 0.9 % SODIUM CHLORIDE 100 ML IV ×2 (12:57→22:00)
--- NOTE | 2023-04-11 14:38 | EXP.ACUTE.PN ---
Subjective *Date: 04/11/23 *Time: 14:38 Interval history: Patient still necessitating 5 to 6 L today. Appears more ill today than yesterday. White cell count has bumped slightly. Pulmonology evaluating today. Concern for patient's worsening clinical status. Poor p.o. intake. Medical Exam Vital signs and Labs for Last 24 Hours: Vital Signs Temp Pulse Pulse Resp BP Pulse Ox O2 Del Method 04/11/23 13:00 Nasal Cannula 04/11/23 12:00 80 04/11/23 08:00 80 04/11/23 11:00 Nasal Cannula 04/11/23 11:05 97.7 F 80 22 114/69 95 Nasal Cannula 04/11/23 09:00 Nasal Cannula 04/11/23 08:00 Nasal Cannula 04/11/23 08:26 80 04/11/23 07:44 98.2 F 73 22 119/75 93 L Nasal Cannula 04/11/23 06:26 Nasal Cannula 04/11/23 04:56 Nasal Cannula 04/11/23 04:00 97.5 F L 80 20 137/74 91 L Nasal Cannula 04/11/23 04:00 80 04/11/23 00:00 Nasal Cannula 04/11/23 03:00 Nasal Cannula 04/11/23 01:00 Nasal Cannula 04/11/23 00:00 80 04/11/23 00:00 97.9 F 80 22 145/71 H 94 L Nasal Cannula 04/10/23 23:00 Nasal Cannula 04/10/23 21:00 Nasal Cannula 04/10/23 20:00 98 Nasal Cannula 04/10/23 20:00 80 04/10/23 20:00 97.5 F L 82 22 131/69 98 Nasal Cannula 04/10/23 19:15 95 Nasal Cannula 04/10/23 16:00 80 04/10/23 16:00 97.9 F 80 16 134/78 95 Nasal Cannula O2 Flow Rate 04/11/23 13:00 6 04/11/23 12:00 04/11/23 08:00 04/11/23 11:00 6 04/11/23 11:05 5.5 04/11/23 09:00 5 04/11/23 08:00 5 04/11/23 08:26 04/11/23 07:44 5.5 04/11/23 06:26 5.5 12/28/23 04:56 5.5 04/11/23 04:00 5.5 04/11/23 04:00 04/11/23 00:00 6 04/11/23 03:00 5.5 04/11/23 01:00 5.5 04/11/23 00:00 04/11/23 00:00 6 04/10/23 23:00 5.5 04/10/23 21:00 5.5 04/10/23 20:00 5.5 04/10/23 20:00 04/10/23 20:00 04/10/23 19:15 6 04/10/23 16:00 04/10/23 16:00 5 Intake and Output 04/10/23 04/11/23 04/11/23 23:59 07:59 15:59 Intake Total 360 / 1200 360 / 360 0 / 360 Output Total 0 / 0 0 / 0 0 / 0 Balance 360 / 1200 360 / 360 0 / 360 Intake: Intake, Oral Amount 360 / 1200 360 / 360 0 / 360 Output: Output, Urine Amount 0 / 0 0 / 0 0 / 0 Other: Number of Unmeasured Voids 1 1 1 Number of Bowel Movements 1 Weight 73.663 kg Patient Weight 04/11/23 23:59 Weight 73.663 kg Laboratory Results - last 24 hr 04/11/23 05:48: WBC 11.6 H, RBC 4.18 L, Hgb 11.9 L, Hct 37.4, MCV 89.5, MCH 28.6, MCHC 31.9, RDW 14.5, Plt Count 308, MPV 9.0, Neut % (Auto) 75.5, Lymph % (Auto) 17.6, [place] % (Auto) 6.3, Eos % (Auto) 0.1, Baso % (Auto) 0.5, Neut # (Auto) 8.8 H, Lymph # (Auto) 2.1, [place] # (Auto) 0.7, Eos # (Auto) 0.0, Baso # (Auto) 0.1, Sodium 138, Potassium 4.8, Chloride 93 L, Carbon Dioxide 40 H, Anion Gap 9.8, BUN 38 H, Creatinine 1.00, Estimated Creat Clear 50, Estimated GFR 53 L, Est GFR ( Amer) 64, Glucose 113 H, Calcium 8.8, Total Bilirubin 0.4, AST 69 H D, ALT 86 H D, Alkaline Phosphatase 65, Total Protein 6.8, Albumin 3.7 D, Globulin 3.1, Albumin/Globulin Ratio 1.2 04/11/23 11:06: Specimen Source R radial, O2 % 6lpm, ABG pH 7.39, ABG pCO2 64.2 H, ABG pO2 124.9 H, ABG HCO3 38.1 H, ABG Total CO2 40.0 H, ABG O2 Saturation 99, ABG Base Excess 13.1 H, Paulo Test Acceptable I & O for Labs for Last 24 Hours: Intake & Output 04/08/23 04/09/23 04/10/23 04/11/23 23:59 23:59 23:59 23:59 Intake Total 520 / 760 610 / 730 960 / 1200 360 / 360 Output Total 550 / 550 500 / 500 0 / 0 0 / 0 Balance -30 / 210 110 / 230 960 / 1200 360 / 360 Weight 73.255 kg 74.072 kg 72.847 kg 73.663 kg Constitutional: Present mild distress, average body habitus and chronically ill appearing Head: Present atraumatic ENT: Present normal exam Neck: Present normal inspection Respiratory: Present prolonged expiratory phase, rhonchi, wheezes and normal respiratory effort; Absent crackles Cardiac: Present Reg Rate and Rhythm GI: Present soft and normal bowel sounds; Absent distention or tenderness Rectal (female): Present deferred Extremities: Present normal inspection, full ROM and edema (2+ to knees) Skin: Present intact; Absent erythema Neuro: Present Grossly Intact, alert, awake, oriented x 3 and moves all extremities Assessment and Plan *Assessment and plan (1) Acute and chronic respiratory failure with hypoxia: Status: Acute Category: Medical Code(s): J96.21 - Acute and chronic respiratory failure with hypoxia (2) Acute exacerbation of chronic obstructive pulmonary disease: Status: Acute Category: Medical Code(s): J44.1 - Chronic obstructive pulmonary disease with (acute) exacerbation (3) Acute exacerbation of CHF (congestive heart failure): Status: Acute Qualifiers: Heart failure type: unspecified Qualified Code(s): I50.9 - Heart failure, unspecified Category: Medical Code(s): I50.9 - Heart failure, unspecified (4) Heart failure with preserved left ventricular function (HFpEF): Status: Acute Category: Medical Code(s): I50.30 - Unspecified diastolic (congestive) heart failure (5) Hyponatremia: Status: Acute Category: Medical Code(s): E87.1 - Hypo-osmolality and hyponatremia (6) COVID-19: Status: Acute Category: Medical Code(s): U07.1 - COVID-19 (7) H/O iron deficiency anemia: Status: Acute Category: Medical Code(s): Z86.2 - Personal history of diseases of the blood and blood-forming organs and certain disorders involving the immune mechanism (8) Afib: Status: Acute Qualifiers: Atrial fibrillation type: unspecified Qualified Code(s): I48.91 - Unspecified atrial fibrillation Category: Medical Code(s): I48.91 - Unspecified atrial fibrillation (9) Cardiac pacemaker in situ: Status: Acute Category: Medical Code(s): Z95.0 - Presence of cardiac pacemaker (10) Chronic kidney disease: Status: Acute Qualifiers: Chronic kidney disease stage: stage 3 (moderate) Chronic kidney disease stage 3 subtype: stage 3a (GFR 45-59) Qualified Code(s): N18.31 - Chronic kidney disease, stage 3a Category: Medical Code(s): N18.9 - Chronic kidney disease, unspecified Plan 82-year-old female, [facility] resident, with a history of atrial fibrillation, pacemaker in situ, COPD on 4 L nasal cannula, CHF, hypertrophic obstructive cardiomyopathy, CAD, and CKD presented to the emergency department for evaluation from nursing facility by EMS with concern for shortness of breath in the setting of COVID-19. on arrival at ER CXR was obtained, imaging reviewed. there is no new focal consolidation. Initial labs elevated for BNP, troponin, hyponatremia. Patient has responded well to diuresis and antibiotics. On 5-1/2 L nasal cannula this morning. Would like to have patient less than 5 L prior to discharge back to [facility]. Cardiology and pulmonology consulted and assisting with care. Problems addressed as follows: Acute on chronic hypoxemic respiratory failure Exacerbation of heart failure with preserved ejection fraction COPD exacerbation -Continue diuresis, Bumex 2 mg p.o. daily -Chest x-ray personally reviewed today, shows persistent right lower lobe patchy airspace disease. Given bump in white cell count to 11.6, will initiate cefepime after discussion with pulmonology. 2 g every 12 hours IV. -Creatinine 1.0, BUN 38. Potassium 4.8. Repeat CBC and magnesium in the morning. -Wean oxygen as tolerated, goal saturation greater 90%. Baseline 4 L, currently 5-6 L. -Continue DuoNebs every 6 hours scheduled -Cardiology and pulmonology consulted, appreciate their recommendations. -Trelegy inhaler 100 daily -Hyponatremia: Sodium 137 today.. CMP and magnesium ordered for the morning -Chronic anemia: Hemoglobin 11.9 today. White cell count creeping up at 11.6 today. CBC ordered for the morning Others chronic conditions: Afib, CAD, Pacemaker in situ, COPD, GERD: Continue home metoprolol 25 mg twice daily Continue Xarelto 15 mg daily Continue levothyroxine 75 mcg daily on Protonix Full code Cardiac diet
[2023-04-11] MEDS: MULTIVITAMIN TABLET 1 EACH PO (17:13)
[2023-04-11] MEDS: RIVAROXABAN 15MG TABLET 15 MG PO (17:13)
--- NOTE | 2023-04-11 18:46 | PC.NURSE ---
Pt alert and oriented x4. Pt has complained of pain twice, see mar. Pt has used the bedside commode with standby assist. Pt is on 6L NC O2 >90%. Midline place this shift. Pt complained of diarrhea, treated per mar. Pt very anxious, treated per mar. 1+ pitting edema to bilateral lower extremity. Lung sounds wheezing throughout. Abdomen soft and nontender, hyperactive bowel sounds. Bed in lowest position, call light in reach.
[2023-04-12] VITALS (11 sets, daily range): BP systolic 113–131; BP diastolic 60–73; PULSE 66–82; RESP 18–24; TEMP 36.3–36.7; O2SAT 78–100; BMI 21.9
[2023-04-12] MEDS: ALBUTEROL-HFA 90MCG/PUFF INHALER 8GM 2 PUFF IH ×5 (02:43→23:01)
--- NOTE | 2023-04-12 04:09 | PC.NURSE ---
PATIENT HAS HAD A BATH. SEEMS DEPRESSED. REMAINS ON [employer]CT ISOLATION FOR COVID.
[2023-04-12] MEDS: LEVOTHYROXINE 75MCG (0.075MG) TAB 75 MCG PO (06:02)
[2023-04-12] MEDS: FLUTICASONE/UMECLIDIN/VILANTER 100/62.5/25MCG INHALER 1 PUFF IH (06:54)
[2023-04-12 07:21] LABS: Basophils # 0.1 K/mm3 (0-0.2); Basophils % 0.7 % (0.1-2.0); Eosinophils # 0.1 K/mm3 (0.0-0.4); Eosinophils % 0.8 % (0.1-12.0); Hemoglobin 12.2 g/dL (12.2-16.2); Lymphocytes # 1.8 K/mm3 (0.7-4.5); Lymphocytes % 14.6 % (10-50); Mean Corpuscular HGB Conc 32.1 g/dL (31.8-35.4); Mean Corpuscular Hemoglobin 28.9 pg (27.0-31.2); Mean Corpuscular Volume 90.2 fl (81-99); Mean Platelet Volume 9.2 fl (7.4-10.4); Monocytes # 0.6 K/mm3 (0.1-1.0); Monocytes % 4.9 % (1.7-9.3); Neutrophils # 9.5 K/mm3 (1.8-7.8); Platelet Count 299 K/mm3 (142-424); Red Blood Count 4.22 M/mm3 (4.20-5.40); Red Cell Distribution Width 14.5 % (11.5-17.5)
--- NOTE | 2023-04-12 07:24 | P.PN_ITS ---
Subjective *Date: 04/12/23 *Time: 08:01 Interval history: No acute respiratory events overnight. Pulmonology Exam Inpatient Vital signs and Labs for Last 24 Hours: Temp Pulse Resp BP Pulse Ox O2 Del Method O2 Flow Rate 98.0 F 80 18 113/64 96 Nasal Cannula 4 04/12/23 04:00 04/12/23 04:00 04/12/23 04:00 04/12/23 04:00 04/12/23 06:54 04/12/23 06:54 04/12/23 06:54 FiO2 50 04/08/23 07:48 Laboratory Results - last 24 hr 04/11/23 11:06: Specimen Source R radial, O2 % 6lpm, ABG pH 7.39, ABG pCO2 64.2 H, ABG pO2 124.9 H, ABG HCO3 38.1 H, ABG Total CO2 40.0 H, ABG O2 Saturation 99, ABG Base Excess 13.1 H, Paulo Test Acceptable 04/12/23 07:08: WBC 12.0 H, RBC 4.22, Hgb 12.2, Hct 38.0, MCV 90.2, MCH 28.9, MCHC 32.1, RDW 14.5, Plt Count 299, MPV 9.2, Neut % (Auto) 79.0, Lymph % (Auto) 14.6, [place] % (Auto) 4.9, Eos % (Auto) 0.8, Baso % (Auto) 0.7, Neut # (Auto) 9.5 H, Lymph # (Auto) 1.8, [place] # (Auto) 0.6, Eos # (Auto) 0.1, Baso # (Auto) 0.1 I & O for Labs for Last 24 Hours: Intake & Output 04/09/23 04/10/23 04/11/23 04/12/23 23:59 23:59 23:59 23:59 Intake Total 610 / 730 960 / 1200 1040 / 1040 Output Total 500 / 500 0 / 0 0 / 0 0 / 0 Balance 110 / 230 960 / 1200 1040 / 1040 0 / 0 Weight 163 lb 4.8 oz 160 lb 9.6 oz 162 lb 6.4 oz 161 lb 8 oz Constitutional: Present severe distress Head: Present normocephalic and atraumatic ENT: Present normal exam, normal oropharynx and mucous membranes moist Neck: Present normal inspection and full ROM Respiratory: Present prolonged expiratory phase, respiratory distress and diminished air movement; Absent wheezes or able to speak in complete sentences Cardiac: Present S1/S2, Tachycardia and radial pulses present GI: Present soft and distention; Absent tenderness or guarding Rectal (female): Present deferred (female): Present deferred Skin: Present intact; Absent cyanosis or jaundice Neuro: Present alert, awake and oriented x 3 Extremities: Present normal inspection and edema; Absent clubbing or cyanosis Psychiatric: Present normal affect and cooperative Assessment and Plan *Assessment and plan (1) Acute and chronic respiratory failure with hypoxia: Status: Acute Category: Medical Code(s): J96.21 - Acute and chronic respiratory failure with hypoxia (2) COVID-19: Status: Acute Category: Medical Code(s): U07.1 - COVID-19 (3) Acute exacerbation of chronic obstructive pulmonary disease: Status: Acute Category: Medical Code(s): J44.1 - Chronic obstructive pulmonary disease with (acute) exacerbation (4) Pneumonia: Status: Acute Qualifiers: Laterality: right Lung location: lower lobe of lung Pneumonia type: due to unspecified organism Qualified Code(s): J18.9 - Pneumonia, unspecified organism Category: Medical Code(s): J18.9 - Pneumonia, unspecified organism Plan Ms. Pandey is a 82-year-old female with a reported history of CKD, CAD, hypertension presented to the ER with worsening respiratory symptoms and pulmonary was called for further evaluation and management Patient was recent hospital early March with complaints of shortness of breath, managed for COPD exacerbation, heart failure and pneumonia and was discharged home on doxycycline. Chest x-ray on this admission no dense consolidation. Vascular congestion along with bilateral lower lobe predominant likely chronic interstitial changes. No significant change from an x-ray from recent admission. Afebrile. Hemodynamically stable with no evidence of leukocytosis upon admission. VBG upon admission did not show any evidence of hypoxic/hypercarbic respiratory failure. BNP on this admission elevated at 15,500. On my initial examination compared to base line, minimal worsening oxygen garments, saturating 96% on 5 L nasal cannula, home baseline 4 L oxygen supplementation. Auscultation minimal wheezing. Bibasilar crackles. Initiated on cefepime for possible hospital-acquired pneumonia on 04/11/2023 given worsening leukocytosis with chest x-ray showing new right lower lobe infiltrate Interval update: No acute respiratory events overnight. Leukocytosis stable. Afebrile. Hemodynamically stable. Continue to receive cefepime. ABG from yesterday did not show any evidence of hypoxic hypercarbic respiratory failure Plan: -Out of bed to chair, activity as tolerated -Incentive spirometry -Continue oxygen requirements, currently on nasal cannula 4-6 L. Will wean as tolerated to maintain O2 saturation goal of 90% unable -Continue cefepime for hospital-acquired pneumonia x 7 days. Follow-up with nasal MRSA PCR and repeat sputum cultures. -Continue Trelegy 100 inhaler -Albuterol inhaler every 6 hours on as-needed basis # Thank you for involving pulmonary in this patient care. Please call with any further questions or concerns.
--- NOTE | 2023-04-12 07:33 | EXP.ACUTE.PN ---
Subjective *Date: 04/12/23 *Time: 15:24 Interval history: Patient's voice weak today but appears somewhat improved with energy than yesterday. Still quite weak and fatigued. Appears more depressed. Able to sit up on exam without difficulty however under her own power. No nausea or vomiting. Denies any worsening shortness of breath. Afebrile. Currently on 5 L nasal cannula oxygen. Hemodynamically stable. Medical Exam Vital signs and Labs for Last 24 Hours: Vital Signs Temp Pulse Pulse Resp BP Pulse Ox O2 Del Method 04/12/23 06:54 96 Nasal Cannula 04/12/23 06:48 Nasal Cannula 04/12/23 05:00 Nasal Cannula 04/12/23 04:00 80 04/12/23 04:00 98.0 F 80 18 113/64 90 L Nasal Cannula 04/12/23 03:00 Nasal Cannula 04/12/23 01:00 Nasal Cannula 04/12/23 00:00 80 04/12/23 00:00 97.8 F 80 20 127/73 92 L Nasal Cannula 04/11/23 23:00 Nasal Cannula 04/11/23 21:00 Nasal Cannula 04/11/23 20:00 92 L Nasal Cannula 04/11/23 20:00 79 04/11/23 20:00 97.9 F 78 20 136/75 92 L Nasal Cannula 04/11/23 18:43 89 L Nasal Cannula 04/11/23 18:37 Nasal Cannula 04/11/23 17:00 Nasal Cannula 04/11/23 16:00 80 04/11/23 14:50 97.5 F L 80 22 118/66 96 Nasal Cannula 04/11/23 14:48 Nasal Cannula 04/11/23 13:00 Nasal Cannula 04/11/23 12:00 80 04/11/23 08:00 80 04/11/23 11:00 Nasal Cannula 04/11/23 11:05 97.7 F 80 22 114/69 95 Nasal Cannula 04/11/23 09:00 Nasal Cannula 04/11/23 08:00 Nasal Cannula 04/11/23 08:26 80 04/11/23 07:44 98.2 F 73 22 119/75 93 L Nasal Cannula O2 Flow Rate 04/12/23 06:54 4 04/12/23 06:48 4 04/12/23 05:00 6 04/12/23 04:00 04/12/23 04:00 6 04/12/23 03:00 6 04/12/23 01:00 6 04/12/23 00:00 04/12/23 00:00 6 04/11/23 23:00 6 04/11/23 21:00 6 04/11/23 20:00 6 04/11/23 20:00 04/11/23 20:00 6 04/11/23 18:43 6 04/11/23 18:37 6 04/11/23 17:00 4 04/11/23 16:00 04/11/23 14:50 4 04/11/23 14:48 4 04/11/23 13:00 6 04/11/23 12:00 04/11/23 08:00 04/11/23 11:00 6 04/11/23 11:05 5.5 04/11/23 09:00 5 04/11/23 08:00 5 04/11/23 08:26 04/11/23 07:44 5.5 Intake and Output 04/11/23 04/11/23 04/12/23 15:59 23:59 07:59 Intake Total 100 / 1040 580 / 1040 Output Total 0 / 0 0 / 0 0 / 0 Balance 100 / 1040 580 / 1040 0 / 0 Intake: Intake, Oral Amount 0 / 840 480 / 840 Intake, Total IV Amount 100 / 200 100 / 200 Cefepime HCl 2 gm In 0.9 % 100 / 200 100 / 200 Sodium Chloride 100 ml @ 200 mls/hr IV Q12H [facility] Rx#:[id number] Output: Output, Urine Amount 0 / 0 0 / 0 0 / 0 Other: Number of Unmeasured Voids 1 1 1 Number of Bowel Movements 1 Weight 73.255 kg Patient Weight 04/12/23 23:59 Weight 73.255 kg Laboratory Results - last 24 hr 04/11/23 11:06: Specimen Source R radial, O2 % 6lpm, ABG pH 7.39, ABG pCO2 64.2 H, ABG pO2 124.9 H, ABG HCO3 38.1 H, ABG Total CO2 40.0 H, ABG O2 Saturation 99, ABG Base Excess 13.1 H, Paulo Test Acceptable 04/12/23 07:08: WBC 12.0 H, RBC 4.22, Hgb 12.2, Hct 38.0, MCV 90.2, MCH 28.9, MCHC 32.1, RDW 14.5, Plt Count 299, MPV 9.2, Neut % (Auto) 79.0, Lymph % (Auto) 14.6, [place] % (Auto) 4.9, Eos % (Auto) 0.8, Baso % (Auto) 0.7, Neut # (Auto) 9.5 H, Lymph # (Auto) 1.8, [place] # (Auto) 0.6, Eos # (Auto) 0.1, Baso # (Auto) 0.1 I & O for Labs for Last 24 Hours: Intake & Output 04/09/23 04/10/23 04/11/23 04/12/23 23:59 23:59 23:59 23:59 Intake Total 610 / 730 960 / 1200 1040 / 1040 Output Total 500 / 500 0 / 0 0 / 0 0 / 0 Balance 110 / 230 960 / 1200 1040 / 1040 0 / 0 Weight 74.072 kg 72.847 kg 73.663 kg 73.255 kg Constitutional: Present no acute distress, average body habitus and chronically ill appearing Head: Present atraumatic ENT: Present normal exam Neck: Present normal inspection Respiratory: Present prolonged expiratory phase, rhonchi, wheezes and normal respiratory effort; Absent crackles Cardiac: Present Reg Rate and Rhythm GI: Present soft and normal bowel sounds; Absent distention or tenderness Rectal (female): Present deferred Extremities: Present normal inspection, full ROM and edema (2+ to knees) Skin: Present intact; Absent erythema Neuro: Present Grossly Intact, alert, awake, oriented x 3 and moves all extremities Assessment and Plan *Assessment and plan (1) Acute and chronic respiratory failure with hypoxia: Status: Acute Category: Medical Code(s): J96.21 - Acute and chronic respiratory failure with hypoxia (2) Acute exacerbation of chronic obstructive pulmonary disease: Status: Acute Category: Medical Code(s): J44.1 - Chronic obstructive pulmonary disease with (acute) exacerbation (3) Acute exacerbation of CHF (congestive heart failure): Status: Acute Qualifiers: Heart failure type: unspecified Qualified Code(s): I50.9 - Heart failure, unspecified Category: Medical Code(s): I50.9 - Heart failure, unspecified (4) Heart failure with preserved left ventricular function (HFpEF): Status: Acute Category: Medical Code(s): I50.30 - Unspecified diastolic (congestive) heart failure (5) Hyponatremia: Status: Acute Category: Medical Code(s): E87.1 - Hypo-osmolality and hyponatremia (6) COVID-19: Status: Acute Category: Medical Code(s): U07.1 - COVID-19 (7) H/O iron deficiency anemia: Status: Acute Category: Medical Code(s): Z86.2 - Personal history of diseases of the blood and blood-forming organs and certain disorders involving the immune mechanism (8) Afib: Status: Acute Qualifiers: Atrial fibrillation type: unspecified Qualified Code(s): I48.91 - Unspecified atrial fibrillation Category: Medical Code(s): I48.91 - Unspecified atrial fibrillation (9) Cardiac pacemaker in situ: Status: Acute Category: Medical Code(s): Z95.0 - Presence of cardiac pacemaker (10) Chronic kidney disease: Status: Acute Qualifiers: Chronic kidney disease stage: stage 3 (moderate) Chronic kidney disease stage 3 subtype: stage 3a (GFR 45-59) Qualified Code(s): N18.31 - Chronic kidney disease, stage 3a Category: Medical Code(s): N18.9 - Chronic kidney disease, unspecified Plan 82-year-old female, [facility] resident, with a history of atrial fibrillation, pacemaker in situ, COPD on 4 L nasal cannula, CHF, hypertrophic obstructive cardiomyopathy, CAD, and CKD presented to the emergency department for evaluation from nursing facility by EMS with concern for shortness of breath in the setting of COVID-19. on arrival at ER CXR was obtained, imaging reviewed. there is no new focal consolidation. Initial labs elevated for BNP, troponin, hyponatremia. Patient has responded well to diuresis and antibiotics. On 5 L nasal cannula this morning. Would like to have patient less than 5 L prior to discharge back to [facility]. Cardiology and pulmonology consulted and assisting with care. Labs remained stable for over 48 hours. Anticipate discharge in the next day or 2 pending continued ability to wean oxygen. Problems addressed as follows: Acute on chronic hypoxemic respiratory failure Exacerbation of heart failure with preserved ejection fraction COPD exacerbation -Continue diuresis, Bumex 2 mg p.o. daily -WBC 12 today, continue cefepime 2 g every 12 hours IV for total of 7 days Discussed case with pulmonology, recommend continuing antibiotics for hospital-acquired pneumonia. Strongly encourage patient to mobilize to improve lung function. -Creatinine 1.0, BUN 38. Potassium 4.8. Repeat CBC and magnesium in the morning. -Wean oxygen as tolerated, goal saturation greater 90%. Baseline 4 L, currently 5L. -Continue albuterol inhaler every 6 hours scheduled -Cardiology and pulmonology consulted, appreciate their recommendations. -Trelegy inhaler 100 daily -Patient encouraged to get out of bed. Continue incentive spirometry CBC, CMP, magnesium ordered for the morning. Chronic anemia: Hemoglobin 12.2 today. Others chronic conditions: Afib, CAD, Pacemaker in situ, COPD, GERD: Continue home metoprolol 25 mg twice daily Continue Xarelto 15 mg daily Continue levothyroxine 75 mcg daily on Protonix Full code Cardiac diet
[2023-04-12 07:45] LABS: Chloride 93 mmol/L (98-107); Potassium 4.5 mmoL/L (3.5-5.1); Sodium 136 mmol/L (136-145)
[2023-04-12 07:48] LABS: Alanine Aminotransferase 88 U/L (12-78); Albumin Level 3.5 g/dl (3.5-5.0); Albumin/Globulin Ratio 1.2 (1.1-1.8); Alkaline Phosphatase 64 U/L (38-126); Anion Gap 7.5 mEq/L (5-15); Aspartate Amino Transferase 80 U/L (14-36); Bilirubin,Total 0.5 mg/dl (0.2-1.3); Blood Urea Nitrogen 38 mg/dl (7-17); Calcium 8.3 mg/dl (8.4-10.2); Carbon Dioxide 40 mmol/L (22.0-30.0); Creatinine Clearance Estimated 49 mL/min (50-200); Estimated Glomerular Filt Rate 60 ml/min (>60); GFR (African American) 72 ML/MIN (>60); Glucose 114 mg/dl (74-100); Total Protein,Serum 6.5 g/dl (6.3-8.2)
[2023-04-12 08:12] LABS: Magnesium 2.1 mg/dl (1.6-2.3)
--- NOTE | 2023-04-12 08:12 | PC.NURSE ---
Addendum entered by Nidia Leyva RN 04/12/23 08:19: RA 78% Original Note: RA was obtained per orderthis AM. Pt did not tolerate and was hard to recover. O2 titrated to 6L NC to recover pt. Will titrate back down to 4L afpt recovers.
--- NOTE | 2023-04-12 08:17 | PC.NURSE ---
primary tech note: nurse Nidia notified of pt's 0800 vital signs
[2023-04-12] MEDS: ALPRAZolam 0.5MG TABLET 0.5 MG PO ×2 (08:32→21:02)
[2023-04-12] MEDS: BUMETANIDE 1 MG TABLET 2 MG PO (08:48)
[2023-04-12] MEDS: NYSTATIN SUSP 500,000 UNITS/5ML UDC 500000 UNIT PO ×4 (08:48→20:57)
[2023-04-12] MEDS: CALCIUM POLYCARBOPHIL 625MG TAB 1250 MG PO (08:49)
[2023-04-12] MEDS: DIGOXIN 0.125MG TABLET 125 MCG PO (08:49)
[2023-04-12] MEDS: METOPROLOL TARTRATE 25MG TABLET 25 MG PO ×2 (08:49→20:58)
[2023-04-12] MEDS: LORATADINE 10MG TABLET 10 MG PO (08:50)
[2023-04-12] MEDS: PAT OWN MED ***OMEPRAZOLE 20 MG 1 EACH PO ×2 (09:18→20:58)
[2023-04-12] MEDS: ACETAMINOPHEN 325MG TAB 650 MG PO (09:26)
[2023-04-12] MEDS: CEFEPIME HCL 2 GM in 0.9 % SODIUM CHLORIDE 100 ML IV ×2 (11:08→23:30)
--- NOTE | 2023-04-12 12:16 | PC.NURSE ---
patient educated regarding the use of incentive spirometer, patient demonstrated understanding of the teaching and was encouraged to utilize the spirometer at least 10x/hr.
--- NOTE | 2023-04-12 13:50 | PC.NURSE ---
patient transferred to chair by PT, oxygen saturation dropped to 84% during transfer but improved after temporarily increasing flow to 6 liters (nasal cannula), patient is now back to her baseline of 4L/min with an oxygen saturation of 95%. Patient is utilizing her incentive spirometer.
--- NOTE | 2023-04-12 17:15 | P.EN_ITS ---
Advance care planning note: Active diagnosis: Acute on chronic hypoxemic respiratory failure, COVID-19, acute exacerbation of CHF, progressive debility, iron deficient anemia, A-fib The patient's active diagnoses are of sufficient risk that focused discussion on advanced care planning is indicated in order to allow the patient to thoughtfully consider personal goals of care; and, if situations arise that prevent the ability to personally give input, to ensure appropriate representation of their personal desires through documentation or informed surrogate decision makers. Discussion: Persons present and participating in discussion: Son and [id number] Discussion: Discussed patient's progressive decline over the past month, extent of debility from COVID infection and worsening respiratory failure. Patient appears to have lost her will to live. Family is concerned and I agree that she appears to be just giving up. Discussed potential of getting patient home, [facility], hospice. Family to have further discussions talk about goals of care. Strong concern for continued decline and poor prognosis for improvement. Time spent: Total time spent [id number] in education and discussion directly related to advance care planninmin Ramirez Thomas 04/12/2023
[2023-04-12] MEDS: MULTIVITAMIN TABLET 1 EACH PO (17:24)
[2023-04-12] MEDS: RIVAROXABAN 15MG TABLET 15 MG PO (18:17)
--- NOTE | 2023-04-12 20:19 | PC.NURSE ---
Addendum entered by Carmelina Bryant, RT 04/12/23 20:26: Patient sats went up to 100% on nonrebreather. Patient placed on 50% venti mask. Will continue to titrate to patients baseline of 4L NC. Original Note: Respiratory Care Note: Nurse called stated patient has o2 sats anywhere from 69-72% on 6L NC. Placed patient on 50% venti mask at 15L. O2 sats only reached 85%. Put non rebreather @ 100% on patient sats reached 93%.
[2023-04-13] VITALS (11 sets, daily range): BP systolic 110–128; BP diastolic 52–65; PULSE 60–86; RESP 20–28; TEMP 34.1–36.9; O2SAT 10–97; BMI 24.0
[2023-04-13] MEDS: FLUTICASONE/UMECLIDIN/VILANTER 100/62.5/25MCG INHALER 1 PUFF IH (06:05)
[2023-04-13] MEDS: ALBUTEROL-HFA 90MCG/PUFF INHALER 8GM 2 PUFF IH ×4 (06:05→23:19)
[2023-04-13] MEDS: LEVOTHYROXINE 75MCG (0.075MG) TAB 75 MCG PO (06:30)
--- NOTE | 2023-04-13 06:32 | PC.NURSE ---
Addendum entered by Shanti Blankenship RN 04/13/23 06:38: room temp increased and warm blankets applied as well Original Note: bear hugger applied at 0430 r/t rectal temp 93.5. rechecked rectal at 95.7 at 0530. rechecked rectal at 95.8 at 0630.
[2023-04-13 06:53] LABS: Basophils # 0.1 K/mm3 (0-0.2); Basophils % 0.5 % (0.1-2.0); Eosinophils # 0.1 K/mm3 (0.0-0.4); Eosinophils % 0.6 % (0.1-12.0); Hematocrit 36.5 % (37.0-47.0); Hemoglobin 11.2 g/dL (12.2-16.2); Lymphocytes # 1.4 K/mm3 (0.7-4.5); Lymphocytes % 10.8 % (10-50); Mean Corpuscular HGB Conc 30.8 g/dL (31.8-35.4); Mean Corpuscular Hemoglobin 28.1 pg (27.0-31.2); Mean Corpuscular Volume 91.2 fl (81-99); Mean Platelet Volume 9.7 fl (7.4-10.4); Monocytes # 0.6 K/mm3 (0.1-1.0); Monocytes % 4.6 % (1.7-9.3); Neutrophils # 10.6 K/mm3 (1.8-7.8); Neutrophils % 83.5 % (37.0-80.0); Platelet Count 304 K/mm3 (142-424); Red Cell Distribution Width 14.6 % (11.5-17.5); White Blood Count 12.6 K/mm3 (4.8-10.8)
[2023-04-13 06:56] LABS: Chloride 91 mmol/L (98-107); Potassium 4.6 mmoL/L (3.5-5.1); Sodium 135 mmol/L (136-145)
[2023-04-13 06:59] LABS: Alanine Aminotransferase 75 U/L (12-78); Albumin Level 3.2 g/dl (3.5-5.0); Albumin/Globulin Ratio 1.1 (1.1-1.8); Alkaline Phosphatase 82 U/L (38-126); Aspartate Amino Transferase 42 U/L (14-36); Bilirubin,Total 0.3 mg/dl (0.2-1.3); Blood Urea Nitrogen 37 mg/dl (7-17); Calcium 8.2 mg/dl (8.4-10.2); Creatinine Clearance Estimated 49 mL/min (50-200); Estimated Glomerular Filt Rate 47 ml/min (>60); GFR (African American) 57 ML/MIN (>60); Globulin 2.8 g/dL (1.3-3.2); Glucose 127 mg/dl (74-100)
[2023-04-13 07:00] LABS: Magnesium 2.2 mg/dl (1.6-2.3)
[2023-04-13 07:06] LABS: Anion Gap 9.6 mEq/L (5-15); Carbon Dioxide 39 mmol/L (22.0-30.0)
--- NOTE | 2023-04-13 07:34 | XR_ITS ---
PROCEDURE INFORMATION: Exam: XR Chest Exam date and time: 04/13/2023 8:02 AM Age: 82 years old Clinical indication: Other: Increased o2 requirement TECHNIQUE: Imaging protocol: Radiologic exam of the chest. Views: 1 view. COMPARISON: CR XR CHEST PORTABLE 04/11/2023 8:35 AM FINDINGS: Tubes, catheters and devices: A permanent pacemaker overlies and obscures the upper lateral chest and axilla with atrial and ventricular wire leads. Lungs: Increased interstitial markings noted in the lower lobes. There is flattening of the hemidiaphragms and blunting of the right costophrenic sulcus. Pleural spaces: Unremarkable. No pleural effusion. No pneumothorax. Heart/Mediastinum: Unremarkable. No cardiomegaly. Bones/joints: The bones are osteopenic. IMPRESSION: No significant change from the prior study. Basilar patchy pneumonia superimposed on COPD.
[2023-04-13] MEDS: METOPROLOL TARTRATE 25MG TABLET 25 MG PO ×2 (09:10→20:07)
[2023-04-13] MEDS: NYSTATIN SUSP 500,000 UNITS/5ML UDC 500000 UNIT PO ×4 (09:10→20:14)
[2023-04-13] MEDS: FERROUS SULFATE 325MG TABLET 325 MG PO (09:11)
[2023-04-13] MEDS: PAT OWN MED ***OMEPRAZOLE 20 MG 1 EACH PO ×2 (09:12→20:07)
[2023-04-13] MEDS: LORATADINE 10MG TABLET 10 MG PO (09:12)
[2023-04-13] MEDS: DIGOXIN 0.125MG TABLET 125 MCG PO (09:14)
[2023-04-13] MEDS: ACETAMINOPHEN 325MG TAB 650 MG PO ×2 (10:29→17:22)
[2023-04-13] MEDS: CALCIUM POLYCARBOPHIL 625MG TAB 1250 MG PO (10:32)
[2023-04-13] MEDS: CEFEPIME HCL 2 GM in 0.9 % SODIUM CHLORIDE 100 ML IV ×2 (10:55→23:07)
--- NOTE | 2023-04-13 11:05 | P.PN_ITS ---
Subjective *Date: 04/13/23 *Time: 12:53 Interval history: Patient should decline overnight. Oxygen requirement increased, currently on nonrebreather. Patient not eating, refusing food. Did take her morning meds. Body temperature low this morning at 95.8. No nausea or vomiting. No bowel movement. Vitals acceptable blood pressure 125/58, heart rate 70, respiratory rate 24. Medical Exam Vital signs and Labs for Last 24 Hours: Vital Signs Temp Pulse Pulse Resp BP Pulse Ox O2 Del Method 04/13/23 10:43 Non-Rebreather 04/13/23 08:00 70 04/13/23 09:14 72 04/13/23 08:33 Non-Rebreather 04/13/23 08:00 95 Non-Rebreather 04/13/23 08:00 98.5 F 70 26 H 128/57 L 97 Room Air, Venturi Mask 04/13/23 06:05 97 Non-Rebreather 04/13/23 06:30 95.8 F L 04/13/23 05:30 95.7 F L 04/13/23 04:00 93.4 F L 70 24 125/58 L Venturi Mask 04/13/23 04:53 Non-Rebreather 04/13/23 04:00 60 04/13/23 00:00 76 04/13/23 06:24 Non-Rebreather 04/13/23 03:00 Non-Rebreather 04/13/23 01:00 Non-Rebreather 04/12/23 23:00 Non-Rebreather 04/13/23 00:00 Non-Rebreather 04/13/23 00:00 97.4 F L 70 28 H 120/65 Venturi Mask 04/12/23 20:00 70 04/12/23 21:00 Venturi Mask 04/12/23 20:00 Non-Rebreather, Venturi Mask 04/12/23 20:00 97.9 F 66 24 131/71 100 Venturi Mask 04/12/23 18:44 Nasal Cannula 04/12/23 17:00 Nasal Cannula 04/12/23 18:12 88 L Nasal Cannula 04/12/23 16:00 70 04/12/23 15:52 97.6 F 70 18 127/66 98 Nasal Cannula 04/12/23 15:00 Nasal Cannula 04/12/23 12:00 80 04/12/23 12:42 Nasal Cannula 04/12/23 12:00 97.5 F L 80 18 115/68 94 L Nasal Cannula O2 Flow Rate 04/13/23 10:43 10 04/13/23 08:00 04/13/23 09:14 04/13/23 08:33 10 04/13/23 08:00 10 04/13/23 08:00 04/13/23 06:05 15 04/13/23 06:30 04/13/23 05:30 04/13/23 04:00 04/13/23 04:53 04/13/23 04:00 04/13/23 00:00 04/13/23 06:24 04/13/23 03:00 04/13/23 01:00 04/12/23 23:00 04/13/23 00:00 04/13/23 00:00 04/12/23 20:00 04/12/23 21:00 04/12/23 20:00 04/12/23 20:00 04/12/23 18:44 5 04/12/23 17:00 5 04/12/23 18:12 6 04/12/23 16:00 04/12/23 15:52 4 04/12/23 15:00 6 04/12/23 12:00 04/12/23 12:42 5 04/12/23 12:00 4 Intake and Output 04/12/23 04/13/23 04/13/23 23:59 07:59 15:59 Intake Total 60 / 510 210 / 210 Output Total 50 / 250 0 / 0 0 / 0 Balance 10 / 260 210 / 210 0 / 210 Intake: Intake, Oral Amount 60 / 360 60 / 60 Intake, Other Amount 50 / 50 Intake, Total IV Amount 100 / 100 Cefepime HCl 2 gm In 0.9 % 100 / 100 Sodium Chloride 100 ml @ 200 mls/hr IV Q12H [facility] Rx#:[id number] Output: Output, Urine Amount 50 / 250 0 / 0 0 / 0 Other: Intake, Other Source Saline Solution Number of Voids 0 Number of Unmeasured Voids 0 1 1 Weight 80.484 kg Patient Weight 04/13/23 23:59 Weight 80.484 kg Laboratory Results - last 24 hr 04/13/23 06:18: WBC 12.6 H, RBC 4.00 L, Hgb 11.2 L, Hct 36.5 L, MCV 91.2, MCH 28.1, MCHC 30.8 L, RDW 14.6, Plt Count 304, MPV 9.7, Neut % (Auto) 83.5 H, Lymph % (Auto) 10.8, [place] % (Auto) 4.6, Eos % (Auto) 0.6, Baso % (Auto) 0.5, Neut # (Auto) 10.6 H, Lymph # (Auto) 1.4, [place] # (Auto) 0.6, Eos # (Auto) 0.1, Baso # (Auto) 0.1, Sodium 135 L, Potassium 4.6, Chloride 91 L, Carbon Dioxide 39 H, Anion Gap 9.6, BUN 37 H, Creatinine 1.10 H D, Estimated Creat Clear 49, Estimated GFR 47 L, Est GFR ( Amer) 57 L D, Glucose 127 H, Calcium 8.2 L, Magnesium 2.2, Total Bilirubin 0.3, AST 42 H D, ALT 75, Alkaline Phosphatase 82, Total Protein 6.0 L, Albumin 3.2 L, Globulin 2.8, Albumin/Globulin Ratio 1.1 I & O for Labs for Last 24 Hours: Intake & Output 04/10/23 04/11/23 04/12/23 04/13/23 23:59 23:59 23:59 23:59 Intake Total 960 / 1200 1040 / 1040 300 / 510 210 / 210 Output Total 0 / 0 0 / 0 250 / 250 0 / 0 Balance 960 / 1200 1040 / 1040 50 / 260 210 / 210 Weight 72.847 kg 73.663 kg 73.255 kg 80.484 kg Microbiology Reports for the Last 24 Hours: Microbiology 04/11/23 11:30 Nose MRSA Culture - Final Constitutional: Present mild distress, average body habitus, chronically ill appearing and somnolent Comment:: More fatigued this morning Head: Present atraumatic and normocephalic ENT: Present normal exam Neck: Present normal inspection Respiratory: Present prolonged expiratory phase, rhonchi, wheezes and normal respiratory effort; Absent crackles Cardiac: Present Reg Rate and Rhythm GI: Present soft and normal bowel sounds; Absent distention or tenderness Rectal (female): Present deferred Extremities: Present normal inspection, full ROM and edema (2+ to knees) Skin: Present intact; Absent erythema Neuro: Present Grossly Intact, alert, awake and moves all extremities Assessment and Plan *Assessment and plan (1) Acute and chronic respiratory failure with hypoxia: Status: Acute Category: Medical Code(s): J96.21 - Acute and chronic respiratory failure with hypoxia (2) Acute exacerbation of chronic obstructive pulmonary disease: Status: Acute Category: Medical Code(s): J44.1 - Chronic obstructive pulmonary disease with (acute) exacerbation (3) Acute exacerbation of CHF (congestive heart failure): Status: Acute Qualifiers: Heart failure type: unspecified Qualified Code(s): I50.9 - Heart failure, unspecified Category: Medical Code(s): I50.9 - Heart failure, unspecified (4) Heart failure with preserved left ventricular function (HFpEF): Status: Acute Category: Medical Code(s): I50.30 - Unspecified diastolic (congestive) heart failure (5) Hyponatremia: Status: Acute Category: Medical Code(s): E87.1 - Hypo-osmolality and hyponatremia (6) COVID-19: Status: Acute Category: Medical Code(s): U07.1 - COVID-19 (7) H/O iron deficiency anemia: Status: Acute Category: Medical Code(s): Z86.2 - Personal history of diseases of the blood and blood-forming organs and certain disorders involving the immune mechanism (8) Afib: Status: Acute Qualifiers: Atrial fibrillation type: unspecified Qualified Code(s): I48.91 - Unspecified atrial fibrillation Category: Medical Code(s): I48.91 - Unspecified atrial fibrillation (9) Cardiac pacemaker in situ: Status: Acute Category: Medical Code(s): Z95.0 - Presence of cardiac pacemaker (10) Chronic kidney disease: Status: Acute Qualifiers: Chronic kidney disease stage: stage 3 (moderate) Chronic kidney disease stage 3 subtype: stage 3a (GFR 45-59) Qualified Code(s): N18.31 - Chronic kidney disease, stage 3a Category: Medical Code(s): N18.9 - Chronic kidney disease, unspecified Plan 82-year-old female, [facility] resident, with a history of atrial fibrillation, pacemaker in situ, COPD on 4 L nasal cannula, CHF, hypertrophic obstructive cardiomyopathy, CAD, and CKD presented to the emergency department for evaluation from nursing facility by EMS with concern for shortness of breath in the setting of COVID-19. on arrival at ER CXR was obtained, imaging reviewed. there is no new focal consolidation. Initial labs elevated for BNP, troponin, hyponatremia. Patient has taken a decline over the last 24 to 48 hours. Increased oxygen requirement overnight. Currently on nonrebreather. Discussions with family over the past 24 hours, given patient's decline, family request hospice consult. Continues to require inpatient management. Problems addressed as follows: Acute on chronic hypoxemic respiratory failure Exacerbation of heart failure with preserved ejection fraction COPD exacerbation -Continue diuresis, Bumex 2 mg IV once today. Repeat chest x-ray with persistent findings, no increased consolidation but does have present fissure on right side. -Continue cefepime 2 g IV twice daily pending change in goals of care after hospice consult. -Creatinine 1.1, BUN 37, white cell count 12.6. Repeat CBC and magnesium for the morning unless goals of care change and then will discontinue labs. -Goal saturation greater 90%, currently on nonrebreather. -Continue albuterol inhaler every 6 hours scheduled -Cardiology and pulmonology consulted, appreciate their recommendations. -Trelegy inhaler 100 daily -Patient encouraged to get out of bed. Continue incentive spirometry Chronic anemia: Hemoglobin 11.2 today. Others chronic conditions: Afib, CAD, Pacemaker in situ, COPD, GERD: Continue home metoprolol 25 mg twice daily Continue Xarelto 15 mg daily Continue levothyroxine 75 mcg daily on Protonix DNR Cardiac diet
[2023-04-13] MEDS: BUMETANIDE 1MG/4ML VIAL 2 MG IV (11:20)
[2023-04-13] MEDS: ALPRAZolam 0.5MG TABLET 0.5 MG PO (13:41)
[2023-04-13] MEDS: MULTIVITAMIN TABLET 1 EACH PO (17:00)
[2023-04-13] MEDS: RIVAROXABAN 15MG TABLET 15 MG PO (17:02)
--- NOTE | 2023-04-13 18:13 | PC.NURSE ---
bear hugger was removed at 0800 this morning and warm blankets were provided, patient oral temp was 98.5.
--- NOTE | 2023-04-13 18:14 | PC.NURSE ---
patient drank 1/3 of an Ensure for breakfast, but refused lunch and dinner. She tolerated small sips of water with her PO medications throughout the day.
--- NOTE | 2023-04-13 18:18 | PC.NURSE ---
patient refused transfer to chair but has been repositioned using a wedge pillow as needed.
[2023-04-13] MEDS: MORPHINE 2MG/ML SYRINGE 2 MG IV (18:59)
[2023-04-14] VITALS: BP 113/61; PULSE 70; RESP 20; TEMP 36.4; O2SAT 94
[2023-04-14 04:00] VITALS: BP 133/66; PULSE 70; PULSE 71; RESP 18; TEMP 36.5; O2SAT 96; BMI 23.4
[2023-04-14] MEDS: LEVOTHYROXINE 75MCG (0.075MG) TAB 75 MCG PO (06:34)
[2023-04-14 06:38] LABS: Basophils # 0.1 K/mm3 (0-0.2); Basophils % 0.5 % (0.1-2.0); Eosinophils # 0.1 K/mm3 (0.0-0.4); Eosinophils % 0.6 % (0.1-12.0); Hematocrit 33.9 % (37.0-47.0); Hemoglobin 10.8 g/dL (12.2-16.2); Lymphocytes # 1.1 K/mm3 (0.7-4.5); Lymphocytes % 8.8 % (10-50); Mean Corpuscular HGB Conc 31.8 g/dL (31.8-35.4); Mean Corpuscular Hemoglobin 28.1 pg (27.0-31.2); Mean Corpuscular Volume 88.3 fl (81-99); Mean Platelet Volume 9.7 fl (7.4-10.4); Monocytes # 0.5 K/mm3 (0.1-1.0); Monocytes % 3.9 % (1.7-9.3); Neutrophils # 10.7 K/mm3 (1.8-7.8); Neutrophils % 86.2 % (37.0-80.0); Platelet Count 282 K/mm3 (142-424); Red Blood Count 3.84 M/mm3 (4.20-5.40); Red Cell Distribution Width 14.8 % (11.5-17.5); White Blood Count 12.5 K/mm3 (4.8-10.8)
[2023-04-14 06:40] LABS: MANUAL DIFFERENTIAL MANUAL DIFFERENTIAL (MANUAL DIFF)
[2023-04-14 06:42] LABS: Chloride 94 mmol/L (98-107); Potassium 4.8 mmoL/L (3.5-5.1); Sodium 137 mmol/L (136-145)
[2023-04-14 06:45] LABS: Alanine Aminotransferase 54 U/L (12-78); Albumin/Globulin Ratio 1.1 (1.1-1.8); Alkaline Phosphatase 81 U/L (38-126); Anion Gap 7.8 mEq/L (5-15); Aspartate Amino Transferase 32 U/L (14-36); Bilirubin,Total 0.4 mg/dl (0.2-1.3); Blood Urea Nitrogen 39 mg/dl (7-17); Carbon Dioxide 40 mmol/L (22.0-30.0); Creatinine Clearance Estimated 53 mL/min (50-200); Estimated Glomerular Filt Rate 53 ml/min (>60); GFR (African American) 64 ML/MIN (>60); Globulin 2.8 g/dL (1.3-3.2); Total Protein,Serum 5.8 g/dl (6.3-8.2)
[2023-04-14 06:46] LABS: Calcium 8.3 mg/dl (8.4-10.2); Glucose 101 mg/dl (74-100)
[2023-04-14] MEDS: ALBUTEROL-HFA 90MCG/PUFF INHALER 8GM 2 PUFF IH (06:58)
[2023-04-14 06:59] VITALS: O2SAT 90
[2023-04-14] MEDS: FLUTICASONE/UMECLIDIN/VILANTER 100/62.5/25MCG INHALER 1 PUFF IH (06:59)
[2023-04-14 07:04] LABS: Magnesium 2.1 mg/dl (1.6-2.3)
[2023-04-14 07:29] LABS: Hypochromasia 1+; Lymphocytes % 9 % (10-50); Monocytes % 3 % (2-9); Neutrophils % 88 % (42-76); Platelet Estimate Normal; Total Cells Counted 100
[2023-04-14 07:53] VITALS: PULSE 70
[2023-04-14 08:00] VITALS: BP 148/68; PULSE 69; RESP 18; TEMP 36.4; O2SAT 89; O2SAT 94
--- NOTE | 2023-04-14 08:21 | P.DS_ITS ---
General Admission date:: 04/04/23 Discharge date: 04/14/23 HPI HPI HPI: This is an 82-year-old female, senior living resident, with a history of atrial fibrillation, pacemaker in situ, COPD on 4 L nasal cannula, CHF, hypertrophic obstructive cardiomyopathy, CAD, and CKD presented to the emergency department for evaluation from nursing facility by EMS with concern for shortness of breath in the setting of COVID-19. Patient reports that she feels more short of air and has had increased edema to both of her legs. She denies any other concerns, such as chest pain, abdominal pain, or other issues. She states that overall she just does not feel well. EMS notes that she was stable on her home oxygen. They gave her 500 cc of IV fluids en route. Admitted for further work up. Hospital Course Hospital Course Hospital Course: 82-year-old female, senior living resident, with a history of atrial fibrillation, pacemaker in situ, COPD on 4 L nasal cannula, CHF, hypertrophic obstructive cardiomyopathy, CAD, and CKD presented to the emergency department for evaluation from nursing facility by EMS with concern for shortness of breath in the setting of COVID-19. on arrival at ER CXR was obtained, imaging reviewed. there is no new focal consolidation. Initial labs elevated for BNP, troponin, hyponatremia. Patient was having a slow improvement and was able to wean to 4 to 5 L nasal cannula oxygen. Unfortunately patient took a turn for the worse 72 hours ago and has had progressive decline with increased oxygen requirement. Currently on nonrebreather. Family is concerned patient has lost the will to live. Requested hospice consult. Patient has been admitted to hospice inpatient care center in [place]. Stable for discharge today for continued palliative/comfort care. Problems addressed as follows: Acute on chronic hypoxemic respiratory failure Exacerbation of heart failure with preserved ejection fraction COPD exacerbation COVID-19 -Patient initiated on treatment for hypoxemic respiratory failure secondary to COPD exacerbation and heart failure. Responded well to diuresis with Bumex initially. Chest imaging showed some slight improvement with her volume overload. Oxygen requirement gradually weaned over the initial 6 to 7 days of her hospitalization. Patient subsequently began to decline again with slight elevation in her white cell count and increased oxygen requirement. Was initiated on broad-spectrum antibiotics with cefepime twice daily. Patient unfortunately did not show significant clinical improvement. Extensive discussion with family, patient appears exhausted and family is concerned she has lost the will to live. Multiple discussions about goals of care. Decision made with family and care team to move forward with hospice consult. Patient is graciously been [facility] by [facility] [place]. Changes made to medication regimen with de-escalation of nonvital medications. Patient to be transferred for further end-of-life care today. Stable for discharge. Continues on nonrebreather. See med list for full details. An tibiotics discontinued. Chronic anemia: Hemoglobin 10.8 today. Others chronic conditions: Afib, CAD, Pacemaker in situ, COPD, GERD: Continue home metoprolol 25 mg twice daily Continue Xarelto 15 mg daily Continue levothyroxine 75 mcg daily Spent 30 minutes in discharge counseling, discussion with family, discussion with hospice, chart review, documentation, and direct care with patient. Exam Data for Last 24 hours Vital signs and Labs for Last 24 Hours: Temp Pulse Resp BP Pulse Ox O2 Del Method O2 Flow Rate 97.6 F 69 18 148/68 H 89 L Venturi Mask 15 04/14/23 08:00 04/14/23 08:00 04/14/23 08:00 04/14/23 08:00 04/14/23 08:00 04/14/23 08:00 04/14/23 08:00 FiO2 100 04/14/23 06:59 Laboratory Results - last 24 hr 04/14/23 06:15: WBC 12.5 H, RBC 3.84 L, Hgb 10.8 L, Hct 33.9 L, MCV 88.3, MCH 28.1, MCHC 31.8, RDW 14.8, Plt Count 282, MPV 9.7, Neut % (Auto) 86.2 H, Lymph % (Auto) 8.8 L, [place] % (Auto) 3.9, Eos % (Auto) 0.6, Baso % (Auto) 0.5, Neut # (Auto) 10.7 H, Lymph # (Auto) 1.1, [place] # (Auto) 0.5, Eos # (Auto) 0.1, Baso # (Auto) 0.1, Total Counted 100, Neutrophils % (Manual) 88 H, Lymphocytes % (Manual) 9 L, Monocytes % (Manual) 3, Platelet Estimate Normal, Hypochromasia 1+, Sodium 137, Potassium 4.8, Chloride 94 L, Carbon Dioxide 40 H, Anion Gap 7.8, BUN 39 H, Creatinine 1.00, Estimated Creat Clear 53, Estimated GFR 53 L, Est GFR ( Amer) 64, Glucose 101 H D, Calcium 8.3 L, Magnesium 2.1, Total Bilirubin 0.4, AST 32, ALT 54 D, Alkaline Phosphatase 81, Total Protein 5.8 L, Albumin 3.0 L, Globulin 2.8, Albumin/Globulin Ratio 1.1 I & O for Last 24 hours: Intake & Output 04/11/23 04/12/23 04/13/23 04/14/23 23:59 23:59 23:59 23:59 Intake Total 1040 / 1040 300 / 510 520 / 520 Output Total 0 / 0 250 / 250 0 / 0 425 / 425 Balance 1040 / 1040 50 / 260 520 / 520 -425 / -425 Weight 73.663 kg 73.255 kg 80.484 kg 78.635 kg Constitutional Constitutional: moderate distress, chronically ill appearing and somnolent *Routine HEENT Exam Head: Present normocephalic Eye: Present EOMI and PERRL ENT: Present mucous membranes dry *Routine Neck Exam Neck: Present supple; Absent lymphadenopathy *Routine Respiratory Exam Respiratory: Present accessory muscle use, prolonged expiratory phase, rhonchi, wheezes and crackles *Routine Cardiovascular Exam Cardiovascular: Present RRR *Routine Abdominal Exam Abdominal: Present soft and normoactive bowel sounds; Absent tenderness *Routine Extremities Exam Extremities: Present edema (1-2 + in BLE); Absent cyanosis or clubbing *Routine Skin Exam Skin: Present warm; Absent rash *Routine Neurological Exam Neurological: Present alert, altered mental status and moving all extremities Comments: oriented to self, weak globally, fatigued Results Data Completed and Pending Labs on day of discharge: Labs from last 24 hours 04/14/23 06:15 WBC 12.5 H RBC 3.84 L Hgb 10.8 L Hct 33.9 L MCV 88.3 MCH 28.1 MCHC 31.8 RDW 14.8 Plt Count 282 MPV 9.7 Neut % (Auto) 86.2 H Lymph % (Auto) 8.8 L [place] % (Auto) 3.9 Eos % (Auto) 0.6 Baso % (Auto) 0.5 Neut # (Auto) 10.7 H Lymph # (Auto) 1.1 [place] # (Auto) 0.5 Eos # (Auto) 0.1 Baso # (Auto) 0.1 Total Counted 100 Neutrophils % (Manual) 88 H Lymphocytes % (Manual) 9 L Monocytes % (Manual) 3 Platelet Estimate Normal Hypochromasia 1+ Sodium 137 Potassium 4.8 Chloride 94 L Carbon Dioxide 40 H Anion Gap 7.8 BUN 39 H Creatinine 1.00 Estimated Creat Clear 53 Estimated GFR 53 L Est GFR ( Amer) 64 Glucose 101 H D Calcium 8.3 L Magnesium 2.1 Total Bilirubin 0.4 AST 32 ALT 54 D Alkaline Phosphatase 81 Total Protein 5.8 L Albumin 3.0 L Globulin 2.8 Albumin/Globulin Ratio 1.1 DS: Diagnosis Discharge Diagnosis (1) Acute and chronic respiratory failure with hypoxia: Status: Acute Code(s): J96.21 - Acute and chronic respiratory failure with hypoxia (2) Acute exacerbation of chronic obstructive pulmonary disease: Status: Acute Code(s): J44.1 - Chronic obstructive pulmonary disease with (acute) exacerbation (3) Acute exacerbation of CHF (congestive heart failure): Status: Acute Code(s): I50.9 - Heart failure, unspecified Qualifiers: Heart failure type: unspecified Qualified Code(s): I50.9 - Heart failure, unspecified (4) Heart failure with preserved left ventricular function (HFpEF): Status: Acute Code(s): I50.30 - Unspecified diastolic (congestive) heart failure (5) Hyponatremia: Status: Acute Code(s): E87.1 - Hypo-osmolality and hyponatremia (6) COVID-19: Status: Acute Code(s): U07.1 - COVID-19 (7) H/O iron deficiency anemia: Status: Acute Code(s): Z86.2 - Personal history of diseases of the blood and blood-forming organs and certain disorders involving the immune mechanism (8) Afib: Status: Acute Code(s): I48.91 - Unspecified atrial fibrillation Qualifiers: Atrial fibrillation type: unspecified Qualified Code(s): I48.91 - Unspecified atrial fibrillation (9) Cardiac pacemaker in situ: Status: Acute Code(s): Z95.0 - Presence of cardiac pacemaker (10) Chronic kidney disease: Status: Acute Code(s): N18.9 - Chronic kidney disease, unspecified Qualifiers: Chronic kidney disease stage: stage 3 (moderate) Chronic kidney disease stage 3 subtype: stage 3a (GFR 45-59) Qualified Code(s): N18.31 - Chronic kidney disease, stage 3a Meds Home Medications and Allergies Home Medications Medication Instructions Recorded Confirmed Type alprazolam 0.5 mg tablet 0.5 mg PO TIDP PRN Anxiety 06/11/17 04/05/23 History levothyroxine 75 mcg tablet 75 mcg PO DAILYDM Thyroid 06/11/17 04/05/23 History digoxin 125 mcg (0.125 mg) tablet 125 mcg PO DAILY Heart Rate 09/14/20 04/05/23 History ipratropium 0.5 mg-albuterol 3 mg 3 ml inhalation Q6HP Shortness of 03/29/21 04/05/23 History (2.5 mg base)/3 mL nebulization breath soln metoprolol tartrate 50 mg tablet 25 mg PO BID High Blood Pressure 10/06/21 04/05/23 History fluticasone 250 mcg-salmeterol 50 1 inh inhalation BIDRT Breathing 03/21/23 04/05/23 History mcg/dose blistr powdr for Problems inhalation rivaroxaban 15 mg tablet 15 mg PO QPMWITHMEAL Blood 03/21/23 04/05/23 History thinner/Afib acetaminophen 500 mg tablet 1,000 mg PO Q8HP PRN Fever Or Pain 04/05/23 04/05/23 History omeprazole magnesium 20 mg 20 mg PO BID Acid Reflux 04/05/23 04/08/23 History capsule,delayed release morphine 2 mg/mL intravenous 2 mg IV Q4HP PRN Severe Pain 04/14/23 Rx syringe (7-10) #0 mL nystatin 100,000 unit/mL oral 500,000 unit (5 mL) PO QID #0 mL 04/14/23 Rx suspension ondansetron HCl (PF) 4 mg/2 mL 4 mg (2 mL) IV Q8HP PRN Nausea #0 04/14/23 Rx injection solution mL New Prescriptions to Start Prescriptions: Allergies Allergy/AdvReac Type Severity Reaction Status Date / Time cefdinir [From Omnicef] Allergy Intermediate Verified 03/12/23 11:19 Iodine and Iodide Containing Allergy Intermediate Verified 03/12/23 11:19 Produc atorvastatin [From Lipitor] Allergy Mild Verified 03/12/23 11:19 cefixime [From Suprax] Allergy Mild I-RASH Verified 03/12/23 11:19 cephalexin [From Keflex] Allergy Mild DIARRHEA Verified 03/12/23 11:19 etodolac Allergy Mild Verified 03/12/23 11:19 pantoprazole Allergy Mild NIGHTMARES Verified 03/12/23 11:19 prednisone Allergy Mild SHORTNESS Verified 03/12/23 11:19 OF BREATH cefepime Allergy Unknown Verified 03/12/23 11:19 diltiazem Allergy Unknown BOTHERED Verified 03/12/23 11:19 HEART isosorbide Allergy Unknown Verified 03/12/23 11:19 morphine [MORPHINE] Allergy Unknown Verified 03/12/23 11:19 rosuvastatin Allergy Unknown UNK RXN Verified 03/12/23 11:19 Sulfa (Sulfonamide Allergy Unknown URINARY Verified 03/12/23 11:19 Antibiotics) PROBLEMS amoxicillin AdvReac Mild DIARRHEA Verified 03/12/23 11:19 clarithromycin AdvReac Mild N/V/D Verified 03/12/23 11:19 clavulanic acid AdvReac Mild DIARRHEA Verified 03/12/23 11:19 esomeprazole [From Nexium] AdvReac Mild NIGHTMARES Verified 03/12/23 11:19 gabapentin AdvReac Mild URINARY Verified 03/12/23 11:19 PROBLEMS, SWELLING levofloxacin [From Levaquin] AdvReac Mild PAINFUL Verified 03/12/23 11:19 JOINTS montelukast [From Singulair] AdvReac Mild Verified 03/12/23 11:19 naproxen AdvReac Mild NVD Verified 03/12/23 11:19 nitrofurantoin AdvReac Mild SHAKES Verified 03/12/23 11:19 [From Macrobid] lansoprazole [From Prevacid] AdvReac Unknown SHORT OF Verified 03/12/23 11:19 BREATH Discharge Plan Disposition Patient Disposition: Hospice - Medical Facility Condition: Serious Discharge Order Discharge Orders: Discharge Order (Routine); Ordered 04/14/23 Ordered By: Ramirez Thomas Follow up Plan Prescriptions/Medication Reconciliation: New nystatin 100,000 unit/mL Suspension 500,000 unit PO QID Qty: 0 0RF ondansetron HCl (PF) 4 mg/2 mL Solution 4 mg IV Q8HP PRN (Reason: Nausea) Qty: 0 0RF morphine 2 mg/mL Syringe 2 mg IV Q4HP PRN (Reason: Severe Pain (7-10)) Qty: 0 0RF Continued alprazolam 0.5 mg tablet 0.5 mg PO TIDP PRN (Reason: Anxiety) levothyroxine 75 mcg tablet 75 mcg PO DAILYDM metoprolol tartrate 50 mg tablet 25 mg PO BID digoxin 125 MCG tablet 125 mcg PO DAILY ipratropium-albuterol 3 ML solution for nebulization 3 ml inhalation Q6HP fluticasone propion-salmeterol 250-50 mcg/dose blister with device 1 inh INHALATION BIDRT rivaroxaban 15 mg tablet 15 mg PO QPMWITHMEAL omeprazole magnesium 20 mg Capsule,Delayed Release(Dr/Ec) 20 mg PO BID acetaminophen 500 mg Tablet 1,000 mg PO Q8HP PRN (Reason: Fever Or Pain) Discontinued bumetanide 2 MG tablet 2 mg PO BIDL albuterol sulfate 90 mcg/actuation HFA aerosol inhaler 2 puff INHALATION Q4HP PRN (Reason: Shortness Of Breath) sennosides [senna] 8.6 mg Tablet 17.2 mg PO DAILY loperamide [Imodium] 2 mg Capsule 2 mg PO Q6HP PRN (Reason: Diarrhea) fexofenadine 60 mg Capsule 60 mg PO BID ferrous sulfate 325 mg (65 mg iron) Tablet 325 mg PO DAILY multivitamin Tablet 1 tab PO DAILY Problem Reconciliation Problems Reviewed?: Yes Patient Discharge Instructions ACTIVITY: Bed rest DIET: continue same diet Patient Instructions: DI for Heart Failure, DI for Chronic Obstructive Pulmonary Disease, DI for Pneumonia -- Adult, DI for Angina, Peripherally Inserted Central Catheter Infections, DI for Respiratory Failure, DI for COVID- 19 (Suspected or Confirmed ) Providers Primary Care Provider: Tha Rivera Admit Provider: Ashutosh Adame Attending Provider: Ashutosh Adame
[2023-04-14] MEDS: METOPROLOL TARTRATE 25MG TABLET 25 MG PO (08:41)
[2023-04-14 08:42] VITALS: PULSE 72
[2023-04-14] MEDS: NYSTATIN SUSP 500,000 UNITS/5ML UDC 500000 UNIT PO (08:42)
[2023-04-14] MEDS: DIGOXIN 0.125MG TABLET 125 MCG PO (08:42)
[2023-04-14] MEDS: LORATADINE 10MG TABLET 10 MG PO (08:42)
[2023-04-14] MEDS: ALPRAZolam 0.5MG TABLET 0.5 MG PO (09:01)
[2023-04-14] MEDS: MORPHINE 2MG/ML SYRINGE 2 MG IV (11:25)
== END 2023-04-14 12:09 | disposition hospice, home (50) | DRG 280 ==
LOC: ER 21:46 → 2ND 04-05 01:17
PROVIDERS: Internal Medicine Adolescent Medicine; Internal Medicine Pulmonary Disease; Nurse Practitioner Family; Admitting Provider Internal Medicine; Emergency Provider Emergency Medicine; PCP Internal Medicine Adolescent Medicine; Visit Provider Internal Medicine
DX: I50.33 Acute on chronic diastolic (congestive) heart failure (principal); I21.4 Non-ST elevation (NSTEMI) myocardial infarction; J96.21 Acute and chronic respiratory failure with hypoxia; U07.1 COVID-19; E87.1 Hypo-osmolality and hyponatremia; I42.1 Obstructive hypertrophic cardiomyopathy; D63.1 Anemia in chronic kidney disease; N18.31 Chronic kidney disease, stage 3a; Z51.5 Encounter for palliative care; Z86.2 Personal history of diseases of the blood and blood-forming organs and certain disorders involving the immune mechanism; Z87.19 Personal history of other diseases of the digestive system; Z95.0 Presence of cardiac pacemaker; I25.10 Atherosclerotic heart disease of native coronary artery without angina pectoris; I48.91 Unspecified atrial fibrillation; J43.9 Emphysema, unspecified; Z87.891 Personal history of nicotine dependence; Z99.81 Dependence on supplemental oxygen; Z96.652 Presence of left artificial knee joint; K21.9 Gastro-esophageal reflux disease without esophagitis; M19.90 Unspecified osteoarthritis, unspecified site
CPT/HCPCS: 36410; 36415; 71045; 80048; 80053; 80061; 82803; 83605; 83735; 83880; 84484; 85007; 85025; 87070; 87081; 87205; 87636; 93005; 94640; 94761; 97110; 97163; 97165; 97530; 97535; 99291; J0456